=== PATIENT | male | born 1955 | race Caucasian/White ===

== ENCOUNTER 2023-04-01 11:08 | Outpatient (OUT) | payer MEDICARE, OTHER, SELFPAY ==
--- NOTE | 2023-04-01 11:26 | MR_ITS ---
The [address] [address] Patient Name: SHANTELL SPENCER MRN: [id number] date: 1955 Sex: M Assigned Patient Location: MRI Current Patient Location: MRI Accession/Order Number: [id number] Exam Date: 04/01/2023 11:30 Report Date: 04/02/2023 17:21 At the request of: KING DUNN Procedure: MR thoracic spine wo con EXAMINATION: MR thoracic spine wo con HISTORY: Chronic Right Sided Thoracic Back Pain M54.6 COMPARISON: No relevant comparison available. TECHNIQUE: Axial T2; Sagittal T1, T2, and Stir sequences. Images were performed without contrast. FINDINGS: CORD: Normal caliber, contour, and signal intensity. BONES: Mild edema within contiguous endplates of T7 and T8 vertebral bodies, greatest at the anterior corners. No loss of vertebral body height. DISCS: Moderate narrowing T7-8; no increased T2 signal within the vertebral body to suggest infection or inflammatory changes. PARASPINAL AREA: No visible mass. OTHER: Negative. IMPRESSION: 1. T7-8 moderate degenerative disc disease and Modic type I early degenerative endplate changes. No significant central canal or foramen stenosis. Electronically authenticated by: GM SAPP Date: 04/02/2023 17:21
== END 2023-04-01 11:09 ==
PROVIDERS: PCP Family Medicine; Visit Provider Family Medicine
DX: M54.6 Pain in thoracic spine (principal); G89.29 Other chronic pain; M51.34 Other intervertebral disc degeneration, thoracic region
CPT/HCPCS: 72146

== ENCOUNTER 2023-08-12 10:43 | Outpatient (OUT) | payer MEDICARE, OTHER, SELFPAY ==
[2023-08-12 12:05] LABS: Thyroid Stimulating Hormone 0.015 uIU/mL (0.358-3.740)
== END 2023-08-12 10:44 | disposition home or self-care (01) ==
LOC: LAB 10:45
PROVIDERS: PCP Family Medicine; Visit Provider Family Medicine
DX: E03.9 Hypothyroidism, unspecified (principal)
CPT/HCPCS: 36415; 84439; 84443

== ENCOUNTER 2023-08-30 08:40 | Outpatient (OUT) | payer MEDICARE, OTHER, SELFPAY ==
--- NOTE | 2023-08-30 07:45 | NM_ITS ---
Patient: SHANTELL SPENCER Exam Date: 08/30/2023 : 1955 Gender:M Ordering : DR Eddie Rabago . Admission #: [id number] Family : Order #: [id number] CLICK HERE TO VIEW EXAM RADIOLOGY REPORT PROCEDURE: NM ALEXA PERF SPECT REST STR COMPARISON: None. INDICATIONS: CHEST PAIN TECHNIQUE: Exam Description: Stress/Rest two day protocol gated SPECT Rest Imagin.1 mCi Tc-99m Cardiolite IV on 08/30/2023 Stress Imaging 30.8 mCi Tc-99m Cardiolite IV on 08/30/2023 Exercise Protocol: Andreas Heart Rate (bpm): Rest: 73 Max: 142 PMHR: 93 Blood Pressure: Rest: 122/84 Max: 170/96 Exercise Time: Minutes: Seconds: Stage Reached: Stage: Mets Symptoms: none Rest and peak stress ECG findings were abnormal and the exercise portion of the study was abnormal per attending physician Dr. Hankins . For more details please see separate cardiac stress test report. FINDINGS: QUALITY OF STUDY: Excellent. PERFUSION DEFECT: None. LOCATION: N/A SIZE: N/A. SEVERITY: N/A. TYPE: N/A. WALL MOTION: Normal. LV SIZE: Normal. 88 mL. TID / TCD: None; 0.8 LVEF: Normal. Calculated EF 66%. SUMMARY: Myocardial perfusion imaging study is NORMAL. CONCLUSION: 1. No reversible ischemia 2. Abnormal exercise test secondary to ECG findings Dictated by: Yusuf Murphy MD on 08/31/2023 at 12:04 Approved by: Yusuf Murphy MD on 08/31/2023 at 12:06
--- NOTE | 2023-08-30 12:11 | P.STRESS_ITS ---
Stress Test Stress Test Requesting physician: Eddie Rabago Procedure: Exercise Cardiolite stress test General Information: Reason for Stress Test: Chest pain Cardiac History and Risk Factors: Denies personal history. Father has afib, s/p CABG. Resting 12 - Lead Electrocardiogram: Rate & rhythm: Normal sinus at a rate of 73. [place]: Normal T-waves: Normal ST-segments:Normal Stress Test: Protocol: Andreas protocol was followed, with injection of Cardiolite once target heart rate was achieved. Exercise capacity: Good exercise capacity. Total exercise time of 7 minutes 33 seconds reached Andreas stage 3 at 14MPH, 15% grade, & 10.1 METs. Blood pressure: Initial: 122/84, Maximum: 170/96, Recovery: 118/76 Rate & rhythm: Patient remained in sinus rhythm during the exercise and recovery portions of the study.? The maximum heart rate was 142, which was 93% of the maximum predicted heart rate 152. ST-segments & T-waves: Throughout the exercise portion of the test, the patient developed ST-segment changes, most notably at the 7 minute francesca, with up to 1.5mm ST-segment depression in leads II, III, aVF, and V3, questionably V4. Patient response/symptoms: There were no symptoms similar to the chief complaint. Interpretation: This is an abnormal exercise stress test given ST-segment depression in the inferior and lateral leads. No reproducible chest pain. Cardiolite imaging interpretation will be reported separately. Clinical correlation required.?
== END 2023-08-30 08:41 | disposition home or self-care (01) ==
LOC: NM 08:40
PROVIDERS: PCP Family Medicine; Visit Provider Family Medicine
DX: R07.9 Chest pain, unspecified (principal)
CPT/HCPCS: 78452; 93017; A9500

== ENCOUNTER 2023-12-10 10:27 | Outpatient (REF) | payer MEDICARE, OTHER, SELFPAY ==
--- OUTSIDE RECORDS SUMMARY | 2023-12-10 10:50 | XMS_ITS | CCD ---
Author Name Unknown Address [id number] [place] [address] Organization [facility] Care Team Providers Care Belt Lacer Name Role Phone King Dunn MD Primary Care Provider [phone] Keshawn Banerjee Unavailable King Dunn MD Primary Care Provider [phone] MD King Dunn Primary Care Provider [phone] Brayan Davila Attending Provider Brayan Davila Attending Unavailable Brayan Davila Admitting Unavailable King Dunn Primary Care Unavailable Brayan Davila Attending Unavailable Brayan Davila Admitting Unavailable King Dunn Primary Care Unavailable Alda Warren Attending Unavailable Alda Warren Admitting Unavailable King Dunn Primary Care Unavailable King Dunn MD Primary Care Provider [phone] King Dunn MD Primary Care Provider [phone] DR KING MCGUIRE Consulting Unavailable HOY ., DR MALIK Attending Unavailable HOY ., DR MALIK Admitting Unavailable HOY ., DR MALIK Primary Care Unavailable SENAIT, DR GM Smith Consulting Unavailable NOAH MELO Consulting Unavailable SHAUN ., DR MALIK Consulting Unavailable SHAUN ., DR MALIK Admitting Unavailable HOY ., DR MALIK Attending Unavailable EDUARDOY ., DR MALIK Primary Care Unavailable EDUARDOY ., DR MALIK Consulting Unavailable EDUARDOY ., DR MALIK Admitting Unavailable SHAUN ., DR MALIK Attending Unavailable MANI, DR MAURA Reyna Consulting Unavailable HITESH, VENICE Admitting Unavailable HITESH, VENICE Consulting Unavailable HITESH, VENICE Attending Unavailable SHAUN ., DR MALIK Primary Care Unavailable HOY ., DR MALIK Consulting Unavailable HOY ., DR MALIK Admitting Unavailable HOY ., DR MALIK Primary Care Unavailable HOY ., DR MALIK Attending Unavailable WEST, DR MAURA Reyna Consulting Unavailable HOY ., DR MALIK Primary Care Unavailable HOY ., DR MALIK Consulting Unavailable HOY ., DR MALIK Admitting Unavailable HOY ., DR MALIK Attending Unavailable HOY ., DR MALIK Consulting Unavailable HOY ., DR MALIK Admitting Unavailable HOY ., DR MALIK Attending Unavailable HOY ., DR MALIK Primary Care Unavailable HOY ., DR MALIK Consulting Unavailable HOY ., DR MALIK Admitting Unavailable HOY ., DR MALIK Attending Unavailable HOY ., DR MALIK Primary Care Unavailable WEST, DR MAURA Reyna Consulting Unavailable HOY ., DR MALIK Consulting Unavailable HOY ., DR MALIK Admitting Unavailable HOY ., DR MALIK Attending Unavailable HOY ., DR MALIK Primary Care Unavailable WEST, DR MAURA Reyna Consulting Unavailable MISC, DR MAST Consulting Unavailable MISC, DR MAST Attending Unavailable HOY ., DR MALIK Primary Care Unavailable MISC, DR MAST Admitting Unavailable HOY ., DR MALIK Consulting Unavailable HOY ., DR MALIK Attending Unavailable HOY ., DR MALIK Admitting Unavailable HOY ., DR MALIK Primary Care Unavailable HOY ., DR MALIK Consulting Unavailable HOY ., DR MALIK Attending Unavailable HOY ., DR MALIK Admitting Unavailable HOY ., DR MALIK Primary Care Unavailable MISC, DR MAST Consulting Unavailable MISC, DR MAST Attending Unavailable HOY ., DR MALIK Primary Care Unavailable MISC, DR MAST Admitting Unavailable LORA TOTH Attending Unavailable ELTAJOSE LUIS, LORA Attending Unavailable BRYANNA MARC Attending Unavailable BRYANNA MARC Attending Unavailable AUDELIA SIERRA Attending Unavailable HOY, KING M Primary Care Unavailable HOY, KING M Primary Care Unavailable BRAYAN DAVILA Referring Unavailable HOY, KING M Primary Care Unavailable BRAYAN DAVILA Attending Unavailable HOY, KING M Primary Care Unavailable BRAYAN DAVILA Referring Unavailable HOY, KING M Primary Care Unavailable BRAYAN DAVILA Referring Unavailable JOSE LUIS MORRISON Attending Unavailable HOY, KING M Primary Care Unavailable HOY, KING M Primary Care Unavailable BRAYAN DAVILA Referring Unavailable HOY, KING M Primary Care Unavailable BRAYAN DAVILA Referring Unavailable EDUARDOY, KING M Primary Care Unavailable BRAYAN DAVILA Referring Unavailable HOY, KING M Primary Care Unavailable HOY, KING M Primary Care Unavailable HOY, KING M Primary Care Unavailable BRAYAN DAVILA Referring Unavailable JOSE LUIS MORRISON Attending Unavailable SHAUN, KING M Primary Care Unavailable JOSE LUIS MORRISON Referring Unavailable JOSE LUIS MORRISON Attending Unavailable EDUARDOY, KING M Primary Care Unavailable HOY, KING M Primary Care Unavailable BRAYAN DAVILA Referring Unavailable AYO STEELE Attending Unavailable VENICE DIA Attending Unavailable PEDRO DEL CASTILLO Referring Unavailable PEDRO DEL CASTILLO Attending Unavailable AYO STEELE Attending Unavailable HIREN LUDWIG Attending Unavailable PEDRO DEL CASTILLO Referring Unavailable Allergies Allergy Classification Reported Allergen(s) Allergy Type Date of Onset Reaction(s) Facility (20 sources) Ciprofloxacin; Translations: [CIPROFLOXACIN] Drug Allergy 7 Rash [facility] (20 sources) Sulfonamides (Antibiotic); Translations: [SULFA (SULFONAMIDE ANTIBIOTICS)] Drug Allergy 3 Unknown [facility] (1 source) Sulfonamides (Antibiotic) Propensity to adverse reactions rash [facility] Other (1 source) Ciprofloxacin Drug Allergy 8 [facility] (1 source) Sulfonamides (Antibiotic) Drug allergy (disorder) 8 [facility] (1 source) Ciprofloxacin Drug Allergy 4 [facility] (1 source) Sulfonamides (Antibiotic) Drug allergy (disorder) 4 [facility] Medications Current Medications Medication Drug Class(es) Dates Sig (Normalized) Sig (Original) azaTHIOprine 50 mg oral tablet (7 sources) Purine Antimetabolite Start: 04-22-2021 End: 04-09-2022 azaTHIOprine (IMURAN) 50 mg tablet Take 150 mg by mouth. 0 05/19/2021 04/09/2022 Discontinued Comment on above: Take 150 mg by mouth . esomeprazole 20 mg delayed release oral capsule (20 sources) Proton Pump Inhibitor Start: 11-22-2017 take 1 capsule by mouth once daily Esomeprazole Magnesium (Nexium) 20 mg Capsule,Delayed Release(Dr/Ec) Active 20 MG PO Daily November 22, 2017 1:00am Comment on above: Take 20 mg by mouth. mesalamine 66.7 mg/ml enema (14 sources) Aminosalicylate Start: 01-10-2022 End: 04-09-2022 take 4 g rectal route every twenty-four hours as needed mesalamine (ROWASA) 4 gram/60 mL enema 60 mL by RECTAL route at bedtime as needed. 28 Each 2 01/10/2022 04/09/2022 Discontinued Start: 09-21-2021 End: 04-09-2022 Mesalamine (LIALDA) 1.2 gram EC tablet Start: 11-08-2018 take 4 tablets by mo uth every twenty-four hours Mesalamine 1.2 GM 4 tablets Orally Once a day for 90 days Nov, Active Start: 11-22-2017 Mesalamine (As acol Hd) 800 tablet,delayed release (DR/EC) Active 800 MG PO Twice daily November 22, 2017 1:00am Comment on above: 60 mL by RECTAL rout e at bedtime as needed. 24 hr metoprolol succinate 25 mg extended release oral tablet (20 sources) beta-Adrenergic Khadar Start: 09-05-2021 End: 02-05-2023 take 1 tablet by mouth every twenty-four hours metoprolol succinate ER (TOPROL XL) 25 mg 24 hr tablet Take 25 mg by mouth. 0 09/05/2021 02/05/2023 Discontinued (Course of therapy completed) Comment on above: Take 25 mg by mouth. predniSONE 10 mg oral tablet (5 sources) Start: 01-30-2022 End: 04-09-2022 take 4 tablets by mouth once daily, then take 1 tablet by mouth every week predniSONE (DELTASONE) 10 mg tablet Take 4 tablets (40 mg) po every day for 1 week, then taper by 1 tablet (10 mg) once per week 70 tablet 0 01/30/2022 04/09/2022 Discontinued Comment on above: Take 4 tablets (40 m g) po every day for 1 week, then taper by 1 tablet (10 mg) once per week Completed/Discontinued Medications Medication Drug Class(es) Dates Sig (Normalized) Sig (Original) calcium carbonate 1250 mg oral tablet (12 sources) Start: 02-05-2023 take 1 tablet by mouth once daily calcium carbonate (OS-MANDY 500) 500 mg calcium (1,250 mg) tablet Take 1 tablet by mouth once daily. 0 02/05/2023 Active Comment on above: Take 1 tablet by ferny th once daily. cetirizine hydrochloride 5 mg oral tablet (20 sources) Histamine-1 Receptor Antagonist take 1 tablet by mouth every twenty-four hours as needed cetirizine (ZYRTEC) 5 mg tablet Take 5 mg by mouth at bedtime as needed. 0 Active Cetirizine HCl A ctive Comment on above: Take 5 mg by mouth a t bedtime as needed. fluocinonide 0.5 mg/ml topical cream (12 sources) Corticosteroid Start: 01-29-2023 fluocinonide (LIDEX) 0.05 % cream Apply 1 application to affected area twice daily. No longer than 5 days in a row per week 60 g 1 01/29/2023 Active Comment on above: Apply 1 application to affected area twice daily. No longer than 5 days in a row per week fluticasone propionate 0.05 mg/actuat metered dose nasal spray (20 sources) Corticosteroid fluticasone (AG NASE) 50 mcg/actuation nasal spray Use 1 Troy in the nose at bedtime as needed. 0 Active Flonase Active Comment on above: Use 1 Troy in the n ose at bedtime as needed. levothyroxine sodium 0.15 mg oral tablet (20 sources) l-Thyroxine Start: 09-04-2016 levothyroxine (SYNTHROID) 150 mcg tablet Take 150 mcg by mouth. 0 09/04/2016 Active Synthroid Active Comment on above: Take 150 mcg by mout h. nitroglycerin 0.4 mg sublingual tablet (20 sources) Nitrate Vasodilator Start: 08-28-20 take 1 tablet under the tongue every twenty-four hours as needed nitroglycerin sublingual (NITROQUICK) 0.4 mg SL tablet Dissolve 0.4 mg under the tongue at bedtime as needed. 0 08/28/2021 Active Comment on above: Dissolve 0.4 mg unde r the tongue at bedtime as needed. verapamil hydrochloride 180 mg extended release oral tablet (20 sources) Calcium Channel Khadar Start: 10-30-20 verapamil SR (CALAN SR, ISOPTIN SR) 180 mg CR tablet Take 180 mg by mouth. 0 10/30/2020 Active Verapamil HCl Ac tive Comment on above: Take 180 mg by mouth . Problems Active Problems Problem Classification Problem Date Documented Date Episodic/Chronic Abdominal pain (4 sources) Left upper quadrant pain; Translations: [Left upper quadrant pain] Onset: 07-27-2023 Episodic Allergic reactions (4 sources) Other specified dermatitis; Translations: [OTHER SPECIFIED DERMATITIS] Onset: 12-22-2022 Episodic Coronary atherosclerosis and other heart disease (4 sources) Atherosclerotic heart disease of [place] coronary artery without angina pectoris; Translations: [ASHD CAHUILLA CA W/O ANGINA PECTORIS] Onset: 07-22-2022 Chronic Disorders of lipid metabolism (5 sources) Hyperlipidemia, unspecified; Translations: [Mixed hyperlipidemia] Onset: 07-30-2022 Chronic Nutritional deficiencies (4 sources) Vitamin D deficiency; Translations: [Vitamin D deficiency, unspecified] Onset: 08-09-2023 Chronic Osteoarthritis (1 source) Unilateral primary osteoarthritis, left hip; Translations: [UNI PRIM OSTEOARTHRITIS LT HIP] Onset: 09-23-2022 Chronic Other aftercare (1 source) Long-term current use of systemic steroid; Translations: [MCC (current) use of systemic steroids] Episodic Other aftercare (4 sources) Patient encounter status; Translations: [Other exterminator (current) drug therapy] Episodic Other aftercare (1 source) Other exterminator (current) drug therapy; Translations: [OTH HAIR WORKER CURRENT DRUG THERAPY] Onset: 12-28-2022 Episodic Other and unspecified benign neoplasm (1 source) Senile angioma; Translations: [Hemangioma of skin and subcutaneous tissue] 07-06-2023 Episodic Other bone disease and musculoskeletal deformities (2 sources) Osteopenia; Translations: [Other specified disorders of bone density and structure, unspecified site] 08-09-2023 Episodic Other connective tissue disease (4 sources) Pain in left lower leg; Translations: [PAIN IN LEFT LOWER LEG] Onset: 02-25-2023 Episodic Other non-epithelial cancer of skin (1 source) History of malignant basal cell neoplasm of skin; Translations: [Personal history of other malignant neoplasm of skin] 07-06-2023 Episodic Other skin disorders (1 source) Actinic keratosis; Translations: [Actinic keratosis] 07-06-2023 Episodic Other skin disorders (1 source) Seborrheic keratosis; Translations: [Other seborrheic keratosis] 07-06-2023 Episodic Regional enteritis and ulcerative colitis (20 sources) Ulcerative colitis; Translations: [Ulcerative colitis, unspecified, without complications] Onset: 2021 Resolved: 2021 01-26-2022 Chronic Residual codes; unclassified (4 sources) Obstructive sleep apnea (adult) (pediatric); Translations: [OBSTRUCTIVE SLEEP APNEA] Onset: 09-09-2022 Chronic Spondylosis; intervertebral disc disorders; other back problems (1 source) Radiculopathy, lumbar region; Translations: [RADICULOPATHY LUMBAR REGION] Onset: 03-01-2023 Episodic Thyroid disorders (4 sources) Hypothyroidism, unspecified; Translations: [HYPOTHYROIDISM UNSPECIFIED] Onset: 11-17-2022 Chronic Unclassified (1 source) K51.90 - Ulcerative colitis, unspecified, without complications; Translations: [K51.90 - Ulcerative colitis, unspecified, without complications] Onset: 04-24-2022 Unclassified (1 source) L30.8 - Other specified dermatitis; Translations: [L30.8 - Other specified dermatitis] Onset: 02-04-2022 Unclassified (3 sources) CONTACT W/AND (SUSP) EXPOS COVID-19; Translations: [CONTACT W/AND (SUSP) EXPOS COVID-19] Onset: 11-05-2022 Unclassified (1 source) COUGH, UNSPECIFIED; Translations: [COUGH, UNSPECIFIED] Onset: 11-05-2022 Viral infection (1 source) COVID-19; Translations: [COVID-19] Onset: 05-21-2022 Past or Other Problems Problem Classification Problem Date Documented Da te Episodic/Chronic Gastrointestinal hemorrhage (1 source) Rectal hemorrhage; Translations: [Hemorrhage of anus and rectum] Episodic Noninfectious gastroenteritis (1 source) Non-specific colitis; Translations: [Noninfective gastroenteritis and colitis, unspecified] Episodic Other circulatory disease (1 source) Other specified symptoms and signs involving the circulatory and respiratory systems; Translations: [OTH SPEC SX SIGNS INVLV CIRC RS] Onset: 05-21-2022 Episodic Other gastrointestinal disorders (1 source) Diarrhea; Translations: [Diarrhea, unspecified] Episodic Other gastrointestinal disorders (1 source) Abdominal bloating; Translations: [Abdominal distension (gaseous)] Episodic Other non-traumatic joint disorders (4 sources) Pain in left hip; Translations: [PAIN IN LEFT HIP] Onset: 09-18-2022 Episodic Other screening for suspected conditions (not mental disorders or infectious disease) (1 source) Encounter for screening for malignant neoplasm of prostate; Translations: [ENC SCREEN MALIG NEOPLASM PROSTATE] Onset: 11-23-2022 Episodic Other upper respiratory disease (1 source) Nasal congestion; Translations: [NASAL CONGESTION] Onset: 11-05-2022 Episodic Residual codes; unclassified (2 sources) Edema; Translations: [Edema] Onset: 04-13-2023 Episodic Residual codes; unclassified (2 sources) Pain; Translations: [Pain] Onset: 04-13-2023 Episodic Unclassified (1 source) CONTACT W/AND (SUSP) EXPOS COVID-19; Translations: [CONTACT W/AND (SUSP) EXPOS COVID-19] Onset: 10-30-2022 Varicose veins of lower extremity (4 sources) Varicose veins of bilateral lower extremities with pain; Translations: [VARICOSE VNS PREM LOW EXTREM W/PAIN] Onset: 09-16-2022 Episodic Results Test Name Value Interpretation Reference Range Facility CNCOon 11-21-2023 CNCO Letter Text Normal [facility] Calprotectin (Stl) [Mass/Mas s]on 08-10-2023 CALPROTECTIN, FECAL QUANTITATIVE 85.6 ug/g High <50 [facility] Comment on above: Order Comment: Speci men Type: STOOL SPECIMENOrdering Facility: [facility] Address: [address] [place] [address] Performed By: #### 3 8445-3 ####[facility] LABCLIA [id number] [facility] [id number] [address] [place] 25(OH)D3 [facility] 25-hydroxyvitamin D3 [Mass/Vol] 26.7 ng/mL Low 31.0-80.0 [facility] Comment on above: Order Comment: Speci men Type: BLOOD SPECIMENOrdering Facility: [facility] Address: [address], [place] [address] Result Comment: Clas sification of 25 [place] Vitamin D status: Deficiency/Insufficiency: < or = 30 ng/ml. Sufficiency/Optimal Levels: 31-80 ng/mL Toxicity: > 100 ng/mL. Test performed by chemiluminescent immunoassay. Performed By: #### 1 989-3 ####[facility] LABIA [id number] [place] [address] [place] CBC panel Auto (Bld)on 08-09 Erythrocyte distribution width (RBC) [Ratio] 13.2 % Normal 11.5-15.0 [facility] Comment on above: Order Comment: Speci men Type: BLOOD SPECIMENOrdering Facility: [facility] Address: [address] [place] [address] Performed By: #### 5 8410-2 ####[facility] [id number] [address] [place] Hematocrit (Bld) [Volume fraction] 46.7 % Normal 39.0-51.0 [facility] Comment on above: Order Comment: Speci men Type: BLOOD SPECIMENOrdering Facility: [facility] Address: [address] [place] [address] Performed By: #### 5 8410-2 ####[facility] [id number] [address] [place] Hemoglobin (Bld) [Mass/Vol] 15.3 g/dL Normal 13.0-17.0 [facility] Comment on above: Order Comment: Speci men Type: BLOOD SPECIMENOrdering Facility: [facility] Address: [address] [place] [address] Performed By: #### 5 8410-2 ####[facility] LABIA [id number] [place] [address] [place] MCH (RBC) [Entitic mass] 29.1 pg Normal 26.0-34.0 [facility] Comment on above: Order Comment: Speci men Type: BLOOD SPECIMENOrdering Facility: [facility] Address: [address] [place] [address] Performed By: #### 5 8410-2 ####[facility] LABCLIA [id number] [place] [address] [place] MCHC (RBC) [Mass/Vol] 32.8 g/dL Normal 30.5-36.0 [facility] Comment on above: Order Comment: Speci men Type: BLOOD SPECIMENOrdering Facility: [facility] Address: [address] [place] [address] Performed By: #### 5 8410-2 ####[facility] LABIA [id number] [place] [address] [place] MCV (RBC) [Entitic vol] 89.0 fL Normal 80.0-100.0 [facility] Comment on above: Order Comment: Speci men Type: BLOOD SPECIMENOrdering Facility: [facility] Address: [address] [place] [address] Performed By: #### 5 8410-2 ####[facility] LABIA [id number] [place] [address] [place] Nucleated RBC (Bld) [#/Vol] 10*3/uL Normal <0.01 [facility] Comment on above: Order Comment: Speci men Type: BLOOD SPECIMENOrdering Facility: [facility] Address: [address] [place] [address] Performed By: #### 5 8410-2 ####[facility] LABIA [id number] [place] [address] [place] Platelet mean volume (Bld) [Entitic vol] 9.7 fL Normal 9.0-12.7 [facility] Comment on above: Order Comment: Speci men Type: BLOOD SPECIMENOrdering Facility: [facility] Address: [address] [place] [address] Performed By: #### 5 8410-2 ####[facility] LABCL[facility] [id number] [place] [address] [place] Platelets (Bld) [#/Vol] 247 10*3/uL Normal 150-400 [facility] Comment on above: Order Comment: Speci men Type: BLOOD SPECIMENOrdering Facility: [facility] Address: [address] [place] [address] Performed By: #### 5 8410-2 ####[facility] [id number] [place] [address] [place] RBC (Bld) [#/Vol] 5.25 10*6/uL Normal 4.20-6.00 [facility] Comment on above: Order Comment: Speci men Type: BLOOD SPECIMENOrdering Facility: [facility] Address: [address] [place] [address] Performed By: #### 5 8410-2 ####[facility] [id number] [place] [address] [place] WBC (Bld) [#/Vol] 6.89 10*3/uL Normal 3.70-11.00 [facility] Comment on above: Order Comment: Speci men Type: BLOOD SPECIMENOrdering Facility: [facility] Address: [address] [place] [address] Performed By: #### 5 8410-2 ####[facility] [id number] [place] [address] [place] Erythrocyte distribution width (RBC) [Ratio] 13.2 % 11.5 - 15.0 % [facility] Hematocrit (Bld) [Volume fraction] 46.7 % 39.0 - 51.0 % [facility] Hemoglobin (Bld) [Mass/Vol] 15.3 g/dL 13.0 - 17.0 g/dL [facility] MCH (RBC) [Entitic mass] 29.1 pg 26.0 - 34.0 pg [facility] MCHC (RBC) [Mass/Vol] 32.8 g/dL 30.5 - 36.0 g/dL [facility] MCV (RBC) [Entitic vol] 89.0 fL 80.0 - 100.0 fL [facility] Nucleated RBC (Bld) [#/Vol] <0.01 k/uL [facility] Platelet mean volume (Bld) [Entitic vol] 9.7 fL 9.0 - 12.7 fL [facility] Platelets (Bld) [#/Vol] 247 10*3/uL 150 - 400 k/uL [facility] RBC (Bld) [#/Vol] 5.25 10*6/uL 4.20 - 6.0 0 m/uL [facility] WBC (Bld) [#/Vol] 6.89 10*3/uL 3.70 - 11. 00 k/uL [facility] CNOVon 08-09-2023 CNOV Office Visit (GASTMN ) STEPHEN SPENCER ([id number]) 1955 M Date Time Provider Department 08/09/23 9:15 AM BRAYAN DAVILAWI During your visit today, we recorded the following information about you: Temperature Pulse Blood pressure Weight 97.4 degrees 75/minute 106/61 79 kg Height 1.778 m Brayan Davila MD 08/09/2023 2:54 PM Signed Follow Up Visit/ IBD BP 106/61 (BP Site: Left Arm, BP Position: Sitting, BP Cuff Size: Regular Adult) Pulse 75 Temp 36.3 ?C (97.4 ?F) (Temporal) Ht 177.8 cm (5' 10 ) Wt 79 kg (174 lb 3.2 oz) SpO2 99% BMI 25.00 kg/m? Medications: Current Outpatient Medications Medication Sig calcium carbonate (OS-MANDY 500) 500 mg calcium (1,250 mg) tablet Take 1 tablet by mouth once daily. fluocinonide (LIDEX) 0.05 % cream Apply 1 application to affected area twice daily. No longer than 5 days in a row per week fluticasone (FLONASE) 50 mcg/actuation nasal spray Use 1 Troy in the nose at bedtime as needed. levothyroxine (SYNTHROID) 150 mcg tablet Take 150 mcg by mouth. esomeprazole (NEXIUM) 20 mg capsule Take 20 mg by mouth. cetirizine (ZYRTEC) 5 mg tablet Take 5 mg by mouth at bedtime as needed. verapamil SR (CALAN SR, ISOPTIN SR) 180 mg CR tablet Take 180 mg by mouth. nitroglycerin sublingual (NITROQUICK) 0.4 mg SL tablet Dissolve 0.4 mg under the tongue at bedtime as needed. No current facility-administered medications for this visit. Subjective: 68 year old male with ulcerative colitis here for follow-up. Changes and test results since last visit: He was started on Vedolizumab early 2021 q 8 weeks. Has not missed doses. Reports feeling well. 1 month ago had episode of diarrhea that he relates to poor diet on a vacation. He had abdominal pain with this event. It resolved. Then he was prescribed amoxicillin for ear infection with recurrence of diarrhea. At this time bowel movements have returned baseline of 1 BM/day. Current symptoms are: 1 soft bowel movement per day. No rectal urgency. No rectal bleeding. No abdominal pain. Reports some soreness. Appetite is good. Weight is 79 kg, which is stable. Reports R elbow pain. He later reported right index knuckle pain, knee and back pain. Had T-spine films for back pain; also notes right toe pain that he thinks may be related to gout. Stiffness in back in the morning. Worsening joint pain with use. No NSAIDs. No tobacco. Social/occasional etoh intake. Vaccines- He gets flu vaccine annually (2021, will get this year) and had Tdap (within 10 years), Covid + booster (last booster 2021), Prevnar 13 (2021) Pneumovax (2021), Shingrix (2021). Has had negative serologies for HBV (12/2021); will check HAV serology with next blood draw and then recommend vaccines. Has hx of basal cell CA. Last saw derm 07/2023. Bones- DEXA 05/2022 showed osteopenia; had low vit D level in 04/2022- takes OTC calcium and vitamin Recent Endoscopic/IBD evaluation: Last colonoscopy on Vedolizumab 11/2022 Impression: - The entire examined colon is normal. - The examined portion of the ileum was normal. - Non-bleeding internal hemorrhoids. - No specimens collected. Fecal protectin 12/2021 Objective: Physical Examination General Appearance: alert, oriented x 3, pleasant and in no acute distress Heart:regular rate and rhythm, no murmurs or gallops Abdomen: Not distended. Normal bowel sounds. Soft and non-tender. No masses or organomegaly. Small scar from cholecystectomy. Skin: no rashes or lesions. MSK: mildly enlarged right index MCP Review of test results: Labs: WBC (k/uL) Date Value 02/02/2023 5.78 Hematocrit (%) Date Value 02/02/2023 46.1 MCV (fL) Date Value 02/02/2023 90.9 Platelet Count (k/uL) Date Value 02/02/2023 287 Albumin (g/dL) Date Value 02/02/2023 4.3 Alkaline Phosphatase (U/L) Date Value 02/02/2023 123 (H) AST (U/L) Date Value 02/02/2023 32 ALT (U/L) Date Value 02/02/2023 30 Bilirubin, Total (mg/dL) Date Value 02/02/2023 0.4 Bilirubin, Conjugated (mg/dL) Date Value 02/02/2023 <0.2 ASSESSMENT 68 year old male with UC since ~2014- seems mostly distal in extent. Due to increased symptoms and repeated course of steroids, we started Entyvio in 01/2022. F/U colonoscopy in 11/2022 showed normal colon and TI. Disease controlled on Entyvio. Patient reports occasional bouts of diarrhea over past few months related to eating out on vacation and antibiotics for ear infection. Bowel movements have now returned to baseline of 1 soft BM/daily. Weight stable. Reports arthritis in hands and back. 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 Has (more content not included)... Normal [facility] HEPATITIS A ANTIBODY, IGGon 08-09-2023 HAV IgG Ql (S) Negative Normal [facility] Comment on above: Order Comment: Speci men Type: BLOOD SPECIMENOrdering Facility: [facility] Address: [address] [place] [address] Result Comment: No s erological evidence of immunity to Hepatitis A Virus. Performed By: #### A HAVG ####[facility] [id number] [place] [address] [place] Hepatic function 2000 panelo n 08-09-2023 Albumin [Mass/Vol] 4.5 g/dL 3.9 - 4.9 g/dL [facility] ALP [Catalytic activity/Vol] 116 U/L High 38 - 113 U/L [facility] ALT [Catalytic activity/Vol] 19 U/L 10 - 54 U/L [facility] AST [Catalytic activity/Vol] 21 U/L 14 - 40 U/L [facility] Bilirubin [Mass/Vol] 0.3 mg/dL 0.2 - 1 .3 mg/dL [facility] Bilirubin.conjugated [Mass/Vol] <0.2 mg/dL [facility] Protein [Mass/Vol] 6.9 g/dL 6.3 - 8.0 g/dL [facility] Albumin [Mass/Vol] 4.5 g/dL Normal 3.9-4.9 [facility] Comment on above: Order Comment: Dci men Type: BLOOD SPECIMENOrdering Facility: [facility] Address: [address] [place] [address] Performed By: #### 2 4325-3 ####[facility] [id number] [place] [address] [place] ALP [Catalytic activity/Vol] 116 U/L High 38-113 [facility] Comment on above: Order Comment: Speci men Type: BLOOD SPECIMENOrdering Facility: [facility] Address: [address] [place] [address] Performed By: #### 2 4325-3 ####[facility] [id number] [place] [address] [place] ALT [Catalytic activity/Vol] 19 U/L Normal 10-54 [facility] Comment on above: Order Comment: Speci men Type: BLOOD SPECIMENOrdering Facility: [facility] Address: [address] [place] [address] Performed By: #### 2 4325-3 ####[facility] [id number] [place] [address] [place] AST [Catalytic activity/Vol] 21 U/L Normal 14-40 [facility] Comment on above: Order Comment: Speci men Type: BLOOD SPECIMENOrdering Facility: [facility] Address: [address] [place] [address] Performed By: #### 2 4325-3 ####[facility] [id number] [place] [address] [place] Bilirubin [Mass/Vol] 0.3 mg/dL Normal 0.2-1.3 [facility] Comment on above: Order Comment: Speci men Type: BLOOD SPECIMENOrdering Facility: [facility] Address: [address] [place] [address] Performed By: #### 2 4325-3 ####[facility] [id number] [place] [address] [place] Bilirubin.conjugated [Mass/Vol] mg/dL Normal <0.2 [facility] Comment on above: Order Comment: Speci men Type: BLOOD SPECIMENOrdering Facility: [facility] Address: [address] [place] [address] Performed By: #### 2 4325-3 ####[facility] [id number] [place] [address] [place] Protein [Mass/Vol] 6.9 g/dL Normal 6.3-8.0 [facility] Comment on above: Order Comment: Speci men Type: BLOOD SPECIMENOrdering Facility: [facility] Address: [address] [place] [address] Performed By: #### 2 4325-3 ####[facility] [id number] [facility] [id number] [address] [place] Laboratory - Chemistry and C hemistry - challengeon 08-09-2023 25-hydroxyvitamin D3 [Mass/Vol] 26.7 ng/mL Low 31.0 - 80.0 ng/mL [facility] Laboratory - Microbiology an d Antimicrobial susceptibilityon 08-09-2023 HAV IgG Ql (S) Negative [facility] Office Visiton 07-27-2023 Follow-up visit [id number] Stephen Spencer 1955 M Date Provider Department Center 07/27/2023 271-LORA TOTH [facility] Family History Problem Relation Age of Onset Coronary artery disease Mother Coronary artery disease Father Stroke Father Family Status - Relation Status Age at Mother Father Level of Service:11210 ME OFFICE/OUTPATIENT ESTABLISHED LOW MDM 20-29 MIN Normal [facility] CNOVon 07-06-2023 CNOV Office Visit (DERMCC ) STEPHEN SPENCER ([id number]) 1955 M Date Time Provider Department 07/06/23 2:45 PM JOSE LUIS MORRISON DERM During your visit today, we recorded the following information about you: Jose Luis Morrison MD 07/06/2023 2:53 PM Signed 67 year old male here for skin check Scaly patch Location Lt side of nose Present x 1 year Itches: No Bleeds: No Has tried Cryotherapy 3-4 months ago Patient believes it wasn't frozen enough Is dramatically better but is not quite completely gone Personal history of skin cancer: BCC on back Derm Family history: no Denies fevers, chills Denies wt loss Denies new or changing moles PAST MEDICAL HISTORY Diagnosis Date Cancer (HCC) Thyroid disease Social History Tobacco Use Smoking status: Never Smokeless tobacco: Never Substance Use Topics Alcohol use: Yes Comment: occassional Drug use: Not Currently Allergies: ALLERGIES Allergen Reactions Sulfa (Sulfonamide * Unknown Other reaction(s): Intolerance-unknown Ciprofloxacin Rash Other reaction(s): Intolerance-unknown Current Outpatient Medications on File Prior to Visit Medication Sig calcium carbonate (OS-MANDY 500) 500 mg calcium (1,250 mg) tablet Take 1 tablet by mouth once daily. fluocinonide (LIDEX) 0.05 % cream Apply 1 application to affected area twice daily. No longer than 5 days in a row per week fluticasone (FLONASE) 50 mcg/actuation nasal spray Use 1 Troy in the nose at bedtime as needed. levothyroxine (SYNTHROID) 150 mcg tablet Take 150 mcg by mouth. esomeprazole (NEXIUM) 20 mg capsule Take 20 mg by mouth. cetirizine (ZYRTEC) 5 mg tablet Take 5 mg by mouth at bedtime as needed. verapamil SR (CALAN SR, ISOPTIN SR) 180 mg CR tablet Take 180 mg by mouth. nitroglycerin sublingual (NITROQUICK) 0.4 mg SL tablet Dissolve 0.4 mg under the tongue at bedtime as needed. No current facility-administered medications on file prior to visit. PE: Comprehensive exam. With Dusty General: no acute distress, diffuse photodamage Mood: alert and oriented X's 3 Hair/Scalp: normal Face: Lt nasal sidewall red scaly macule (AK) Eyes/eyelids: normal Lips/Oral mucosa: normal Neck: normal Chest: normal Abdomen: normal Back: red smooth topped papules --Left upper back with linear scar R/L upper extremity: Rt forearm stuck on brown plaque R/L lower extremity: normal Digits/Nails: normal A/P: Skin cancer screening History of Basal Cell Carcinoma Sun protection and avoidance discussed with patient SPF 30 and higher recommended Actinic Keratosis Diagnosis reviewed with patient Cryosurgery of non-malignant lesion(s) Risk, benefits, alternatives and personnel required for cryosurgery reviewed with patient. Patient verbalizes understanding and wishes to proceed. Cryosurgery performed with Liquid Nitrogen viz cryostat spray gun to 1 lesions treated. Wound care instructions provided, pt verbalizes understanding. Post cryo care discussed. Warned possible blister, hypopigmenation, scar at site Sun protection discussed If lesion does not completely resolve, pt is advised to call for recheck. Seborrheic keratosis Educated and reassured Boyer Angiomas Educated and Reassured RTC 1 year Pt voiced understanding Medical Decision Making: Medical Decision Making Level: 1 - N/A The documentation for this note was completed by Vamsi Iniguez MA acting as scribe for Jose Luis Morrison MD. July 06, 2023 2:27 PM. I agree with the Chief Complaint, ROS, and Past Histories independently gathered by the clinical child support case officer and the remaining scribed note accurately describes my personal service to the patient. 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 - fluocinonide (LIDEX) 0.05 % cream Apply 1 application to affected area twice daily. No longer than 5 days in a row per week - fluticasone (FLONASE) 50 mcg/actuation nasal spray Use 1 Troy in the nose at bedtime as needed. - levothyroxine (SYNTHROID) 150 mcg tablet Take 150 mcg by mouth. - esomeprazole (NEXIUM) 20 mg capsule Take 20 mg by mouth. - cetirizine (ZYRTEC) 5 mg tablet Take 5 mg by mouth at bedtime as needed. - verapamil SR (MANDY (more content not included)... Normal [facility] Follow-Upon 05-11-2023 Follow-Up [id number] Stephen Spencer 1955 M Date Provider Department Center 05/11/2023 438-SKIEBRYANNA MP Family History Problem Relation Age of Onset Coronary artery disease Mother Coronary artery disease Father Stroke Father Family Status - Relation Status Age at Mother Father Level of Service:95664 ME OFFICE/OUTPATIENT ESTABLISHED LOW MDM 20-29 MIN (25) Reason for Visit and Comments: Pain [136] [facility] Office Visiton 04-13-2023 Follow-up visit [id number] Stephen Spencer 1955 M Date Provider Department Center 04/13/2023 BRYANNA YO MP Family History Problem Relation Age of Onset Coronary artery disease Mother Coronary artery disease Father Stroke Father Family Status - Relation Status Age at Mother Father Level of Service:52391 ME OFFICE/OUTPT VISIT,PROCEDURE ONLY Reason for Visit and Comments: Edema [[id number]] Pain [136] [facility] CNPNon 03-31-2023 CNPN Telephone (RHEULI) STEPHEN SPENCER ([id number]) 1955 M Date Time Provider Department 03/31/23 [facility] PROVIDER BENIGNO During your visit today, we recorded the following information about you: Charity Rodriguez RN 03/31/2023 10:16 AM Signed Spoke to patient and confirmed infusion for tomorrow. Denies any recent infection. Allergies As of Date: 03/31/2023 Noted Allergy Reaction SULFA (SULFONAMIDE ANTIBIOTICS) 12/08/2016 16 - Unknown Comments: Other reaction(s): Intolerance-unknown CIPROFLOXACIN 12/08/2016 2 - Rash Comments: Other reaction(s): Intolerance-unknown Date Reviewed: 02/05/2023 Reviewed by: Kate Bell Ma - Fully Assessed Prescriptions as of 03/31/2023 - calcium carbonate (OS-MANDY 500) 500 mg calcium (1,250 mg) tablet Take 1 tablet by mouth once daily. - fluocinonide (LIDEX) 0.05 % cream Apply 1 application to affected area twice daily. No longer than 5 days in a row per week - fluticasone (FLONASE) 50 mcg/actuation nasal spray Use 1 Troy in the nose at bedtime as needed. - levothyroxine (SYNTHROID) 150 mcg tablet Take 150 mcg by mouth. - esomeprazole (NEXIUM) 20 mg capsule Take 20 mg by mouth. - cetirizine (ZYRTEC) 5 mg tablet Take 5 mg by mouth at bedtime as needed. - verapamil SR (CALAN SR, ISOPTIN SR) 180 mg CR tablet Take 180 mg by mouth. - nitroglycerin sublingual (NITROQUICK) 0.4 mg SL tablet Dissolve 0.4 mg under the tongue at bedtime as needed. Problem List As Of Date 03/31/2023 Noted Resolved Ulcerative colitis (HCC) [K51.90] 01/26/2022 Encounter Status:Closed by CHARITY RODRIGUEZ on 03/31/23 Normal [facility] MRI LSCLOSPLINT WO CONon 02-26-20 MRI [facility] WO CON EXAMINATION: MRI LSCLOSPLINT WO CON HISTORY: Pain of left lower leg ; chronic lumbar and left leg reticular adenopathy COMPARISON: No relevant comparison available. TECHNIQUE: A variety of imaging planes and parameters were utilized for visualization of suspected pathology. FINDINGS: For the purposes of numbering, sagittal T2 image # 8 extends from the T11-12 vertebral body superiorly to the S2-3 level inferiorly. PARASPINAL AREA: Normal with no visible mass. BONES: No fracture, pars defect, or osseous lesion. CORD/CAUDA EQUINA: Normal caliber, contour, and signal intensity. DISC LEVELS: 12-L1: Early degenerative disc disease is present without focal protrusion or neural impingement. L1-L2: Early degenerative disc disease is present without focal protrusion or neural impingement. L2-L3: Early degenerative disc disease is present without focal protrusion or neural impingement. L3-L4: Mild central canal and bilateral foramen narrowing. Mild diffuse disc bulging without disc height reduction. Mild degenerative facet arthropathy and ligamentum flavum thickening. L4-L5: Mild central canal narrowing. Moderate left, mild right foramen narrowing. Mild diffuse disc bulging slightly eccentric to the left. Mild degenerative facet arthropathy bilaterally. L5-S1: No significant central canal narrowing. Moderate right, mild left foramen narrowing. Small posterior disc-osteophyte complex slightly eccentric into the right foraminal region. Marked disc height reduction. Mild degenerative facet arthropathy bilaterally. IMPRESSION: 1. Degenerative changes of lower lumbar spine with L4-5 moderate left foramen narrowing, and L5-S1 moderate right foramen narrowing. 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 TECHNIQUE: Lateral and Laureano views of the skull were obtained. FINDINGS: No metallic foreign bodies are seen in or near the orbits. There are multiple foci of metallic dental amalgam. The sinuses are grossly clear. No suspicious or destructive bone lesions are seen. IMPRESSION: The patient is cleared for MRI. Electronically authenticated by: NOAH MELO Date: 2023-02-25 08:56 Normal [facility] CBC panel Auto (Bld)on 02-02 Erythrocyte distribution width (RBC) [Ratio] 13.5 % Normal 11.5-15.0 [facility] Comment on above: Order Comment: Aidan galvin Type: BLOOD SPECIMENOrdering Facility: [facility] Address: [address] [place] [address] Performed By: #### 5 8410-2 ####[facility] LABIA [id number] [address] [place] Hematocrit (Bld) [Volume fraction] 46.1 % Normal 39.0-51.0 [facility] Comment on above: Order Comment: Dci glenis Type: BLOOD SPECIMENOrdering Facility: [facility] Address: [address] [place] [address] Performed By: #### 5 8410-2 ####[facility] LABIA [id number] [place] [address] [place] Hemoglobin (Bld) [Mass/Vol] 14.8 g/dL Normal 13.0-17.0 [facility] Comment on above: Order Comment: Speci men Type: BLOOD SPECIMENOrdering Facility: [facility] Address: [address] Performed By: #### 5 8410-2 ####[facility]CL[facility] [id number] [address] MCH (RBC) [Entitic mass] 29.2 pg Normal 26.0-34.0 [facility] Comment on above: Order Comment: Speci men Type: BLOOD SPECIMENOrdering Facility: [facility] Address: [address] [address] Performed By: #### 5 8410-2 ####[facility]IA [id number] [address] [place] MCHC (RBC) [Mass/Vol] 32.1 g/dL Normal 30.5-36.0 [facility] Comment on above: Order Comment: Speci men Type: BLOOD SPECIMENOrdering Facility: [facility] Address: [address] Performed By: #### 5 8410-2 ####[facility]IA [id number] [address] [place] MCV (RBC) [Entitic vol] 90.9 fL Normal 80.0-100.0 [facility] Comment on above: Order Comment: Speci men Type: BLOOD SPECIMENOrdering Facility: [facility] Address: [address] Performed By: #### 5 8410-2 ####[facility]IA [id number] [address] [place] Nucleated RBC (Bld) [#/Vol] 10*3/uL Normal <0.01 [facility] Comment on above: Order Comment: Speci men Type: BLOOD SPECIMENOrdering Facility: [facility] Address: [address] Performed By: #### 5 8410-2 ####[facility]CL[facility] [id number] [place] [address] [place] Platelet mean volume (Bld) [Entitic vol] 10.3 fL Normal 9.0-12.7 [facility] Comment on above: Order Comment: Speci men Type: BLOOD SPECIMENOrdering Facility: [facility] Address: [address] [place] [address] Performed By: #### 5 8410-2 ####[facility]IA [id number] [place] [address] [place] Platelets (Bld) [#/Vol] 287 10*3/uL Normal 150-400 [facility] Comment on above: Order Comment: Speci men Type: BLOOD SPECIMENOrdering Facility: [facility] Address: [address] [place] [address] Performed By: #### 5 8410-2 ####[facility]IA [id number] [place] [address] [place] RBC (Bld) [#/Vol] 5.07 10*6/uL Normal 4.20-6.00 [facility] Comment on above: Order Comment: Speci men Type: BLOOD SPECIMENOrdering Facility: [facility] Address: [address] [place], [place] [address] Performed By: #### 5 8410-2 ####[facility] LABIA [id number] [place] [address] [place] WBC (Bld) [#/Vol] 5.78 10*3/uL Normal 3.70-11.00 [facility] Comment on above: Order Comment: Speci men Type: BLOOD SPECIMENOrdering Facility: [facility] Address: [address] [place], [place] [address] Performed By: #### 5 8410-2 ####[facility] LABIA [id number] [place] [address] [place] Hepatic function 2000 panelo n 04-04-2023 Albumin [Mass/Vol] 4.3 g/dL Normal 3.9-4.9 [facility] Comment on above: Order Comment: Speci men Type: BLOOD SPECIMENOrdering Facility: [facility] Address: [address] [place] [address] Performed By: #### 2 4325-3 ####[facility]CL[facility] [id number] [place] [address] [place] ALP [Catalytic activity/Vol] 123 U/L High 38-113 [facility] Comment on above: Order Comment: Speci men Type: BLOOD SPECIMENOrdering Facility: [facility] Address: [address] [place] [address] Performed By: #### 2 4325-3 ####[facility]CL[facility] [id number] [address] [place] ALT [Catalytic activity/Vol] 30 U/L Normal 10-54 [facility] Comment on above: Order Comment: Speci men Type: BLOOD SPECIMENOrdering Facility: [facility] Address: [address] [place] [address] Performed By: #### 2 4325-3 ####[facility]CL[facility] [id number] [address] [place] AST [Catalytic activity/Vol] 32 U/L Normal 14-40 [facility] Comment on above: Order Comment: Speci men Type: BLOOD SPECIMENOrdering Facility: [facility] Address: [address] [place] [address] Performed By: #### 2 4325-3 ####[facility]CL[facility] [id number] [place] [address] [place] Bilirubin [Mass/Vol] 0.4 mg/dL Normal 0.2-1.3 [facility] Comment on above: Order Comment: Speci men Type: BLOOD SPECIMENOrdering Facility: [facility] Address: [address] [address] Performed By: #### 2 4325-3 ####[facility]CL[facility] [id number] [place] [address] [place] Bilirubin.conjugated [Mass/Vol] mg/dL Normal <0.2 [facility] Comment on above: Order Comment: Speci men Type: BLOOD SPECIMENOrdering Facility: [facility] Address: [address] [place] [address] Performed By: #### 2 4325-3 ####[facility] LABIA [id number] [place] [address] [place] Protein [Mass/Vol] 6.8 g/dL Normal 6.3-8.0 [facility] Comment on above: Order Comment: Speci men Type: BLOOD SPECIMENOrdering Facility: [facility] Address: [address] [address] Performed By: #### 2 4325-3 ####[facility] LABIA [id number] [address] [place] CNOVon 01-29-2023 CNOV Office Visit (DERMCC ) STEPHEN SPENCER ([id number]) 1955 M Date Time Provider Department 01/29/23 8:00 AM JOSE LUIS MORRISON During your visit today, we recorded the following information about you: Jose Luis Morrison MD 01/29/2023 8:38 AM Signed Here for f/u for Asteatotic dermatitis, patient states rash is better . Patient using fluocinonide (LIDEX) 0.05 % cream, Methotrexate 2.5 mg, folic acid and Cerave. Patient has new rash area on upper chest and lesion on left hand that he is concerned about. Allergies: ALLERGIES Allergen Reactions Sulfa (Sulfonamide * Unknown Other reaction(s): Intolerance-unknown Ciprofloxacin Rash Other reaction(s): Intolerance-unknown PE: Limited exam. With Dusty General: no acute distress Mood: alert and oriented X's 3 Hair/Scalp: normal Face: normal Eyes/eyelids: normal Lips/Oral mucosa: normal Neck: normal Chest: Left upper chest clear R/L upper extremity: stuck on papule Lt dorsum hand A/P: Asteatotic dermatitis Xerosis cutis Nummular dermatitis Dry skin care discussed Moisturizers/Emollien ts discussed scent free, Dye free, fragrance free Continue Lidex cream bid prn. No longer than 5 days in a row per week Side effects of steroids discussed including proper use and location, atrophy, telangectasia, striae, hypo- or hyperpigmentation Continue dry skin care Should really get off methotrexate. Seborrheic keratosis Educated and reassured RTC prn Pt voiced understanding The documentation for this note was completed by Norma Mancuso LPN, Vamsi Iniguez ma acting as scribe for Jose Luis Morrison MD. January 29, 2023 7:58 AM. I agree with the Chief Complaint, ROS, and Past Histories independently gathered by the clinical child support case officer and the remaining scribed note accurately describes my personal service to the patient. Jose Luis Morrison MD Referring Provider: JOSE LUIS MORRISON [[id number]] Allergies As of Date: 01/29/2023 Noted Allergy Reaction SULFA (SULFONAMIDE ANTIBIOTICS) 12/08/2016 16 - Unknown Comments: Other reaction(s): Intolerance-unknown CIPROFLOXACIN 12/08/2016 2 - Rash Comments: Other reaction(s): Intolerance-unknown Date Reviewed: 01/29/2023 Reviewed by: Norma Mancuso LPN - Fully Assessed Reason for Visit: Follow Up [171] Primary Visit Diagnosis:Asteatotic dermatitis [L30.8] Other Visit Diagnoses:Xerosis cutis [L85.3] Nummular dermatitis [L30.0] Seborrheic keratosis [L82.1] Order(s):fluocinonide (LIDEX) 0.05 % creamApply 1 application to affected area twice daily. No longer than 5 days in a row per weekDisp: 60 gRfl: 1 Prescriptions as of 01/29/2023 - fluocinonide (LIDEX) 0.05 % cream Apply 1 application to affected area twice daily. No longer than 5 days in a row per week - fluticasone (FLONASE) 50 mcg/actuation nasal spray Use 1 Troy in the nose at bedtime as needed. - levothyroxine (SYNTHROID) 150 mcg tablet Take 150 mcg by mouth. - esomeprazole (NEXIUM) 20 mg capsule Take 20 mg by mouth. - cetirizine (ZYRTEC) 5 mg tablet Take 5 mg by mouth at bedtime as needed. - verapamil SR (CALAN SR, ISOPTIN SR) 180 mg CR tablet Take 180 mg by mouth. - metoprolol succinate ER (TOPROL XL) 25 mg 24 hr tablet Take 25 mg by mouth. - nitroglycerin sublingual (NITROQUICK) 0.4 mg SL tablet Dissolve 0.4 mg under the tongue at bedtime as needed. Problem List As Of Date 01/29/2023 Noted Resolved Ulcerative colitis (HCC) [K51.90] 01/26/2022 Prescriptions ordered this encounter Disp Refills Start End FLUOCINONIDE 0.05 % TOPICAL CREAM 60 g 1 01/29/2023 Route: TOPICAL Sig: Apply 1 application to affected area twice daily. No longer than 5 days in a row per week Cosign accepted by JOSE LUIS MORRISON[[id number]] on 01/29/2023 8:38 AM Medications Discontinued During This Encounter Prescriptions - fluocinonide (LIDEX) 0.05 % cream (Discontinued) Apply 1 application to affected area twice daily. No longer than 5 days in a row per week Disposition: Return if symptoms worsen or fail to improve. Follow-up and Disposition History for Encounter Date Provider Department Center 01/29/2023 [id number], [facility] Encounter Status:Closed by JOSE LUIS MORRISON on 01/29/23 Normal [facility] CBC AUTO DIFFon 12-22-2022 BASO # 0.0 103/ul Normal 0.0-0.1 [facility] Comment on above: Performed By: #### C BC #### [facility] [address] [place] [address] Dr. Harvey Severino Basophils/100 WBC (Bld) 0.6 % Normal 0.2-2.0 [facility] Comment on above: Performed By: #### C BC #### [facility] [address] [place] [address] Dr. Harvey Severino EO # 0.1 103/ul Normal 0.0-0.7 [facility] Comment on above: Performed By: #### C BC #### [facility] [address] [place] [address] Dr. Harvey Severino Eosinophils/100 WBC (Bld) 1.7 % Normal 0.9-7.0 [facility] Comment on above: Performed By: #### C BC #### [facility] [address] [place] [address] Dr. Harvey Severino Erythrocyte distribution width (RBC) [Ratio] 13.8 % Normal 11.0-15.0 [facility] Comment on above: Performed By: #### C BC #### [facility] [address] [place] [address] Dr. Harvey Severino Hematocrit (Bld) [Volume fraction] 42.3 % Normal 42.0-54.0 [facility] Comment on above: Performed By: #### C BC #### [facility] [address] [place] [address] Dr. Harvey Severino Hemoglobin (Bld) [Mass/Vol] 13.6 g/dL Critically low 14.0-18.0 [facility] Comment on above: Performed By: #### C BC #### [facility] [address] [place] [address] Dr. Harvey Severino IG # 0.02 10e3/ul Normal 0.00-0.03 [facility] Comment on above: Performed By: #### C BC #### [facility] [address] [place] [address] Dr. Harvey Severino IG % 0.3 % Normal 0.0-0.5 [facility] Comment on above: Performed By: #### C BC #### [facility] [address] [place] [address] Dr. Harvey Severino LYMPH # 1.2 103/ul Normal 1.2-3.8 [facility] Comment on above: Performed By: #### C BC #### [facility] [address] [place] [address] Dr. Harvey Severino Lymphocytes/100 WBC (Bld) 19.3 % Critically low 20.5-60.0 [facility] Comment on above: Performed By: #### C BC #### [facility] [address] [place] [address] Dr. Harvey Severino MANUAL DIFF REQ NO Normal [facility] Comment on above: Performed By: #### C BC #### [facility] [address] [place] [address] Dr. Harvey Severino MCH (RBC) [Entitic mass] 28.6 pg Normal 25.9-34.0 [facility] Comment on above: Performed By: #### C BC #### [facility] [address] [place] [address] Dr. Harvey Severino MCHC (RBC) [Mass/Vol] 32.2 g/dL Normal 29.9-35.2 [facility] Comment on above: Performed By: #### C BC #### [facility] [address] [place] [address] Dr. Harvey Severino MCV (RBC) [Entitic vol] 88.9 fL Normal 80.0-94.0 [facility] Comment on above: Performed By: #### C BC #### [facility] [address] [place] [address] Dr. Harvey Severino MONO # 0.7 103/ul Normal 0.3-0.8 [facility] Comment on above: Performed By: #### C BC #### [facility] [address] [place] [address] Dr. Harvey Severino Monocytes/100 WBC (Bld) 10.6 % Normal 1.7-12.0 [facility] Comment on above: Performed By: #### C BC #### [facility] [address] [place] [address] Dr. Harvey Severino NEUT # 4.4 103/ul Normal 1.4-6.5 [facility] Comment on above: Performed By: #### C BC #### [facility] [address] [place] [address] Dr. Harvey Severino Neutrophils/100 WBC (Bld) 67.5 % Normal 43.0-75.0 [facility] Comment on above: Performed By: #### C BC #### [facility] [address] [place] [address] Dr. Harvey Severino Platelet mean volume (Bld) [Entitic vol] 9.5 fL Normal 9.5-13.5 [facility] Comment on above: Performed By: #### C BC #### [facility] [address] [place] [address] Dr. Harvey Severino PLT 256 103/ul Normal 150-450 [facility] Comment on above: Performed By: #### C BC #### [facility] [address] [place] [address] Dr. Harvey Severino RBC 4.76 106/ul Normal 4.70-6.10 [facility] Comment on above: Performed By: #### C BC #### [facility] [address] [place] [address] Dr. Harvey Severino WBC 6.4 103/ul Normal 4.0-11.0 [facility] Comment on above: Performed By: #### C BC #### [facility] [address] [place] [address] Dr. Harvey Severino PROF 14(COMP METB)on 023 Albumin [Mass/Vol] 3.6 g/dL Normal 3.4-5.0 [facility] Comment on above: Performed By: #### C MP ####[facility] [address] [place], [place] [address]Dr. Harvey Severino Albumin/Globulin [Mass ratio] 1.2 {ratio} Normal [facility] Comment on above: Performed By: #### C MP ####[facility] [address] [place] [address]Dr. Harvey Severino ALP [Catalytic activity/Vol] 102 U/L Normal 46-116 [facility] Comment on above: Performed By: #### C MP ####[facility] [address] [place] [address]Dr. Harvey Severino ALT [Catalytic activity/Vol] 36 U/L Normal 16-63 [facility] Comment on above: Performed By: #### C MP ####[facility] [address] [place] [address]Dr. Harvey Severino Anion gap [Moles/Vol] 10.2 mmol/L Normal [facility] Comment on above: Performed By: #### C MP ####[facility] [address] [place], [place] [address]Dr. Harvey Severino AST [Catalytic activity/Vol] 25 U/L Normal 15-37 [facility] Comment on above: Performed By: #### C MP ####[facility] [address] [place], [place] [address]Dr. Harvey Severino Bilirubin [Mass/Vol] 0.5 mg/dL Normal 0.2-1.0 [facility] Comment on above: Performed By: #### C MP ####[facility] [address] [place], [place] [address]Dr. Harvey Severino Calcium [Mass/Vol] 8.7 mg/dL Normal 8.5-10.1 [facility] Comment on above: Performed By: #### C MP ####[facility] [address] [place] [address]Dr. Harvey Severino Chloride [Moles/Vol] 107 mmol/L Normal 98-107 [facility] Comment on above: Performed By: #### C MP ####[facility] [address] [place], [place] [address]Dr. Harvey Severino CO2 [Moles/Vol] 27.9 mmol/L Normal 21.0-32.0 [facility] Comment on above: Performed By: #### C MP ####[facility] [address] [place], [place] [address]Dr. Harvey Maycol Creatinine [Mass/Vol] 0.75 mg/dL Normal 0.70-1.30 [facility] Comment on above: Performed By: #### C MP ####[facility] [address] [place] [address]Dr. Harvey Severino EGFR-AF MOZAMBICAN >60 Normal >=60 [facility] Comment on above: Performed By: #### C MP ####[facility] [address] [place] [address]Dr. Harvey Severino EGFR-NON AF MOZAMBICAN >60 Normal >=60 [facility] Comment on above: Performed By: #### C MP ####[facility] [address] [place] [address]Dr. Harvey Severino Globulin (S) [Mass/Vol] 2.9 g/dL Normal [facility] Comment on above: Performed By: #### C MP ####[facility] [address] [place], [place] [address]Dr. Harvey Severino Glucose [Mass/Vol] 93 mg/dL Normal 74-106 [facility] Comment on above: Performed By: #### C MP ####[facility] [address] [place] [address]Dr. Harvey Severino Potassium [Moles/Vol] 4.1 mmol/L Normal 3.5-5.1 [facility] Comment on above: Performed By: #### C MP ####[facility] [address] [place] [address]Dr. Harvey Severino Protein [Mass/Vol] 6.5 g/dL Normal 6.4-8.2 [facility] Comment on above: Performed By: #### C MP ####[facility] [address] [place] [address]Dr. Harvey Severino Sodium [Moles/Vol] 141 mmol/L Normal 136-145 [facility] Comment on above: Performed By: #### C MP ####[facility] [address] [place] [address]Dr. Harvey Severino Urea nitrogen [Mass/Vol] 11.0 mg/dL Normal 7.0-18.0 [facility] Comment on above: Performed By: #### C MP ####[facility] [address] [place], [place] [address]Dt. Harvey Severino Urea nitrogen/Creatinine [Mass ratio] 14.7 mg/mg Normal [facility] Comment on above: Performed By: #### C MP ####[facility] [address] [place], [place] [address]Qo. Harvey Severino CNOVon 12-15-2022 CNOV Office Visit (DERMCC ) STEPHEN SPENCER ([id number]) 1955 M Date Time Provider Department 12/15/22 11:30 AM JOSE LUIS MORRISON DERMENIO During your visit today, we recorded the following information about you: Jose Luis Morrison MD 12/15/2022 12:42 PM Signed 67 year old male here for skin irritation Location : Back , shins, upper chest. Waist line Present x 2 months Itches: Yes Has been getting worse Dial soap when bathing/Showering Happens in wintertime Exact thing happened last winter However is worse this winter Went away in the spring and summer Never has problems with spring and summer Patient was seeing [facility] Alda Warren NP Feels that there is no improvement Would like to know what causes this Currently treating with: -Triamcinolone cream 0.1% -Methotrexate 2.5 mg Personal history of skin cancer: BCC Derm Family history: no Denies fevers, chills Denies wt loss Denies new or changing moles PAST MEDICAL HISTORY Diagnosis Date Cancer (HCC) Thyroid disease Social History Tobacco Use Smoking status: Never Smokeless tobacco: Never Substance Use Topics Alcohol use: Yes Comment: occassional Drug use: Not Currently Allergies: ALLERGIES Allergen Reactions Sulfa (Sulfonamide * Unknown Other reaction(s): Intolerance-unknown Ciprofloxacin Rash Other reaction(s): Intolerance-unknown Current Outpatient Medications on File Prior to Visit Medication Sig fluticasone (FLONASE) 50 mcg/actuation nasal spray Use 1 Troy in the nose at bedtime as needed. levothyroxine (SYNTHROID) 150 mcg tablet Take 150 mcg by mouth. esomeprazole (NEXIUM) 20 mg capsule Take 20 mg by mouth. cetirizine (ZYRTEC) 5 mg tablet Take 5 mg by mouth at bedtime as needed. verapamil SR (CALAN SR, ISOPTIN SR) 180 mg CR tablet Take 180 mg by mouth. metoprolol succinate ER (TOPROL XL) 25 mg 24 hr tablet Take 25 mg by mouth. nitroglycerin sublingual (NITROQUICK) 0.4 mg SL tablet Dissolve 0.4 mg under the tongue at bedtime as needed. No current facility-administered medications on file prior to visit. PE: Comprehensive exam. With Dusty General: no acute distress Mood: alert and oriented X's 3 Hair/Scalp: normal Face: normal Eyes/eyelids: normal Lips/Oral mucosa: normal Neck: normal Chest: normal Abdomen: normal, clear Back: scaly fissured plaques across back R/L upper extremity: normal, clear Digits/Nails: normal A/P: Asteatotic dermatitis Xerosis cutis Nummular dermatitis Stop Dial soap especially in winter Dry skin care discussed Moisturizers/Emollien ts discussed scent free, Dye free, fragrance free Lidex cream bid prn. No longer than 5 days in a row per week Side effects of steroids discussed including proper use and location, atrophy, telangectasia, striae, hypo- or hyperpigmenation. Ultimately with the goal would be to get him off his methotrexate I asked him to get his blood work when requested Hopefully within a week or 2 he can get off his methotrexate. RTC 6-8 weeks Pt voiced understanding Medical Decision Making: Problems: Moderate: 1+ chronic illnesses with change Risk: Moderate: Drug management Medical Decision Making Level: 4 - Moderate The documentation for this note was completed by Nelly Stein LPN, Vamsi Iniguez ma acting as scribe for Jose Luis Morrison MD. December 15, 2022 11:23 AM. I agree with the Chief Complaint, ROS, and Past Histories independently gathered by the clinical child support case officer and the remaining scribed note accurately describes my personal service to the patient. MD Vamsi Baker MA 12/15/2022 11:35 AM Addendum Dane Soto [facility] DRY SKIN CARE Childhood eczema (atopic dermatitis) is the results of a combination of genetics and environmental exposures. Establishing a routine in caring for your child's skin will minimize the potential for the skin to become dry and irritated and reduce the number of severe eczema flares. An excellent resource for questions on eczema is EczemaNet: Www.skincarephysician GoPlanit/eczemanet HOW SHOULD I TAKE CARE OF MY DRY SKIN? 1. Use body temperature or lukewarm water for bathing or showering. Avoid taking long, hot baths. Limit bathing/showering to 5-10 minutes. Daily bathing is recommended. 2. Use a small amount of super fatted soap for cleansing. Remember to rinse the skin well. Concentrate use of soap on areas which get dirty (doesn't need to be used head-to-toe). Recommended soaps include: Dove, Cetaphil, and Oil of Olay. Avoid soaps with dyes or scents added as these ingredients can dry or irritate sensitive skin. 3. After bathing, pat your skin dry with a soft towel. Do NOT briskly rub the skin. 4. Apply an appropriate bland moisturizing ointment or cream like Vaseline Petroleum Jelly, Aquaphor, Eucerin, CeraVe, or Ceta (more content not included)... Normal [facility] VALENT[facility]NN Telephone (BENIGNO) STEPHEN SPENCER ([id number]) 1955 M Date Time Provider Department 12/09/22 BRAYAN DAVILA During your visit today, we recorded the following information about you: Alda Mueller RN 12/09/2022 9:19 AM Signed Spoke with patient, denies any signs or symptoms of infection. Will be here for infusion tomorrow. Allergies As of Date: 12/09/2022 Noted Allergy Reaction SULFA (SULFONAMIDE ANTIBIOTICS) 12/08/2016 16 - Unknown Comments: Other reaction(s): Intolerance-unknown CIPROFLOXACIN 12/08/2016 2 - Rash Comments: Other reaction(s): Intolerance-unknown Date Reviewed: 11/10/2022 Reviewed by: Mayelin Young LPN - Fully Assessed Prescriptions as of 12/09/2022 - fluticasone (FLONASE) 50 mcg/actuation nasal spray Use 1 Troy in the nose at bedtime as needed. - levothyroxine (SYNTHROID) 150 mcg tablet Take 150 mcg by mouth. - esomeprazole (NEXIUM) 20 mg capsule Take 20 mg by mouth. - cetirizine (ZYRTEC) 5 mg tablet Take 5 mg by mouth at bedtime as needed. - verapamil SR (CALAN SR, ISOPTIN SR) 180 mg CR tablet Take 180 mg by mouth. - metoprolol succinate ER (TOPROL XL) 25 mg 24 hr tablet Take 25 mg by mouth. - nitroglycerin sublingual (NITROQUICK) 0.4 mg SL tablet Dissolve 0.4 mg under the tongue at bedtime as needed. Problem List As Of Date 12/09/2022 Noted Resolved Ulcerative colitis (HCC) [K51.90] 01/26/2022 Encounter Status:Closed by ALDA MUELLER on 12/09/22 Normal [facility] LIPID PROFILEon 11-17-2022 CHOL-HDL RATIO NORM SEE BELOW Normal [facility] Comment on above: Result Comment: 3.3 - 4.4 LOW RISK 4.4 - 7.1 AVERAGE RISK 7.1 - 11.0 MODERATE RISK >11.0 HIGH RISK Performed By: #### L IPID ####[facility] [address] [place], [place] [address]ZqTing Severino Cholesterol [Mass/Vol] 238 mg/dL Critically high <=200 [facility] Comment on above: Performed By: #### L IPID ####[facility] [address] [place], [place] [address]InTing Severino Cholesterol in HDL [Mass/Vol] 46 mg/dL Normal 40-60 [facility] Comment on above: Performed By: #### L IPID ####[facility] [address] [place] [id number]. Harvey Severino Cholesterol in LDL [Mass/Vol] 165.8 mg/dL Normal [facility] Comment on above: Performed By: #### L IPID ####[facility] [address] [place] [address]Dr. Kaileyopal Maycol Cholesterol.total/Chol esterol in HDL [Mass ratio] 5.2 {ratio} Normal [facility] Comment on above: Performed By: #### L IPID ####[facility] [address] [place] [address]Dr. Harvey Severino HDL NORMAL > or = 60 mg/dl - LO W CARDIOVASCULAR RISK <40 mg/dl - HIGH CARDIOVASCULAR RISK Normal [facility] Comment on above: Performed By: #### L IPID ####[facility] [address] [place] [address]Dr. Harvey Severino LDL CALC NORMAL SEE BELOW Normal [facility] Comment on above: Result Comment: <100 mg/dl OPTIMAL 100 - 129 mg/dl NEAR OR ABOVE OPTIMAL 130 - 159 mg/dl BORDERLINE HIGH 160 - 189 mg/dl HIGH >190 mg/dl VERY HIGH Performed By: #### L IPID ####[facility] [address] [place] [id number]. Harvey Maycol Triglyceride [Mass/Vol] 131 mg/dL Normal <=150 [facility] Comment on above: Performed By: #### L IPID ####[facility] [address] [place] [id number]. Harvey Severino VLDL CALC 26.2 mg/dL Normal [facility] Comment on above: Performed By: #### L IPID ####[facility] [address] [place], [place] [address]Dr. Harvey Maycol Covid-19 PCR (CVDTB)on 10-03 SARS-CoV-2 (COVID-19) RNA ADALID+probe Ql (Unsp spec) Not detected Normal NOT DETECTED [facility] Comment on above: Result Comment: This test is not yet approved or cleared by the [place] FDA. When there are no FDA-approved or cleared tests available, and other criteria are met, FDA can make tests available under an emergency access mechanism called an Emergency Use Authorization (EUA). The EUA for this test is supported by the Clinic Mgr of Health and Human Service's (HHS's) declaration that circumstances exist to justify the emergency use of in vitro diagnostics for the detection and/or diagnosis of the virus that causes COVID-19. This EUA will remain in effect (meaning this test can be used) for the duration of the COVID-19 declaration justifying emergency of IVDs, unless it is terminated or revoked by FDA (after which the test may no longer be used). When diagnostic testing is negative, the possibility of a false negative should be considered in the context of a patient's recent exposures and the presence of clinical signs and symptoms consistent with SARS-CoV-2. Performed By: #### C VDTB ####[facility] [address] [place] [address]Dr. Harvey Severino INFLUENZA A AND B [facility] 10-30 [facility] SEE BELOW Normal [facility] Comment on above: Result Comment: Nega tive for Flu A protein angiten. Infection due to Flu A cannot be ruled out. Flu A angiten in the sample may be below the detection limit of the test. Performed By: #### I NFLUAB #### [facility] [address] [place] [address] Dr. Harvey Severino [facility] SEE BELOW Normal [facility] Comment on above: Result Comment: Nega tive for Flu B protein antigen. Infection due to Flu B cannot be ruled out. Flu B antigen in the sample may be below the detection limit of the test. Performed By: #### I NFLUAB #### [facility] [address] [place] [address] [address] Harvey Severino INFLUENZA A AG Negative Normal NEGATIVE SEE COMMENT [facility] Comment on above: Performed By: #### I NFLUAB #### [facility] [address] [place] [address] [address] Harvey Severino INFLUENZA B AG Negative Normal NEGATIVE SEE COMMENT [facility] Comment on above: Performed By: #### I NFLUAB #### [facility] [address] [place] [address] [address] Harvey Severino CBC AUTO DIFFon 10-21-2022 BASO # 0.1 103/ul Normal 0.0-0.1 [facility] Comment on above: Performed By: #### C BC #### [facility] [address] [place] [address] [address] Harvey Severino Basophils/100 WBC (Bld) 0.7 % Normal 0.2-2.0 [facility] Comment on above: Performed By: #### C BC #### [facility] [address] [place] [address] Dr. Harvey Severino EO # 0.2 103/ul Normal 0.0-0.7 [facility] Comment on above: Performed By: #### C BC #### [facility] [address] [place] [address] Dr. Harvey Severino Eosinophils/100 WBC (Bld) 2.4 % Normal 0.9-7.0 [facility] Comment on above: Performed By: #### C BC #### [facility] [address] [place] [address] Dr. Harvey Severino Erythrocyte distribution width (RBC) [Ratio] 12.6 % Normal 11.0-15.0 [facility] Comment on above: Performed By: #### C BC #### [facility] [address] [place] [address] Dr. Harvey Severino Hematocrit (Bld) [Volume fraction] 42.4 % Normal 42.0-54.0 [facility] Comment on above: Performed By: #### C BC #### [facility] [address] [place] [address] Dr. Harvey Severino Hemoglobin (Bld) [Mass/Vol] 13.7 g/dL Critically low 14.0-18.0 [facility] Comment on above: Performed By: #### C BC #### [facility] [address] [place] [address] Dr. Harvey Severino IG # 0.06 10e3/ul Critically high 0.00-0.03 [facility] Comment on above: Performed By: #### C BC #### [facility] [address] [place] [address] [address] Harvey Severino IG % 0.8 % Critically high 0.0-0.5 [facility] Comment on above: Performed By: #### C BC #### [facility] [address] [place] [address] [address] Harvey Severino LYMPH # 1.4 103/ul Normal 1.2-3.8 [facility] Comment on above: Performed By: #### C BC #### [facility] [address] [place] [address] Dr. Harvey Severino Lymphocytes/100 WBC (Bld) 19.3 % Critically low 20.5-60.0 [facility] Comment on above: Performed By: #### C BC #### [facility] [address] [place] [address] Dr. Harvey Severino MANUAL DIFF REQ NO Normal [facility] Comment on above: Performed By: #### C BC #### [facility] [address] [place] [address] Dr. Harvey Severino MCH (RBC) [Entitic mass] 29.1 pg Normal 25.9-34.0 [facility] Comment on above: Performed By: #### C BC #### [facility] [address] [place] [address] Dr. Harvey Severino MCHC (RBC) [Mass/Vol] 32.3 g/dL Normal 29.9-35.2 [facility] Comment on above: Performed By: #### C BC #### [facility] [address] [place] [address] Dr. Harvey Severino MCV (RBC) [Entitic vol] 90.0 fL Normal 80.0-94.0 [facility] Comment on above: Performed By: #### C BC #### [facility] [address] [place] [address] Dr. Harvey Severino MONO # 0.8 103/ul Normal 0.3-0.8 [facility] Center Comment on above: Performed By: #### C BC #### [facility] [address] [place] [address] Dr. Harvey Severino Monocytes/100 WBC (Bld) 10.5 % Normal 1.7-12.0 [facility] Comment on above: Performed By: #### C BC #### [facility] [address] [place] [address] Dr. Harvey Severino NEUT # 4.7 103/ul Normal 1.4-6.5 [facility] Comment on above: Performed By: #### C BC #### [facility] [address] [place] [address] Dr. Harvey Severino Neutrophils/100 WBC (Bld) 66.3 % Normal 43.0-75.0 [facility] Comment on above: Performed By: #### C BC #### [facility] [address] [place] [address] Dr. Harvey Severino Platelet mean volume (Bld) [Entitic vol] 9.9 fL Normal 9.5-13.5 [facility] Comment on above: Performed By: #### C BC #### [facility] [address] [place] [address] Dr. Harvey Severino PLT 245 103/ul Normal 150-450 [facility] Comment on above: Performed By: #### C BC #### [facility] [address] [place] [address] Dr. Harvey Severino RBC 4.71 106/ul Normal 4.70-6.10 [facility] Comment on above: Performed By: #### C BC #### [facility] [address] [place] [address] Dr. Harvey Severino WBC 7.2 103/ul Normal 4.0-11.0 [facility] Comment on above: Performed By: #### C BC #### [facility] [address] [place] [address] Dr. Harvey Severino PROF 14(COMP METB)on 022 Albumin [Mass/Vol] 3.5 g/dL Normal 3.4-5.0 [facility] Comment on above: Performed By: #### C MP #### [facility] [address] [place] [address] Dr. Harvey Severino Albumin/Globulin [Mass ratio] 1.1 {ratio} Normal [facility] Comment on above: Performed By: #### C MP #### [facility] [address] [place] [address] Dr. Harvey Severino ALP [Catalytic activity/Vol] 105 U/L Normal 46-116 [facility] Comment on above: Performed By: #### C MP #### [facility] [address] [place] [address] Dr. Harvey Severino ALT [Catalytic activity/Vol] 29 U/L Normal 16-63 [facility] Comment on above: Performed By: #### C MP #### [facility] [address] [place] [address] Dr. Harvey Severino Anion gap [Moles/Vol] 9.7 mmol/L Normal [facility] Comment on above: Performed By: #### C MP #### [facility] [address] [place] [address] Dr. Harvey Severino AST [Catalytic activity/Vol] 22 U/L Normal 15-37 [facility] Comment on above: Performed By: #### C MP #### [facility] [address] [place] [address] Dr. Harvey Severino Bilirubin [Mass/Vol] 0.3 mg/dL Normal 0.2-1.0 [facility] Comment on above: Performed By: #### C MP #### [facility] [address] [place] [address] Dr. Harvey Severino Calcium [Mass/Vol] 8.5 mg/dL Normal 8.5-10.1 [facility] Comment on above: Performed By: #### C MP #### [facility] [address] [place] [address] Dr. Harvey Severino Chloride [Moles/Vol] 105 mmol/L Normal 98-107 [facility] Comment on above: Performed By: #### C MP #### [facility] [address] [place] [address] Dr. Harvey Severino CO2 [Moles/Vol] 30.2 mmol/L Normal 21.0-32.0 [facility] Comment on above: Performed By: #### C MP #### [facility] [address] [place] [address] Dr. Harvey Severino Creatinine [Mass/Vol] 0.84 mg/dL Normal 0.70-1.30 [facility] Comment on above: Performed By: #### C MP #### [facility] [address] [address] [address] Harvey Severino EGFR-AF MOZAMBICAN >60 Normal >=60 [facility] Comment on above: Performed By: #### C MP #### [facility] [address] [place] [address] Dr. Harvey Severino EGFR-NON AF MOZAMBICAN >60 Normal >=60 [facility] Comment on above: Performed By: #### C MP #### [facility] [address] [place] [address] Dr. Harvey Severino Globulin (S) [Mass/Vol] 3.1 g/dL Normal [facility] Comment on above: Performed By: #### C MP #### [facility] [address] [place] [address] Dr. Harvey Severino Glucose [Mass/Vol] 86 mg/dL Normal 74-106 [facility] Comment on above: Performed By: #### C MP #### [facility] [address] [place] [address] Dr. Harvey Severino Potassium [Moles/Vol] 3.9 mmol/L Normal 3.5-5.1 [facility] Comment on above: Performed By: #### C MP #### [facility] [address] [address] [address] Harvey Severino Protein [Mass/Vol] 6.6 g/dL Normal 6.4-8.2 [facility] Comment on above: Performed By: #### C MP #### [facility] [address] [place] [address] Dr. Harvey Severino Sodium [Moles/Vol] 141 mmol/L Normal 136-145 [facility] Comment on above: Performed By: #### C MP #### [facility] [address] [place], [place] [address] Dr. Harvey Severino Urea nitrogen [Mass/Vol] 14.0 mg/dL Normal 7.0-18.0 [facility] Comment on above: Performed By: #### C MP #### [facility] [address] [place], [place] [address] Dr. Harvey Severino Urea nitrogen/Creatinine [Mass ratio] 16.7 mg/mg Normal [facility] Comment on above: Performed By: #### C MP #### [facility] [address], [place] [address] Dr. Harvey Severino Follow-Upon 09-18-2022 Follow-Up [id number] Stephen Spencer 1955 M Date Provider Department Center 09/18/2022 [facility] Family History Problem Relation Age of Onset Coronary artery disease Mother Coronary artery disease Father Stroke Father Family Status - Relation Status Age at Mother Father Level of Service:63622 ME OFFICE/OUTPATIENT ESTABLISHED LOW MDM 20-29 MIN Reason for Visit and Comments: Follow-up [602835] - 1 month f/u Denies concerns at this time Normal [facility] VC COMP CONSULTATIONon 09-16 VC COMP CONSULTATION Patient: STEPHEN SPENCER. Exam Date: 09/16/2022 : 1955 Gender:M Ordering : DR KING DUNN . Admission #: [id number] Family : Order #: [id number] CLICK HERE TO VIEW EXAM RADIOLOGY REPORT PROCEDURE: VC VEIN CENTER CONSULTATION VEIN CENTER - OFFICE VISIT INITIAL COMPARISON: None. PROGRESS NOTES: 67-year-old male who presents with a 3 year history of lower extremity pain swelling and cramping. The patient has bilateral symptoms, left greater than right. The patient describes the pain as a constant 2/10 having a dull achy heavy feeling, intermittent pain rated an 8 on a scale of 10 which occurs primarily at night left greater than right, upper thigh and knee. The patient's symptoms are slightly exacerbated by sitting and standing and are relieved by rest, leg elevation, exercise and over the counter Tylenol. The patient has worn compression stockings intermittently but not for an extended period of time. The patient does exercise walking 2 miles 3-4 times per day. 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 The patient denies any signs and symptoms to suggest arterial ischemia. The patient describes a family history of varicose veins in his mother. Heart disease in both parents. Cancer in sister and brother. Alzheimer's disease in her brother. The patient drinks alcohol occasionally, social use only. Patient has never smoked. No current illicit or prescription drug use. The patient's past medical history is significant for ulcerative colitis, the patient gets Q 8 week infusions with good result. Gastroesophageal reflux. Remote thyroidectomy, currently on Synthroid. No history of deep venous thrombus or pulmonary embolus. See separate history and physical for medication list. No prior treatment for varicose or spider veins. Intermittent but no extended use of compression stockings. Nursing notes were reviewed After history and physical exam I discussed at length the pathophysiology of venous hypertension and possible treatments, therapies and strategies available. We discussed at length the importance of elevating the lower extremities above the level of the heart, increased physical activity and compression stocking use. Ultrasound venous reflux study performed 09/11 and 09/16/22 was discussed at length with the patient. The report demonstrates moderate right great and small saphenous vein venous insufficiency. Moderate left small saphenous vein venous insufficiency. Mild right deep vein venous reflux. Incompetent right r developer veins. Bilateral incompetent varicose veins PHYSICAL EXAM: The right leg demonstrates mild scattered varicose reticular and spider veins. No subcutaneous edema, hemosiderin staining or active ulceration The left leg demonstrates mild scattered varicose reticular and spider veins. No subcutaneous edema, hemosiderin staining or active ulceration Both thighs, legs and feet were symmetrically warm to the touch. Good posterior tibial and dorsalis pedis pulses were present bilaterally. IMPRESSION: 1. Moderate right great saphenous and bilateral small saphenous vein venous insufficiency with dilatation 2. Right incompetent r developer and bilateral incompetent varicose veins 3. No definite lower extremity subcutaneous edema 4. No definite flow significant arterial disease 5. CEAP: C2, Ep, Asp, Pr 6. Suspected muscle cramping PLAN: 1. Begin continued use of bilateral 20-30 mm thigh-high compression stockings 2. Elevated legs and continued physical activity for symptomatic relief 3. Daily potassium supplements 4. 8 ounces of tonic water with quinine before bed Nurse notes, history and physical were reviewed and confirmed, see attached forms. The nurse was present throughout the physical exam and consultation Dictated by: Maura Murphy MD on 09/16/2022 at 09:40 Approved by: Maura Murphy MD on 09/16/2022 at 09:48 Normal [facility] VC VENOUS REFLUX RT LMTon VC VENOUS REFLUX RT LMT Patient: STEPHEN SPENCER Exam Date: 09/16/2022 : 1955 Gender:M Ordering : DR KING DUNN . Admission #: [id number] Family : Order #: [id number] CLICK HERE TO VIEW EXAM RADIOLOGY REPORT PROCEDURE: VEIN CENTER ULTRASOUND VENOUS REFLUX RIGHT LIMTED COMPARISON: None. INDICATIONS: Pain co-occurrent and due to varicose veins of bilateral legs I83.813 TECHNIQUE: Duplex imaging of the lower extremity to assess the deep and superficial venous system for the presence of deep or superficial venous incompetence and to document the location and severity of disease. The study includes evaluation of the great saphenous vein (GSV), anterior accessory saphenous vein (AASV) and small saphenous vein (SSV). Patient scanned in reverse Trendelenburg and standing. FINDINGS: RIGHT LOWER EXTREMITY: Saphenofemoral Junction Reflux: Yes 8.9mm 3.4 sec GSV: Diam (mm) Reflux/ Time (sec) Proximal Thigh 7.3 Yes 4.7 Mid Thigh 3.5 Yes 0.5 Distal Thigh 3.7 No Prox Calf 4.7 Yes 1.2 Mid Calf 3.4 Yes 2.2 Saphenopopliteal Junction Reflux: 6.7 mm Yes 2.7 SSV: Proximal Calf 6.0 Yes 0.9 Mid Calf 5.1 Yes 2.7 AASV: Not present Thrombi: No acute or chronic thrombus. Compressibility: Normal. Flow: Mild deep venous reflux. Sloop Captain: Prox/medial calf 4.7 mm, 2.4s reflux. Mid/post calf 4.2 mm, 0.7s reflux. Tech Note: Incompetent GSV and SSV. Varicose vein medial popliteal fossa off of GSV measures 4.0 mm with 0.5s reflux. Distal/medial thigh varicosity off of GSV measures 3.6 mm with 0.5s reflux. Varicose vein mid medial lower leg off GSV measures 4.4 mm with 2.0s reflux. CONCLUSION: 1. Moderate right great and small saphenous vein venous insufficiency with associated dilatation 2. Incompetent r developer veins measuring up to 4.7 mm 3. Incompetent varicose veins/tributaries Dictated by: Maura Murphy MD on 09/16/2022 at 09:11 Approved by: Maura Murphy MD on 09/16/2022 at 09:13 Normal [facility] VC VENOUS REFLUX LT LMTon VC VENOUS REFLUX LT LMT Patient: STEPHEN SPENCER Exam Date: 09/11/2022 : 1955 Gender:M Ordering : DR KING DUNN . Admission #: [id number] Family : Order #: [id number] CLICK HERE TO VIEW EXAM RADIOLOGY REPORT PROCEDURE: VEIN CENTER ULTRASOUND VENOUS REFLUX LEFT LIMTED COMPARISON: None. INDICATIONS: Complex regional pain syndrome type ii of left lower limb G57.72 TECHNIQUE: Duplex imaging of the lower extremity to assess the deep and superficial venous system for the presence of deep or superficial venous incompetence and to document the location and severity of disease. The study includes evaluation of the great saphenous vein (GSV), anterior accessory saphenous vein (AASV) and small saphenous vein (SSV). Patient scanned in reverse Trendelenburg and standing. FINDINGS: LEFT LOWER EXTREMITY: Saphenofemoral Junction Reflux: Yes 6.1mm 0.3 sec GSV: Diam (mm) Reflux/ Time (sec) Proximal Thigh 2.8 No Mid Thigh 2.8 Yes 0.3 Distal Thigh 3.5 No Prox Calf 1.8 No Mid Calf 2.3 Yes 0.2 Saphenopopliteal Junction Reflux: 5.5 mm Yes 2.6 SSV: Proximal Calf 5.6 Yes 0.6 Mid Calf 4.9 Yes 2.0 AASV: Proximal Thigh 4.9 Yes 0.4 Mid Thigh 3.4 No Distal Thigh Thrombi: No acute or chronic thrombus visualized Compressibility: Normal Flow: Normal Sloop Captain: Dist/med calf 2.7mm with 0s reflux. Tech Note: Incompetent SFJ and SSV. Patent varicose vein mid/med calf 3.0mm with 0.9s reflux. CONCLUSION: 1. Moderate venous insufficiency of the right small saphenous vein with mild dilatation 2. Single borderline enlarged incompetent varicose vein Dictated by: Maura Murphy MD on 09/11/2022 at 11:06 Approved by: Maura Murphy MD on 09/11/2022 at 11:07 Normal [facility] MRI Knee w/o + w/ Righton MRI Knee w/o + w/ Right History: Neoplasm of soft tissue. Technique: Multiplanar multisequence MRI of the knee was performed without contrast. Comparison: None available Findings: Quadriceps and patellar tendons are intact. Small joint effusion. Anterior and posterior cruciate ligaments are intact. The medial collateral ligament, lateral collateral ligament, and popliteus myotendinous unit are intact. The medial and lateral meniscus are intact. Linear hyperintense signal within the body through posterior horn of the medial meniscus does not definitively reach an articular surface. Partial-thickness cartilage loss of the inner weightbearing medial femoral condyle and medial patellar facet without well-defined cartilage defect. Popliteal fossa structures are intact. No Chin cyst. A marker was placed on the skin anteriorly at the level of the distal diaphysis of the femur. Deep to this marker there is no soft tissue mass or fluid collection. No pathologic enhancement. No regional soft tissue edema. IMPRESSION: No soft tissue mass or pathologic enhancement. Report reported and signed by Kendall Daniels on 08/03/2022 1612 Normal [facility] [employer] LIPID PROFILEon 07-30-2022 CHOL-HDL RATIO NORM SEE BELOW Normal [facility] Comment on above: Result Comment: 3.3 - 4.4 LOW RISK 4.4 - 7.1 AVERAGE RISK 7.1 - 11.0 MODERATE RISK >11.0 HIGH RISK Performed By: #### L IPID, CMP #### [facility] [address] [place], [place] [address] Dr. Harvey Severino Cholesterol [Mass/Vol] 167 mg/dL Normal <=200 [facility] Comment on above: Performed By: #### L IPID, CMP #### [facility] [address] [place], [place] [address] Dr. Harvey Severino Cholesterol in HDL [Mass/Vol] 46 mg/dL Normal 40-60 [facility] Comment on above: Performed By: #### L IPID, CMP #### [facility] [address] [address] [address] Harvey Severino Cholesterol in LDL [Mass/Vol] 102.6 mg/dL Normal [facility] Comment on above: Performed By: #### L IPID, CMP #### [facility] [address] [address] [address] Harvey Severino Cholesterol.total/Chol esterol in HDL [Mass ratio] 3.6 {ratio} Normal [facility] Comment on above: Performed By: #### L IPID, CMP #### [facility] [address] [address] [address] Harvey Severino HDL NORMAL > or = 60 mg/dl - LO W CARDIOVASCULAR RISK <40 mg/dl - HIGH CARDIOVASCULAR RISK Normal [facility] Comment on above: Performed By: #### L IPID, CMP #### [facility] [address] [place] [address] Dr. Harvey Severino LDL CALC NORMAL SEE BELOW Normal [facility] Comment on above: Result Comment: <100 mg/dl OPTIMAL 100 - 129 mg/dl NEAR OR ABOVE OPTIMAL 130 - 159 mg/dl BORDERLINE HIGH 160 - 189 mg/dl HIGH >190 mg/dl VERY HIGH Performed By: #### L IPID, CMP #### [facility] [address] [address] [address] Harvey Severino Triglyceride [Mass/Vol] 92 mg/dL Normal <=150 [facility] Comment on above: Performed By: #### L IPID, CMP #### [facility] [address] [place] [address] Dr. Harvey Severino VLDL CALC 18.4 mg/dL Normal [facility] Comment on above: Performed By: #### L IPID, CMP #### [facility] [address] [place] [address] Dr. Harvey Severino PROF 14(COMP METB)on 022 Albumin [Mass/Vol] 3.8 g/dL Normal 3.4-5.0 [facility] Comment on above: Performed By: #### L IPID, CMP #### [facility] [address] [address] [address] Harvey Severino Albumin/Globulin [Mass ratio] 1.3 {ratio} Normal [facility] Comment on above: Performed By: #### L IPID, CMP #### [facility] [address] [address] [address] Harvey Severino ALP [Catalytic activity/Vol] 76 U/L Normal 46-116 [facility] Comment on above: Performed By: #### L IPID, CMP #### [facility] [address] [address] [address] Harvey Severino ALT [Catalytic activity/Vol] 32 U/L Normal 16-63 [facility] Comment on above: Performed By: #### L IPID, CMP #### [facility] [address] [address] [address] Harvey Severino Anion gap [Moles/Vol] 11.9 mmol/L Normal [facility] Comment on above: Performed By: #### L IPID, CMP #### [facility] [address] [address] [address] Harvey Severino AST [Catalytic activity/Vol] 23 U/L Normal 15-37 [facility] Comment on above: Performed By: #### L IPID, CMP #### [facility] [address] [address] [address] Harvey Severino Bilirubin [Mass/Vol] 0.6 mg/dL Normal 0.2-1.0 [facility] Comment on above: Performed By: #### L IPID, CMP #### [facility] [address] [address] [address] Harvey Severino Calcium [Mass/Vol] 8.6 mg/dL Normal 8.5-10.1 [facility] Comment on above: Performed By: #### L IPID, CMP #### [facility] [address] [address] [address] Harvey Severino Chloride [Moles/Vol] 105 mmol/L Normal 98-107 [facility] Comment on above: Performed By: #### L IPID, CMP #### [facility] [address] [address] [address] Harvey Severino CO2 [Moles/Vol] 26.2 mmol/L Normal 21.0-32.0 [facility] Comment on above: Performed By: #### L IPID, CMP #### [facility] [address] [address] [address] Harvey Severino Creatinine [Mass/Vol] 0.82 mg/dL Normal 0.70-1.30 [facility] Comment on above: Performed By: #### L IPID, CMP #### [facility] [address] [address] [address] Harvey Severino EGFR-AF MOZAMBICAN >60 Normal >=60 [facility] Comment on above: Performed By: #### L IPID, CMP #### [facility] [address] [place] [address] Dr. Harvey Severino EGFR-NON AF MOZAMBICAN >60 Normal >=60 [facility] Comment on above: Performed By: #### L IPID, CMP #### [facility] [address] [address] [address] Harvey Severino Globulin (S) [Mass/Vol] 3.0 g/dL Normal [facility] Comment on above: Performed By: #### L IPID, CMP #### [facility] [address] [address] [address] Harvey Severino Glucose [Mass/Vol] 92 mg/dL Normal 74-106 [facility] Comment on above: Performed By: #### L IPID, CMP #### [facility] [address] [address] [address] Harvey Severino Potassium [Moles/Vol] 4.1 mmol/L Normal 3.5-5.1 [facility] Comment on above: Performed By: #### L IPID, CMP #### [facility] [address] [address] [address] Harvey Severino Protein [Mass/Vol] 6.8 g/dL Normal 6.4-8.2 [facility] Comment on above: Performed By: #### L IPID, CMP #### [facility] [address] [address] [address] Harvey Severino Sodium [Moles/Vol] 139 mmol/L Normal 136-145 [facility] Comment on above: Performed By: #### L IPID, CMP #### [facility] [address] [address] [address] Harvey Severino Urea nitrogen [Mass/Vol] 13.0 mg/dL Normal 7.0-18.0 [facility] Comment on above: Performed By: #### L IPID, CMP #### [facility] [address] [address] [address] Harvey Severino Urea nitrogen/Creatinine [Mass ratio] 15.9 mg/mg Normal [facility] Comment on above: Performed By: #### L IPID, CMP #### [facility] [address] [address] [address] Harvey Severino NM STRESS/REST MULTIon 07-22 NM STRESS/REST MULTI Patient: STEPHEN SPENCER Exam Date: 07/22/2022 : 1955 Gender:M Ordering : DR KING DUNN . Admission #: [id number] Family : ELIZABETH KELLY M.D. Order #: [id number] CLICK HERE TO VIEW EXAM RADIOLOGY REPORT PROCEDURE: RADIONUCLIDE IMAGING STRESS/REST MULTI COMPARISON: None. INDICATIONS: Atherosclerosis of coronary artery without angina pectoris TECHNIQUE: Exam Description: Stress/Rest one day protocol gated SPECT Rest Imagin.6 mCi Tc-99m Cardiolite IV on 07/22/2022 Stress Imaging 32.6 mCi Tc-99m Cardiolite IV on 07/22/2022 Exercise Protocol: Andreas Heart Rate (bpm): Rest: 63 Max: 153 PMHR: 99 Blood Pressure: Rest: 124/70 Max: 186/82 Exercise Time: Minutes: 10 Seconds: 30 Stage Reached: Stage: 4 Mets 12.7 Symptoms: Rest and peak stress ECG findings were abnormal and the exercise portion of the study was abnormal per attending physician Dr. Hankins due to EKG changes. For more details please see separate cardiac stress test report. FINDINGS: QUALITY OF STUDY: Excellent. PERFUSION DEFECT: None. LOCATION: N/A SIZE: N/A. SEVERITY: N/A. TYPE: N/A. WALL MOTION: Normal. LV SIZE: Normal. 87 mL. TID / TCD: None; 0.7 LVEF: Normal. Calculated EF 68%. SUMMARY: Myocardial perfusion imaging study is NORMAL. CONCLUSION: 1. No reversible ischemia 2. Abnormal exercise test secondary to EKG changes Dictated by: Maura Murphy MD on 07/23/2022 at 07:10 Approved by: Maura Murphy MD on 07/23/2022 at 07:12 Normal [facility] Calprotectin, Fecalon 2021 Calprotectin, Fecal 50 Normal 0-120 [facility] Comment on above: Result Comment: Conc entration Interpretation Follow-Up <16 - 50 ug/g Normal None >50 -120 ug/g Borderline Re-evaluate in 4-6 weeks >120 ug/g Abnormal Repeat as clinically indicated Performed at: - [facility] [id number] Editor News: Elio Buchanan MD, Phone: [phone] PERFORMED BY: [place] [address] PATHOLOGIST PULPING MACHINE OPERATOR MILTON PRATER M.D. Performed By: #### B UN, TSH3, ALT, CBC, ESR, CREAT, AST #### [address] #### GABRIELA #### [facility] , Covid-19 PCR (CVDTB)on 05-02 SARS-CoV-2 (COVID-19) RNA ADALID+probe Ql (Unsp spec) Detected Critically abnormal NOT DETECTED [facility] Comment on above: Result Comment: This test is not yet approved or cleared by the [place] FDA. When there are no FDA-approved or cleared tests available, and other criteria are met, FDA can make tests available under an emergency access mechanism called an Emergency Use Authorization (EUA). The EUA for this test is supported by the Clinic Mgr of Health and Human Service's (HHS's) declaration that circumstances exist to justify the emergency use of in vitro diagnostics for the detection and/or diagnosis of the virus that causes COVID-19. This EUA will remain in effect (meaning this test can be used) for the duration of the COVID-19 declaration justifying emergency of IVDs, unless it is terminated or revoked by FDA (after which the test may no longer be used). Performed By: #### C VDTB ####[facility] [id number] [address]Dr. Harvey Severino Basophils Auto (Bld) [#/Vol] Ordered By: Brayan Davila on 04-24-2022 Basophils (Bld) [#/Vol] 0.0 10*3/uL 0.0-0.2 [facility] Basophils/100 WBC Auto (Bld) Ordered By: Brayan Davila on 04-24-2022 Basophils/100 WBC (Bld) 0.7 % . [facility] Blood hemoglobin measurement (mass/volume)Ordered By: Brayan Davila on 04-24-2022 Hemoglobin (Bld) [Mass/Vol] 14.1 g/dL 13.0-17.0 [facility] Blood leukocytes automated c ount (number/volume)Ordered By: Brayan Davila on 04-24-2022 WBC (Bld) [#/Vol] 4.8 10*3/uL 4.5-11.0 [facility] Body fluid albumin measureme nt (mass/volume)Ordered By: Brayan Davila on 04-24-2022 Albumin (Body fld) [Mass/Vol] 3.9 g/dL 3.2-5.5 [facility] Complete Blood Count Auto Di ffon 04-24-2022 Basophils (Bld) [#/Vol] 0.0 10*3/uL Normal 0.0-0.2 [facility] Comment on above: Result Comment: PERF ORMED BY: [facility] [address] [place] [address] PATHOLOGIST PULPING MACHINE OPERATOR MILTON PRATER M.D. Performed By: #### C BC, HEPATIC, [id number] #### [facility] [address] [place] [address] [place] #### HAAB #### [facility] , Basophils/100 WBC (Bld) 0.7 % Normal . [facility] Comment on above: Performed By: #### C BC, HEPATIC, [id number] #### [place] [address] [place] #### HAAB #### [facility] , Eosinophils (Bld) [#/Vol] 0.3 10*3/uL Normal 0.0-0.45 [facility] Comment on above: Performed By: #### C BC, HEPATIC, [id number] #### [place] [address] [place] #### HAAB #### [facility] , Eosinophils/100 WBC (Bld) 5.2 % Normal . [facility] Comment on above: Performed By: #### C BC, HEPATIC, [id number] #### [place] [address] [place] #### HAAB #### [facility] , Erythrocyte distribution width (RBC) [Ratio] 13.0 % Normal 12.0-14.8 [facility] Comment on above: Performed By: #### C BC, HEPATIC, [id number] #### [address] #### HAAB #### [facility] , Hematocrit (Bld) [Volume fraction] 41.8 % Normal 38.8-50.0 [facility] Comment on above: Performed By: #### C BC, HEPATIC, [id number] #### [place] [address] [place] #### HAAB #### [facility] , Hemoglobin (Bld) [Mass/Vol] 14.1 g/dL Normal 13.0-17.0 [facility] Comment on above: Performed By: #### C BC, HEPATIC, [id number] #### [place] [address] [place] #### HAAB #### [facility] , Lymphocytes (Bld) [#/Vol] 0.9 10*3/uL Low 1.00-4.8 [facility] Comment on above: Performed By: #### C BC, HEPATIC, [id number] #### [address] #### HAAB #### [facility] , Lymphocytes/100 WBC (Bld) 18.8 % Normal . [facility] Comment on above: Performed By: #### C BC, HEPATIC, [id number] #### [address] #### HAAB #### [facility] , MCH (RBC) [Entitic mass] 31.3 pg Normal 27.5-35.2 [facility] Comment on above: Performed By: #### C BC, HEPATIC, [id number] #### [address] #### HAAB #### [facility] , MCV (RBC) [Entitic vol] 92.9 fL Normal 83.5-101 [facility] Comment on above: Performed By: #### C BC, HEPATIC, [id number] #### [address] #### HAAB #### [facility] , Mean Corpuscular HGB Conc 33.6 g/dL Normal 32.5-35.6 [facility] Comment on above: Performed By: #### C BC, HEPATIC, [id number] #### [place] [address] [place] #### HAAB #### [facility] , Monocytes (Bld) [#/Vol] 0.6 10*3/uL Normal 0.0-0.8 [facility] Comment on above: Performed By: #### C BC, HEPATIC, [id number] #### [place] [address] [place] #### HAAB #### [facility] , Monocytes/100 WBC (Bld) 13.1 % Normal . [facility] Comment on above: Performed By: #### C BC, HEPATIC, [id number] #### [place] [address] [place] #### HAAB #### [facility] , Neutrophils (Bld) [#/Vol] 3.0 10*3/uL Normal 1.8-7.7 [facility] Comment on above: Performed By: #### C BC, HEPATIC, [id number] #### [place] [address] [place] #### HAAB #### [facility] , Neutrophils/100 WBC (Bld) 62.2 % Normal . [facility] Comment on above: Performed By: #### C BC, HEPATIC, [id number] #### [place] [address] [place] #### HAAB #### [facility] , Nucleated RBC/100 WBC (Bld) [Ratio] 0.0 % Normal 0-0.5 [facility] Comment on above: Performed By: #### C BC, HEPATIC, [id number] #### [place] [address] [place] #### HAAB #### [facility] , Platelet mean volume (Bld) [Entitic vol] 8.1 fL Normal 6.6-10.1 [facility] Comment on above: Performed By: #### C BC, HEPATIC, [id number] #### [place] [address] [place] #### HAAB #### [facility] , Platelets (Bld) [#/Vol] 214 10*3/uL Normal 150-450 [facility] Comment on above: Performed By: #### C BC, HEPATIC, [id number] #### [facility] [address] [place] [address] [place] #### HAAB #### [facility] , RBC (Bld) [#/Vol] 4.50 10*6/uL Normal 3.90-5.60 [facility] Comment on above: Performed By: #### C BC, HEPATIC, [id number] #### [facility] [address] [place] [address] [place] #### HAAB #### [facility] , WBC (Bld) [#/Vol] 4.8 10*3/uL Normal 4.5-11.0 [facility] Comment on above: Performed By: #### C BC, HEPATIC, [id number] #### [facility] [address] [place] [address] [place] #### HAAB #### [facility] , Direct bilirubin measurement Ordered By: Brayan Davila on 04-24-2022 Bilirubin.direct [Mass/Vol] mg/dL 0.0-0.4 [facility] Eosinophils Auto (Bld) [#/Vo l]Ordered By: Brayan Davila on 04-24-2022 Eosinophils (Bld) [#/Vol] 0.3 10*3/uL 0.0-0.45 [facility] Eosinophils/100 WBC Auto (Bl d)Ordered By: Brayan Davila on 04-24-2022 Eosinophils/100 WBC (Bld) 5.2 % . [facility] Erythrocyte distribution wid th Auto (RBC) [Ratio]Ordered By: Brayan Davila on 04-24-2022 Erythrocyte distribution width (RBC) [Ratio] 13.0 % 12.0-14.8 [facility] Globulin Calc (S) [Mass/Vol] Ordered By: Brayan Davila on 04-24-2022 Globulin (S) [Mass/Vol] 2.2 g/dL [facility] Hematocrit Auto (Bld) [Volum e fraction]Ordered By: Brayan Davila on 04-24-2022 Hematocrit (Bld) [Volume fraction] 41.8 % 38.8-50.0 [facility] Hepatic Panelon 04-24-2022 Albumin [Mass/Vol] 3.9 g/dL Normal 3.2-5.5 [facility] Comment on above: Performed By: #### C BC, HEPATIC, [id number] #### [facility] [address] [place] [address] [place] #### HAAB #### [facility] , Albumin/Globulin [Mass ratio] 1.8 {ratio} Normal [facility] Comment on above: Performed By: #### C BC, HEPATIC, [id number] #### [facility] [address] [place] [address] [place] #### HAAB #### [facility] , ALP [Catalytic activity/Vol] 72 U/L Normal 32-92 [facility] Comment on above: Performed By: #### C BC, HEPATIC, [id number] #### [facility] [address] [place] [address] [place] #### HAAB #### [facility] , ALT [Catalytic activity/Vol] 23 U/L Normal 10-60 [facility] Comment on above: Performed By: #### C BC, HEPATIC, [id number] #### [facility] [address] [place] [address] [place] #### HAAB #### [facility] , AST [Catalytic activity/Vol] 22 U/L Normal 10-42 [facility] Comment on above: Performed By: #### C BC, HEPATIC, [id number] #### [facility] [address] [place] [address] [place] #### HAAB #### [facility] , Bilirubin [Mass/Vol] 0.5 mg/dL Normal 0.3-1.2 [facility] Comment on above: Performed By: #### C BC, HEPATIC, [id number] #### [address] #### HAAB #### [facility] , Bilirubin,Indirect Not performed Normal [facility] Comment on above: Performed By: #### C BC, HEPATIC, [id number] #### [address] #### HAAB #### [facility] , Bilirubin.indirect [Mass/Vol] mg/dL Normal 0.0-0.4 [facility] Comment on above: Performed By: #### C BC, HEPATIC, [id number] #### [address] #### HAAB #### [facility] , Globulin (S) [Mass/Vol] 2.2 g/dL Normal [facility] Comment on above: Performed By: #### C BC, HEPATIC, [id number] #### [address] #### HAAB #### [facility] , Protein [Mass/Vol] 6.1 g/dL Normal 6.1-7.9 [facility] Comment on above: Performed By: #### C BC, HEPATIC, [id number] #### [address] #### HAAB #### [facility] , Hepatitis A Antibody IgMon 0 04-24-2022 Hepatitis A Antibody IgM Negative Normal Negative [facility] Comment on above: Result Comment: Perf ormed at: CB - [facility] [address] [id number] Editor News: Juan A Yeh PhD, Phone: [phone] PERFORMED BY: [place] [address] PATHOLOGIST PULPING MACHINE OPERATOR MILTON PRATER M.D. Performed By: #### B UN, TSH3, ALT, CBC, ESR, CREAT, AST #### [facility] [address] [id number] [facility] #### GABRIELA #### [facility] , Laboratory - Hematology and Cell countsOrdered By: Brayan Davila on 04-24-2022 Nucleated RBC/100 WBC (Bld) [Ratio] 0.0 % 0-0.5 [facility] Lymphocytes Auto (Bld) [#/Vo l]Ordered By: Brayan Davila on 04-24-2022 Lymphocytes (Bld) [#/Vol] 0.9 10*3/uL 1.00-4.8 [facility] Lymphocytes/100 WBC Auto (Bl d)Ordered By: Brayan Davila on 04-24-2022 Lymphocytes/100 WBC (Bld) 18.8 % . [facility] MCH Auto (RBC) [Entitic mass ]Ordered By: Brayan Davila on 04-24-2022 MCH (RBC) [Entitic mass] 31.3 pg 27.5-35.2 [facility] MCHC Auto (RBC) [Mass/Vol]Or dered By: Brayan Davila on 04-24-2022 MCHC (RBC) [Mass/Vol] 33.6 g/dL 32.5-35.6 [facility] MCV Auto (RBC) [Entitic vol] Ordered By: Brayan Davila on 04-24-2022 MCV (RBC) [Entitic vol] 92.9 fL 83.5-101 [facility] Monocytes Auto (Bld) [#/Vol] Ordered By: Brayan Davila on 04-24-2022 Monocytes (Bld) [#/Vol] 0.6 10*3/uL 0.0-0.8 [facility] Monocytes/100 WBC Auto (Bld) Ordered By: Brayan Davila on 04-24-2022 Monocytes/100 WBC (Bld) 13.1 % . [facility] Neutrophils Auto (Bld) [#/Vo l]Ordered By: Brayan Davila on 04-24-2022 Neutrophils (Bld) [#/Vol] 3.0 10*3/uL 1.8-7.7 [facility] Neutrophils/100 WBC Auto (Bl d)Ordered By: Brayan Davila on 04-24-2022 Neutrophils/100 WBC (Bld) 62.2 % . [facility] No Panel InformationOrdered By: Brayan Davila on 04-24-2022 25-Hydroxy Vitamin D Total 20.1 ng/mL 30-100 [facility] Comment on above: VITAMIN D STATUS 25( [place])VITAMIN D RANGE (ng/mL) Deficient <20 Insufficient 20 to <30 Sufficient 30 to 100 Reference: Mike MF,Mango NC, Corina EMERSON, et al. Evaluation,treatment, and prevention of vitamin D deficiency; an Endocrine Society clinical practice guideline. JCEM. 2010; 96(7):1911-30. Hepatitis A IgM Antibody Negative Negative [facility] Comment on above: Performed at: [address] [id number] Editor News: Juan A Yeh PhD, Phone: [phone] Platelet mean volume Auto (B ld) [Entitic vol]Ordered By: Brayan Davila on 04-24-2022 Platelet mean volume (Bld) [Entitic vol] 8.1 fL 6.6-10.1 [facility] Platelets Auto (Bld) [#/Vol] Ordered By: Brayan Davila on 04-24-2022 Platelets (Bld) [#/Vol] 214 10*3/uL 150-450 [facility] Protein [Mass/volume] in Ser um or PlasmaOrdered By: Brayan Davila on 04-24-2022 Protein [Mass/Vol] 6.1 g/dL 6.1-7.9 [facility] RBC Auto (Bld) [#/Vol]Ordere d By: Brayan Davila on 04-24-2022 RBC (Bld) [#/Vol] 4.50 10*6/uL 3.90-5.60 [facility] Serum or plasma alanine john otransferase measurement without P-5'-P (enzymatic activiOrdered By: Brayan Davila on 04-24-2022 ALT No additional P-5'-P [Catalytic activity/Vol] 23 U/L 10-60 [facility] Serum or plasma albumin/glob ulin mass ratioOrdered By: Brayan Davila on 04-24-2022 Albumin/Globulin [Mass ratio] 1.8 {ratio} [facility] Serum or plasma alkaline ellen sphatase measurement (enzymatic activity/volume)Ordered By: Brayan Davila on 04-24-2022 ALP [Catalytic activity/Vol] 72 U/L 32-92 [facility] Serum or plasma aspartate am inotransferase measurement (enzymatic activity/volume)Ordered By: Brayan Davila on 04-24-2022 AST [Catalytic activity/Vol] 22 U/L 10-42 [facility] Serum or plasma non-glucuron idated bilirubin measurement (mass/volume)Ordered By: Brayan Davila on 04-24-2022 Bilirubin.indirect [Mass/Vol] TNP [facility] Comment on above: Test not performed Serum or plasma total biliru bin measurement (mass/volume)Ordered By: Brayan Davila on 04-24-2022 Bilirubin [Mass/Vol] 0.5 mg/dL 0.3-1.2 [facility] Vitamin D 25 Hydroxy Totalon 04-24-2022 Vitamin D 25 Hydroxy Total 20.1 ng/mL Low 30-100 [facility] Comment on above: Result Comment: FABIAN MIN D STATUS 25(OH)VITAMIN D RANGE (ng/mL) Deficient <20 Insufficient 20 to <30 Sufficient 30 to 100 Reference: Mike MF,Mango NC, Corina EMERSON, et al. Evaluation,treatment, and prevention of vitamin D deficiency; an Endocrine Society clinical practice guideline. JCEM. 2010; 96(7):1911-30. PERFORMED BY: [place] [address] PATHOLOGIST PULPING MACHINE OPERATOR MILTON PRATER M.D. Performed By: #### B UN, TSH3, ALT, CBC, ESR, CREAT, AST #### [place] [address] [place] #### GABRIELA #### [facility] , GABRIELA Antinuclear Antibodieson 02-04-2022 Antinuclear Abs, IFA Negative Normal . [facility] Comment on above: Result Comment: Nega tive <1:80 Borderline 1:80 Positive >1:80 ICAP nomenclature: [id number] For more information about Hep-2 cell patterns use ANApatterns.org, the official website for the International Consensus on Antinuclear Antibody (GABRIELA) Patterns (ICAP). Performed at: [address] [id number] Editor News: Juan A Yeh PhD, Phone: [phone] PERFORMED BY: [place] [address] PATHOLOGIST PULPING MACHINE OPERATOR MILTON PRATER M.D. Performed By: #### B UN, TSH3, ALT, CBC, ESR, CREAT, AST #### [address] #### GABRIELA #### [facility] , Alanine Aminotransferaseon 0 02-04-2022 ALT [Catalytic activity/Vol] 29 U/L Normal 10-60 [facility] Comment on above: Performed By: #### B UN, TSH3, ALT, CBC, ESR, CREAT, AST #### [address] #### GABRIELA #### [facility] , Aspartate Amino Transferaseo n 02-04-2022 AST [Catalytic activity/Vol] 24 U/L Normal 10-42 [facility] Comment on above: Performed By: #### B UN, TSH3, ALT, CBC, ESR, CREAT, AST #### [place] [address] [place] #### GABRIELA #### [facility] , Blood Urea Nitrogenon 2021 Urea nitrogen [Mass/Vol] 11 mg/dL Normal 9-23 [facility] Comment on above: Performed By: #### B UN, TSH3, ALT, CBC, ESR, CREAT, AST #### [place] [address] [place] #### GABRIELA #### [facility] , Complete Blood Count Auto Di ffon 02-04-2022 Basophils (Bld) [#/Vol] 0.0 10*3/uL Normal 0.0-0.2 [facility] Comment on above: Performed By: #### B UN, TSH3, ALT, CBC, ESR, CREAT, AST #### [address] #### GABRIELA #### [facility] , Basophils/100 WBC (Bld) 0.6 % Normal . [facility] Comment on above: Performed By: #### B UN, TSH3, ALT, CBC, ESR, CREAT, AST #### [address] #### GABRIELA #### [facility] , Eosinophils (Bld) [#/Vol] 0.1 10*3/uL Normal 0.0-0.45 [facility] Comment on above: Performed By: #### B UN, TSH3, ALT, CBC, ESR, CREAT, AST #### [address] #### GABRIELA #### [facility] , Eosinophils/100 WBC (Bld) 1.0 % Normal . [facility] Comment on above: Performed By: #### B UN, TSH3, ALT, CBC, ESR, CREAT, AST #### [address] #### GABRIELA #### [facility] , Erythrocyte distribution width (RBC) [Ratio] 14.2 % Normal 12.0-14.8 [facility] Comment on above: Performed By: #### B UN, TSH3, ALT, CBC, ESR, CREAT, AST #### [place] [address] [place] #### GABRIELA #### [facility] , Hematocrit (Bld) [Volume fraction] 41.1 % Normal 38.8-50.0 [facility] Comment on above: Performed By: #### B UN, TSH3, ALT, CBC, ESR, CREAT, AST #### [facility] [address] [place] [address] [place] #### GABRIELA #### [facility] , Hemoglobin (Bld) [Mass/Vol] 13.5 g/dL Normal 13.0-17.0 [facility] Comment on above: Performed By: #### B UN, TSH3, ALT, CBC, ESR, CREAT, AST #### [place] [address] [place] #### GABRIELA #### [facility] , Lymphocytes (Bld) [#/Vol] 1.8 10*3/uL Normal 1.00-4.8 [facility] Comment on above: Performed By: #### B UN, TSH3, ALT, CBC, ESR, CREAT, AST #### [address] #### GABRIELA #### [facility] , Lymphocytes/100 WBC (Bld) 26.5 % Normal . [facility] Comment on above: Performed By: #### B UN, TSH3, ALT, CBC, ESR, CREAT, AST #### [place] [address] [place] #### GABRIELA #### [facility] , MCH (RBC) [Entitic mass] 29.9 pg Normal 27.5-35.2 [facility] Comment on above: Performed By: #### B UN, TSH3, ALT, CBC, ESR, CREAT, AST #### [place] [address] [place] #### GABRIELA #### [facility] , MCV (RBC) [Entitic vol] 91.0 fL Normal 83.5-101 [facility] Comment on above: Performed By: #### B UN, TSH3, ALT, CBC, ESR, CREAT, AST #### [place] [address] [place] #### GABRIELA #### [facility] , Mean Corpuscular HGB Conc 32.8 g/dL Normal 32.5-35.6 [facility] Comment on above: Performed By: #### B UN, TSH3, ALT, CBC, ESR, CREAT, AST #### [facility] [address] [place] [address] #### GABRIELA #### [facility] , Monocytes (Bld) [#/Vol] 0.8 10*3/uL Normal 0.0-0.8 [facility] Comment on above: Performed By: #### B UN, TSH3, ALT, CBC, ESR, CREAT, AST #### [place] [address] [place] #### GABRIELA #### [facility] , Monocytes/100 WBC (Bld) 11.7 % Normal . [facility] Comment on above: Performed By: #### B UN, TSH3, ALT, CBC, ESR, CREAT, AST #### [place] [address] [place] #### GABRIELA #### [facility] , Neutrophils (Bld) [#/Vol] 4.0 10*3/uL Normal 1.8-7.7 [facility] Comment on above: Performed By: #### B UN, TSH3, ALT, CBC, ESR, CREAT, AST #### [facility] [address] [place] [address] [place] #### GABRIELA #### [facility] , Neutrophils/100 WBC (Bld) 60.2 % Normal . [facility] Comment on above: Performed By: #### B UN, TSH3, ALT, CBC, ESR, CREAT, AST #### [facility] [address] [place] [address] [place] #### GABRIELA #### [facility] , Nucleated RBC/100 WBC (Bld) [Ratio] 0.1 % Normal 0-0.5 [facility] Comment on above: Performed By: #### B UN, TSH3, ALT, CBC, ESR, CREAT, AST #### [facility] [address] [place] [address] [place] #### GABRIELA #### [facility] , Platelet mean volume (Bld) [Entitic vol] 7.3 fL Normal 6.6-10.1 [facility] Comment on above: Performed By: #### B UN, TSH3, ALT, CBC, ESR, CREAT, AST #### [facility] [address] [place] [address] #### GABRIELA #### [facility] , Platelets (Bld) [#/Vol] 277 10*3/uL Normal 150-450 [facility] Comment on above: Performed By: #### B UN, TSH3, ALT, CBC, ESR, CREAT, AST #### [facility] [address] [place] [address] [place] #### GABRIELA #### [facility] , RBC (Bld) [#/Vol] 4.52 10*6/uL Normal 3.90-5.60 [facility] Comment on above: Performed By: #### B UN, TSH3, ALT, CBC, ESR, CREAT, AST #### [facility] [address] [place] [address] #### GABRIELA #### [facility] , WBC (Bld) [#/Vol] 6.7 10*3/uL Normal 4.5-11.0 [facility] Comment on above: Performed By: #### B UN, TSH3, ALT, CBC, ESR, CREAT, AST #### [facility] [address] [place] [address] [place] #### GABRIELA #### [facility] , Creatinineon 02-04-2022 Creatinine [Mass/Vol] 0.95 mg/dL Normal 0.64-1.27 [facility] Comment on above: Performed By: #### B UN, TSH3, ALT, CBC, ESR, CREAT, AST #### [facility] [address] [place] [address] #### GABRIELA #### [facility] , Estimated GFR ( Александр > 60 Normal [facility] Comment on above: Result Comment: GFR estimated reference range: According to KDOQI guidelines, <60 ml/min/1.73m2 is sufficient to diagnose a patient with chronic kidney disease. Performed By: #### B UN, TSH3, ALT, CBC, ESR, CREAT, AST #### [address] #### GABRIELA #### [facility] , Estimated GFR (Non- Am > 60 Normal [facility] Comment on above: Performed By: #### B UN, TSH3, ALT, CBC, ESR, CREAT, AST #### [address] #### GABRIELA #### [facility] , Erythrocyte Sedimentation Ra steph 02-04-2022 ESR (Bld) [Velocity] 9 mm/h Normal 0-19 [facility] Comment on above: Result Comment: PERF ORMED BY: [place] [address] PATHOLOGIST PULPING MACHINE OPERATOR MILTON PRATER M.D. Performed By: #### B UN, TSH3, ALT, CBC, ESR, CREAT, AST #### [address] #### GABRIELA #### [facility] , Thyroid Stimulating Hormoneo n 02-04-2022 TSH Qn 0.07 m[IU]/L Low 0.45-5.33 [facility] Comment on above: Result Comment: PERF ORMED BY: [place] [address] PATHOLOGIST PULPING MACHINE OPERATOR MILTON PRATER M.D. Performed By: #### B UN, TSH3, ALT, CBC, ESR, CREAT, AST #### [facility] [address] #### GABRIELA #### [facility] , Vital Signs Date Time Vital Sign Value Performing Clinician Facility 09-16-2023 07:20-0500 Body temperature 97.9 [degF] Rheu Maria M Work Phone: [facility] 09-16-2023 07:20-0500 Body weight 79.38 kg Rheu Maria M Work Phone: [facility] 09-16-2023 07:20-0500 Diastolic blood pressure 66 mm[Hg] Rheu Maria M Work Phone: [facility] 09-16-2023 07:20-0500 Heart rate 66 /min Rheu Maria M Work Phone: [facility] 09-16-2023 07:20-0500 SaO2% (BldA) [Mass fraction] 98 % Rheu Maria M Work Phone: [facility] 09-16-2023 07:20-0500 Systolic blood pressure 109 mm[Hg] Rheu Maria M Work Phone: [facility] 08-09-2023 08:39-0400 Body height 177.8 cm Brayan Davila MD Work Phone: [facility] 08-09-2023 08:39-0400 Body temperature 97.39 [degF] Brayan Davila MD Work Phone: [facility] 08-09-2023 08:39-0400 Body weight 79.02 kg Brayan Davila MD Work Phone: [facility] 08-09-2023 08:39-0400 Diastolic blood pressure 61 mm[Hg] Brayan Davila MD Work Phone: [facility] 08-09-2023 08:39-0400 Heart rate 75 /min Brayan Davila MD Work Phone: [facility] 08-09-2023 08:39-0400 SaO2% (BldA) [Mass fraction] 99 % Brayan Davlia MD Work Phone: [facility] 08-09-2023 08:39-0400 Systolic blood pressure 106 mm[Hg] Brayan Davila MD Work Phone: [facility] 07-22-2023 07:20-0400 Body temperature 98.2 [degF] Rheu Maria M Work Phone: [facility] 07-22-2023 07:20-0400 Body weight 78.47 kg Rheu Maria M Work Phone: [facility] 07-22-2023 07:20-0400 Diastolic blood pressure 63 mm[Hg] Rheu Maria M Work Phone: [facility] 07-22-2023 07:20-0400 Heart rate 66 /min Rheu Maria M Work Phone: [facility] 07-22-2023 07:20-0400 Respiratory rate 18 /min Rheu Maria M Work Phone: [facility] 07-22-2023 07:20-0400 Systolic blood pressure 110 mm[Hg] Rheu Maria M Work Phone: [facility] 05-27-2023 07:20-0400 Body temperature 97 [degF] Rheu Maria M Work Phone: [facility] 05-27-2023 07:20-0400 Diastolic blood pressure 68 mm[Hg] Rheu Maria M Work Phone: [facility] 05-27-2023 07:20-0400 Heart rate 67 /min Rheu Maria M Work Phone: [facility] 05-27-2023 07:20-0400 Respiratory rate 18 /min Rheu Maria M Work Phone: [facility] 05-27-2023 07:20-0400 Systolic blood pressure 113 mm[Hg] Rheu Maria M Work Phone: [facility] 04-01-2023 07:14-0400 Body temperature 97.9 [degF] Rheu Maria M Work Phone: [facility] 04-01-2023 07:14-0400 Body weight 79.11 kg Rheu Maria M Work Phone: [facility] 04-01-2023 07:14-0400 Diastolic blood pressure 62 mm[Hg] Rheu Maria M Work Phone: [facility] 04-01-2023 07:14-0400 Heart rate 75 /min Rheu Maria M Work Phone: [facility] 04-01-2023 07:14-0400 Systolic blood pressure 112 mm[Hg] Rheu Maria M Work Phone: [facility] 02-05-2023 08:03-0400 Body weight 80.02 kg Audelia Rigo PROCUREMENT DIRECTOR.DITCH DIGGER Work Phone: [facility] 02-05-2023 08:03-0400 Diastolic blood pressure 52 mm[Hg] Audelia Rigo PROCUREMENT DIRECTOR.DITCH DIGGER Work Phone: [facility] [facility] 02-05-2023 08:03-0400 Heart rate 79 /min Audelia Rigo PROCUREMENT DIRECTOR.DITCH DIGGER Work Phone: [facility] 02-05-2023 08:03-0400 Systolic blood pressure 97 mm[Hg] Audelia Rigo PROCUREMENT DIRECTOR.DITCH DIGGER Work Phone: [facility] 12-10-2022 07:29-0500 Body temperature 98.1 [degF] Rheu Maria M Work Phone: [facility] 12-10-2022 07:29-0500 Body weight 78.38 kg Rheu Maria M Work Phone: [facility] 12-10-2022 07:29-0500 Diastolic blood pressure 60 mm[Hg] Rheu Maria M Work Phone: [facility] 12-10-2022 07:29-0500 Heart rate 77 /min Rheu Maria M Work Phone: [facility] 12-10-2022 07:29-0500 Systolic blood pressure 113 mm[Hg] Rheu Maria M Work Phone: [facility] 10-15-2022 07:30-0500 Body temperature 97 [degF] Rheu Maria M Work Phone: [facility] 10-15-2022 07:30-0500 Body weight 78.02 kg Rheu Maria M Work Phone: [facility] 10-15-2022 07:30-0500 Diastolic blood pressure 65 mm[Hg] Rheu Maria M Work Phone: [facility] 10-15-2022 07:30-0500 Heart rate 72 /min Rheu Maria M Work Phone: [facility] 10-15-2022 07:30-0500 Respiratory rate 18 /min Rheu Maria M Work Phone: [facility] 10-15-2022 07:30-0500 Systolic blood pressure 110 mm[Hg] Rheu Maria M Work Phone: [facility] 08-20-2022 08:28-0400 Diastolic blood pressure 60 mm[Hg] Rheu Maria M Work Phone: [facility] 08-20-2022 08:28-0400 Heart rate 67 /min Rheu Maria M Work Phone: [facility] 08-20-2022 08:28-0400 Systolic blood pressure 109 mm[Hg] Rheu Maria M Work Phone: [facility] 08-20-2022 07:21-0400 Body temperature 97.3 [degF] Rheu Maria M Work Phone: [facility] 06-25-2022 07:29-0400 Body temperature 97.11 [degF] Rheu Maria M Work Phone: [facility] 06-25-2022 07:29-0400 Body weight 76.66 kg Rheu Maria M Work Phone: [facility] 06-25-2022 07:29-0400 Diastolic blood pressure 65 mm[Hg] Rheu Maria M Work Phone: [facility] 06-25-2022 07:29-0400 Heart rate 74 /min Rheu Maria M Work Phone: [facility] 06-25-2022 07:29-0400 Respiratory rate 18 /min Rheu Maria M Work Phone: [facility] 06-25-2022 07:29-0400 Systolic blood pressure 106 mm[Hg] Rheu Maria M Work Phone: [facility] 04-07-2022 07:00-0400 Body temperature 97.59 [degF] Rheu Maria M Work Phone: [facility] 04-07-2022 07:00-0400 Diastolic blood pressure 65 mm[Hg] Rheu Maria M Work Phone: [facility] 04-07-2022 07:00-0400 Heart rate 80 /min Rheu Maria M Work Phone: [facility] 04-07-2022 07:00-0400 Respiratory rate 16 /min Rheu Maria M Work Phone: [facility] 04-07-2022 07:00-0400 Systolic blood pressure 130 mm[Hg] Rheu Maria M Work Phone: [facility] 03-10-2022 07:30-0400 Body temperature 97.2 [degF] Rheu Maria M Work Phone: [facility] 03-10-2022 07:30-0400 Body weight 79.38 kg Rheu Maria M Work Phone: [facility] 03-10-2022 07:30-0400 Diastolic blood pressure 76 mm[Hg] Rheu Maria M Work Phone: [facility] 03-10-2022 07:30-0400 Heart rate 85 /min Rheu Maria M Work Phone: [facility] 03-10-2022 07:30-0400 Respiratory rate 18 /min Rheu Maria M Work Phone: [facility] 03-10-2022 07:30-0400 Systolic blood pressure 122 mm[Hg] Rheu Maria M Work Phone: [facility] 02-24-2022 08:50-0400 Diastolic blood pressure 70 mm[Hg] Nurse 4 Work Phone: [facility] 02-24-2022 08:50-0400 Heart rate 71 /min Nurse 4 Work Phone: [facility] 02-24-2022 08:50-0400 Respiratory rate 18 /min Nurse 4 Work Phone: [facility] 02-24-2022 08:50-0400 SaO2% (BldA) [Mass fraction] 97 % Nurse 4 Work Phone: [facility] 02-24-2022 08:50-0400 Systolic blood pressure 130 mm[Hg] Nurse 4 Work Phone: [facility] 02-24-2022 07:35-0400 Body temperature 97 [degF] Nurse 4 Work Phone: [facility] 2021 16:00-0400 Body height 177.8 cm Keshawn Banerjee Other [employer] Other 2021 16:00-0400 Body mass index (BMI) [Ratio] 24.25 kg/m2 Keshawn Banerjee Other [employer] Other 2021 16:00-0400 Body weight 76.66 kg Keshawn Banerjee Other [employer] Other Encounters Encounter Date Encounter Type Care Provider Facility Start: 11-30-2023 End: 11-30-2023 ambulatory AYO STEELE Not Available Start: 11-11-2023 End: 11-11-2023 ambulatory KING DUNN Facility:[facility] Start: 10-14-2023 End: 10-14-2023 ambulatory AYO STEELE Not Available Start: 09-29-2023 End: 09-29-2023 ambulatory PEDRO DEL CASTILLO Not Available Start: 09-21-2023 End: 09-21-2023 ambulatory VENICE DIA Not Available Start: 09-20-2023 End: 09-20-[address] [facility] Facility:[facility] Start: 09-16-2023 End: 09-16-[address] [facility] Facility:[facility] Start: 09-16-2023 End: 09-16-2023 ambulatory Rheu Chair 5 Maria M Work Phone: Infusion Comment on above: Ulcerative colitis w ith complication, unspecified location (HCC) (Primary Dx) Start: 09-14-2023 End: 09-14-2023 ambulatory [facility] Infusion Comment on above: Infusion Start: 09-14-2023 E-mail encounter fro m caregiver [facility] Provider [facility] Start: 08-11-2023 Telephone encounter Brayan Davila MD Work Phone: Gastroenterology Comment on above: Patient Question Start: 08-09-2023 End: 08-10-[address] [facility] Facility:[facility] Start: 08-09-2023 End: 08-09-[address] [facility] Facility:[facility] Start: 08-09-2023 End: 08-09-2023 Patient encounter procedure Brayan Davila MD Work Phone: Gastroenterology Comment on above: Ulcerative colitis w ithout complications, unspecified location (HCC) (Primary Dx); Vitamin D deficiency; Osteopenia, unspecified location Start: 07-27-2023 End: 07-29-2023 ambulatory [facility] Start: 07-22-2023 End: 07-22-[address] [facility] Facility:[facility] Start: 07-22-2023 End: 07-22-2023 ambulatory Rheu Chair 4 Maria M Work Phone: Infusion Comment on above: Ulcerative colitis w ith complication, unspecified location (HCC) (Primary Dx) Start: 07-20-2023 ambulatory [facility] Infusion Comment on above: Infusion Start: 09-19-2023 E-mail encounter fro m caregiver [facility] Provider CCRemigio THOMAS [facility] Start: 07-06-2023 End: 07-06-2023 ambulatory JOSE LUIS MORRISON Facility:[facility] Start: 07-06-2023 End: 07-06-2023 Patient encounter procedure Jose Luis Morrison MD Work Phone: Dermatology Comment on above: Skin cancer screenin g (Primary Dx); History of basal cell carcinoma; Actinic keratosis; Seborrheic keratosis; Boyer angioma Start: 05-27-2023 End: 05-27-2023 ambulatory KING DUNN Facility:[facility] Start: 05-27-2023 End: 05-27-2023 ambulatory Rheu Chair 4 Maria M Work Phone: Infusion Comment on above: Ulcerative colitis w ith complication, unspecified location (HCC) (Primary Dx); Encounter for long-term (current) use of medications Start: 05-11-2023 End: 05-11-2023 ambulatory [facility] Start: 04-13-2023 End: 04-13-2023 ambulatory [facility] Start: 04-01-2023 End: 04-01-2023 ambulatory KING DUNN Facility:[facility] Start: 04-01-2023 End: 04-01-2023 ambulatory Rheu Chair 6 Maria M Work Phone: Infusion Comment on above: Ulcerative colitis w ith complication, unspecified location (HCC) (Primary Dx) Start: 03-31-2023 Telephone encounter [facility] Provider Shahid uskrystal Start: 02-25-2023 End: 02-26-[address] KING DUNN . Facility: Start: 02-05-2023 End: 02-05-2023 ambulatory AUDELIA SIERRA Facility:[facility] Start: 02-05-2023 End: 02-05-2023 Patient encounter procedure Audelia Sierra APRN.CNP Work Phone: Gastroenterology Comment on above: Ulcerative colitis w ithout complications, unspecified location (HCC) (Primary Dx) Start: 02-04-2023 End: 02-04-2023 ambulatory KING DUNN Facility:[facility] Start: 02-02-2023 End: 02-03-2023 ambulatory KING Suman EDUARDORichmond Facility:[facility] Start: 01-29-2023 End: 01-29-2023 ambulatory JOSE LUIS MORRISON Facility:[facility] Start: 12-22-2022 End: 12-23-[address] DOCTOR JASMINE Facility:[facility] Start: 12-15-2022 End: 12-15-2022 ambulatory JOSE LUIS PRINCE Facility:[facility] Start: 12-10-2022 End: 12-10-2022 ambulatory KING Will EDUARDORichmond Facility:[facility] Start: 12-10-2022 End: 12-10-2022 ambulatory Rheu Chair 4 Maria M Work Phone: Infusion Comment on above: Ulcerative colitis w ith complication, unspecified location (HCC) (Primary Dx) Start: 12-09-2022 Telephone encounter Brayan Davila MD Work Phone: Infusion Start: 11-17-2022 End: 11-18-[address] KING DUNN . Facility:[facility] Start: 11-03-2022 ambulatory Meri Woods RN Gastroent erology Comment on above: Colonoscopy instruct ions Start: 11-03-2022 E-mail encounter fro m caregiver Meri Woods RN [facility] Start: 10-30-2022 End: 10-30-[address] KING DUNN . Facility: Start: 10-21-2022 End: 10-22-[address] DOCTOR JASMINE Facility:[facility] Start: 10-15-2022 End: 10-15-2022 ambulatory Rheu Chair 4 Maria M Work Phone: Infusion Comment on above: Ulcerative colitis w ith complication, unspecified location (HCC) (Primary Dx); Encounter for long-term (current) use of medications Start: 10-14-2022 Telephone encounter Brayan Davila MD Work Phone: Infusion Comment on above: Patient Question Start: 10-13-2022 ambulatory Brayan mcclure MD Work Phone: Infusion Comment on above: Infusion for Thursda y Start: 10-13-2022 E-mail encounter fro m caregiver Brayan Davila MD Work Phone: [facility] Start: 09-18-2022 End: 09-19-[address] KING DUNN . Facility: Start: 09-18-2022 End: 09-18-2022 ambulatory [facility] Start: 09-16-2022 End: 09-17-[address] KING DUNN . Facility: Start: 09-11-2022 End: 09-12-[address] KING DUNN . Facility:[facility] Start: 09-09-2022 End: 09-10-[address] KING DUNN . Facility: Start: 08-20-2022 End: 08-20-2022 ambulatory Rheu Chair 4 Maria M Work Phone: Infusion Comment on above: Ulcerative colitis w ith complication, unspecified location (HCC) (Primary Dx) Start: 08-18-2022 ambulatory [facility] Infusion Comment on above: Infusion 08/20/22 Start: 08-18-2022 E-mail encounter fro m caregiver [facility] Provider [facility] Start: 08-04-2022 End: 08-05-[address] KING DUNN . Facility: Start: 07-30-2022 End: 07-31-2022 ambulatory VENICE PROCTOR Facility: Start: 07-22-2022 End: 07-23-[address] KING DUNN . Facility: Start: 07-07-2022 End: 07-07-2022 ambulatory Brayan Davila Facility:[facility] Start: 07-07-2022 End: 07-07-2022 Patient encounter procedure MD King Dunn Work Phone: [facility] [place] Start: 06-25-2022 End: 06-25-2022 ambulatory Rheu Chair 6 Maria M Work Phone: Infusion Comment on above: Ulcerative colitis w ith complication, unspecified location (HCC) (Primary Dx); Encounter for long-term (current) use of medications Start: 06-01-2022 Telephone encounter Brayan Davila MD Work Phone: Infusion Comment on above: Question Start: 05-20-2022 End: 05-20-[address] KING DUNN . Facility: Start: 05-12-2022 Telephone encounter Brayan Davila MD Work Phone: Gastroenterology Comment on above: Results (Bone Densit y) Start: 04-24-2022 End: 04-24-2022 ambulatory Brayan Davila Facility:[facility] Start: 04-24-2022 End: 04-24-2022 Patient encounter procedure MD King Dunn Work Phone: [facility] Start: 04-09-2022 Telephone encounter Brayan Davila MD Work Phone: Infusion Comment on above: Patient Question Start: 04-09-2022 End: 04-09-2022 ambulatory Brayan Davila MD Work Phone: Gastroenterology Comment on above: Ulcerative colitis w ithout complications, unspecified location (HCC) (Primary Dx); MCC (current) use of systemic steroids; Vitamin D deficiency Start: 04-09-2022 End: 04-09-2022 Telemedicine consultation with patient Brayan Davila MD Work Phone: [facility] Start: 04-07-2022 End: 04-07-2022 ambulatory Rheu Chair 5 Maria M Work Phone: Infusion Comment on above: Ulcerative colitis w ith complication, unspecified location (HCC) (Primary Dx) Start: 03-10-2022 End: 03-10-2022 ambulatory Rheu Chair 5 Maria M Work Phone: Infusion Comment on above: Ulcerative colitis w ith complication, unspecified location (HCC) (Primary Dx) Start: 02-24-2022 Telephone encounter Brayan Davila MD Work Phone: Infusion Comment on above: Infusion (ENTYVIO) Start: 02-24-2022 End: 02-24-2022 Subsequent hospital visit by physician Nurse Gi Proc 4 Work Phone: Gastroenterology Start: 02-23-2022 Telephone encounter Brayan Davila MD Work Phone: Gastroenterology Comment on above: Sulfsalazine Start: 02-04-2022 End: 02-04-2022 ambulatory Alda A Kelvin Facility:[facility] Start: 01-26-2022 Telephone encounter Brayan Davila MD Work Phone: Gastroenterology Comment on above: Test Results... Start: 2021 Office outpatient visit 25 minutes Keshawn FRAIRE Gastroenterology Procedures Date Procedure Procedure Detail Performing Clinician Start: 11-17-[address] HARLEY DUNN . Comment on above: Performed By: #### P [facility] #### [facility] [address] [place] [address] Dr. Harvey Severino Start: 11-10-2022 Colonoscopy Brayan smith MD Work Phone: Start: 09-18-2022 Follow-up visit Follow-up LORA ALLEN Start: 04-24-2022 Dual energy X-ray absorptiometry MD King Dunn Work Phone: Start: 11-04-2021 Colonoscopy Brayan smith MD Work Phone: Start: 08-28-2021 Lipid 1996 panel - S jonh or Plasma [facility] Provider Plan of Treatment Date Care Activity Detail Author Start: 11-17-2027 PROSTATE CANCER SCREENING DISCUSSION PROSTATE CANCER SCREENING DISCUSSION [facility] Start: 08-28-2026 Lipid 1996 panel - S jonh or Plasma Lipid Screening [facility] Start: 08-28-2026 LIPID SCREEN LIPID SCREEN [facility] Start: 04-07-2026 Urine microalbumin profile DTaP,Tdap,Td Vaccine (2 - Td or Tdap) [facility] Start: 01-13-2025 DIABETES SCREEN DIABETES SCREEN [facility] Start: 01-13-2025 Diabetes Screening Diabetes Screenin g [facility] Start: 11-10-2023 Colonoscopy COLONOSCOPY [facility] Start: 11-10-2023 COLORECTAL CANCER SCREENING COLORECTAL CANCER SCREENING [facility] Start: 09-30-2023 Hepatitis A Vaccine (2 of 3 - Hep A Twinrix risk 3-dose series) Hepatitis A Vaccine (2 of 3 - Hep A Twinrix risk 3-dose series) [facility] Start: 09-30-2023 Hepatitis B Vaccine (2 of 3 - Hep B Twinrix risk 3-dose series) Hepatitis B Vaccine (2 of 3 - Hep B Twinrix risk 3-dose series) [facility] Start: 07-02-2023 Covid-19 Vaccine () Covid-19 Vaccine () [facility] Start: 07-02-2023 Influenza vaccination C [facility] Start: 11-04-2022 Colonoscopy COLONOSCOPY [facility] Start: 11-04-2022 COLORECTAL CANCER SCREENING COLORECTAL CANCER SCREENING [facility] Start: 11-01-2022 ADVANCE DIRECTIVE DISCUSSION ADVANCE DIRECTIVE DISCUSSION [facility] Start: 11-01-2022 DEPRESSION ASSESSMENT DEPRESSION ASS ESSMENT [facility] Start: 07-02-2022 Influenza vaccination INFLUENZA (#1) [facility] Start: 04-09-2022 End: 06-09-2022 CBC panel - Blood by Automated count CBC Lab Routine Ulcerative colitis without complications, unspecified location (HCC) Expected: 04/09/2022, Expires: 06/09/2022 [facility] Work Phone: Comment on above: Expected: 04/09/2022 , Expires: 06/09/2022 Start: 04-09-2022 End: 06-09-2022 HEPATIC FUNCTION PNL HEPATIC FUNCTION PNL Lab Routine Ulcerative colitis without complications, unspecified location (HCC) Expected: 04/09/2022, Expires: 06/09/2022 [facility] Work Phone: Comment on above: Expected: 04/09/2022 , Expires: 06/09/2022 Start: 04-09-2022 End: 06-09-2022 HEPATITIS A ANTIBODY, IGG HEPATITIS A ANTIBODY, IGG Lab Routine Ulcerative colitis without complications, unspecified location (HCC) Expected: 04/09/2022, Expires: 06/09/2022 [facility] Work Phone: Comment on above: Expected: 04/09/2022 , Expires: 06/09/2022 Start: 04-09-2022 End: 06-09-2022 VITAMIN D 25 HYDROXY VITAMIN D 25 HYDROXY Lab Routine Ulcerative colitis without complications, unspecified location (HCC) Vitamin D deficiency Expected: 04/09/2022, Expires: 06/09/2022 [facility] Work Phone: Comment on above: Expected: 04/09/2022 , Expires: 06/09/2022 Start: 01-10-2022 COVID-19 VACCINE (4 - Booster for Moderna series) COVID-19 VACCINE (4 - Booster for Moderna series) [facility] Start: 12-13-2021 COVID-19 VACCINE (4 - Booster for Moderna series) COVID-19 VACCINE (4 - Booster for Moderna series) [facility] Start: 11-07-2021 COVID-19 VACCINE (4 - Booster for Moderna series) COVID-19 VACCINE (4 - Booster for Moderna series) [facility] Start: 11-07-2021 COVID-19 VACCINE (4 - Moderna series) COVID-19 VACCINE (4 - Moderna series) [facility] Start: 11-01-2021 ADVANCE DIRECTIVE DISCUSSION ADVANCE DIRECTIVE DISCUSSION [facility] Start: 11-01-2021 DEPRESSION ASSESSMENT DEPRESSION ASS ESSMENT [facility] Start: 2020 Pneumococcal Vaccine : 65+ (1 - PCV) Pneumococcal Vaccine: 65+ (1 - PCV) [facility] Start: 2020 PNEUMOCOCCAL: 65+ (1 - PCV) PNEUMOCOCCAL: 65+ (1 - PCV) [facility] Start: 2020 PNEUMOVAX AGE 65 AND OVER WITH 5YR LOOKBACK (#1) PNEUMOVAX AGE 65 AND OVER WITH 5YR LOOKBACK (#1) [facility] Start: 2015 HEPATITIS B (1 of 3 - Risk 3-dose series) HEPATITIS B (1 of 3 - Risk 3-dose series) [facility] Start: 2015 Hepatitis B Vaccine (1 of 3 - Risk 3-dose series) Hepatitis B Vaccine (1 of 3 - Risk 3-dose series) [facility] Start: 2015 RSV Vaccine (1 - 1-d ose 60+ series) RSV Vaccine (1 - 1-dose 60+ series) [facility] Start: 2010 PROSTATE CANCER SCREENING DISCUSSION PROSTATE CANCER SCREENING DISCUSSION [facility] Start: 2005 SHINGRIX VACCINE (1 of 2) SHINGRIX VACCINE (1 of 2) [facility] Start: 2000 COLOGUARD (FIT-DNA) COLOGUARD (FIT-D NA) [facility] Start: [address] COLONOGRAPHY [facility] Start: 2000 FECAL OCCULT BLOOD FECAL OCCULT BLOO D [facility] Start: 2000 SIGMOIDOSCOPY SIGMOIDOSCOPY [facility] Start: 1974 HEPATITIS A (1 of 2 - Risk 2-dose series) HEPATITIS A (1 of 2 - Risk 2-dose series) [facility] Start: 1974 Hepatitis A Vaccine (1 of 2 - Risk 2-dose series) Hepatitis A Vaccine (1 of 2 - Risk 2-dose series) [facility] Start: 1974 HEPATITIS B (1 of 3 - Risk 3-dose series) HEPATITIS B (1 of 3 - Risk 3-dose series) [facility] Start: 1974 SHINGRIX VACCINE (1 of 2) SHINGRIX VACCINE (1 of 2) [facility] Start: 1974 Urine microalbumin profile [facility] Start: 1973 MMR (1 of 2 - Risk 2-dose series) MMR (1 of 2 - Risk 2-dose series) [facility] Start: 1973 MMR Vaccine (1 of 2 - Risk 2-dose series) MMR Vaccine (1 of 2 - Risk 2-dose series) [facility] Start: 1967 Adult depression screening assessment DEPRESSION SCREENING [facility] Start: 1965 Meningococcal B Vacc ine: Consider Based On Risk (1 of 4 - Increased Risk) Meningococcal B Vaccine: Consider Based On Risk (1 of 4 - Increased Risk) [facility] Start: 1965 MENINGOCOCCAL B: Consider based on risk (1 of 4 - Increased Risk Bexsero 2-dose series) MENINGOCOCCAL B: Consider based on risk (1 of 4 - Increased Risk Bexsero 2-dose series) [facility] Start: 1965 MENINGOCOCCAL B: Consider based on risk (1 of 4 - Increased Risk) MENINGOCOCCAL B: Consider based on risk (1 of 4 - Increased Risk) [facility] Start: 1961 PNEUMOCOCCAL: 65+ (1 - PCV) PNEUMOCOCCAL: 65+ (1 - PCV) [facility] Start: 1956 HEPATITIS A (1 of 2 - Risk 2-dose series) HEPATITIS A (1 of 2 - Risk 2-dose series) [facility] Calprotectin [Mass/m ass] in Stool CALPROTECTIN,FECAL Lab Routine Ulcerative colitis without complications, unspecified location (HCC) Ordered: 04/09/2022 [facility] Work Phone: Comment on above: Ordered: 04/09/2022 Calprotectin [Mass/m ass] in Stool [facility] Work Phone: Calprotectin [Mass/m ass] in Stool CALPROTECTIN,FECAL Lab Routine Ulcerative colitis without complications, unspecified location (HCC) Ordered: 08/09/2023 [facility] Work Phone: Comment on above: Ordered: 08/09/2023 End: 05-09-2023 Dxa bone density study 1/> sites axial skel DXA-AXIAL SKELETON Radiology Routine Ulcerative colitis without complications, unspecified location (HCC) MCC (current) use of systemic steroids 1 Occurrences starting 04/09/2022 until 05/09/2023 [facility] Work Phone: Comment on above: 1 Occurrences starti ng 04/09/2022 until 05/09/2023 [facility] Immunizations Immunization Date Immunization Notes Care Provider [facility] 09-03-2022 influenza virus vaccine, unspecified formulation [facility] Provider [facility] 04-07-2016 tetanus toxoid, reduced diphtheria toxoid, and acellular pertussis vaccine, adsorbed Keshawn Banerjee Other [employer] Other 10-03-2014 influenza, injectabl e, quadrivalent, preservative free Keshawn Banerjee Other [employer] Other Payers Date Payer Category Payer Self-pay [id number] 2021 Medicare MEDICARE MEDICAR E A AND B [id number] 2021-Present [phone] [place] [id number] Medicare [id number] 2021 Medicare MEDICARE MEDICAR E A AND B [id number] 2021-Present [phone] [address] [place] [id number] Medicare [id number] 2021 Unknown [id number] 2021 Unknown HOSPITAL/MEDICAL GENERIC MEDICAL GENERIC [id number] 2021-Present [address] [address] [place] [address] Indemnity [id number] 2021 Unknown [id number] 1959 Medicare [id number] 1959 Unknown [id number] 1955 Unknown [id number] 1955 Unknown [id number] 1955 Unknown [id number] 1955 Unknown [id number] 1955 Unknown [id number] 1955 Unknown [id number] 1955 Unknown [id number] 1955 Unknown [id number] 1955 Unknown [id number] 1955 Unknown [id number] 1955 Unknown [id number] 1955 Unknown [id number] 1955 Unknown [id number] 1955 Unknown [id number] [id number] 1955 Unknown [id number] 1955 Unknown [id number] [id number] 1955 Unknown [id number] [id number] 1955 Unknown [id number] Unknown [id number] Unknown [id number] Unknown [id number] Unknown [id number] Social History Date Type Detail Facility Start: 11-03-2021 End: 11-10-2022 Tobacco smoking status NHIS Never smoked tobacco [facility] Start: 11-03-2021 End: 11-10-2022 Tobacco use and exposure Smokeless tobacco non-user [facility] Start: 12-22-2021 End: 08-09-2023 Alcohol intake Current drinker of alcohol (finding) [facility] Start: 11-03-2021 History SDOH Alcohol Comment occassional [facility] Start: 1955 Sex Assigned At Male [facility] Start: 01-03-2022 End: 06-25-2022 Exposure to SARS-CoV-2 (event) Unable to assess [facility] Start: 02-14-2022 End: 04-09-2022 Exposure to SARS-CoV-2 (event) Not sure [facility] Start: 02-05-2023 End: 04-01-2023 Sex Assigned At [facility] Start: 02-05-2023 End: 04-01-2023 History of Social function [facility] National Score (1-10 0), lower number is lower risk 44 [facility] Start: 10-21-2021 Gender identity Identifies as male gender (finding) [facility] Start: 10-21-2021 Sexual orientation Heterosexual (finding) [facility] Clinical Notes 2021 to 11-11-2023 Rosa Panda RN - 09/16/2023 7:11 AM ESTTelephone Encounter - Brayan Davila MD - 08/29/2023 12:39 PM EDTTelephone Encounter - Vanessa Littlejohn RN - 08/11/2023 2:51 PM EDTPatient Instructions Note Date & Type Note Facility 11-11-2023 Note HNO ID: [id number] Author: ROSA PANDA RN Service: ? Author Type: Registered Nurse Type: Progress Notes Filed: 11/11/2023 08:35 Note Text: Since your last infusion, have you: Had any major change in your health (including new diagnosis of cancer, COPD or cogestive heart failure? No Been hospitalized? No Had any infections? No Taking antibiotics/antivirals/antifunga ls for current infection? No Had surgery or do you have upcoming surgery? No Received any live vaccines in the last four weeks? No Worsening GI symptoms/abnormal pain/bloating No In the past 7 days have you had: Fevers/chills/night sweats? No New cough or cold symptoms or sore throat? No Nausea/vomiting/diarrhea? No Unusual swelling of your ankles of feet? No Burning/blood with urination or urinary frequency? No New weakness/numbness/stumbling falls? No New rash or open sores? No [facility] 09-16-2023 Note HNO ID: [id number] Author: Rosa Panda, FABIAN Service: ? Author Type: Registered Nurse Type: Progress Notes Filed: 09/16/2023 8:38 AM Note Text: Since your last infusion, have you: Had any major change in your health (including new diagnosis of cancer, COPD or cogestive heart failure? No Been hospitalized? No Had any infections? No Taking antibiotics/antivirals/antifunga ls for current infection? No Had surgery or do you have upcoming surgery? No Received any live vaccines in the last four weeks? No Worsening GI symptoms/abnormal pain/bloating No In the past 7 days have you had: Fevers/chills/night sweats? No New cough or cold symptoms or sore throat? No Nausea/vomiting/diarrhea? No Unusual swelling of your ankles of feet? No Burning/blood with urination or urinary frequency? No New weakness/numbness/stumbling falls? No New rash or open sores? No [facility] 09-16-2023 History of Present illness Narrative Since your last infusion, have you: Had any major change in your health (including new diagnosis of cancer, COPD or cogestive heart failure? No Been hospitalized? No Had any infections? No Taking antibiotics/antivirals/antifunga ls for current infection? No Had surgery or do you have upcoming surgery? No Received any live vaccines in the last four weeks? No Worsening GI symptoms/abnormal pain/bloating No In the past 7 days have you had: Fevers/chills/night sweats? No New cough or cold symptoms or sore throat? No Nausea/vomiting/diarrhea? No Unusual swelling of your ankles of feet? No Burning/blood with urination or urinary frequency? No New weakness/numbness/stumbling falls? No New rash or open sores? No documented in this encounter [facility] 09-02-[address] Dunn sent referra l on this patient for abnormal stress test. You just saw him in the office a few weeks ago. 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 Thank you! [facility] 08-29-2023 Miscellaneous Notes [employer] message sent with results Brayan Davila MD Returned patient call. Patient questioned Hep A and B blood test as discussed during his office visit. Hep A was drawn not AB, informed patient that Hep A was negative which indicates that he has not had the Hep A Vaccine, Patient inquired about Hep B as well. Patient also wanted updates about Stool results, encouraged patient to reach out to the office on Wednesday for updates. Vanessa Littlejohn RN Summary: Phone Call - Medication Pt called asking about his lab results and I explained all results were not in yet - still in process. He then asked about his Hep vaccines and I said he should call his PCP to arrange. He then asked about antibiotics and if he needed to take both. documented in this encounter [facility] 08-10-2023 Note Borderline elevated. Re-evaluation in 4-6 weeks is recommended if clinically indicated. [facility] Comment on above: Order Comment: Speci men Type: STOOL SPECIMENOrdering Facility: [facility] Address: [address] [place] [address] Result Comment: On 2022, [facility] ABODO implemented a new fecal calprotectin method, the [employer] Liaison Calprotectin assay. For assistance with interpretation of results in patients undergoing serial monitoring, contact Client Services at [phone] or [phone] to discuss options, preferably within 7 days of issuing this report. Interpretation: <50.0 ug/g: Normal 50.0 ug/g - 120.0 ug/g: Borderline elevated. Re-evaluation in 4-6 weeks is recommended if clinically indicated. >120.0 ug/g: Elevated Performed By: #### 3 [id number] ####[facility] [id number] [place] [address] [place] 08-09-2023 Note HNO ID: [id number] Author: Brayan Davila MD Service: ? Author Type: Physician Type: Progress Notes Filed: 08/09/2023 2:54 PM Note Text: Follow Up Visit/ IBD BP 106/61 (BP Site: Left Arm, BP Position: Sitting, BP Cuff Size: Regular Adult) Pulse 75 Temp 36.3 ?C (97.4 ?F) (Temporal) Ht 177.8 cm (5' 10 ) Wt 79 kg (174 lb 3.2 oz) SpO2 99% BMI 25.00 kg/m? Medications: Current Outpatient Medications Medication Sig calcium carbonate (OS-MANDY 500) 500 mg calcium (1,250 mg) tablet Take 1 tablet by mouth once daily. fluocinonide (LIDEX) 0.05 % cream Apply 1 application to affected area twice daily. No longer than 5 days in a row per week fluticasone (FLONASE) 50 mcg/actuation nasal spray Use 1 Troy in the nose at bedtime as needed. levothyroxine (SYNTHROID) 150 mcg tablet Take 150 mcg by mouth. esomeprazole (NEXIUM) 20 mg capsule Take 20 mg by mouth. cetirizine (ZYRTEC) 5 mg tablet Take 5 mg by mouth at bedtime as needed. verapamil SR (CALAN SR, ISOPTIN SR) 180 mg CR tablet Take 180 mg by mouth. nitroglycerin sublingual (NITROQUICK) 0.4 mg SL tablet Dissolve 0.4 mg under the tongue at bedtime as needed. No current facility-administered medications for this visit. Subjective: 68 year old male with ulcerative colitis here for follow-up. Changes and test results since last visit: He was started on Vedolizumab early 2021 q 8 weeks. Has not missed doses. Reports feeling well. 1 month ago had episode of diarrhea that he relates to poor diet on a vacation. He had abdominal pain with this event. It resolved. Then he was prescribed amoxicillin for ear infection with recurrence of diarrhea. At this time bowel movements have returned baseline of 1 BM/day. Current symptoms are: 1 soft bowel movement per day. No rectal urgency. No rectal bleeding. No abdominal pain. Reports some soreness. Appetite is good. Weight is 79 kg, which is stable. Reports R elbow pain. He later reported right index knuckle pain, knee and back pain. Had T-spine films for back pain; also notes right toe pain that he thinks may be related to gout. Stiffness in back in the morning. Worsening joint pain with use. No NSAIDs. No tobacco. Social/occasional etoh intake. Vaccines- He gets flu vaccine annually (2021, will get this year) and had Tdap (within 10 years), Covid + booster (last booster 2021), Prevnar 13 (2021) Pneumovax (2021), Shingrix (2021). Has had negative serologies for HBV (12/2021); will check HAV serology with next blood draw and then recommend vaccines. Has hx of basal cell CA. Last saw derm 07/2023. Bones- DEXA 05/2022 showed osteopenia; had low vit D level in 04/2022- takes OTC calcium and vitamin Recent Endoscopic/IBD evaluation: Last colonoscopy on Vedolizumab 11/2022 Impression: - The entire examined colon is normal. - The examined portion of the ileum was normal. - Non-bleeding internal hemorrhoids. - No specimens collected. Fecal protectin 12/2021 Objective: Physical Examination General Appearance: alert, oriented x 3, pleasant and in no acute distress Heart:regular rate and rhythm, no murmurs or gallops Abdomen: Not distended. Normal bowel sounds. Soft and non-tender. No masses or organomegaly. Small scar from cholecystectomy. Skin: no rashes or lesions. MSK: mildly enlarged right index MCP Review of test results: Labs: WBC (k/uL) Date Value 02/02/2023 5.78 Hematocrit (%) Date Value 02/02/2023 46.1 MCV (fL) Date Value 02/02/2023 90.9 Platelet Count (k/uL) Date Value 02/02/2023 287 Albumin (g/dL) Date Value 02/02/2023 4.3 Alkaline Phosphatase (U/L) Date Value 02/02/2023 123 (H) AST (U/L) Date Value 02/02/2023 32 ALT (U/L) Date Value 02/02/2023 30 Bilirubin, Total (mg/dL) Date Value 02/02/2023 0.4 Bilirubin, Conjugated (mg/dL) Date Value 02/02/2023 <0.2 ASSESSMENT 68 year old male with UC since ~2014- seems mostly distal in extent. Due to increased symptoms and repeated course of steroids, we started Entyvio in 01/2022. F/U colonoscopy in 11/2022 showed normal colon and TI. Disease controlled on Entyvio. Patient reports occasional bouts of diarrhea over past few months related to eating out on vacation and antibiotics for ear infection. Bowel movements have now returned to baseline of 1 soft BM/daily. Weight stable. Reports arthritis in hands and back. 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 Has had negative serologies for HBV (12/2021); - will check HAV serology today and then recommend vaccines. - Has hx of basal cell CA. Last saw derm 07/2023. Sees annually - Bones- DEXA 05/2022 showed osteopenia; had low vit D level in 04/2022- takes OTC calcium and vitamin D (pt uncle (more content not included)... [facility] 08-09-2023 Instructions Brayan Davila MD - 08/09/2023 9:56 AM EDT Hepatitis B +/- A vaccine: - IF hepatitis A is negative, you need combination Hepatitis A & B vaccine- series of 3 shots - IF hepatitis A is positive, you need just hepatitis B- series of 2 or 3 shots depending on brand Follow up with JANE Sierra in 6 months documented in this encounter [facility] 08-09-2023 History of Present illness Narrative Follow Up Visit/ IBD BP 106/61 (BP Site: Left Arm, BP Position: Sitting, BP Cuff Size: Regular Adult) Pulse 75 Temp 36.3 C (97.4 F) (Temporal) Ht 177.8 cm (5' 10 ) Wt 79 kg (174 lb 3.2 oz) SpO2 99% BMI 25.00 kg/m Medications: Current Outpatient Medications Medication Sig calcium carbonate (OS-MANDY 500) 500 mg calcium (1,250 mg) tablet Take 1 tablet by mouth once daily. fluocinonide (LIDEX) 0.05 % cream Apply 1 application to affected area twice daily. No longer than 5 days in a row per week fluticasone (FLONASE) 50 mcg/actuation nasal spray Use 1 Troy in the nose at bedtime as needed. levothyroxine (SYNTHROID) 150 mcg tablet Take 150 mcg by mouth. esomeprazole (NEXIUM) 20 mg capsule Take 20 mg by mouth. cetirizine (ZYRTEC) 5 mg tablet Take 5 mg by mouth at bedtime as needed. verapamil SR (CALAN SR, ISOPTIN SR) 180 mg CR tablet Take 180 mg by mouth. nitroglycerin sublingual (NITROQUICK) 0.4 mg SL tablet Dissolve 0.4 mg under the tongue at bedtime as needed. No current facility-administered medications for this visit. Subjective: 68 year old male with ulcerative colitis here for follow-up. Changes and test results since last visit: He was started on Vedolizumab early 2021 q 8 weeks. Has not missed doses. Reports feeling well. 1 month ago had episode of diarrhea that he relates to poor diet on a vacation. He had abdominal pain with this event. It resolved. Then he was prescribed amoxicillin for ear infection with recurrence of diarrhea. At this time bowel movements have returned baseline of 1 BM/day. Current symptoms are: 1 soft bowel movement per day. No rectal urgency. No rectal bleeding. No abdominal pain. Reports some soreness. Appetite is good. Weight is 79 kg, which is stable. Reports R elbow pain. He later reported right index knuckle pain, knee and back pain. Had T-spine films for back pain; also notes right toe pain that he thinks may be related to gout. Stiffness in back in the morning. Worsening joint pain with use. No NSAIDs. No tobacco. Social/occasional etoh intake. Vaccines- He gets flu vaccine annually (2021, will get this year) and had Tdap (within 10 years), Covid + booster (last booster 2021), Prevnar 13 (2021) Pneumovax (2021), Shingrix (2021). Has had negative serologies for HBV (12/2021); will check HAV serology with next blood draw and then recommend vaccines. Has hx of basal cell CA. Last saw derm 07/2023. Bones- DEXA 05/2022 showed osteopenia; had low vit D level in 04/2022- takes OTC calcium and vitamin Recent Endoscopic/IBD evaluation: Last colonoscopy on Vedolizumab 11/2022 Impression: - The entire examined colon is normal. - The examined portion of the ileum was normal. - Non-bleeding internal hemorrhoids. - No specimens collected. Fecal protectin 12/2021 Objective: Physical Examination General Appearance: alert, oriented x 3, pleasant and in no acute distress Heart:regular rate and rhythm, no murmurs or gallops Abdomen: Not distended. Normal bowel sounds. Soft and non-tender. No masses or organomegaly. Small scar from cholecystectomy. Skin: no rashes or lesions. MSK: mildly enlarged right index MCP Review of test results: Labs: WBC (k/uL) Date Value 02/02/2023 5.78 Hematocrit (%) Date Value 02/02/2023 46.1 MCV (fL) Date Value 02/02/2023 90.9 Platelet Count (k/uL) Date Value 02/02/2023 287 Albumin (g/dL) Date Value 02/02/2023 4.3 Alkaline Phosphatase (U/L) Date Value 02/02/2023 123 (H) AST (U/L) Date Value 02/02/2023 32 ALT (U/L) Date Value 02/02/2023 30 Bilirubin, Total (mg/dL) Date Value 02/02/2023 0.4 Bilirubin, Conjugated (mg/dL) Date Value 02/02/2023 <0.2 ASSESSMENT 68 year old male with UC since ~2014- seems mostly distal in extent. Due to increased symptoms and repeated course of steroids, we started Entyvio in 01/2022. F/U colonoscopy in 11/2022 showed normal colon and TI. Disease controlled on Entyvio. Patient reports occasional bouts of diarrhea over past few months related to eating out on vacation and antibiotics for ear infection. Bowel movements have now returned to baseline of 1 soft BM/daily. Weight stable. Reports arthritis in hands and back. 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 Has had negative serologies for HBV (12/2021); - will check HAV serology today and then recommend vaccines. - Has hx of basal cell CA. Last saw derm 07/2023. Sees annually - Bones- DEXA 05/2022 showed osteopenia; had low vit D level in 04/2022- takes OTC calcium and vitamin D (pt unclear dose) PLAN - Continue Entyvio - will check fecal calprotectin with intermittent resolving diarrhea and joint pain - follow up in 6 months - repeat colonoscopy 11/2024 - being evaluated for arthritis and IBD study (peripheral polyarticular joint pain more consistent with DJD than inflammatory arthritis) - recheck vitamin D level - referral to bone clinic Please see Dr. Davila's attestation for further recommendations. Josseline Snow DO, RD GI Visiting Fellow PGY-6 GI STAFF Review of IBD history (copied and updated from my prior notes): UC diagnosed ~2014- seems mostly distal in extent. He was on mesalamine after dx and initially had a mild course. Then in 2020, he developed worsening symptoms including abdominal pain- got 3 short courses (1-2 weeks) of prednisone in 2020 and 2 more courses in early 2021. He was started on azathioprine at 150 mg qd in late 2020- no change in symptoms and ?side effects so stopped in 11/2021. Colonoscopy in 11/2021 showed mild to moderate proctitis from 0 to 20 cm and a rectal TA polyp. Based on ongoing symptoms with steroid dependence, we started Entyvio in 01/2022 with good clinical response. F/U colonoscopy in 11/2022 showed normal colon and TI. I reviewed the history and physical obtained and documented by the fellow and I personally participated in the mast components. The following comments revise or confirm relevant mast elements of the fellow's note: Stephen is doing well overall- had episodes of transient diarrhea (1 while traveling and 1 after course of Amoxicillin) but doing well otherwise Having joint symptoms but seem more DJD related. Physical Exam: As documented by Dr. Snow I discussed the case and the plans with the fellow with the following comments: ASSESSMENT (as copied and updated from my prior note and reflects medical decision making today): 68 year old male with UC since ~2014- seems mostly distal in extent. Due to increased symptoms and repeated course of steroids, we started Entyvio in 01/2022. F/U colonoscopy in 11/2022 showed normal colon and TI. Today he continues to do well overall. Had some transient diarrhea ~1 month ago but thinks this was related to travel and course of Amoxicillin. We discussed plan as listed below. Health Maintenance: - Vaccines- He gets flu vaccine annually and had Tdap (within 10 years), Covid + booster, Prevnar 13 (?2019) Pneumovax (?2020), Shingrix (2019?). Has had negative serologies for HBV; will check HAV serology today and then recommend vaccines. - Skin- sees Derm annually- had basal cell CA - Bones- DEXA 05/2022 showed osteopenia- will refer to Bone Clinic; had low vit D level in 04/2022- takes Ca + D supplement; will recheck level today PLAN Continue Entyvio Fecal calprotectin given recent transient diarrhea and joint pains- if normal, will follow clinically; otherwise consider flex sig to evaluate further HM issues as above F/U in 6 months I have confirmed and edited as necessary, the PFSH and ROS obtained by others. Brayan Davila MD Active luminal IBD (physician global impression): No Patient report of joint pain: Yes Patient report of morning stiffness: Yes # of swollen or tender joints (numeral): 5 Location of tender or swollen joints (select all that apply): R Elbow, L knee, R knee , and L foot Type of IBD Therapy before / at visit: Vedolizumab Type of IBD Therapy after visit: Vedolizumab Non-IBD related peripheral arthritis therapy: Other None documented in this encounter [facility] 07-27-2023 Note [facility] Cardiology Clinic Note Chief Complaint: Patient here for non-obstructive CAD and hyperlipidemia. Had labs in Nov and Dec. Has been having more chest pain lately. He was on a trip to [place] a few weeks ago. A squad was called to check him out for chest pain. He states everything was ok . C/o more SOB and fatigue lately as well. HPI: Stephen Spencer is a 68 y.o. male HPI Pleasant 67 yo male presents to clinic as new pt from Dr Dunn for abnormal stress test, atypical chest pain. He is transferring care to [place] [facility]ology from [facility]. States almost daily he has Lt lower chest pressure/pain without radiation, nausea or sweating. Chest pain at rest is non reproducible, without aggrivating or alleviating factors. States he has taken NTG SL without relief, denied position changes- lying down or eating/certain foods causing symptoms. States chest pain is Different from my GERD discomfort. States he has had chest pain for about 15 years but this is different over the last couple weeks, more frequent and intense. States he walks about 3-4 miles daily without Chest pain or SOB- or limiting symptoms. States he was recently evaluated in ED for chest pain, was evaluated and r/o for PE, [place], Covid, was dc'd to home to F/U with Cardiology Known PMH- Mild non obstructive CAD, GERD, Ulcerative colitis, HPL. PSH- no pertinent cardiac FMH- Mother and father + heart disease, Sister passed with CA, Father stroke Social- never a smoker, Social alcohol, denied illicit drugs 09/18/2022: The patient is doing well. His chest pain has resolved. He stopped taking his Imdur. He decreased his Crestor to 10 mg as he was concerned this was causing joint pain he is not taking aspirin. He describes this pain is nonexertional, lasting for minutes or 2 to 3 days. It is an ache. There is no radiation. He denies specific aggravating or relieving factors. There is no associated shortness of breath, palpitations, nausea or vomiting. Pertinently, he has a history of gastroesophageal reflux disease and is on Nexium. He denies joint issues in the cervical or thoracic spine. Update 07/27/2023: The patient has a chest pain episode once a month or so. He describes this as epigastric in nature. It occurs at rest. He has tried to cut back on his caffeine. Pertinently, he is able to walk up and down a flight of stairs briskly without chest pain or shortness of breath. He has no orthopnea, no paroxysmal: Dyspnea, no lower extremity edema. He has a family history of a gastric ulcer. Cardiology ROS: Review of Systems Cardiovascular: Positive for chest pain, dyspnea on exertion, irregular heartbeat and palpitations. All other systems reviewed and are negative. Past Medical History He has a past medical history of Chest pain, GERD (gastroesophageal reflux disease), Hypothyroidism, Inflammatory bowel disease, Near syncope, Rectal bleed, and Syncope and collapse. Surgical History He has a past surgical history that includes Shoulder surgery; Hernia repair; Cholecystectomy; Thyroidectomy; Vasectomy; and Prostate surgery. Social History He reports that he has never smoked. He has never used smokeless tobacco. He reports that he does not currently use alcohol after a past usage of about 1.0 standard drink of alcohol per week. He reports that he does not use drugs. Family History Family History Problem Relation Name Age of Onset Coronary artery disease Mother Coronary artery disease Father Stroke Father Allergies Sulfa (sulfonamide antibiotics) and Ciprofloxacin Medications Current Outpatient Medications: cetirizine (ZyrTEC) 5 mg tablet, Take 5 mg by mouth if needed each day., Disp: , Rfl: esomeprazole (NexIUM) [address] capsule, Take 20 mg by mouth in the morning., Disp: , Rfl: fluticasone (Flonase) 50 mcg/actuation nasal spray, Administer 1 spray into affected nostril(s) if needed each day., Disp: , Rfl: levothyroxine (Synthroid, Levoxyl) 150 mcg tablet, Take 150 mcg by mouth in the morning., Disp: , Rfl: nitroglycerin (Nitrostat) 0.4 mg SL tablet, Place 1 tablet (0.4 mg) under the tongue if needed each day for chest pain., Disp: 25 tablet, Rfl: 1 sodium chloride 0.9 % parenteral solution 250 mL with vedolizumab 300 mg recon soln 300 mg IVPB, Infuse into a venous catheter., Disp: , Rfl: vedolizumab (ENTYVIO IV), Infuse into a venous catheter., Disp: , Rfl: verapamil SR (Calan-SR) 180 mg ER tablet, Take 180 mg by mouth in the morning., Disp: , Rfl: Last Recorded Vitals BP 96/71 (BP Location: Left arm, Patient Position: Sitting) Pulse 68 Ht 1.778 m (5' 10 ) Wt 79.4 kg (175 lb) SpO2 98% BMI 25.11 kg/m??? Physical Examination: GENERAL: alert and oriented x3, well developed, in no acute distress. HEAD: atraumatic, normocephalic. EYES: ADRIAN, EOMI. NECK: trachea midline, no JVD present, no carotid bruits present. CARDIAC: S1, S2 present. RRR. No murmur, rubs, or (more content not included)... [facility] 07-22-2023 Note HNO ID: [id number] Author: Rosa Panda RN Service: ? Author Type: Registered Nurse Type: Progress Notes Filed: 07/22/2023 9:02 AM Note Text: Since your last infusion, have you: Had any major change in your health (including new diagnosis of cancer, COPD or cogestive heart failure? No Been hospitalized? No Had any infections? No Taking antibiotics/antivirals/antifunga ls for current infection? No Had surgery or do you have upcoming surgery? No Received any live vaccines in the last four weeks? No Worsening GI symptoms/abnormal pain/bloating No In the past 7 days have you had: Fevers/chills/night sweats? No New cough or cold symptoms or sore throat? No Nausea/vomiting/diarrhea? No Unusual swelling of your ankles of feet? No Burning/blood with urination or urinary frequency? No New weakness/numbness/stumbling falls? No New rash or open sores? No [facility] 07-22-2023 History of Present illness Narrative Since your last infusion, have you: Had any major change in your health (including new diagnosis of cancer, COPD or cogestive heart failure? No Been hospitalized? No Had any infections? No Taking antibiotics/antivirals/antifunga ls for current infection? No Had surgery or do you have upcoming surgery? No Received any live vaccines in the last four weeks? No Worsening GI symptoms/abnormal pain/bloating No In the past 7 days have you had: Fevers/chills/night sweats? No New cough or cold symptoms or sore throat? No Nausea/vomiting/diarrhea? No Unusual swelling of your ankles of feet? No Burning/blood with urination or urinary frequency? No New weakness/numbness/stumbling falls? No New rash or open sores? No documented in this encounter [facility] 07-06-2023 Note HNO ID: [id number] Author: Jose Luis Morrison MD Service: ? Author Type: Physician Type: Progress Notes Filed: 07/06/2023 2:53 PM Note Text: 67 year old male here for skin check Scaly patch Location Lt side of nose Present x 1 year Itches: No Bleeds: No Has tried Cryotherapy 3-4 months ago Patient believes it wasn't frozen enough Is dramatically better but is not quite completely gone Personal history of skin cancer: BCC on back Derm Family history: no Denies fevers, chills Denies wt loss Denies new or changing moles PAST MEDICAL HISTORY Diagnosis Date Cancer (HCC) Thyroid disease Social History Tobacco Use Smoking status: Never Smokeless tobacco: Never Substance Use Topics Alcohol use: Yes Comment: occassional Drug use: Not Currently Allergies: ALLERGIES Allergen Reactions Sulfa (Sulfonamide * Unknown Other reaction(s): Intolerance-unknown Ciprofloxacin Rash Other reaction(s): Intolerance-unknown Current Outpatient Medications on File Prior to Visit Medication Sig calcium carbonate (OS-MANDY 500) 500 mg calcium (1,250 mg) tablet Take 1 tablet by mouth once daily. fluocinonide (LIDEX) 0.05 % cream Apply 1 application to affected area twice daily. No longer than 5 days in a row per week fluticasone (FLONASE) 50 mcg/actuation nasal spray Use 1 Troy in the nose at bedtime as needed. levothyroxine (SYNTHROID) 150 mcg tablet Take 150 mcg by mouth. esomeprazole (NEXIUM) 20 mg capsule Take 20 mg by mouth. cetirizine (ZYRTEC) 5 mg tablet Take 5 mg by mouth at bedtime as needed. verapamil SR (CALAN SR, ISOPTIN SR) 180 mg CR tablet Take 180 mg by mouth. nitroglycerin sublingual (NITROQUICK) 0.4 mg SL tablet Dissolve 0.4 mg under the tongue at bedtime as needed. No current facility-administered medications on file prior to visit. PE: Comprehensive exam. With Dusty General: no acute distress, diffuse photodamage Mood: alert and oriented X's 3 Hair/Scalp: normal Face: Lt nasal sidewall red scaly macule (AK) Eyes/eyelids: normal Lips/Oral mucosa: normal Neck: normal Chest: normal Abdomen: normal Back: red smooth topped papules --Left upper back with linear scar R/L upper extremity: Rt forearm stuck on brown plaque R/L lower extremity: normal Digits/Nails: normal A/P: Skin cancer screening History of Basal Cell Carcinoma Sun protection and avoidance discussed with patient SPF 30 and higher recommended Actinic Keratosis Diagnosis reviewed with patient Cryosurgery of non-malignant lesion(s) Risk, benefits, alternatives and personnel required for cryosurgery reviewed with patient. Patient verbalizes understanding and wishes to proceed. Cryosurgery performed with Liquid Nitrogen viz cryostat spray gun to 1 lesions treated. Wound care instructions provided, pt verbalizes understanding. Post cryo care discussed. Warned possible blister, hypopigmenation, scar at site Sun protection discussed If lesion does not completely resolve, pt is advised to call for recheck. Seborrheic keratosis Educated and reassured Boyer Angiomas Educated and Reassured RTC 1 year Pt voiced understanding Medical Decision Making: Medical Decision Making Level: 1 - N/A The documentation for this note was completed by Vamsi Iniguez MA acting as scribe for Jose Luis Morrison MD. July 06, 2023 2:27 PM. I agree with the Chief Complaint, ROS, and Past Histories independently gathered by the clinical child support case officer and the remaining scribed note accurately describes my personal service to the patient. Jose Luis Morrison MD [facility] 07-06-2023 History of Present illness Narrative 67 year old male here for skin check Scaly patch Location Lt side of nose Present x 1 year Itches: No Bleeds: No Has tried Cryotherapy 3-4 months ago Patient believes it wasn't frozen enough Is dramatically better but is not quite completely gone Personal history of skin cancer: BCC on back Derm Family history: no Denies fevers, chills Denies wt loss Denies new or changing moles PAST MEDICAL HISTORY Diagnosis Date Cancer (HCC) Thyroid disease Social History Tobacco Use Smoking status: Never Smokeless tobacco: Never Substance Use Topics Alcohol use: Yes Comment: occassional Drug use: Not Currently Allergies: ALLERGIES Allergen Reactions Sulfa (Sulfonamide * Unknown Other reaction(s): Intolerance-unknown Ciprofloxacin Rash Other reaction(s): Intolerance-unknown Current Outpatient Medications on File Prior to Visit Medication Sig calcium carbonate (OS-MANDY 500) 500 mg calcium (1,250 mg) tablet Take 1 tablet by mouth once daily. fluocinonide (LIDEX) 0.05 % cream Apply 1 application to affected area twice daily. No longer than 5 days in a row per week fluticasone (FLONASE) 50 mcg/actuation nasal spray Use 1 Troy in the nose at bedtime as needed. levothyroxine (SYNTHROID) 150 mcg tablet Take 150 mcg by mouth. esomeprazole (NEXIUM) 20 mg capsule Take 20 mg by mouth. cetirizine (ZYRTEC) 5 mg tablet Take 5 mg by mouth at bedtime as needed. verapamil SR (CALAN SR, ISOPTIN SR) 180 mg CR tablet Take 180 mg by mouth. nitroglycerin sublingual (NITROQUICK) 0.4 mg SL tablet Dissolve 0.4 mg under the tongue at bedtime as needed. No current facility-administered medications on file prior to visit. PE: Comprehensive exam. With Dusty General: no acute distress, diffuse photodamage Mood: alert and oriented X's 3 Hair/Scalp: normal Face: Lt nasal sidewall red scaly macule (AK) Eyes/eyelids: normal Lips/Oral mucosa: normal Neck: normal Chest: normal Abdomen: normal Back: red smooth topped papules --Left upper back with linear scar R/L upper extremity: Rt forearm stuck on brown plaque R/L lower extremity: normal Digits/Nails: normal A/P: Skin cancer screening History of Basal Cell Carcinoma Sun protection and avoidance discussed with patient SPF 30 and higher recommended Actinic Keratosis Diagnosis reviewed with patient Cryosurgery of non-malignant lesion(s) Risk, benefits, alternatives and personnel required for cryosurgery reviewed with patient. Patient verbalizes understanding and wishes to proceed. Cryosurgery performed with Liquid Nitrogen viz cryostat spray gun to 1 lesions treated. Wound care instructions provided, pt verbalizes understanding. Post cryo care discussed. Warned possible blister, hypopigmenation, scar at site Sun protection discussed If lesion does not completely resolve, pt is advised to call for recheck. Seborrheic keratosis Educated and reassured Boyer Angiomas Educated and Reassured RTC 1 year Pt voiced understanding Medical Decision Making: Medical Decision Making Level: 1 - N/A The documentation for this note was completed by Vamsi Iniguez MA acting as scribe for Jose Luis Morrison MD. July 06, 2023 2:27 PM. I agree with the Chief Complaint, ROS, and Past Histories independently gathered by the clinical child support case officer and the remaining scribed note accurately describes my personal service to the patient. Jose Luis Morrison MD documented in this encounter [facility] 05-27-2023 Note HNO ID: [id number] Author: Alda Mueller RN Service: ? Author Type: Registered Nurse Type: Progress Notes Filed: 05/27/2023 8:17 AM Note Text: Since your last infusion, have you: Had any major change in your health (including new diagnosis of cancer, COPD or cogestive heart failure? No Been hospitalized? No Had any infections? No Taking antibiotics/antivirals/antifunga ls for current infection? No Had surgery or do you have upcoming surgery? No Received any live vaccines in the last four weeks? No Worsening GI symptoms/abnormal pain/bloating No In the past 7 days have you had: Fevers/chills/night sweats? No New cough or cold symptoms or sore throat? No Nausea/vomiting/diarrhea? No Unusual swelling of your ankles of feet? No Burning/blood with urination or urinary frequency? No New weakness/numbness/stumbling falls? No New rash or open sores? No [facility] 05-27-2023 History of Present illness Narrative Since your last infusion, have you: Had any major change in your health (including new diagnosis of cancer, COPD or cogestive heart failure? No Been hospitalized? No Had any infections? No Taking antibiotics/antivirals/antifunga ls for current infection? No Had surgery or do you have upcoming surgery? No Received any live vaccines in the last four weeks? No Worsening GI symptoms/abnormal pain/bloating No In the past 7 days have you had: Fevers/chills/night sweats? No New cough or cold symptoms or sore throat? No Nausea/vomiting/diarrhea? No Unusual swelling of your ankles of feet? No Burning/blood with urination or urinary frequency? No New weakness/numbness/stumbling falls? No New rash or open sores? No documented in this encounter [facility] 05-11-2023 Note Patient ID: Stephen Spencer is a 67 y.o. male. Steroid Injections for trigger finger on 05/11/2023 10:02 PM Details: 25 G needle, volar approach Medications: 1 mL lidocaine 10 mg/mL (1 %); 1 mL triamcinolone acetonide 10 mg/mL Outcome: tolerated well, no immediate complications After discussing the treatment options, and the risks and benefits of a corticosteroid injection, verbal consent to proceed was obtained. The right ring trigger digit was injected in the clinic today. The area was prepped with Betadine. A combination of 1 mL each of 1 percent lidocaine and Kenalog 10 mg/mL was injected into the flexor sheath using a 25-gauge needle. The area was wiped clean with an alcohol swab, and dressed with a Band-Aid. Instructions were given to either ice the area for about 10 minutes later today or use anti-inflammatories for discomfort. We also instructed that the finger would likely be numb for a couple of hours and to be careful until the sensation returned. Procedure, treatment alternatives, risks and benefits explained, specific risks discussed. Consent was given by the patient. Immediately prior to procedure a time out was called to verify the correct patient, procedure, equipment, child support case officer and site/side marked as required. [facility] 05-11-2023 Note Orthopedic Surgery Subjective Pain of the Right Ring Finger 05/11/23 Stephen Spencer is a 67 y.o. male presenting for evaluation of right ring finger pain. He has had this pain for about one month. It is a sharp pain that radiates into the palm that can reach a 9/10 at its worse and a 2/10 at its best. States that it is worse in the morning when he wakes up or if he hasn't moved it for awhile. He notices some clicking with motion but has never had it get stuck in flexion before. Of note, he had a previous surgery around that location to remove a mass about 10 years ago. Review of Systems unremarkable aside from what is noted in HPI Patient History Past Surgical History: Procedure Laterality Date CHOLECYSTECTOMY HERNIA REPAIR PROSTATE SURGERY SHOULDER SURGERY THYROIDECTOMY VASECTOMY Past Medical History: Diagnosis Date Chest pain GERD (gastroesophageal reflux disease) Hypothyroidism Inflammatory bowel disease Near syncope Rectal bleed Syncope and collapse Objective General: Body mass index is 24.39 kg/m???. No acute distress, comfortable Respiratory: Unlabored breathing with normal rate, no cough Cardiovascular: Warm well perfused extremities Psych: Appropriate mood behavior Right hand exam No ecchymosis or swelling. Mild tenderness over A1 lynne. Cyst palpated distal to A1 lynne ROM and strength intact NVI Assessment/Plan Stephen Spencer is a 67 y.o. male with trigger finger of the right ring finger. - stretching vs injection vs surgery discussed - Patient elected to move forward with a corticosteroid injection today - Instructed to stretch as well - RTC if symptoms persist or worsen Shala Tian, MS4 05/11/23 2:34 PM As the teaching physician, I have personally performed or re-performed the history of present illness, physical exam and medical decision-making activities of the encounter and verified the medical student's documentation. I made pertinent changes as necessary to ensure accurate documentation. Additional Comments: agree with above. 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 [facility] 04-13-2023 Note Orthopedic Surgery Subjective Chief complaint: Chief Complaint Patient presents with Left Hand - Edema, Pain Stephen Spencer is a 67 y.o. year old male presenting for evaluation of mass on the left arm. Previous Treatments: None Patient History Past Surgical History: Procedure Laterality Date CHOLECYSTECTOMY HERNIA REPAIR PROSTATE SURGERY SHOULDER SURGERY THYROIDECTOMY VASECTOMY Past Medical History: Diagnosis Date Chest pain GERD (gastroesophageal reflux disease) Hypothyroidism Inflammatory bowel disease Near syncope Rectal bleed Syncope and collapse Objective General: Body mass index is 24.68 kg/m???. No acute distress, comfortable Respiratory: Unlabored breathing with normal rate, no cough Cardiovascular: Warm well perfused extremities Psych: Appropriate mood behavior Imaging: Assessment/Plan Stephen Spencer is a 67 y.o. year old male with soft tissue mass left hand PLAN: no note was generated on the date of the procedure. I do not remember the physical exam enough to accurately dictate a note. I did contact the patient to discuss this with him. We did talk about the mass and we felt it to be a benign process and our plan is to observe that unless it starts getting larger, or becoming increasingly symptomatic. [facility] 04-01-2023 Note HNO ID: [id number] Author: Charity Rodriguez RN Service: ? Author Type: Registered Nurse Type: Progress Notes Filed: 04/01/2023 8:54 AM Note Text: Since your last infusion, have you: Had any major change in your health (including new diagnosis of cancer, COPD or cogestive heart failure? No Been hospitalized? No Had any infections? No Taking antibiotics/antivirals/antifunga ls for current infection? No Had surgery or do you have upcoming surgery? No Received any live vaccines in the last four weeks? No Worsening GI symptoms/abnormal pain/bloating No In the past 7 days have you had: Fevers/chills/night sweats? No New cough or cold symptoms or sore throat? No Nausea/vomiting/diarrhea? No Unusual swelling of your ankles of feet? No Burning/blood with urination or urinary frequency? No New weakness/numbness/stumbling falls? No New rash or open sores? No [facility] 04-01-2023 History of Present illness Narrative Since your last infusion, have you: Had any major change in your health (including new diagnosis of cancer, COPD or cogestive heart failure? No Been hospitalized? No Had any infections? No Taking antibiotics/antivirals/antifunga ls for current infection? No Had surgery or do you have upcoming surgery? No Received any live vaccines in the last four weeks? No Worsening GI symptoms/abnormal pain/bloating No In the past 7 days have you had: Fevers/chills/night sweats? No New cough or cold symptoms or sore throat? No Nausea/vomiting/diarrhea? No Unusual swelling of your ankles of feet? No Burning/blood with urination or urinary frequency? No New weakness/numbness/stumbling falls? No New rash or open sores? No documented in this encounter [facility] 03-31-2023 Miscellaneous Notes Spoke to patient and confirmed infusion for tomorrow. Denies any recent infection. documented in this encounter [facility] 02-05-2023 Note HNO ID: [id number] Author: Audelia Sierra APRN.DITCH DIGGER Service: ? Author Type: Nurse Practitioner Type: Progress Notes Filed: 02/05/2023 8:34 AM Note Text: .Follow Up Visit SUBJECTIVE Stephen Spencer [id number] 1955 presents to the clinic today for follow up of ulcerative colitis. Last seen on 04/09/[address] Davila. Changes and test results since last visit: Stephen continues to feel very well from an UC standpoint while on Entyvio Q8 weeks. He denies any issues today. Last plan: 1. Continue Entyvio 2. Recheck fecal calprotectin after he gets first maintenance Entyvio dose in 2 months. IF normal will follow clinically; if not consider repeat endoscopic testing soon 3. Otherwise repeat colonoscopy in early 2022 4. HM issues as above Current Clinical Symptoms # of bowel movements daily: 1-2 (pt reported normal) # of liquid stools daily: 0 Consistency: soft, formed Bloody bowel movements: no Urgency: no Abdominal pain: no Abdominal distention: no Perianal issues: no Nausea/vomiting: no Appetite: good/normal Weight loss over last 3 months: no Weight today is 176 lbs, which is stable. Current IBD Medications Vedolizumab 300 mg IV Q8 weeks - LD: 02/04/2023 @ [place] [facility] Current Outpatient Medications Medication Sig Dispense Refill fluocinonide (LIDEX) 0.05 % cream Apply 1 application to affected area twice daily. No longer than 5 days in a row per week 60 g 1 fluticasone (FLONASE) 50 mcg/actuation nasal spray Use 1 Troy in the nose at bedtime as needed. levothyroxine (SYNTHROID) 150 mcg tablet Take 150 mcg by mouth. esomeprazole (NEXIUM) 20 mg capsule Take 20 mg by mouth. cetirizine (ZYRTEC) 5 mg tablet Take 5 mg by mouth at bedtime as needed. verapamil SR (CALAN SR, ISOPTIN SR) 180 mg CR tablet Take 180 mg by mouth. nitroglycerin sublingual (NITROQUICK) 0.4 mg SL tablet Dissolve 0.4 mg under the tongue at bedtime as needed. calcium carbonate (OS-MANDY 500) 500 mg calcium (1,250 mg) tablet Take 1 tablet by mouth once daily. No current facility-administered medications for this visit. ALLERGIES Allergen Reactions Sulfa (Sulfonamide * Unknown Other reaction(s): Intolerance-unknown Ciprofloxacin Rash Other reaction(s): Intolerance-unknown PAST SURGICAL HISTORY Procedure Laterality Date HERNIA REPAIR HX REMOVAL GALLBLADDER REPAIR ROTATOR CUFF,ACUTE Bilateral THYROIDECTOMY Personal Habits: -Smoking: never a smoker -ETOH: occasional -Illegal drug use/marijuana: no -NSAIDs: no -Recent antibiotics: no Extraintestinal Manifestations: Ocular [blurred vision or red eyes (uveitis, episcleritis)]: no Dermatologic (erythema nodosum, pyoderma): no Arthropathy/Arthralgia: no PHYSICAL EXAMINATION BP 97/52 Pulse 79 Wt 176 lb 6.4 oz (80.0kg) General Appearance: alert, oriented x 3, pleasant and in no acute distress, well-hydrated, well nourished Heart: regular rate and rhythm, no murmurs or gallops Abdomen: Not distended. Normal bowel sounds. Soft and non-tender. No masses or organomegaly. Skin: no rashes or lesions Lymph: No cervical or supraclavicular adenopathy. REVIEWED ITEMS Recent Labs Component Latest Ref Rng AND Units 02/02/2023 WBC 3.70 - 11.00 k/uL 5.78 RBC 4.20 - 6.00 m/uL 5.07 Hemoglobin 13.0 - 17.0 g/dL 14.8 Hematocrit 39.0 - 51.0 % 46.1 MCV 80.0 - 100.0 fL 90.9 MCH 26.0 - 34.0 pg 29.2 MCHC 30.5 - 36.0 g/dL 32.1 RDW-CV 11.5 - 15.0 % 13.5 Platelet Count 150 - 400 k/uL 287 MPV 9.0 - 12.7 fL 10.3 Absolute nRBC <0.01 k/uL <0.01 Albumin 3.9 - 4.9 g/dL 4.3 Bilirubin, Total 0.2 - 1.3 mg/dL 0.4 Bilirubin, Conjug <0.2 mg/dL <0.2 Alkaline Phosphatase 38 - 113 U/L 123 (H) AST 14 - 40 U/L 32 ALT 10 - 54 U/L 30 Protein, Total 6.3 - 8.0 g/dL 6.8 Last Endoscopy Colonoscopy (11/10/2022)- Dr. Davila Findings: The perianal and digital rectal examinations were normal. The colon (entire examined portion) appeared normal. The terminal ileum appeared normal. Virtual chromoendoscopy using NBI was performed throghout the colon- no lesions were seen. Non-bleeding internal hemorrhoids were found during retroflexion. The hemorrhoids were small. IMPRESSION (copied from previous notes and reflects today's medical decision making): Stephen Spencer is a pleasant 67 year old male with PMHx of UC diagnosed ~2014- seems to be mostly distal in extent. He was on mesalamine since dx and initially had a mild course. Then in 2020, he developed worsening symptoms including abdominal pain. He got 3 short courses (1-2 weeks) of prednisone in 2020 and 2 more courses in early 2021. He was started on azathioprine at 150 mg qd in late 2020- no change in symptoms and ?side effects so stopped in 11/2021. Colonoscopy in 11/2021 showed mild to moderate proctitis from 0 to 20 cm and a rectal TA polyp. Based on ongoing symptoms with steroid dependence, we started Entyvio in 01/2022 with improvement in symptoms. Off other IBD meds (more content not included)... [facility] 02-05-2023 History of Present illness Narrative .Follow Up Visit SUBJECTIVE Stephen Spencer [id number] 1955 presents to the clinic today for follow up of ulcerative colitis. Last seen on 04/09/[address] Davila. Changes and test results since last visit: Stephen continues to feel very well from an UC standpoint while on Entyvio Q8 weeks. He denies any issues today. Last plan: 1. Continue Entyvio 2. Recheck fecal calprotectin after he gets first maintenance Entyvio dose in 2 months. IF normal will follow clinically; if not consider repeat endoscopic testing soon 3. Otherwise repeat colonoscopy in early 2022 4. HM issues as above Current Clinical Symptoms # of bowel movements daily: 1-2 (pt reported normal) # of liquid stools daily: 0 Consistency: soft, formed Bloody bowel movements: no Urgency: no Abdominal pain: no Abdominal distention: no Perianal issues: no Nausea/vomiting: no Appetite: good/normal Weight loss over last 3 months: no Weight today is 176 lbs, which is stable. Current IBD Medications Vedolizumab 300 mg IV Q8 weeks - LD: 02/04/2023 @ [place] [facility] Current Outpatient Medications Medication Sig Dispense Refill fluocinonide (LIDEX) 0.05 % cream Apply 1 application to affected area twice daily. No longer than 5 days in a row per week 60 g 1 fluticasone (FLONASE) 50 mcg/actuation nasal spray Use 1 Troy in the nose at bedtime as needed. levothyroxine (SYNTHROID) 150 mcg tablet Take 150 mcg by mouth. esomeprazole (NEXIUM) 20 mg capsule Take 20 mg by mouth. cetirizine (ZYRTEC) 5 mg tablet Take 5 mg by mouth at bedtime as needed. verapamil SR (CALAN SR, ISOPTIN SR) 180 mg CR tablet Take 180 mg by mouth. nitroglycerin sublingual (NITROQUICK) 0.4 mg SL tablet Dissolve 0.4 mg under the tongue at bedtime as needed. calcium carbonate (OS-MANDY 500) 500 mg calcium (1,250 mg) tablet Take 1 tablet by mouth once daily. No current facility-administered medications for this visit. ALLERGIES Allergen Reactions Sulfa (Sulfonamide * Unknown Other reaction(s): Intolerance-unknown Ciprofloxacin Rash Other reaction(s): Intolerance-unknown PAST SURGICAL HISTORY Procedure Laterality Date HERNIA REPAIR HX REMOVAL GALLBLADDER REPAIR ROTATOR CUFF,ACUTE Bilateral THYROIDECTOMY Personal Habits: -Smoking: never a smoker -ETOH: occasional -Illegal drug use/marijuana: no -NSAIDs: no -Recent antibiotics: no Extraintestinal Manifestations: Ocular [blurred vision or red eyes (uveitis, episcleritis)]: no Dermatologic (erythema nodosum, pyoderma): no Arthropathy/Arthralgia: no PHYSICAL EXAMINATION BP 97/52 Pulse 79 Wt 176 lb 6.4 oz (80.0kg) General Appearance: alert, oriented x 3, pleasant and in no acute distress, well-hydrated, well nourished Heart: regular rate and rhythm, no murmurs or gallops Abdomen: Not distended. Normal bowel sounds. Soft and non-tender. No masses or organomegaly. Skin: no rashes or lesions Lymph: No cervical or supraclavicular adenopathy. REVIEWED ITEMS Recent Labs Component Latest Ref Rng & Units 02/02/2023 WBC 3.70 - 11.00 k/uL 5.78 RBC 4.20 - 6.00 m/uL 5.07 Hemoglobin 13.0 - 17.0 g/dL 14.8 Hematocrit 39.0 - 51.0 % 46.1 MCV 80.0 - 100.0 fL 90.9 MCH 26.0 - 34.0 pg 29.2 MCHC 30.5 - 36.0 g/dL 32.1 RDW-CV 11.5 - 15.0 % 13.5 Platelet Count 150 - 400 k/uL 287 MPV 9.0 - 12.7 fL 10.3 Absolute nRBC <0.01 k/uL <0.01 Albumin 3.9 - 4.9 g/dL 4.3 Bilirubin, Total 0.2 - 1.3 mg/dL 0.4 Bilirubin, Conjug <0.2 mg/dL <0.2 Alkaline Phosphatase 38 - 113 U/L 123 (H) AST 14 - 40 U/L 32 ALT 10 - 54 U/L 30 Protein, Total 6.3 - 8.0 g/dL 6.8 Last Endoscopy Colonoscopy (11/10/2022)- Dr. Davila Findings: The perianal and digital rectal examinations were normal. The colon (entire examined portion) appeared normal. The terminal ileum appeared normal. Virtual chromoendoscopy using NBI was performed throghout the colon- no lesions were seen. Non-bleeding internal hemorrhoids were found during retroflexion. The hemorrhoids were small. IMPRESSION (copied from previous notes and reflects today's medical decision making): Stephen Spencer is a pleasant 67 year old male with PMHx of UC diagnosed ~2014- seems to be mostly distal in extent. He was on mesalamine since dx and initially had a mild course. Then in 2020, he developed worsening symptoms including abdominal pain. He got 3 short courses (1-2 weeks) of prednisone in 2020 and 2 more courses in early 2021. He was started on azathioprine at 150 mg qd in late 2020- no change in symptoms and ?side effects so stopped in 11/2021. Colonoscopy in 11/2021 showed mild to moderate proctitis from 0 to 20 cm and a rectal TA polyp. Based on ongoing symptoms with steroid dependence, we started Entyvio in 01/2022 with improvement in symptoms. Off other IBD meds at this time. Last colonoscopy in 11/2022 with non-bleeding internal hemorrhoids, but otherwise normal exam. Today he continues to feel well. We discussed continuing Entyvio and reviewed the plan as outlined below. Health Maintenance: Please see Dr. Davila's last note in 04/2022 for updated HCM topics. PLAN - Continue Entyvio Q8 weeks - Repeat colonoscopy for surveillance in 2024, unless otherwise indicated - Follow up with Dr. Davila in 6 months PATIENT IS OK TO BE CONTACTED BY IBD GI RESEARCH TEAM TO EXPLORE PARTICIPATION IN RESEARCH STUDIES I spent a total of 27 minutes on the date of the service which included preparing to see the patient, [id number] patient care, completing clinical documentation, obtaining and/or reviewing separately obtained history, performing a medically appropriate examination, and counseling and educating the patient/family/caregiver. Audelia Sierra APRN.CNP February 05, 2023 8:33 AM documented in this encounter [facility] 02-04-2023 Note HNO ID: [id number] Author: Ashli Krishnamurthy RN Service: ? Author Type: Registered Nurse Type: Progress Notes Filed: 02/04/2023 8:38 AM Note Text: Since your last infusion, have you: Had any major change in your health (including new diagnosis of cancer, COPD or cogestive heart failure? No Been hospitalized? No Had any infections? No Taking antibiotics/antivirals/antifunga ls for current infection? No Had surgery or do you have upcoming surgery? No Received any live vaccines in the last four weeks? No Worsening GI symptoms/abnormal pain/bloating No In the past 7 days have you had: Fevers/chills/night sweats? No New cough or cold symptoms or sore throat? No Nausea/vomiting/diarrhea? No Unusual swelling of your ankles of feet? No Burning/blood with urination or urinary frequency? No New weakness/numbness/stumbling falls? No New rash or open sores? No [facility] 01-29-2023 Note HNO ID: [id number] Author: Jose Luis Morrison MD Service: ? Author Type: Physician Type: Progress Notes Filed: 01/29/2023 8:38 AM Note Text: Here for f/u for Asteatotic dermatitis, patient states rash is better . Patient using fluocinonide (LIDEX) 0.05 % cream, Methotrexate 2.5 mg, folic acid and Cerave. Patient has new rash area on upper chest and lesion on left hand that he is concerned about. Allergies: ALLERGIES Allergen Reactions Sulfa (Sulfonamide * Unknown Other reaction(s): Intolerance-unknown Ciprofloxacin Rash Other reaction(s): Intolerance-unknown PE: Limited exam. With Dusty General: no acute distress Mood: alert and oriented X's 3 Hair/Scalp: normal Face: normal Eyes/eyelids: normal Lips/Oral mucosa: normal Neck: normal Chest: Left upper chest clear R/L upper extremity: stuck on papule Lt dorsum hand A/P: Asteatotic dermatitis Xerosis cutis Nummular dermatitis Dry skin care discussed Moisturizers/Emollients discussed scent free, Dye free, fragrance free Continue Lidex cream bid prn. No longer than 5 days in a row per week Side effects of steroids discussed including proper use and location, atrophy, telangectasia, striae, hypo- or hyperpigmentation Continue dry skin care Should really get off methotrexate. Seborrheic keratosis Educated and reassured RTC prn Pt voiced understanding The documentation for this note was completed by Norma Mancuso LPN, Vamsi Iniguez ma acting as scribe for Jose Luis Morrison MD. January 29, 2023 7:58 AM. I agree with the Chief Complaint, ROS, and Past Histories independently gathered by the clinical child support case officer and the remaining scribed note accurately describes my personal service to the patient. Jose Luis Morrison MD [facility] 12-15-2022 Note HNO ID: [id number] Author: Jose Luis Morrison MD Service: ? Author Type: Physician Type: Progress Notes Filed: 12/15/2022 12:42 PM Note Text: 67 year old male here for skin irritation Location : Back , shins, upper chest. Waist line Present x 2 months Itches: Yes Has been getting worse Dial soap when bathing/Showering Happens in wintertime Exact thing happened last winter However is worse this winter Went away in the spring and summer Never has problems with spring and summer Patient was seeing [facility] in [facility] Alda Warren NP Feels that there is no improvement Would like to know what causes this Currently treating with: -Triamcinolone cream 0.1% -Methotrexate 2.5 mg Personal history of skin cancer: BCC Derm Family history: no Denies fevers, chills Denies wt loss Denies new or changing moles PAST MEDICAL HISTORY Diagnosis Date Cancer (HCC) Thyroid disease Social History Tobacco Use Smoking status: Never Smokeless tobacco: Never Substance Use Topics Alcohol use: Yes Comment: occassional Drug use: Not Currently Allergies: ALLERGIES Allergen Reactions Sulfa (Sulfonamide * Unknown Other reaction(s): Intolerance-unknown Ciprofloxacin Rash Other reaction(s): Intolerance-unknown Current Outpatient Medications on File Prior to Visit Medication Sig fluticasone (FLONASE) 50 mcg/actuation nasal spray Use 1 Troy in the nose at bedtime as needed. levothyroxine (SYNTHROID) 150 mcg tablet Take 150 mcg by mouth. esomeprazole (NEXIUM) 20 mg capsule Take 20 mg by mouth. cetirizine (ZYRTEC) 5 mg tablet Take 5 mg by mouth at bedtime as needed. verapamil SR (CALAN SR, ISOPTIN SR) 180 mg CR tablet Take 180 mg by mouth. metoprolol succinate ER (TOPROL XL) 25 mg 24 hr tablet Take 25 mg by mouth. nitroglycerin sublingual (NITROQUICK) 0.4 mg SL tablet Dissolve 0.4 mg under the tongue at bedtime as needed. No current facility-administered medications on file prior to visit. PE: Comprehensive exam. With Dusty General: no acute distress Mood: alert and oriented X's 3 Hair/Scalp: normal Face: normal Eyes/eyelids: normal Lips/Oral mucosa: normal Neck: normal Chest: normal Abdomen: normal, clear Back: scaly fissured plaques across back R/L upper extremity: normal, clear Digits/Nails: normal A/P: Asteatotic dermatitis Xerosis cutis Nummular dermatitis Stop Dial soap especially in winter Dry skin care discussed Moisturizers/Emollients discussed scent free, Dye free, fragrance free Lidex cream bid prn. No longer than 5 days in a row per week Side effects of steroids discussed including proper use and location, atrophy, telangectasia, striae, hypo- or hyperpigmenation. Ultimately with the goal would be to get him off his methotrexate I asked him to get his blood work when requested Hopefully within a week or 2 he can get off his methotrexate. RTC 6-8 weeks Pt voiced understanding Medical Decision Making: Problems: Moderate: 1+ chronic illnesses with change Risk: Moderate: Drug management Medical Decision Making Level: 4 - Moderate The documentation for this note was completed by Nelly Stein LPN, Vamsi Iniguez ma acting as scribe for Jose Luis Morrison MD. December 15, 2022 11:23 AM. I agree with the Chief Complaint, ROS, and Past Histories independently gathered by the clinical child support case officer and the remaining scribed note accurately describes my personal service to the patient. Jose Luis Morrison MD [facility] 12-10-2022 Note HNO ID: [id number] Author: Charity Rodriguez RN Service: ? Author Type: Registered Nurse Type: Progress Notes Filed: 12/10/2022 9:09 AM Note Text: Since your last infusion, have you: Had any major change in your health (including new diagnosis of cancer, COPD or cogestive heart failure? No Been hospitalized? No Had any infections? No Taking antibiotics/antivirals/antifunga ls for current infection? No Had surgery or do you have upcoming surgery? No Received any live vaccines in the last four weeks? No Worsening GI symptoms/abnormal pain/bloating No In the past 7 days have you had: Fevers/chills/night sweats? No New cough or cold symptoms or sore throat? No Nausea/vomiting/diarrhea? No Unusual swelling of your ankles of feet? No Burning/blood with urination or urinary frequency? No New weakness/numbness/stumbling falls? No New rash or open sores? No [facility] 12-10-2022 History of Present illness Narrative Since your last infusion, have you: Had any major change in your health (including new diagnosis of cancer, COPD or cogestive heart failure? No Been hospitalized? No Had any infections? No Taking antibiotics/antivirals/antifunga ls for current infection? No Had surgery or do you have upcoming surgery? No Received any live vaccines in the last four weeks? No Worsening GI symptoms/abnormal pain/bloating No In the past 7 days have you had: Fevers/chills/night sweats? No New cough or cold symptoms or sore throat? No Nausea/vomiting/diarrhea? No Unusual swelling of your ankles of feet? No Burning/blood with urination or urinary frequency? No New weakness/numbness/stumbling falls? No New rash or open sores? No documented in this encounter [facility] 12-09-2022 Miscellaneous Notes Spoke with patient, denies any signs or symptoms of infection. Will be here for infusion tomorrow. documented in this encounter [facility] 10-15-2022 History of Present illness Narrative Since your last infusion, have you: Had any major change in your health (including new diagnosis of cancer, COPD or cogestive heart failure? No Been hospitalized? No Had any infections? No Taking antibiotics/antivirals/antifunga ls for current infection? No Had surgery or do you have upcoming surgery? No Received any live vaccines in the last four weeks? No Worsening GI symptoms/abnormal pain/bloating No In the past 7 days have you had: Fevers/chills/night sweats? No New cough or cold symptoms or sore throat? No Nausea/vomiting/diarrhea? No Unusual swelling of your ankles of feet? No Burning/blood with urination or urinary frequency? No New weakness/numbness/stumbling falls? No New rash or open sores? No documented in this encounter [facility] 10-14-2022 Miscellaneous Notes I spoke to Stephen, and he will be coming for his infusion on 10-15-22. He denies having been on any recent antibiotic use. documented in this encounter [facility] 09-18-2022 Note PROCEDURE: XR HIP LT 2 3V WO PELVIS COMPARISON: None. HISTORY: Pain of left hip joint FINDINGS: BONES:No acute fracture or dislocation. Mild degenerative change with marginal osteophyte formation of the acetabulum SOFT TISSUES:Negative. No visible soft tissue swelling. EFFUSION:None visible. OTHER: Negative. IMPRESSION: Mild osteoarthritis Electronically authenticated by: MAURA MURPHY Date: 2022-09-18 15:58 [facility] 09-18-2022 Note [facility] Cardiology Clinic Note Chief Complaint: 1 month follow up- discuss medication HPI: Stephen Spencer is a 67 y.o. male here for routine follow up HPI Pleasant 67 yo male presents to clinic as new pt from Dr Dunn for abnormal stress test, atypical chest pain. He is transferring care to [place] cardiology from [facility]. States almost daily he has Lt lower chest pressure/pain without radiation, nausea or sweating. Chest pain at rest is non reproducible, without aggrivating or alleviating factors. States he has taken NTG SL without relief, denied position changes- lying down or eating/certain foods causing symptoms. States chest pain is Different from my GERD discomfort. States he has had chest pain for about 15 years but this is different over the last couple weeks, more frequent and intense. States he walks about 3-4 miles daily without Chest pain or SOB- or limiting symptoms. States he was recently evaluated in ED for chest pain, was evaluated and r/o for PE, [place], Covid, was dc'd to home to F/U with Cardiology Known PMH- Mild non obstructive CAD, GERD, Ulcerative colitis, HPL. PSH- no pertinent cardiac FMH- Mother and father + heart disease, Sister passed with CA, Father stroke Social- never a smoker, Social alcohol, denied illicit drugs 09/18/2022: The patient is doing well. His chest pain has resolved. He stopped taking his Imdur. He decreased his Crestor to 10 mg as he was concerned this was causing joint pain he is not taking aspirin. He describes this pain is nonexertional, lasting for minutes or 2 to 3 days. It is an ache. There is no radiation. He denies specific aggravating or relieving factors. There is no associated shortness of breath, palpitations, nausea or vomiting. Pertinently, he has a history of gastroesophageal reflux disease and is on Nexium. He denies joint issues in the cervical or thoracic spine. Cardiology ROS: GENERAL: Denies fever, chills, night sweats, weight loss. HEENT: Denies changes in vision, photophobia, changes in hearing, epistaxis, oral bleeding. CARDIOVASCULAR: Denies chest pain, exertional dyspnea, orthopnea/PND, lower extremity edema, palpitations, lightheadedness/dizziness. RESPIRATORY: Denies SOB, coughing, wheezing GI: Denies abdominal pain, nausea/vomiting, heartburn, melena/hematochezia. RENAL: Denies dysuria, hematuria, flank pain. MSK: Denies muscle weakness/pain, arthralgias/joint pain. NEUROLOGIC: Denies LOC, weakness, numbness, headaches. SKIN: Denies abnormal rashes or bleeding. PSYCH: Denies significant anxiety, depression, sleep disturbances. Past Medical History He has a past medical history of Chest pain, GERD (gastroesophageal reflux disease), Hypothyroidism, Inflammatory bowel disease, Near syncope, Rectal bleed, and Syncope and collapse. Surgical History He has a past surgical history that includes Shoulder surgery; Hernia repair; Cholecystectomy; Thyroidectomy; Vasectomy; and Prostate surgery. Social History He reports that he has never smoked. He has never used smokeless tobacco. He reports that he does not currently use alcohol after a past usage of about 1.0 standard drink per week. He reports that he does not use drugs. Family History Family History Problem Relation Name Age of Onset Coronary artery disease Mother Coronary artery disease Father Stroke Father Allergies Sulfa (sulfonamide antibiotics) and Ciprofloxacin Medications (Not in a hospital admission) INVESTIGATIONS Labs: Normal LFT 09/03/22 Normal renal funcition 07/09/22 Last lab values have been reviewed CV Testin07/22/22 - [address] segment depression inferolateral leads, no symptoms, Normal myocardial perfusion. Stress test 09/05/21 Stress Function Comments Post-stress ejection fraction is 74 %. No wall motion abnormalities including inferior wall and inferobasal and inferoseptal steele. ECG Baseline ECG indicates sinus rhythm and left ventricular hypertrophy with prior inferolateral myocardial infarction. Stress ECG Findings: There is 2 mm upward-sloping ST depression in the inferolateral leads (II, III, aVF, V5 and V6). ST deviation began at 3 minute(s) in to exercise, ST segment returned to baseline after 1-5 minutes of recovery. There were no arrhythmias during stress. Overall, the patient's functional capacity was average. The stress ECG was positive. The calculated Becker Treadmill Score of -2.52 represents an intermediate risk only with regards to the exercise findings. Cardiac CTA 10/23/21 Coronary Artery Angiogram Findings: The coronary artery system is right dominant with normal origins. LMA: Mild stenosis with mixed plaque at the distal aspect/proximal LAD. LAD: Mild stenosis with mixed plaque at the bifurcation and multifocal mixed plaque with mild stenosis in the mid and distal segments. Diagonals: No stenosis with no plaque LCX: No stenosis with no plaque OM: No stenosis with no (more content not included)... [facility] 08-20-2022 History of Present illness Narrative Since your last infusion, have you: Had any major change in your health (including new diagnosis of cancer, COPD or cogestive heart failure? No Been hospitalized? No Had any infections? No Taking antibiotics/antivirals/antifunga ls for current infection? No Had surgery or do you have upcoming surgery? No Received any live vaccines in the last four weeks? No Worsening GI symptoms/abnormal pain/bloating No In the past 7 days have you had: Fevers/chills/night sweats? No New cough or cold symptoms or sore throat? No Nausea/vomiting/diarrhea? No Unusual swelling of your ankles of feet? No Burning/blood with urination or urinary frequency? No New weakness/numbness/stumbling falls? No New rash or open sores? No documented in this encounter [facility] 08-19-2022 Miscellaneous Notes Spoke with patient, he will be in for infusion denies any signs or symptoms of infection. documented in this encounter [facility] 06-25-2022 History of Present illness Narrative Since your last infusion, have you: Had any major change in your health (including new diagnosis of cancer, COPD or cogestive heart failure? No Been hospitalized? No Had any infections? Yes Taking antibiotics/antivirals/antifunga ls for current infection? No Had surgery or do you have upcoming surgery? No Received any live vaccines in the last four weeks? No Worsening GI symptoms/abnormal pain/bloating No In the past 7 days have you had: Fevers/chills/night sweats? No New cough or cold symptoms or sore throat? No Nausea/vomiting/diarrhea? No Unusual swelling of your ankles of feet? No Burning/blood with urination or urinary frequency? No New weakness/numbness/stumbling falls? No New rash or open sores? No documented in this encounter [facility] 06-01-2022 Miscellaneous Notes Images from the original note were not included. Patient has been rescheduled as requested for 06/25/22. I spoke with Mr. Spencer and he is aware of all of the appointment details. He stated his COVID Testing Date was 05/28/22. Yeimy VALDEZ June 01, 2022 10:10 AM Shilpa Salter RN Ln [facility] Schedulers 1 hour ago (9:09 AM) Please assist patient in rescheduling, no sooner than mid June. Routing comment I spoke to Stephen, and he had Covid recently, he is unsure of the date. I told him that we need to cancel his infusion for 06-02-22, we need to call him back and reschedule him when he has been symptom free per 4 weeks after covid testing. I asked him to please provide the date of his testing when a operations scheduler calls him back. documented in this encounter [facility] 05-22-2022 Miscellaneous Notes Called patient to inform him that Dr. Davila reviewed his recent bone density scan and it showed mild bone loss called osteopenia, in addition, his blood work showed a low vitamin D level and Dr. Davila recommends that he follow up with his PCP regarding management of his osteopenia and start an OTC Vit D at 5,000 international unit(s) Per day, and Citracal (calcium) 1 pill per day. Patient verbalized an understanding and asked for a mychart regarding this message. Vanessa Littlejohn RN K- please call him back. His bone density scan showed mild bone loss called osteopenia. He also had a low vitamin D level on his blood tests. I would recommend: 1. Seeing his PCP to discuss management options of osteopenia 2. Start over the counter vitamin D at 5,000 units once per day AND Citracal (calcium) at 1 pill per day Brayan Davila MD Patient would like to discuss results of bone density that was preformed at [facility] on 04/24. Results have been uploaded into chart for review Pt# [phone] documented in this encounter [facility] 04-09-2022 Miscellaneous Notes Message was sent to [facility] GI nurse pool. Patient calling. He would like clarification as to when he is supposed to get lab work and DXA done. Please call him at [phone] to advise. Thank you. Lelo Walter, PSS, JUICE WEIGHER ([facility]) [facility] [employer] Helper documented in this encounter [facility] 04-09-2022 History of Present illness Narrative VIRTUAL VISIT FOLLOW UP Stephen Spencer [id number] has requested a video telemedicine for follow up of ulcerative colitis. UPDATED HISTORY: Stephen had colonoscopy in 11/2021- showed mild to moderate inflammation from 0 to 20 cm. We pursued 4 week course of prednisone. Plan was to add Canasa to Lialda but insurance would not cover --> also had to switch to sulfasalazine due to insurance issues; stopped it earlier this week. He noted improvement in urgency, diarrhea and abdominal pain on prednisone. Then symptoms recurred and went on another prednisone in 12/2021. Started Entyvio in 01/2022- has gotten the 3 induction doses with improvement in symptoms. Current symptoms are: 2 soft bowel movements per day. Mild rectal urgency but no incontinence. No rectal bleeding. Intermittent mild abdominal pain with BM. Appetite is excellent. Reported weight is 172 pounds, which is stable. No eye, skin or joint manifestations of IBD; notes left hip pain- has had prior bursitis there He takes indomethacin infrequently for gout flares Labs: Component Latest Ref Rng & Units 01/14/2022 Calprotectin, Fecal 0 - 50 mg/kg 206.4 (H) C. difficile PCR Negative for C. difficile toxin by PCR Negative for C. difficile toxin by PCR Component Latest Ref Rng & Units 01/13/2022 WBC 3.70 - 11.00 k/uL 6.84 RBC 4.20 - 6.00 m/uL 4.98 Hemoglobin 13.0 - 17.0 g/dL 14.5 Hematocrit 39.0 - 51.0 % 46.7 MCV 80.0 - 100.0 fL 93.8 MCH 26.0 - 34.0 pg 29.1 MCHC 30.5 - 36.0 g/dL 31.0 RDW-CV 11.5 - 15.0 % 13.3 Platelet Count 150 - 400 k/uL 249 MPV 9.0 - 12.7 fL 9.9 Neut% % 75.0 Abs Neut (ANC) 1.45 - 7.50 k/uL 5.12 Lymph% % 11.1 Abs Lymph 1.00 - 4.00 k/uL 0.76 (L) Glascock% % 8.3 Abs Glascock <0.87 k/uL 0.57 Eosin% % 3.9 Abs Eosin <0.46 k/uL 0.27 Baso% % 0.7 Abs Baso <0.11 k/uL 0.05 Immature Gran % % 1.0 IMMATURE GRANS (ABS) <0.10 k/uL 0.07 NRBC /100 WBC 0.0 Absolute nRBC <0.01 k/uL <0.01 DTYPE Auto Protein, Total 6.3 - 8.0 g/dL 7.2 Albumin 3.9 - 4.9 g/dL 4.5 Calcium 8.5 - 10.2 mg/dL 9.3 Bilirubin, Total 0.2 - 1.3 mg/dL 0.4 Alkaline Phosphatase 38 - 113 U/L 95 AST 14 - 40 U/L 21 ALT 10 - 54 U/L 23 Glucose 74 - 99 mg/dL 111 (H) BUN 9 - 24 mg/dL 10 Creatinine 0.73 - 1.22 mg/dL 0.93 Sodium 136 - 144 mmol/L 139 Potassium 3.7 - 5.1 mmol/L 4.0 Chloride 97 - 105 mmol/L 102 CO2 22 - 30 mmol/L 27 Anion Gap 9 - 18 mmol/L 10 eGFR >=60 mL/min/1.73m 91 TB Nil <=8.00 IU/mL 0.00 TB Interpretation Infection with M. tuberculosis complex is unlikely. TB1 Ag minus Nil <0.35 IU/mL 0.03 TB2 Ag minus Nil <0.35 IU/mL 0.00 TB Result Negative Mitogen minus Nil >=0.50 IU/mL 5.98 Hep C Antibody IA Negative Negative Hep B Surface Ag Negative Negative Hep B Surface Ab, Qual Negative Negative Hep B Core Ab, Total Negative Negative No past medical history on file. No past surgical history on file. FAMILY HISTORY Problem Relation Age of Onset Cervical Cancer Sister Pancreatic Cancer Brother Social History Tobacco Use Smoking status: Never Smoker Smokeless tobacco: Never Used Substance Use Topics Alcohol use: Yes Comment: occassional Drug use: Not Currently Current Outpatient Medications Medication Sig Dispense Refill fluticasone (FLONASE) 50 mcg/actuation nasal spray Use 1 [place] in the nose at bedtime as needed. levothyroxine (SYNTHROID) 150 mcg tablet Take 150 mcg by mouth. esomeprazole (NEXIUM) 20 mg capsule Take 20 mg by mouth. cetirizine (ZYRTEC) 5 mg tablet Take 5 mg by mouth at bedtime as needed. verapamil SR (CALAN SR, ISOPTIN SR) 180 mg CR tablet Take 180 mg by mouth. metoprolol succinate ER (TOPROL XL) 25 mg 24 hr tablet Take 25 mg by mouth. nitroglycerin sublingual (NITROQUICK) 0.4 mg SL tablet Dissolve 0.4 mg under the tongue at bedtime as needed. No current facility-administered medications for this visit. ALLERGIES Allergen Reactions Sulfa (Sulfonamide * Unknown Other reaction(s): Intolerance-unknown Ciprofloxacin Rash Other reaction(s): Intolerance-unknown IMPRESSION (as copied and updated from my 11/2021 note and reflects medical decision making today): 66 year old male with UC diagnosed ~2014- seems to be mostly distal in extent. He was on mesalamine since dx and initially had a mild course. Then in 2020, he developed worsening symptoms including abdominal pain. He got 3 short courses (1-2 weeks) of prednisone in 2020 and 2 more courses in early 2021. He was started on azathioprine at 150 mg qd in late 2020- no change in symptoms and ?side effects so stopped in 11/2021. Colonoscopy in 11/2021 showed mild to moderate proctitis from 0 to 20 cm and a rectal TA polyp. Based on ongoing symptoms with steroid dependence, we started Entyvio in 01/2022- has gotten the 3 induction doses with improvement in symptoms. Off other IBD meds at this time. We discussed plan as listed below. Health Maintenance: - Vaccines- He gets the flu vaccine annually. Had Tdap (within 10 years), Covid + booster (2020), Prevnar 13 (?2019) Pneumovax (?2020), Shingrix (2019?). Has had negative serologies for HBV; will check HAV serology with next blood draw and then recommend vaccines. - Skin- sees Derm for mole checks annually- has basal cell CA recently - Bones- I recommended DEXA; check vit D level with next blood draw (does not take supplement) PLAN 1. Continue Entyvio 2. Recheck fecal calprotectin after he gets first maintenance Entyvio dose in 2 months. IF normal will follow clinically; if not consider repeat endoscopic testing soon 3. Otherwise repeat colonoscopy in early 2022 4. HM issues as above I spent a total of 30 minutes on the date of the service which included preparing to see the patient, [id number] patient care, completing clinical documentation, obtaining and/or reviewing separately obtained history, counseling and educating the patient/family/caregiver and ordering medications, tests, or procedures. Brayan Davila MD documented in this encounter [facility] 04-07-2022 History of Present illness Narrative Since your last infusion, have you: 1. Had any major change in your health (including new diagnosis of cancer, COPD or cogestive heart failure? No 2. Been hospitalized? No 3. Had any infections? No 4. Taking antibiotics/antivirals/antifunga ls for current infection? No 5. Had surgery or do you have upcoming surgery? No 6. Received any live vaccines in the last four weeks? No 7. Worsening GI symptoms/abnormal pain/bloating No In the past 7 days have you had: 1. Fevers/chills/night sweats? No 2. New cough or cold symptoms or sore throat? No 3. Nausea/vomiting/diarrhea? No 4. Unusual swelling of your ankles of feet? No 5. Burning/blood with urination or urinary frequency? No 6. New weakness/numbness/stumbling falls? No 7. New rash or open sores? No documented in this encounter [facility] 03-10-2022 History of Present illness Narrative Since your last infusion, have you: 1. Had any major change in your health (including new diagnosis of cancer, COPD or cogestive heart failure? No 2. Been hospitalized? No 3. Had any infections? No 4. Taking antibiotics/antivirals/antifunga ls for current infection? No 5. Had surgery or do you have upcoming surgery? No 6. Received any live vaccines in the last four weeks? No 7. Worsening GI symptoms/abnormal pain/bloating No In the past 7 days have you had: 1. Fevers/chills/night sweats? No 2. New cough or cold symptoms or sore throat? No 3. Nausea/vomiting/diarrhea? No 4. Unusual swelling of your ankles of feet? No 5. Burning/blood with urination or urinary frequency? No 6. New weakness/numbness/stumbling falls? No 7. New rash or open sores? No documented in this encounter [facility] 02-26-2022 Miscellaneous Notes Called patient informed him to remain on sulfasalazine until he receives his 3rd dose of Entyvio and then he can stop. Patient verbalized an understanding. Vanessa Littlejohn RN K- please call him back. I would recommend that he stay on sulfasalazine until he gets the 3rd dose of Entyvio and then can stop it. Brayan Davila MD Called and spoke with Stephen, he received his infusion. Informed patient to continue with his sulfasalazine until told otherwise. Vanessa Littlejohn RN Stephen called the offices and he is taking Sulfasalazine and wants to know if he still needs to take this and have his infusion on @ 7:30 am. Please call him back at [phone]. Cuca Sánchez documented in this encounter [facility] 02-24-2022 Miscellaneous Notes Patient has been scheduled as requested for 03/10/22. I spoke with Mr. Spencer and he is aware of all of the appointment details. Yeimy VALDEZ February 24, 2022 9:34 AM Please assist as below. Thank you ----- Message from Malinda Montes De Oca Pss sent at 02/24/2022 9:08 AM EDT ----- Regarding: [employer] operations scheduler calling to ask this office to contact this Pt to schedule Infusion for Entyvio ordered by Dr Daisy Davila Pt due 2 weeks from today for next Infusion Office ph # [phone] Pt best ph # [phone] OK 4 detailed vmm documented in this encounter [facility] 02-24-2022 Nurse Note Stephen Spencer Reason for therapy: IBD Ordering Physician: Dr. Davila Supervising/Billing Physician: Dr. Grady Pre-Medications Administered: No Medications Administered: Entyvio (See MAR) Dose #: 1 Start: 0810AM / Stop: 0847AM Fevers in last 7 days: No / Rash: No Infusion tolerated well? Yes IV: See avatar Vital Signs: See Flow sheets Additional Notes if applicable: Pt observed for 15 minutes post infusion. Denies any complaints post infusion. Electronically Signed By: Aranza Bal RN AMBULATORY PATIENT EDUCATION NOTE TOPIC: Entyvio READINESS TO LEARN INSTRUCTION PROVIDED TO: Patient, readness to learn accessed prior to procedure COGNITIVE ABILITY: Alert and oriented PTED MOTIVATION TO LEARN: Interested FAMILY SUPPORT: Unable to assess - Family not present IPATIENT LEARNS BEST BY: Individual Instruction FACTORS AFFECTING LEARNING: None PHYSICAL LIMITATIONS AFFECTING LEARNING: None LEARNING RESPONSE METHOD OF INSTRUCTION: Individual instruction PATIENT / FAMILY RESPONSE: Verbalizes understanding of: WORSENING CONDITION-Signs and symptoms of a worsening condition that warrant a call to the physician FOLLOW-UP PLAN: Complete - No need for follow-up documented in this encounter [facility] 01-26-2022 Miscellaneous Notes Received a return call from patient. Reviewed recent lab results with him. We then discussed the biologic therapy of Entyvio that was previously mentioned on 01/12. A new therapy plan was created and sent for review and approval. Vanessa Littlejohn RN . Stool for C diff and fecal calprotectin 2. Labs including blood TB 3. He will look into Entyvio option and let me know if he would like to proceed 4. Try to hold off prednisone for now but can consider another course if needed Returned patient call. Received voicemail to discuss recent labs, asked patient to call the office back to further discuss. Number provided. Vanessa Littlejohn RN Stephen called the offices and he would like to go over his resent test results. Please call him back at [phone]. Cuca Sánchez documented in this encounter [facility] 2021 Evaluation note Encounter Date Diagnosis Assessment Notes Jul, Ulcerative colitis (ICD-10 - K51.90) Ulcerative colitis material was printed CONTINUE MESALAMINE 4 TABLETS DAILY CONTINUE AZATHIOPRINE 3 TABLETS DAILY RTO 6 MONTHS [facility] Other Evaluation note* Diagnosis Ulcerative colitis with complication, unspecified location (HCC)- Primary documented in this encounter [facility] note* Diagnosis Ulcerative colitis with complication, unspecified location (HCC)- Primary documented in this encounter [facility] note* Diagnosis Ulcerative colitis with complication, unspecified location (HCC)- Primary documented in this encounter [facility] note* Diagnosis Ulcerative colitis without complications, unspecified location (HCC)- Primary [facility] (current) use of systemic steroids Vitamin D deficiency Unspecified vitamin D deficiency documented in this encounter [facility] note* Diagnosis Ulcerative colitis with complication, unspecified location (HCC)- Primary Encounter for long-term (current) use of medications Encounter for long-term (current) use of other medications documented in this encounter [facility] noteNo assessment information [facility]Day[facility] Work Phone: Evaluation note* Diagnosis Ulcerative colitis with complication, unspecified location (HCC)- Primary documented in this encounter [facility] note* Diagnosis Ulcerative colitis with complication, unspecified location (HCC)- Primary documented in this encounter [facility] note* Diagnosis Ulcerative colitis without complications, unspecified location (HCC)- Primary documented in this encounter [facility] note* Diagnosis Ulcerative colitis with complication, unspecified location (HCC)- Primary documented in this encounter [facility] note* Diagnosis Ulcerative colitis with complication, unspecified location (HCC)- Primary Encounter for long-term (current) use of medications Encounter for long-term (current) use of other medications [facility] Diagnosis Skin cancer screening- Primary Screening for malignant neoplasm of the skin History of basal cell carcinoma Personal history of other malignant neoplasm of skin Actinic keratosis Seborrheic keratosis Other seborrheic keratosis Boyer angioma Nevus, non-neoplastic [facility] Diagnosis Ulcerative colitis with complication, unspecified location (HCC)- Primary documented in this encounter [facility] note* Diagnosis Ulcerative colitis without complications, unspecified location (HCC)- Primary Vitamin D deficiency Unspecified vitamin D deficiency Osteopenia, unspecified location [facility] Diagnosis Ulcerative colitis with complication, unspecified location (HCC)- Primary documented in this encounter [facility] general Narrative - Reported* Type Description Date Medical History Colitis Medical History Diarrhea Medical History Rectal bleed Medical History no thyroid Medical History angina Surgical History CHOLECYSTECTOMY Surgical History HERNIA REPAIR Surgical History ROTATOR CUFF x2 Surgical History thyroidectomy, complete Surgical History TURP 2019 Hospitalization History see above [facility] Other Medications Administered Section Inactive Administered Medications - up to 3 most recent administrations Medication Order MAR Action Action Date Dose Rate Site vedolizumab 300 mg in NaCl 0.9% 250 mL (ENTYVIO) 300 mg, INTRAVENOUS, Administer over 30 Minutes, ONCE, 1 dose, On Wed02/24/22 at 0730, Approx Total Volume: 280 mL After the infusion is complete flush with 30 mL of sterile 0.9% Sodium Chloride Injection. Refrigerate. EXP: (24 HR) New Bag/Syringe/Bottle 02/24/2022 8:10 AM EDT 300 mg 500 mL/hr Inactive Administered Medications - up to 3 most recent administrations Medication Order MAR Action Action Date Dose Rate Site vedolizumab 300 mg in NaCl 0.9% 250 mL (ENTYVIO) 300 mg, INTRAVENOUS, Administer over 30 Minutes, ONCE, 1 dose, On Wed03/10/22 at 0730, Approx Total Volume: EXP: 03/10/22 @ 3PM After the infusion is complete flush with 30 mL of sterile 0.9% Sodium Chloride Injection. Refrigerate. EXP: (24 HR) New Bag/Syringe/Bottle 03/10/2022 7:49 AM EDT 300 mg Inactive Administered Medications - up to 3 most recent administrations Medication Order MAR Action Action Date Dose Rate Site vedolizumab 300 mg in NaCl 0.9% 250 mL (ENTYVIO) 300 mg, INTRAVENOUS, Administer over 30 Minutes, ONCE, 1 dose, On Wed04/07/22 at 0730, Approx Total Volume: 280 mL After the infusion is complete flush with 30 mL of sterile 0.9% Sodium Chloride Injection. Refrigerate. EXP: (24 HR) New Bag/Syringe/Bottle 04/07/2022 7:49 AM EDT 300 mg Inactive Administered Medications - up to 3 most recent administrations Medication Order MAR Action Action Date Dose Rate Site vedolizumab 300 mg in NaCl 0.9% 250 mL (ENTYVIO) 300 mg, INTRAVENOUS, Administer over 30 Minutes, ONCE, 1 dose, On Angelica 06/25/22 at 0730, Approx Total Volume: 280 mL After the infusion is complete flush with 30 mL of sterile 0.9% Sodium Chloride Injection. EXP: 06/25/22 @ 3PM Refrigerate. EXP: (24 HR) New Bag/Syringe/Bottle 06/25/2022 7:39 AM EDT 300 mg Inactive Administered Medications - up to 3 most recent administrations Medication Order MAR Action Action Date Dose Rate Site vedolizumab 300 mg in NaCl 0.9% 250 mL (ENTYVIO) 300 mg, INTRAVENOUS, Administer over 30 Minutes, ONCE, 1 dose, On Angelica 08/20/22 at 0730, Approx Total Volume - Expires: 08/20/22 @ 1400 (refrigerated) After the infusion is complete flush with 30 mL of sterile 0.9% Sodium Chloride Injection. Refrigerate. EXP: (24 HR) New Bag/Syringe/Bottle 08/20/2022 7:47 AM EDT 300 mg Inactive Administered Medications - up to 3 most recent administrations Medication Order MAR Action Action Date Dose Rate Site vedolizumab 300 mg in NaCl 0.9% 250 mL (ENTYVIO) 300 mg, INTRAVENOUS, Administer over 30 Minutes, ONCE, 1 dose, On Angelica 10/15/22 at 0730, Approx Total Volume: 280 mL After the infusion is complete flush with 30 mL of sterile 0.9% Sodium Chloride Injection. EXP: 10/15/22 1200 Refrigerate. EXP: (24 HR) New Bag/Syringe/Bottle 10/15/2022 7:48 AM EST 300 mg Inactive Administered Medications - up to 3 most recent administrations Medication Order MAR Action Action Date Dose Rate Site vedolizumab 300 mg in NaCl 0.9% 250 mL (ENTYVIO) 300 mg, INTRAVENOUS, Administer over 30 Minutes, ONCE, 1 dose, On Angelica 12/10/22 at 0730, Approx Total Volume: 280 mL After the infusion is complete flush with 30 mL of sterile 0.9% Sodium Chloride Injection. EXP: 12/10/22 1400 Refrigerate. EXP: (24 HR) New Bag/Syringe/Bottle 12/10/2022 7:45 AM EST 300 mg Inactive Administered Medications - up to 3 most recent administrations Medication Order MAR Action Action Date Dose Rate Site vedolizumab 300 mg in NaCl 0.9% 250 mL (ENTYVIO) 300 mg, INTRAVENOUS, Administer over 30 Minutes, ONCE, 1 dose, On Angelica 04/01/23 at 0800, Approx Total Volume: 280 mL After the infusion is complete flush with 30 mL of sterile 0.9% Sodium Chloride Injection. EXP: 04/01/23 1400 Refrigerate. EXP: (24 HR) New Bag/Syringe/Bottle 04/01/2023 7:35 AM EDT 300 mg Inactive Administered Medications - up to 3 most recent administrations Medication Order MAR Action Action Date Dose Rate Site vedolizumab 300 mg in NaCl 0.9% 250 mL (ENTYVIO) 300 mg, INTRAVENOUS, Administer over 30 Minutes, ONCE, 1 dose, On Angelica 05/27/23 at 0730, Approx Total Volume - Expires: 05/27/23 @ 1300 (refrigerated) After the infusion is complete flush with 30 mL of sterile 0.9% Sodium Chloride Injection. Refrigerate. EXP: (24 HR) New Bag/Syringe/Bottle 05/27/2023 7:38 AM EDT 300 mg Inactive Administered Medications - up to 3 most recent administrations Medication Order MAR Action Action Date Dose Rate Site vedolizumab 300 mg in NaCl 0.9% 250 mL (ENTYVIO) 300 mg, INTRAVENOUS, Administer over 30 Minutes, ONCE, 1 dose, On Angelica 07/22/23 at 0730, Approx Total Volume - Expires: 07/21/23 @ (refrigerated) After the infusion is complete flush with 30 mL of sterile 0.9% Sodium Chloride Injection. Refrigerate. EXP: (24 HR) New Bag/Syringe/Bottle 07/22/2023 7:37 AM EDT 300 mg Inactive Administered Medications - up to 3 most recent administrations Medication Order MAR Action Action Date Dose Rate Site vedolizumab 300 mg in NaCl 0.9% 250 mL (ENTYVIO) 300 mg, INTRAVENOUS, Administer over 30 Minutes, ONCE, 1 dose, On Angelica 09/16/23 at 0730, Approx Total Volume: 280 mL After the infusion is complete flush with 30 mL of sterile 0.9% Sodium Chloride Injection. EXP: 09/16/23 1400 RF Refrigerate. EXP: (24 HR) New Bag/Syringe/Bottle 09/16/2023 7:40 AM EST 300 mg Chief Complaint and Reason for Visit Chief Complaint k51.90 e55.9 K51.90 Advance Directives No Advanced Directives Records Found Advance Directive Response Recorded Date/ Time Advance Directives No November 18, 2017 11:27am Summary Purpose Family History No Family History Records FoundNo Family History Records FoundNo Family History Records FoundNo Family History Records FoundNo Family History Records FoundNo Family History Records Found Reason for Referral Specialty Diagnoses / Procedures Referred By Tj gomez Referred To Contact Rheumatology Diagnoses Ulcerative colitis without complications, unspecified location (HCC) Osteopenia, unspecified location Procedures CONSULT TO RHEUMATOLOGY METABOLIC BONE OFFICE/OUTPATIENT [facility] 60-74 MINUTES Brayan Davila MD [address] [place] [address] Referral ID Status Reason Start Date Expiration Date Visits Requested Visits Authorized [id number] Authorized PCP Requested Referral 08/09/2023 08/08/2024 1 1 Additional Source Comments Source Comments (unrecognize d section and content) In the event this informatio n is protected by the Federal Confidentiality of Alcohol and Drug Abuse Patient Records regulations: The Federal rules restrict any use of the information to criminally investigate or prosecute any alcohol or drug abuse patient.[facility] the event this information is protected by the Federal Confidentiality of Alcohol and Drug Abuse Patient Records regulations: The Federal rules restrict any use of the information to criminally investigate or prosecute any alcohol or drug abuse patient.[facility] the event this information is protected by the Federal Confidentiality of Alcohol and Drug Abuse Patient Records regulations: The Federal rules restrict any use of the information to criminally investigate or prosecute any alcohol or drug abuse patient.[facility] the event this information is protected by the Federal Confidentiality of Alcohol and Drug Abuse Patient Records regulations: The Federal rules restrict any use of the information to criminally investigate or prosecute any alcohol or drug abuse patient.[facility] the event this information is protected by the Federal Confidentiality of Alcohol and Drug Abuse Patient Records regulations: The Federal rules restrict any use of the information to criminally investigate or prosecute any alcohol or drug abuse patient.[facility] the event this information is protected by the Federal Confidentiality of Alcohol and Drug Abuse Patient Records regulations: The Federal rules restrict any use of the information to criminally investigate or prosecute any alcohol or drug abuse patient.[facility] the event this information is protected by the Federal Confidentiality of Alcohol and Drug Abuse Patient Records regulations: The Federal rules restrict any use of the information to criminally investigate or prosecute any alcohol or drug abuse patient.[facility] the event this information is protected by the Federal Confidentiality of Alcohol and Drug Abuse Patient Records regulations: The Federal rules restrict any use of the information to criminally investigate or prosecute any alcohol or drug abuse patient.[facility] the event this information is protected by the Federal Confidentiality of Alcohol and Drug Abuse Patient Records regulations: The Federal rules restrict any use of the information to criminally investigate or prosecute any alcohol or drug abuse patient.[facility] the event this information is protected by the Federal Confidentiality of Alcohol and Drug Abuse Patient Records regulations: The Federal rules restrict any use of the information to criminally investigate or prosecute any alcohol or drug abuse patient.[facility] the event this information is protected by the Federal Confidentiality of Alcohol and Drug Abuse Patient Records regulations: The Federal rules restrict any use of the information to criminally investigate or prosecute any alcohol or drug abuse patient.[facility] the event this information is protected by the Federal Confidentiality of Alcohol and Drug Abuse Patient Records regulations: The Federal rules restrict any use of the information to criminally investigate or prosecute any alcohol or drug abuse patient.[facility] the event this information is protected by the Federal Confidentiality of Alcohol and Drug Abuse Patient Records regulations: The Federal rules restrict any use of the information to criminally investigate or prosecute any alcohol or drug abuse patient.[facility] [facility] the event this information is protected by the Federal Confidentiality of Alcohol and Drug Abuse Patient Records regulations: The Federal rules restrict any use of the information to criminally investigate or prosecute any alcohol or drug abuse patient.[facility] the event this information is protected by the Federal Confidentiality of Alcohol and Drug Abuse Patient Records regulations: The Federal rules restrict any use of the information to criminally investigate or prosecute any alcohol or drug abuse patient.[facility] Hospital[facility] the event this information is protected by the Federal Confidentiality of Alcohol and Drug Abuse Patient Records regulations: The Federal rules restrict any use of the information to criminally investigate or prosecute any alcohol or drug abuse patient.[facility] the event this information is protected by the Federal Confidentiality of Alcohol and Drug Abuse Patient Records regulations: The Federal rules restrict any use of the information to criminally investigate or prosecute any alcohol or drug abuse patient.[facility] the event this information is protected by the Federal Confidentiality of Alcohol and Drug Abuse Patient Records regulations: The Federal rules restrict any use of the information to criminally investigate or prosecute any alcohol or drug abuse patient.[facility] the event this information is protected by the Federal Confidentiality of Alcohol and Drug Abuse Patient Records regulations: The Federal rules restrict any use of the information to criminally investigate or prosecute any alcohol or drug abuse patient.[facility] the event this information is protected by the Federal Confidentiality of Alcohol and Drug Abuse Patient Records regulations: The Federal rules restrict any use of the information to criminally investigate or prosecute any alcohol or drug abuse patient.[facility] the event this information is protected by the Federal Confidentiality of Alcohol and Drug Abuse Patient Records regulations: The Federal rules restrict any use of the information to criminally investigate or prosecute any alcohol or drug abuse patient.[facility]In the event this information is protected by the Federal Confidentiality of Alcohol and Drug Abuse Patient Records regulations: The Federal rules restrict any use of the information to criminally investigate or prosecute any alcohol or drug abuse patient.[facility] the event this information is protected by the Federal Confidentiality of Alcohol and Drug Abuse Patient Records regulations: The Federal rules restrict any use of the information to criminally investigate or prosecute any alcohol or drug abuse patient.[facility] HospitalIn the event this information is protected by the Federal Confidentiality of Alcohol and Drug Abuse Patient Records regulations: The Federal rules restrict any use of the information to criminally investigate or prosecute any alcohol or drug abuse patient.[facility] HospitalIn the event this information is protected by the Federal Confidentiality of Alcohol and Drug Abuse Patient Records regulations: The Federal rules restrict any use of the information to criminally investigate or prosecute any alcohol or drug abuse patient.[facility] HospitalIn the event this information is protected by the Federal Confidentiality of Alcohol and Drug Abuse Patient Records regulations: The Federal rules restrict any use of the information to criminally investigate or prosecute any alcohol or drug abuse patient.[facility] HospitalIn the event this information is protected by the Federal Confidentiality of Alcohol and Drug Abuse Patient Records regulations: The Federal rules restrict any use of the information to criminally investigate or prosecute any alcohol or drug abuse patient.[facility] HospitalIn the event this information is protected by the Federal Confidentiality of Alcohol and Drug Abuse Patient Records regulations: The Federal rules restrict any use of the information to criminally investigate or prosecute any alcohol or drug abuse patient.[facility] HospitalIn the event this information is protected by the Federal Confidentiality of Alcohol and Drug Abuse Patient Records regulations: The Federal rules restrict any use of the information to criminally investigate or prosecute any alcohol or drug abuse patient.[facility] HospitalIn the event this information is protected by the Federal Confidentiality of Alcohol and Drug Abuse Patient Records regulations: The Federal rules restrict any use of the information to criminally investigate or prosecute any alcohol or drug abuse patient.[facility] HospitalIn the event this information is protected by the Federal Confidentiality of Alcohol and Drug Abuse Patient Records regulations: The Federal rules restrict any use of the information to criminally investigate or prosecute any alcohol or drug abuse patient.[facility] Reason for Visit (unrecogniz ed section and content) Reason Comments Infusion Specialty Diagnoses / Procedures Referred By Contac t Referred To Contact Diagnoses Ulcerative colitis with complication, unspecified location (HCC) Brayan Davila MD [address] [place] [address] [facility] [address] [place] [address] Referral ID Status Reason Start Date Expiration Date V isits Requested Visits Authorized [id number] Authorized 01/26/2022 04/26/2022 99 99 Reason Comments entyvio infusion Reason Comments Entyvio infusion Reason Comments Test Results... Specialty Diagnoses / Procedures Referred By Contac t Referred To Contact Diagnoses Ulcerative colitis with complication, unspecified location (HCC) Brayan Davila MD [address] [place] [address] [facility] [address] [place] [address] Reason Comments Sulfsalazine Reason Comments IBD Follow Up Reason Comments Patient Question Reason Comments Results Bone Density Reason Comments Question Reason Comments Infusion ENTYVIO Reason Comments Established Patient Ulcerative colitis Reason Comments Skin Check Reason Comments Established Patient Follow up Care Teams (unrecognized sec tion and content) Belt Lacer Relationship Specialty Start Date End Date King Dunn MD PCP - General Family Practice 09/25/14 Belt Lacer Relationship Specialty Start Date End Date King Dunn MD PCP - General Family Practice 09/25/14 Belt Lacer Relationship Specialty Start Date End Date King Dunn MD PCP - General Family Practice 09/25/14 Belt Lacer Relationship Specialty Start Date End Date King Dunn MD PCP - General Family Practice 09/25/14 Belt Lacer Relationship Specialty Start Date End Date King Dunn MD PCP - General Family Practice 09/25/14 Belt Lacer Relationship Specialty Start Date End Date King Dunn MD PCP - General Family Practice 09/25/14 Belt Lacer Relationship Specialty Start Date End Date King Dunn MD PCP - General Family Practice 09/25/14 Team Status: Inactive Member Role Status Dates King Dunn MD Primary Care Provider Active Brayan Davila Attending Provider Active Team Status: Active Member Role Status Dates King Dunn MD Primary Care Provider Active Belt Lacer Relationship Specialty Start Date End Date King Dunn MD PCP - General Family Practice 09/25/14 Belt Lacer Relationship Specialty Start Date End Date King Dunn MD PCP - General Family Medicine 09/25/14 Belt Lacer Relationship Specialty Start Date End Date King Dunn MD PCP - General Family Medicine 09/25/14 Belt Lacer Relationship Specialty Start Date End Date King Dunn MD PCP - General Family Medicine 09/25/14 Belt Lacer Relationship Specialty Start Date End Date King Dunn MD PCP - General Family Medicine 09/25/14 Belt Lacer Relationship Specialty Start Date End Date King Dunn MD PCP - General Family Medicine 09/25/14 Belt Lacer Relationship Specialty Start Date End Date King Dunn MD PCP - General Family Medicine 09/25/14 Belt Lacer Relationship Specialty Start Date End Date King Dunn MD PCP - General Family Medicine 09/25/14 Belt Lacer Relationship Specialty Start Date End Date King Dunn MD PCP - General Family Medicine 09/25/14 Belt Lacer Relationship Specialty Start Date End Date King Dunn MD PCP - General Family Medicine 09/25/14 Belt Lacer Relationship Specialty Start Date End Date King Dunn MD PCP - General Family Medicine 09/25/14 Belt Lacer Relationship Specialty Start Date End Date King Dunn MD PCP - General Family Medicine 09/25/14 Belt Lacer Relationship Specialty Start Date End Date King Dunn MD PCP - General Family Medicine 09/25/14 Belt Lacer Relationship Specialty Start Date End Date King Dunn MD PCP - General Family Medicine 09/25/14 Belt Lacer Relationship Specialty Start Date End Date King Dunn MD PCP - General Family Medicine 09/25/14 Belt Lacer Relationship Specialty Start Date End Date King Dunn MD PCP - General Family Medicine 09/25/14 Goals (unrecognized section and content) Goals may be documented in a n alternate section (unrecognized sect ion and content) No Status Records FoundNo Status Records FoundNo Status Records FoundNo Status Records FoundNo Status Records FoundNo Status Records Found INFORMATION SOURCE (unrecogn ized section and content) DATE CREATED AUTHOR 08/02/2022 [facility] DATE CREATED AUTHOR AUTHOR'S ORGANIZ ATION 08/05/2022 [facility] DATE CREATED AUTHOR AUTHOR'S ORGANIZ ATION 03/01/[address] [facility] DATE CREATED AUTHOR AUTHOR'S ORGANIZ ATION 09/03/2023 [facility] DATE CREATED AUTHOR AUTHOR'S ORGANIZ ATION 11/21/2023 [facility] DATE CREATED AUTHOR AUTHOR'S ORGANIZ ATION 12/01/2023 [facility] d[facility] Specialists EPIC FOR RECORDS PERTAINING TO PATIENTS WHO ARE OR HAVE BEEN ENROLLED IN A CHEMICAL DEPENDENCY/SUBSTANCEABUSE PROGRAM, SOME INFORMATION MAY BE OMITTED. This clinical summary was aggregated from multiple sources. Caution should be exercised in using it in the provision of clinical care. This summary normalizes information from multiple sources, and as a consequence, information in this document may materially change the coding, format and clinical context of patient data. In addition, data may be omitted in some cases. CLINICAL DECISIONS SHOULD BE BASED ON THE PRIMARY CLINICAL RECORDS. [employer] [facility]. provides no warranty or guarantee of the accuracy or completeness of information in this document.
[2023-12-10 15:44] LABS: SARS-CoV-2 NAA NOT DETECTED (NOT DETECTE)
== END 2023-12-10 10:28 | disposition home or self-care (01) ==
LOC: LAB 10:27
PROVIDERS: PCP Family Medicine; Visit Provider Family Medicine
DX: R05.1 Acute cough (principal)
CPT/HCPCS: 87635

== ENCOUNTER 2024-04-21 11:55 | Outpatient (OUT) | payer MEDICARE, OTHER, SELFPAY ==
[2024-04-21 14:38] LABS: Free T3 2.79 pg/mL (2.18-3.98); Thyroid Stimulating Hormone 0.014 uIU/mL (0.358-3.740)
== END 2024-04-21 11:56 | disposition home or self-care (01) ==
LOC: LAB 11:55
PROVIDERS: PCP Family Medicine; Visit Provider Family Medicine
DX: E03.9 Hypothyroidism, unspecified (principal)
CPT/HCPCS: 36415; 84436; 84443; 84481

== ENCOUNTER 2024-05-22 09:17 | Outpatient (OUT) | payer MEDICARE, OTHER, SELFPAY ==
[2024-05-22 10:44] LABS: Free T3 2.06 pg/mL (2.18-3.98); Thyroid Stimulating Hormone 0.074 uIU/mL (0.358-3.740)
== END 2024-05-22 09:18 | disposition home or self-care (01) ==
LOC: LAB 09:20
PROVIDERS: PCP Family Medicine; Visit Provider Family Medicine
DX: E03.9 Hypothyroidism, unspecified (principal)
CPT/HCPCS: 36415; 84436; 84443; 84481

== ENCOUNTER 2025-02-01 10:39 | Outpatient (OUT) | payer MEDICARE, OTHER, SELFPAY ==
--- NOTE | 2025-02-01 10:42 | US_ITS ---
The [address] [address] Patient Name: SHANTELL SPENCER MRN: [id number] date: 1955 Sex: M Assigned Patient Location: US Current Patient Location: US Accession/Order Number: [id number] Exam Date: 02/01/2025 12:40 Report Date: 02/01/2025 12:43 At the request of: KING DUNN MD Procedure: US renal bladder BILATERAL RENAL AND BLADDER ULTRASOUND CLINICAL HISTORY: Chronic right flank pain M54.50 COMPARISON: None Estimation of renal size is approximately 11.4 cm on the right and 10.9 cm on the left. A 5 mm echogenic focus is visualized at the inferior pole of the right kidney where a stone is not excluded. No hydronephrosis is seen. No renal mass lesions were imaged. There is no perinephric fluid. The urinary bladder is partially distended with a volume of 282 mL. No contour or intraluminal abnormalities are seen. Bilateral ureteral jets are visualized. The post void bladder residual is 24 mL. US/US renal bladder IMPRESSION: NO OBSTRUCTIVE UROPATHY. POSSIBLE RIGHT NEPHROLITHIASIS. Impression dictated by: Yoli Hernández M.D.02/01/2025 12:43 PM Dictation Location: [place] [address] Electronically authenticated by: [id number] Y Date: 02/01/2025 12:43
== END 2025-02-01 10:40 | disposition home or self-care (01) ==
LOC: US 10:39
PROVIDERS: PCP Family Medicine; Visit Provider Family Medicine
DX: M54.50 Low back pain, unspecified (principal)
CPT/HCPCS: 76770

== ENCOUNTER 2025-05-14 10:32 | Outpatient (OUT) | payer MEDICARE, OTHER, SELFPAY ==
--- OUTSIDE RECORDS SUMMARY | 2025-05-03 08:45 | XMS_ITS | Encounter Summary ---
Author Organization [facility] Address [address] [facility] [place] [address] Care Team Providers Care Aboriginal Ceremonial Celebrant Name Role Phone Eddie Rabago MD Primary Care Provider [phone] Reason for Visit * Reason Comments Eye Pain Encounter Details Date Type Department Care Team (Late st Contact Info) Description 05/03/2025 8:45 AM EDT Office Visit [facility] [address] [place] [id number] Yvonne Villatoro MD [address] [place] [address] Dry eyes (Primary Dx); Blepharitis of upper and lower eyelids of both eyes, unspecified type Social History Tobacco Use Types Packs/Day Years Used Date Smoking Tobacco: Never Smokeless Tobacco: Never Alcohol Use Standard Drinks/Week Comments Yes 1 (1 standard drink = 0.6 oz pur e alcohol) Only Occasional Sex and Gender Information Value Date Recorded Sex Assigned at Male 03/23/2023 10:03 AM EDT Legal Sex Male 7:19 PM EDT Gender Identity Male 03/23/2023 10:03 AM EDT Sexual Orientation Straight 03/23/2023 10 :03 AM EDT documented as of this encounter Progress Notes * Yvonne Villatoro MD - 05/03/2025 8:45 AM EDT Assessment/Plan Blepharitis, posterior type OU - The patient exhibits inspissated meibomian glands.Warm compresses, lid massage and lid scrubs were recommended. documented in this encounter Plan of Treatment Upcoming Encounters Date Type Department Care Team (Late st Contact Info) Description 07/27/2025 9:30 AM EDT Office Visit [facility] [address] [place] [address] Win Edmondson, [address] [place] [address] documented as of this encounter Visit Diagnoses Diagnosis Dry eyes- Primary Unspecified tear film insufficiency Blepharitis of upper and lower eyelids of both eyes, unspecified type documented in this encounter Care Teams Aboriginal Ceremonial Celebrant Relationship Specialty Start Date End Date Eddie Rabago MD [address] [place] [address] PCP - General 03/23/23 documented as of this encounter
--- OUTSIDE RECORDS SUMMARY | 2025-05-14 10:21 | XMS_ITS | Clinical Summary ---
Author Organization [facility] Address [address] [place] [address] Care Team Providers Care Substation Operator Helper Generation Name Role Phone Eddie aRbago MD Primary Care Provider [phone] Allergies Active Allergy Reactions Criticality Noted Date Comments Ciprofloxacin Unknown 03/12/2023 Sulfanilamide Unknown 03/12/2023 Medications fluticasone (Flonase Allergy Relief) 50 MCG/ACT nasal spray Administer 1 spray into each nostril in the morning. Active esomeprazole (NexIUM) [address] capsule Take 20 mg by mouth in the morning. Take before meals. Active cetirizine (ZyrTEC) 5 MG tablet Take 5 mg by mouth. Taking every other day Active levothyroxine (Synthroid, Levoxyl) 150 MCG tablet 150 mcg in the morning. Take before meals. 5 Active nitroglycerin (Nitrostat) 0.[address] 0.4 mg under the tongue every 5 (five) minutes if needed. Active vedolizumab (Entyvio) 300 MG injection Infuse 300 mg into a venous catheter. IV [id number] Active verapamil SR (Calan SR) 180 MG ER tablet Take 180 mg by mouth 1 (one) time each day at the same time. Active Calcium Carbonate-Vitam in D (CALCIUM PLUS VITAMIN D PO) Take by mouth. Activ e acetaminophen (Tylenol) 325 MG tablet Take by mouth. Activ e Active Problems Problem Noted Date Diagnosed Date Lateral epicondylitis, right elbow 09/13/2023 Age-related nuclear cataract of both eyes 2022 Vitreous floaters of both eyes 07/12/2023 Dry eyes 07/12/2023 Blepharitis of upper and lower eyelids of both e yes 07/12/2023 Degenerative disc disease, thoracic 06/17/2023 Spasm of thoracic back muscle 06/17/2023 PVD (posterior vitreous detachment), right eye 0 04/27/2023 Encounters Date Type Department Care Team Description 05/03/2025 8:45 AM EDT Office Visit [facility] [address] [place] [phone] Yvonne Villatoro MD Dry eyes (Primary Dx); Blepharitis of upper and lower eyelids of both eyes, unspecified type 05/03/2025 Bamboo flowsheet [facility] [address] [place] [address] Yvonne Villatoro MD 05/03/2025 Travel from Last 3 Months Immunizations Immunization Administration Dates Next Due ABRYSVO - Respiratory syncyt ial virus (RSV), vaccine, bivalent, protein subunit RSV prefusion F, diluent reconstituted, 0.5 mL, PF 11/03/2023 Hep A / Hep B 10/02/2023,09/02/2023 Influenza, High Dose Seasonal, Preservative Free 09/07/2024 Influenza, High-dose Seasona l, Quadrivalent, Preservative Free 10/02/2023 Influenza, Seasonal, Quadrivalent, Adjuvanted ,07/23/2021 Influenza, Unspecified 08/01/2020 Influenza, injectable, MDCK, preservative free, quadrivalent 07/15/2020 Influenza, injectable, quadrivalent 10/03/2014 Pneumococcal Conjugate PCV 13 08/06/2020 Pneumococcal Polysaccharide PPSV23 08/13/2021 Tdap 04/07/2016 Zoster, Recombinant 03/26/2020,01/12/2020 Family History Medical History Relation Name Comments Cancer Brother Yusuf Luca Heart disease Father Vidal Luca Macular degeneration Father Vidal Luca Stroke Father Vidal Luca Vision loss Father Vidal Luca Cancer Father's Sister Daisy Kidd Broken bones Mother June Luca Heart disease Mother June Luca Osteoporosis Mother June Luca Stroke Mother June Segovia Thyroid disease Mother June Segovia Pancreatic cancer Other Brother Cancer Sister Marquita Goldman Relation Name Status Comments Brother Yusuf Seg[place]ia Father Vidal Segovia Father's Sister Daisy Kidd Mother June Segovia Other Brother Sister Marquita Goldman Social History Tobacco Use Types Packs/Day Years [...] Orientation Straight 03/23/2023 10 :03 AM EDT Last Filed Vital Signs Vital Sign Reading Time Taken Comments Blood Pressure - - Pulse - - Temperature - - Respiratory Rate - - Oxygen Saturation - - Inhaled Oxygen Concentration - - Weight 74.8 kg (165 lb) 02/07/2025 8:31 AM EDT Height 177.8 cm (5' 10 ) 02/07/2025 8:31 AM EDT Body Mass Index 23.68 02/07/2025 8:31 AM EDT Plan of Treatment Upcoming Encounters Date Type Department Care Team (Late st Contact Info) Description 07/27/2025 9:30 AM EDT Office Visit [facility] [address] [place] [phone] Win Edmondson, [address] [place] [address] Health Maintenance Due Date Last Done Comments CT Colonography 1955 FIT-DNA 1955 FIT 1955 FOBT 1955 Sigmoidoscopy 1955 Influenza Vaccine (#1) 2025 , 10/02/2023, 09/03/2022, Additional history exists Colonoscopy 01/02/2035 01/02/2025, 01/2025, 11/10/2022, Additional history exists Colorectal Cancer Screening 01/02/2035 Pneumococcal Vaccine: 65+ Years Completed , 08/06/[address] [facility] MEDICARE SUPPLEMENT Care Teams Substation Operator Helper Generation Relationship Specialty Start Date End Date Eddie Rabago MD [address] [place] [address] PCP - General 03/23/23
--- OUTSIDE RECORDS SUMMARY | 2025-05-14 10:21 | XMS_ITS | Encounter Summary ---
Author Organization [facility] Address [facility] [place] [address] Care Team Providers Care Ground Support Equipment Fitter Name Role Phone Eddie Rabago MD Primary Care Provider [phone] Eddie Rabago MD Unavailable [phone] Source Comments In the event this information is protected by the Federal Confidentiality of Alcohol and Drug AbusePatient Records regulations: The Federal rules restrict any use of the information to criminally investigate or prosecute any alcohol or drug abuse patient.[facility] Encounter Details Date Type Department Care Team (Late st Contact Info) Description 01/06/2025 Patient Msg Gastroenterology [address] [id number] Brayan Wallace MD [address] [place] [address] Colonoscopy follow up Social History Tobacco Use Types Packs/Day Years Used Date Smoking Tobacco: Never Smokeless Tobacco: Never Alcohol Use Standard Drinks/Week Comments Yes 0 (1 standard drink = 0.6 oz pur e alcohol) occassional PHQ-2 Answer Date Recorded PHQ-2 score 0 02/16/2024 Area Deprivation Index Answer Date Guicho rded National Score (1-100), lower number is lower ri sk 44 04/01/2023 State Score (1-10), lower number is lower risk 2 04/01/2023 Data from: https://www.neighborhoodatlas.medicine.[facility]/. Last address used for calculation [address] 04/01/2023 Sex and Gender Information Value Date Recorded Sex Assigned at Male 10/21/2021 2:45 PM EST Legal Sex Male 11:14 AM EST Gender Identity Male 10/21/2021 2:45 PM EST Sexual Orientation Straight 10/21/2021 2: 45 PM EST documented as of this encounter Plan of Treatment Upcoming Encounters Date Type Department Care Team (Late st Contact Info) Description 05/22/2025 7:40 AM EDT Office Visit Rheumatology [address] [facility] [place] [address] Giovana Powell MD [address] [facility] [place] [address] Summer 2024 for OP and rev. results 05/24/2025 7:30 AM EDT Infusion Center Infusion [address] [place] [address] Entyvio x 8 weeks 06/11/2025 3:00 PM EDT Office Visit Gastroenterology [address] [address] Brayan Wallace MD [address] [place], [place] [id number] colonoscopy follow up 07/19/2025 7:30 AM EDT Infusion Center Infusion [address] [place] [address] Entyvio x 8 weeks 08/30/2025 11:15 AM EDT Office Visit Dermatology [address] [place], [place] [id number] Rajesh Boudreaux MD [address] [place], [place] [id number] Return in about 1 year (around 08/29/2025). 09/04/2025 8:30 AM EST Office Visit Cardiology [address] [facility] [place] [address] Paddy Balbuena MD [address] [facility] [place] [address] Annual visit 09/13/2025 7:30 AM EST Infusion Center Infusion [address] [facility] [place] [address] Entyvio x 8 weeks 11/08/2025 7:30 AM EST Infusion Center Infusion [address] [facility] [place] [address] Entyvio x 8 weeks documented as of this encounter Visit Diagnoses Not on filedocumented in this encounter Care Teams Ground Support Equipment Fitter Relationship Specialty Start Date End Date Eddie Rabago MD PCP - General Family Medicine 09/25/14 Eddie Rabago MD [address] [place] [address] Referring Family Medicine 03/21/24 documented as of this encounter
--- OUTSIDE RECORDS SUMMARY | 2025-05-14 10:22 | XMS_ITS | Encounter Summary ---
Author Organization [facility] Address [address] [place] [id number] Care Team Providers Care Bakery Team Member Name Role Phone Eddie Rabago MD Primary Care Provider [phone] Eddie Rabago MD Unavailable [phone] Source Comments In the event this information is protected by the Federal Confidentiality of Alcohol and Drug AbusePatient Records regulations: The Federal rules restrict any use of the information to criminally investigate or prosecute any alcohol or drug abuse patient.[facility] Encounter Details Date Type Department Care Team (Late st Contact Info) Description 12/26/2024 Patient Msg Gastroenterology [address] [place] [address] Joann Ramirez, RN Appt reminder for 01/02/25 Social History Tobacco Use Types Packs/Day Years [...] is lower risk 2 04/01/2023 Data from: https://www.neighborhoodatlas.[facility]/. Last address used for calculation William Dodd [...] 7:40 AM EDT Office Visit Rheumatology [address] [facility] [place] [address] Giovana Powell MD [address] [facility] [place] [address] Summer 2024 for OP and rev. results 05/24/2025 7:30 AM EDT Infusion Center Infusion [address] [facility] [place] [address] Entyvio x 8 weeks 06/11/2025 3:00 PM EDT Office Visit Gastroenterology [address] [address] Brayan Wallace MD [address] [place] [address] colonoscopy follow up 07/19/2025 7:30 AM EDT Infusion Center Infusion [address] [place] [address] Entyvio x 8 weeks 08/30/2025 11:15 AM EDT Office Visit Dermatology [address] [place], [place] [id number] Rajesh Boudreaux MD [address] [place], [place] [phone] Return in about 1 year (around 08/29/2025). 09/04/2025 8:30 AM EST Office Visit Cardiology [address] [facility] [place] [address] Paddy Balbuena MD [address] [place] [address] Annual visit 09/13/2025 7:30 AM EST Infusion Center Infusion [address] [place] [address] Entyvio x 8 weeks 11/08/2025 7:30 AM EST Infusion Center Infusion [address] [facility] [place] [address] Entyvio x 8 weeks documented as of this encounter Visit Diagnoses Not on filedocumented in this encounter Care Teams Bakery Team Member Relationship Specialty Start Date End Date Eddie Rabago MD PCP - General Family Medicine 09/25/14 Eddie Rabago MD [address] [place] [address] Referring Family Medicine 03/21/24 documented as of this encounter
--- OUTSIDE RECORDS SUMMARY | 2025-05-14 10:22 | XMS_ITS | Encounter Summary ---
Author Organization [facility] Address [address] [place] [address] Care Team Providers Care Deburrer Strip Name Role Phone Eddie Rabago MD Primary Care Provider [phone] Encounter Details Date Type Department Care Team (Latest Contact Info) Description 05/03/2025 Travel Social History Tobacco Use Types Packs/Day Years [...] AM EDT documented as of this encounter Plan of Treatment Upcoming Encounters Date Type Department Care Team (Late st Contact Info) Description 07/27/2025 9:30 AM EDT Office Visit [facility] [address] [place] [phone] Win Edmondson DO [address] [place] [address] documented as of this encounter Visit Diagnoses Not on filedocumented in this encounter Care Teams Deburrer Strip Relationship Specialty Start Date End Date Eddie Rabago MD [address] [facility] [place] [address] PCP - General 03/23/23 documented as of this encounter
--- OUTSIDE RECORDS SUMMARY | 2025-05-14 10:22 | XMS_ITS | Encounter Summary ---
Author Organization [facility] Address [facility] [place] [address] Care Team Providers Care Rejoiner Name Role Phone Eddie Rabago MD Primary Care Provider [phone] Eddie Rabago MD Unavailable [phone] Source Comments In the event this information is protected by the Federal Confidentiality of Alcohol and Drug AbusePatient Records regulations: The Federal rules restrict any use of the information to criminally investigate or prosecute any alcohol or drug abuse patient.[facility] Encounter Details Date Type Department Care Team (Late st Contact Info) Description 11/09/2021 Patient Msg Gastroenterology [address] [id number] Brayan Wallace MD [facility] [place] [address] Colonoscopy results Social History Tobacco Use Types Packs/Day Years Used Date Smoking Tobacco: Never Smokeless Tobacco: Never Alcohol Use Standard Drinks/Week Comments Yes 0 (1 standard drink = 0.6 oz pur e alcohol) occassional Sex and Gender Information Value Date Recorded Sex Assigned at Male 10/21/2021 2:45 PM EST Legal Sex Male 11:14 AM EST Gender Identity Male 10/21/2021 2:45 PM EST Sexual Orientation Straight 10/21/2021 2: 45 PM EST COVID-19 Exposure Response Date Recorded In the last month, have you been in contact with someone who was confirmed or suspected to have Coronavirus / COVID-19? No / Unsure 11/03/2021 12:30 PM EST documented as of this encounter Plan of Treatment Upcoming Encounters Date Type Department Care Team (Late st Contact Info) Description 05/22/2025 7:40 AM EDT Office Visit Rheumatology [address] [place] [address] Giovana Powell MD [address] [place] [address] Summer 2024 for OP and rev. results 05/24/2025 7:30 AM EDT Infusion Center Infusion [address] [place] [address] Entyvio x 8 weeks 06/11/2025 3:00 PM EDT Office Visit Gastroenterology [address] [address] Brayan Wallace MD [address] [place] [address] colonoscopy follow up 07/19/2025 7:30 AM EDT Infusion Center Infusion [address] [place] [address] Entyvio x 8 weeks 08/30/2025 11:15 AM EDT Office Visit Dermatology [address] [place], [place] [phone] Rajesh Boudreaux MD [address] [facility] [place], [place] [phone] Return in about 1 year (around 08/29/2025). 09/04/2025 8:30 AM EST Office Visit Cardiology [address] [place] [address] Paddy Balbuena MD [address] [place] [address] Annual visit 09/13/2025 7:30 AM EST Infusion Center Infusion [address] [facility] [place] [address] Entyvio x 8 weeks 11/08/2025 7:30 AM EST Infusion Center Infusion [address] [place] [address] Entyvio x 8 weeks documented as of this encounter Visit Diagnoses Not on filedocumented in this encounter Care Teams Rejoiner Relationship Specialty Start Date End Date Eddie Rabago MD PCP - General Family Medicine 09/25/14 Eddie Rabago MD [address] [place] [address] Referring Family Medicine 03/21/24 documented as of this encounter
--- OUTSIDE RECORDS SUMMARY | 2025-05-14 10:22 | XMS_ITS | Clinical Summary ---
Author Organization [facility] Address [address] [place], [place] [id number] Care Team Providers Care Respiratory Therapy Instructor Name Role Phone Eddie Rabago MD Primary Care Provider [phone] Eddie Rabago MD Unavailable [phone] Allergies Active Allergy Reactions Criticality Noted Date Comments Ciprofloxacin Rash Low 12/08/2016 Other reaction(s): Intolerance-unknown Sulfa (Sulfonamide Antibiotics) Unknown 12/08/2016 Other reaction(s): Intolerance-unknown Medications fluticasone (FLONASE) 50 mcg/actuation nasal spray Use 1 [place] in the nose at bedtime as needed. Active esomeprazole (NEXIUM) 20 mg capsule Take 20 mg by mouth once daily. Active cetirizine (ZYRTEC) 5 mg tablet Take 5 mg by mouth at bedtime as needed. Active verapamil SR (CALAN SR, ISOPTIN SR) 180 mg CR tablet Take 180 mg by mouth daily at bedtime. 0 Active nitroglycerin sublingual (NITROQUICK) 0.4 mg SL tablet Dissolve 0.4 mg under the tongue at bedtime as needed. 1 Active calcium carbonate (OS-MANDY 500) 500 mg calcium (1,250 mg) tablet Take 1 tablet by mouth once daily. 3 Active levothyroxine (SYNTHROID) 112 mcg tablet Take 112 mcg by mouth daily before breakfast. Active fluocinonide (LIDEX) 0.05 % cream Apply 1 application to affected area two times a day. No longer than 5 days in a row per week 60 g 1 4 Active pravastatin (PRAVACHOL) 80 mg tablet Take 1 tablet by mouth once daily. 90 tablet 3 4 Active vedolizumab (ENTYVIO) 300 mg injection Vedolizumab (Entyvio) 300 mg recon soln Active 300 MG IV EVERY 8 WEEKS August 29, 2024 12:00am administer over 30 mins 4 Active Active Problems Problem Noted Date Diagnosed Date Ulcerative colitis 01/26/2022 Encounters Date Type Department Care Team Description 04/25/2025 Travel 03/29/2025 7:30 AM EDT Infusion Center Infusion [address] [facility] [place] [address] Ulcerative colitis with complication, unspecified location (HCC) (Primary Dx) 03/27/2025 Patient Msg Infusion [address] [place], [place] [id number] Provider, [facility] 03/29/25 03/22/2025 Travel 02/25/2025 Results Follow-Up Rheumatology [address] [facility] [place], [place] [id number] Giovana Powell MD from Last 3 Months Immunizations Immunization Administration Dates Next Due hepatitis A-hepatitis B (HepA-HepB) vaccine (TWI NRIX) 10/02/2023,09/02/2023 influenza (HD-IIV3) vaccine, age 65+ yr, high dose, trivalent, PF (FLUZONE HIGH-DOSE) 09/07/2024 influenza (HD-IIV4) vaccine, age 65+ yr, high dose, quadrivalent, PF (FLUZONE HIGH-DOSE) 10/02/2023 influenza (IIV4) vaccine, qu adrivalent (AFLURIA, FLULAVAL, FLUZONE) 10/03/2014 influenza (aIIV4) vaccine, a ge 65+ yr, quadrivalent, PF (FLUAD QUAD) 09/03/2022,07/23/2021 influenza (ccIIV4) vaccine, age 6+ mo, quadrivalent, PF (FLUCELVAX) 07/15/2020 influenza vaccine, unspecified formulation 08/01 pneumococcal conjugate (PCV1 3) vaccine, 13 valent (PREVNAR 13) 08/06/2020 pneumococcal polysaccharide (PPV23) vaccine, 23 valent (PNEUMOVAX 23) 08/13/2021 respiratory syncytial virus (RSV) vaccine, bivalent (ABRYSVO) 11/03/2023 tetanus diphtheria pertussis (Tdap) vaccine, age 7+ yr (ADACEL, BOOSTRIX) 04/07/2016 zoster (RZV) vaccine, recombinant (SHINGRIX) ,01/12/2020 Family History Medical History Relation Comments Pancreatic Cancer Brother Cervical Cancer Sister Relation Status Comments Brother Paternal Aunt Alive Sister Social History Tobacco Use Types Packs/Day Years Used Date Smoking Tobacco: Never Smokeless Tobacco: Never Tobacco Cessation:Counseling Given: Yes Alcohol Use Standard Drinks/Week Comments Yes 0 (1 standard drink = 0.6 oz pur e alcohol) occassional PHQ-2 Answer Date Recorded PHQ-2 score 0 02/16/2024 Area Deprivation Index Answer Date Guicho rded National Score (1-100), lower number is lower ri sk 44 04/01/2023 State Score (1-10), lower number is lower risk 2 04/01/2023 Data from: https://www.neighborhoodatlas.medicine.[facility]/. Last address used for calculation [address] 04/01/2023 Sex and Gender Information Value Date Recorded Sex Assigned at Male 10/21/2021 2:45 PM EST Legal Sex Male 11:14 AM EST Gender Identity Male 10/21/2021 2:45 PM EST Sexual Orientation Straight 10/21/2021 2: 45 PM EST Last Filed Vital Signs Vital Sign Reading Time Taken Comments Blood Pressure 112/74 03/29/2025 7:20 AM EDT Pulse 74 03/29/2025 7:20 AM EDT Temperature 36.1 C (97 F) 03/29/2025 7:20 AM EDT Respiratory Rate 16 01/02/2025 4:10 PM EST Oxygen Saturation 98% 01/02/2025 4:10 PM EST Inhaled Oxygen Concentration - - Weight 76.4 kg (168 lb 6.9 oz) 03/29/2025 7:20 A M EDT Height 177.8 cm (5' 10 ) 01/02/2025 3:09 PM EST Body Mass Index 24.17 01/02/2025 3:09 PM EST Plan of Treatment Upcoming Encounters Date Type Department Care Team (Late st Contact Info) Description 05/22/2025 7:40 AM EDT Office Visit Rheumatology [address] [place] [address] Giovana Powell MD [address] [facility] [place] [address] Summer 2024 for OP and rev. results 05/24/2025 7:30 AM EDT Infusion Center Infusion [address] [place] [address] Entyvio x 8 weeks 06/11/2025 3:00 PM EDT Office Visit Gastroenterology [address] [address] Brayan Wallace MD [address] [place] [address] colonoscopy follow up 07/19/2025 7:30 AM EDT Infusion Center Infusion [address] [place] [address] Entyvio x 8 weeks 08/30/2025 11:15 AM EDT Office Visit Dermatology [address] [facility] [facility] [address] [place], [place] [id number] Rajesh Boudreaux MD [address] [place] [address] [place], [place] [phone] Return in about 1 year (around 08/29/2025). 09/04/2025 8:30 AM EST Office Visit Cardiology [address] [place] [address] Paddy Balbuena MD [address] [facility] [place] [address] Annual visit 09/13/2025 7:30 AM EST Infusion Center Infusion [address] [place] [address] Entyvio x 8 weeks 11/08/2025 7:30 AM EST Infusion Center Infusion [address] [facility] [place] [address] Entyvio x 8 weeks Health Maintenance Due Date Last Done Comments Anxiety Screening [address] Colonography 2000 Cologuard (FIT-DNA) 2000 Fecal Occult Blood 2000 Sigmoidoscopy 2000 Medicare Annual Wellness Visit 10/01/2021 Covid-19 Vaccine (4 - 2023-2 5 season) 2024 09/12/2021, 01/11/2021, 12/14/2020 Advance Directive Discussion 11/01/2024 Influenza Vaccine (#1) 2025 , 10/02/2023, 09/03/2022, Additional history exists Colonoscopy 01/02/2026 01/02/2025, 11/01, 11/04/2021 Colorectal Cancer Screening 01/02/2026 DTaP,Tdap,Td Vaccine (2 - Td or Tdap) 04/07/2026 04/07/2016 Diabetes Screening 02/02/2028 02/01/2025, 0 07/09/2022, 01/13/2022, Additional history exists Lipid Screening 09/05/2029 09/05/2024, 08/02, 06/30/2021, Additional history exists Shingrix Vaccine Completed 03/26/2020, 01/12/2020 Pneumococcal Vaccine: 50+ Completed 08/13/2021, 04/2020 Hepatitis C Screening Completed 01/13/2022, 022 RSV Vaccine Completed 11/03/2023 Procedures Procedure Name Priority Date/Time Associated Diagnosis Comments CREATININE 24 HR UR Routine 04/25/2025 9 :10 AM EDT Other osteoporosis without current pathological fracture Age-related osteoporosis without current pathological fracture Vitamin D deficiency Hypocalciuria Ulcerative colitis without complications, unspecified location (HCC) CALCIUM 24 HR URINE Routine 04/25/2025 9 :10 AM EDT Other osteoporosis without current pathological fracture Age-related osteoporosis without current pathological fracture Vitamin D deficiency Hypocalciuria Ulcerative colitis without complications, unspecified location (HCC) COMPREHENSIVE METABOLIC PANEL Routine 02/01/2025 7:39 AM EDT Ulcerative colitis without complications, unspecified location (HCC) COLONOSCOPY (THERAPEUTIC) Routine 01/02/2025 3:09 PM EST LIPID PANEL, NONFASTING Routine 09/05/2024 7:07 AM EST Mixed hyperlipidemia HEP REMOTE PANEL BL Routine 01/13/2022 9 :59 AM EDT Ulcerative colitis without complications, unspecified location (HCC) from Last 3 Months or Most Recently Relevant to Health Maintenance Results * (ABNORMAL) CALCIUM, 24 HR URINE (04/25/2025 9:10 AM EDT) Calcium, 24 Hr Urine 21.7(L) 100.0 - 300.0 mg/24 hr 04/25/2025 4:48 PM EDT [facility] Period 24 hr 04/25/2025 4:48 PM EDT [facility] Volume 1,975 mL 04/25/2025 4:48 PM EDT [facility] Urine URINE SPECIMEN / Unknown Non Blood / Unknown 04/25/2025 9:10 AM EDT 04/25/2025 9:10 AM EDT Giovana Powell MD LABORATORY Final Resul t [facility] [address] [id number], [facility] [address] [place] [address] * CREATININE, 24 HOUR URINE (04/25/2025 9:10 AM EDT) Creatinine 24 hr Ur 1.416 1.000 - 2.000 g/24 hr 04/25/2025 4:48 PM EDT [facility] Period 24 hr 04/25/2025 4:48 PM EDT [facility] Volume 1,975 mL 04/25/2025 4:48 PM EDT [facility] Urine URINE SPECIMEN / Unknown Non Blood / Unknown 04/25/2025 9:10 AM EDT 04/25/2025 9:10 AM EDT Giovana Powell MD LABORATORY Final Resul t [facility] [address] [facility] [address] [place] [address], [facility] [address] [place] [address] * COMPREHENSIVE METABOLIC PANEL (02/01/2025 7:39 AM EDT) Pathologist [facility] Protein, Total 6.4 6.3 - 8.0 g/dL 02/01/2025 4:57 PM EDT [facility] Albumin 4.1 3.9 - 4.9 g/dL 02/01/2025 4:57 PM EDT [facility] Calcium, Total 8.9 8.5 - 10.2 mg/dL 02/01/2025 4:57 PM EDT [facility] Bilirubin, Total 0.4 0.2 - 1.3 mg/dL 02/01/2025 4:57 PM EDT [facility] Alkaline Phosphatase 88 38 - 113 U/L 02/01/2025 4:57 PM EDT [facility] AST 18 14 - 40 U/L 02/01/2025 4:57 PM EDT [facility] ALT 20 10 - 54 U/L 02/01/2025 4:57 PM EDT [facility] Glucose 81 74 - 99 mg/dL 02/01/2025 4:57 PM EDT [facility] Comment: The [place] Diabetes Association (ADA) provides guidance for cutoff values for fasting glucose and random glucose. The ADA defines fasting as no caloric intake for at least 8 hours. Fasting plasma glucose results between 100 to 125 mg/dL indicate increased risk for diabetes (prediabetes). Fasting plasma glucose results greater than or equal to 126 mg/dL meet the criteria for diagnosis of diabetes. In the absence of unequivocal hyperglycemia, results should be confirmed by repeat testing. In a patient with classic symptoms of hyperglycemia or hyperglycemic crisis, random plasma glucose results greater than or equal to 200 mg/dL meet the criteria for diagnosis of diabetes. Reference: Standards of Medical Care in Diabetes 2016, [place] [employer]. Diabetes Care. 2016.39(Suppl 1). BUN 13 9 - 24 mg/dL 02/01/2025 4:57 PM EDT [facility] Creatinine 0.84 0.73 - 1.22 mg/dL 02/01/2025 4:57 PM EDT [facility] Sodium 143 136 - 144 mmol/L 02/01/2025 4:57 PM EDT [facility] Potassium 4.3 3.7 - 5.1 mmol/L 02/01/2025 4:57 PM EDT [facility] Chloride 105 98 - 107 mmol/L 02/01/2025 4:57 PM EDT [facility] CO2 26 22 - 30 mmol/L 02/01/2025 4:57 PM EDT [facility] Anion Gap 12 8 - 15 mmol/L 02/01/2025 4:57 PM EDT [facility] Estimated Glomerular Filtration Rate 94 >=60 mL/min/1.7 3m 02/01/2025 4:57 PM EDT [facility] Comment:Estimated Glomerular Filtration Rate (eGFR) is calculated using the 2020 CKD-EPI creatinine equation. This equation utilizes serum creatinine, sex, and age as parameters. The creatinine assay has traceable calibration to isotope dilution- mass spectrometry. Refer to KDIGO guidelines for clinical interpretation. In patients with unstable renal function, e.g. those with acute kidney injury, the eGFR may not accurately reflect actual GFR. Blood BLOOD SPECIMEN / Unknown Venipuncture / Unknown 02/01/2025 7:39 AM EDT 02/01/2025 8:34 AM EDT us Joann Muñoz LITHOGRAPHIC PLATEMAKER.AIR ROUTE CONTROLLER LABORATORY Final Re sult [facility] [address] [id number], * COLONOSCOPY (THERAPEUTIC) (01/02/2025 3:09 PM EST) Anatomical Region Laterality Modality Other 01/02/2025 3:09 PM EST Narrative 01/02/2025 4:05 PM EST A31 Gastrointestinal Endoscopy Patient Name: Stephen Segovia Procedure Date: 01/02/2025 3:09 PM Date of : 1955 Admit Type: Outpatient Age: 69 Room: [address] Gender: Male Note Status: Finalized Attending MD: Brayan Wallace MD, [id number] Procedure: Colonoscopy Indications: High risk colon cancer surveillance: Ulcerative colitis with known dysplasia (previous visible dysplastic lesion removed completely) Providers: Brayan Wallace MD, James Redmond (Fellow) Patient Profile: Last Colonoscopy: November 2022. Referring Physician: Joann Muñoz (Referring MD) Medicines: Midazolam 4 mg IV, Fentanyl 75 micrograms IV Complications: No immediate complications. Requesting Provider: Procedure: Pre-Anesthesia Assessment: - Prior to the procedure, a History and Physical was performed, and patient medications and allergies were reviewed. The patient's tolerance of previous anesthesia was also reviewed. The risks and benefits of the procedure and the sedation options and risks were discussed with the patient. All questions were answered, and informed consent was obtained. Prior Anticoagulants: The patient has taken no anticoagulant or antiplatelet agents. ASA Grade Assessment: I - A normal, healthy patient. After reviewing the risks and benefits, the patient was deemed in satisfactory condition to undergo the procedure. After I obtained informed consent, the scope was passed under direct vision. Throughout the procedure, the patient's blood pressure, pulse, and oxygen saturations were monitored continuously. The Colonoscope was introduced through the anus and advanced to the terminal ileum. The colonoscopy was performed without difficulty. The patient tolerated the procedure well. The quality of the bowel preparation was excellent. The terminal ileum, ileocecal valve, appendiceal orifice, and rectum were photographed. Moderate Sedation: The administration of moderate sedation was initiated at 15:27. Moderate (conscious) sedation was administered by the nurse and supervised by the endoscopist. The following parameters were monitored: oxygen saturation, heart rate, blood pressure, and response to care. Findings: The perianal and digital rectal examinations were normal. Inflammation was not found based on the endoscopic appearance of the mucosa in the colon. This was graded as Machado Score 0 (normal or inactive disease). A 6 mm polyp was found in the sigmoid colon. The polyp was sessile. The polyp was removed with a cold snare. Resection and retrieval were complete. The exam was otherwise normal throughout the examined colon. The terminal ileum appeared normal. Virtual chromoendoscopy using NBI was performed throughout the colon- no additional lesions were seen. Non-bleeding internal hemorrhoids were found during retroflexion. The hemorrhoids were small. Impression: - Inactive (Machado Score 0) ulcerative colitis. - One 6 mm polyp in the sigmoid colon, removed with a cold snare. Resected and retrieved. - The examined portion of the ileum was normal. - Virtual chromoendoscopy using NBI was performed throughout the colon- no additional lesions were seen. - Non-bleeding internal hemorrhoids. Estimated Blood Loss: Estimated blood loss: none. Recommendation: - Await pathology results. - Repeat colonoscopy in 1 year for surveillance based on pathology results. - Resume previous diet PRN. - Patient has a contact number available for emergencies. The signs and symptoms of potential delayed complications were discussed with the patient. Return to normal activities tomorrow. Written discharge instructions were provided to the patient. - Continue present medications. Procedure Code(s): --- Professional --- 03784, Colonoscopy, flexible; with removal of tumor(s), polyp(s), or other lesion(s) by snare technique Diagnosis Code(s): --- Professional --- Z12.11, Encounter for screening for malignant neoplasm of colon K51.90, Ulcerative colitis, unspecified, without complications D12.6, Benign neoplasm of colon, unspecified D12.5, Benign neoplasm of sigmoid colon CPT copyright 2020 [place] [employer]. All rights reserved. The codes documented in this report are preliminary and upon planing machine operator review may be revised to meet current compliance requirements. Attending Participation: I was present and participated during the entire procedure, including non-mast portions, and during the administration and monitoring of Moderate Sedation. Scope In: 3:28:39 PM Scope Out: 3:59:39 PM MD Brayan Mejia JP, MD 01/02/2025 4:03:39 PM This report has been signed electronically by Brayan Wallace MD Number of Addenda: 0 Note Initiated On: 01/02/2025 3:09 PM Joann Muñoz APRN.AIR ROUTE CONTROLLER DIGESTIVE DISEASE Final Result * (ABNORMAL) LIPID PANEL, NONFASTING (09/05/2024 7:07 AM EST) Total Cholesterol, Nonfasting 190 <200 mg/dL 09/05/2024 7:09 PM [facility] Comment: <200 mg/dL, Desirable 200-239 mg/dL, Borderline high >239 mg/dL, High Triglycerides, Nonfasting 95 <150 mg/dL 09/05/2024 7:09 PM [facility] Comment: <150 mg/dL, Normal 150-199 mg/dL, Borderline high 200-499 mg/dL, High >499 mg/dL, Very high HDL Cholesterol, Nonfasting 48 >39 mg/dL 09/05/2024 7:09 PM [facility] Comment: 40-59 mg/dL, Acceptable >59 mg/dL, High: Negative risk factor for coronary heart disease <40 mg/dL, Low: Positive risk factor for coronary heart disease LDL Cholesterol Calculated, Nonfasting 123(H) <100 mg/dL 09/05/2024 7:09 PM [facility] Comment: <100 mg/dL, Optimal 100-129 mg/dL, Near optimal/above optimal 130-159 mg/dL, Borderline high 160-189 mg/dL, High >189 mg/dL, Very high Secondary prevention optimal LDL Cholesterol levels are recommended to be < 70 mg/dL Non HDL Cholesterol, Nonfasting 142(H) <130 mg/dL 09/05/2024 7:09 PM [facility] Comment: <130 mg/dL, Optimal 130-159 mg/dL, Near optimal/above optimal 160-189 mg/dL, Borderline high 190-219 mg/dL, High >219 mg/dL, Very high Secondary prevention optimal non HDL Cholesterol levels are recommended to be <100 mg/dL VLDL Cholesterol, Nonfasting 19 <30 mg/dL 09/05/2024 7:09 PM [facility] Total Chol/HDL Ratio, Nonfasting 3.96 <5.10 mg/dL 09/05/2024 7:09 PM [facility] LDL/HDL Ratio, Nonfasting 2.56(H) <2.54 mg/dL 09/05/2024 7:09 PM [facility] Comment: Reference: 1. National Cholesterol Education Program ATP III Guideline At-A-Glance Quick Desk Reference: National Heart, Lung, and Blood [place]. National Institutes of Health. 2001: NIH Publication No. 01-3305. 2. An International Atherosclerosis Society position paper: global recommendations for the management of dyslipidemia: executive summary, Atherosclerosis. 2014: 232(2):410-413. Blood BLOOD SPECIMEN / Unknown Venipuncture / Unknown 09/05/2024 7:07 AM EST 09/05/2024 7:07 AM EST us Paddy Balbuena MD LABORATORY Final Result [facility] [address] [facility] [address] [address] [place] [address], [place] from Last 3 Months or Most Recently Relevant to Health Maintenance Insurance MEDICARE MEDICARE SUPPLEMENT Care Teams Respiratory Therapy Instructor Relationship Specialty Start Date End Date Eddie Rabago MD PCP - General Family Medicine 09/25/14 Eddie Rabago MD [address] [id number] Referring Family Medicine 03/21/24
--- OUTSIDE RECORDS SUMMARY | 2025-05-14 10:22 | XMS_ITS | Encounter Summary ---
Author Organization [facility] Address [address] [place] [address] Care Team Providers Care Mails Supervisor Name Role Phone Eddie Rabago MD Primary Care Provider [phone] Eddie Rabago MD Unavailable [phone] Source Comments In the event this information is protected by the Federal Confidentiality of Alcohol and Drug AbusePatient Records regulations: The Federal rules restrict any use of the information to criminally investigate or prosecute any alcohol or drug abuse patient.[facility] Encounter Details Date Type Department Care Team (Late st Contact Info) Description 04/25/2024 Patient Msg Infusion [address] [place] [address] Provider, [facility] 04/27/24 Social History Tobacco Use Types Packs/Day Years [...] is lower risk 2 04/01/2023 Data from: https://www.neighborhoodatlas.[facility]/. Last address used for calculation [address] [...] 7:40 AM EDT Office Visit Rheumatology [address] [place] [address] Giovana Powell MD [address] [place] [address] Summer 2024 for OP and rev. results 05/24/2025 7:30 AM EDT Infusion Center Infusion [address] [place] [address] Entyvio x 8 weeks 06/11/2025 3:00 PM EDT Office Visit Gastroenterology [address] [address] Brayan Wallace MD [address] [place] [address] colonoscopy follow up 07/19/2025 7:30 AM EDT Infusion Center Infusion [address] [place] [address] Entyvio x 8 weeks 08/30/2025 11:15 AM EDT Office Visit Dermatology [address] [place], [place] [phone] Rajesh Boudreaux MD [address] [place], [place] [phone] Return in about 1 year (around 08/29/2025). 09/04/2025 8:30 AM EST Office Visit Cardiology [address] [facility] [address] Paddy Balbuena MD [address] [place] [address] Annual visit 09/13/2025 7:30 AM EST Infusion Center Infusion [address] [facility] [place] [address] Entyvio x 8 weeks 11/08/2025 7:30 AM EST Infusion Center Infusion [address] [facility] [place] [address] Entyvio x 8 weeks documented as of this encounter Visit Diagnoses Not on filedocumented in this encounter Care Teams Mails Supervisor Relationship Specialty Start Date End Date Eddie Rabago MD PCP - General Family Medicine 09/25/14 Eddie Rabago MD [address] [place] [address] Referring Family Medicine 03/21/24 documented as of this encounter
--- OUTSIDE RECORDS SUMMARY | 2025-05-14 10:22 | XMS_ITS | Encounter Summary ---
Author Organization [facility] Address [facility] [place] [address] Care Team Providers Care Radio Sportscaster Name Role Phone Eddie Rabago MD Primary Care Provider [phone] Eddie Rabago MD Unavailable [phone] Source Comments In the event this information is protected by the Federal Confidentiality of Alcohol and Drug AbusePatient Records regulations: The Federal rules restrict any use of the information to criminally investigate or prosecute any alcohol or drug abuse patient.[facility] Encounter Details Date Type Department Care Team (Late st Contact Info) Description 01/03/2025 Patient Msg Gastroenterology [address] [phone] Brayan Wallace MD [address] [place] [address] Appointment Request Social History Tobacco Use Types Packs/Day Years Used Date Smoking Tobacco: Never Smokeless Tobacco: Never Alcohol Use Standard Drinks/Week Comments Yes 0 (1 standard drink = 0.6 oz pur e alcohol) occassional PHQ-2 Answer Date Recorded PHQ-2 score 0 02/16/2024 Area Deprivation Index Answer Date Guicho rded National Score (1-100), lower number is lower ri 44 04/01/2023 State Score (1-10), lower number is lower risk 2 04/01/2023 Data from: https://www.neighborhoodatlas.medicine.[facility].edu/. Last address used for calculation William D[address] [...] 7:40 AM EDT Office Visit Rheumatology [address] [facility] [place] [address] Giovana Powlel MD [address] [facility] [address] Summer 2024 for OP and rev. results 05/24/2025 7:30 AM EDT Infusion Center Infusion [address] [facility] [place] [address] Entyvio x 8 weeks 06/11/2025 3:00 PM EDT Office Visit Gastroenterology [address] [address] Brayan Wallace MD [address]00 [place] [address] colonoscopy follow up 07/19/2025 7:30 AM EDT Infusion Center Infusion [address] [facility] [address] Entyvio x 8 weeks 08/30/2025 11:15 AM EDT Office Visit Dermatology [address] [facility] [address] [place], [place] [phone] Rajesh Boudreaux MD [address] [facility] [address] [place], [place] [phone] Return in about 1 year (around 08/29/2025). 09/04/2025 8:30 AM EST Office Visit Cardiology [address] [facility] [place] [address] Paddy Balbuena MD [address] [facility] [place] [address] Annual visit 09/13/2025 7:30 AM EST Infusion Center Infusion [address] [facility] [place] [address] Entyvio x 8 weeks 11/08/2025 7:30 AM EST Infusion Center Infusion [address] [facility] [place] [address] Entyvio x 8 weeks documented as of this encounter Visit Diagnoses Not on filedocumented in this encounter Care Teams Radio Sportscaster Relationship Specialty Start Date End Date Eddie Rabago MD PCP - General Family Medicine 09/25/14 Eddie Rabago MD [address] [place] [address] Referring Family Medicine 03/21/24 documented as of this encounter
--- OUTSIDE RECORDS SUMMARY | 2025-05-14 10:22 | XMS_ITS | Encounter Summary ---
Author Organization [facility] Address [facility] [place] [address] Care Team Providers Care Financial Cost Analyst Name Role Phone Eddie Rabago MD Primary Care Provider [phone] Eddie Rabago MD Unavailable [phone] Source Comments In the event this information is protected by the Federal Confidentiality of Alcohol and Drug AbusePatient Records regulations: The Federal rules restrict any use of the information to criminally investigate or prosecute any alcohol or drug abuse patient.[facility] Encounter Details Date Type Department Care Team (Late st Contact Info) Description 12/24/2021 Get Medical Advice Gastroenterology [address] [phone] [place] [address] [place] [address] Possible change of medication Social History Tobacco Use Types Packs/Day Years [...] have Coronavirus / COVID-19? No / Unsure 12/22/2021 10:42 AM EST documented as of this encounter Plan of Treatment Upcoming Encounters Date Type Department Care Team (Late st Contact Info) Description 05/22/2025 7:40 AM EDT Office Visit Rheumatology 5700 [place] [address] Giovana Powell MD [address] [place] [address] Summer 2024 for OP and rev. results 05/24/2025 7:30 AM EDT Infusion Center Infusion 57[address] [place] [address] Entyvio x 8 weeks 06/11/2025 3:00 PM EDT Office Visit Gastroenterology [address] [address] Brayan Wallace MD [address] [place] [address] colonoscopy follow up 07/19/2025 7:30 AM EDT Infusion Center Infusion 57[address] [place] [address] Entyvio x 8 weeks 08/30/2025 11:15 AM EDT Office Visit Dermatology [address] [facility] [address] [place], [place] [phone] Rajesh Boudreaux MD [address] [facility] [place] [address] Return in about 1 year (around 08/29/2025). 09/04/2025 8:30 AM EST Office Visit Cardiology [address] [place] [address] Paddy Balbuena MD 57[address] [place] [address] Annual visit 09/13/2025 7:30 AM EST Infusion Center Infusion 57[address] [facility] [place] [address] Entyvio x 8 weeks 11/08/2025 7:30 AM EST Infusion Center Infusion [address] [facility] [place] [address] Entyvio x 8 weeks documented as of this encounter Visit Diagnoses Not on filedocumented in this encounter Care Teams Financial Cost Analyst Relationship Specialty Start Date End Date Eddie Rabago MD PCP - General Family Medicine 09/25/14 Eddie Rabago MD [address] [place] [address] Referring Family Medicine 03/21/24 documented as of this encounter
--- OUTSIDE RECORDS SUMMARY | 2025-05-14 10:22 | XMS_ITS | Encounter Summary ---
Author Organization [facility] Address [address] [place] [address] Care Team Providers Care Sailing Instructor Name Role Phone Eddie Rabago MD Primary Care Provider [phone] Eddie Rabago MD Unavailable [phone] Source Comments In the event this information is protected by the Federal Confidentiality of Alcohol and Drug AbusePatient Records regulations: The Federal rules restrict any use of the information to criminally investigate or prosecute any alcohol or drug abuse patient.[facility] Encounter Details Date Type Department Care Team (Late st Contact Info) Description 04/06/2022 Patient Msg Infusion [address] [facility] [place] [address] Provider, [facility] Infusion 04/07/22 Social History Tobacco Use Types Packs/Day Years Used Date Smoking Tobacco: Never Smokeless Tobacco: Never Alcohol Use Standard Drinks/Week Comments Yes 0 (1 standard drink = 0.6 oz pur e alcohol) occassional Area Deprivation Index Answer Date Guicho rded National Score (1-100), lower number is lower ri sk 47 04/07/2022 State Score (1-10), lower number is lower risk N ot on file 04/07/2022 Data from: https://www.neighborhoodatlas.medicine.[facility].edu/. Last address used for calculation [address] 04/07/2022 Sex and Gender Information Value Date Recorded Sex Assigned at Male 10/21/2021 2:45 PM EST Legal Sex Male 11:14 AM EST Gender Identity Male 10/21/2021 2:45 PM EST Sexual Orientation Straight 10/21/2021 2: 45 PM EST COVID-19 Exposure Response Date Recorded In the last 10 days, have yo u been in contact with someone who was confirmed or suspected to have Coronavirus/COVID-19? No / Unsure 04/09/2022 3:19 PM EDT documented as of this encounter Plan of Treatment Upcoming Encounters Date Type Department Care Team (Late st Contact Info) Description 05/22/2025 7:40 AM EDT Office Visit Rheumatology 57[address] [facility] [place] [address] Giovana Powell MD [address] [facility] [place] [address] Summer 2024 for OP and rev. results 05/24/2025 7:30 AM EDT Infusion Center Infusion 57[address] [facility] [place] [address] Entyvio x 8 weeks 06/11/2025 3:00 PM EDT Office Visit Gastroenterology [address] [address] Brayan Wallace MD [address] [place], [place] [phone] colonoscopy follow up 07/19/2025 7:30 AM EDT Infusion Center Infusion 57[address] [facility] [place] [address] Entyvio x 8 weeks 08/30/2025 11:15 AM EDT Office Visit Dermatology [address] [facility] [address] [place], [place] [phone] Rajesh Boudreaux MD [address] [facility] [address] [place], [place] [phone] Return in about 1 year (around 08/29/2025). 09/04/2025 8:30 AM EST Office Visit Cardiology [address] [place] [address] Paddy Balbuena MD [address] [facility] [address] Annual visit 09/13/2025 7:30 AM EST Infusion Center Infusion [address] [facility] [address] Entyvio x 8 weeks 11/08/2025 7:30 AM EST Infusion Center Infusion [address] [facility] [address] Entyvio x 8 weeks documented as of this encounter Visit Diagnoses Not on filedocumented in this encounter Care Teams Sailing Instructor Relationship Specialty Start Date End Date Eddie Rabago MD PCP - General Family Medicine 09/25/14 Eddie Rabago MD [address] [place] [address] Referring Family Medicine 03/21/24 documented as of this encounter
--- OUTSIDE RECORDS SUMMARY | 2025-05-14 10:22 | XMS_ITS | Encounter Summary ---
Author Organization [facility] Address [address] [place] [address] Care Team Providers Care Stud Sheep Farmer Name Role Phone Eddie Rabago MD Primary Care Provider [phone] Encounter Details Date Type Department Care Team (Late st Contact Info) Description 05/03/2025 Bamboo flowsheet [facility] [address] [place] [address] Yvonne Villatoro MD [address] [place], [place] [phone] Social History Tobacco Use Types Packs/Day Years [...] NB OPHT [address] [place] [address] Win Edmondson DO [address] [place] [address] documented as of this encounter Visit Diagnoses Not on filedocumented in this encounter Care Teams Stud Sheep Farmer Relationship Specialty Start Date End Date Eddie Rabago MD [address] [place] [address] PCP - General 03/23/23 documented as of this encounter
--- OUTSIDE RECORDS SUMMARY | 2025-05-14 10:22 | XMS_ITS | Encounter Summary ---
Author Organization [facility] Address [address] [place] [address] Care Team Providers Care Welder Machine Operator Name Role Phone Eddie Rabago MD Primary Care Provider [phone] Eddie Rabago MD Unavailable [phone] Source Comments In the event this information is protected by the Federal Confidentiality of Alcohol and Drug AbusePatient Records regulations: The Federal rules restrict any use of the information to criminally investigate or prosecute any alcohol or drug abuse patient.[facility] Encounter Details Date Type Department Care Team (Late st Contact Info) Description 06/06/2023 Patient Msg Dermatology [address] [place] [address] Rajesh Boudreaux MD [address] [facility] [address] [place], [place] [phone] Appointment Request Social History Tobacco Use Types [...] is lower risk 2 04/01/2023 Data from: https://www.neighborhoodatlas.[facility]/. Last address used for calculation [...] 7:40 AM EDT Office Visit Rheumatology [address] [facility] [place] [address] Giovana Powell MD [address] [facility] [address] Summer 2024 for OP and rev. results 05/24/2025 7:30 AM EDT Infusion Center Infusion [address] [facility] [place] [address] Entyvio x 8 weeks 06/11/2025 3:00 PM EDT Office Visit Gastroenterology [address] [address] Brayan Wallace MD [address] [place] [address] colonoscopy follow up 07/19/2025 7:30 AM EDT Infusion Center Infusion [address] [facility] [place] [address] Entyvio x 8 weeks 08/30/2025 11:15 AM EDT Office Visit Dermatology [address] [facility] [address] [place], [place] [phone] Rajesh Boudreaux MD [address] [facility] [address] [place], [place] [address] Return in about 1 year (around 08/29/2025). 09/04/2025 8:30 AM EST Office Visit Cardiology [address] [facility] [place] [address] Paddy Balbuena MD [address] [place] [address] Annual visit 09/13/2025 7:30 AM EST Infusion Center Infusion 5700 [facility] [place] [address] Entyvio x 8 weeks 11/08/2025 7:30 AM EST Infusion Center Infusion [address] [facility] [address] Entyvio x 8 weeks documented as of this encounter Visit Diagnoses Not on filedocumented in this encounter Care Teams Welder Machine Operator Relationship Specialty Start Date End Date Eddie Rabago MD PCP - General Family Medicine 09/25/14 Eddie Rabago MD [address] [place] [address] Referring Family Medicine 03/21/24 documented as of this encounter
--- OUTSIDE RECORDS SUMMARY | 2025-05-14 10:22 | XMS_ITS | Encounter Summary ---
Author Organization [facility] Address [address] [place] [address] Care Team Providers Care Street Cleaning Equipment Operator Name Role Phone Eddie Rabago MD Primary Care Provider [phone] Eddie Rabago MD Unavailable Source Comments In the event this information is protected by the Federal Confidentiality of Alcohol and Drug AbusePatient Records regulations: The Federal rules restrict any use of the information to criminally investigate or prosecute any alcohol or drug abuse patient.[facility] Encounter Details Date Type Department Care Team (Latest Contact Info) Description 05/22/2022 Patient Msg Gastroenterology [address] [phone] Provider, [facility] Bone density scan and recommendation Social History Tobacco Use Types Packs/Day Years [...] N ot on file 04/07/2022 Data from: https://www.neighborhoodatlas.medicine.[place].edu/. Last address used for calculation [address] 04/07/2022 Sex and Gender Information Value Date Recorded Sex Assigned at Male 10/21/2021 2:45 PM EST Legal Sex Male 11:14 AM EST Gender Identity Male 10/21/2021 2:45 PM EST Sexual Orientation Straight 10/21/2021 2: 45 PM EST documented as of this encounter Miscellaneous Notes * Telephone Encounter - Shilpa Salter RN - 06/01/2022 8:27 AM EDT I spoke to pt, and he had Covid, he was tested at [facility] and cannot provide the date of his test. I told the patient per [facility] policy that he needs to be infection free for 4 weeks from the date of his Covid test to have his infusion here. The patient needs to be cx for 06-02-22. Please call the patient to reschedule him. He should be providing the date of his covid test, and will need to bescheduled 4 weeks from then. documented in this encounter Plan of Treatment Upcoming Encounters Date Type Department Care Team (Late st Contact Info) Description 05/22/2025 7:40 AM EDT Office Visit Rheumatology [address] [place] [address] Giovana Powell MD 57[address] [place] [address] Summer 2024 for OP and rev. results 05/24/2025 7:30 AM EDT Infusion Center Infusion [address] [place] [address] Entyvio x 8 weeks 06/11/2025 3:00 PM EDT Office Visit Gastroenterology [address] [address] Brayan Wallace MD [address] [place] [address] colonoscopy follow up 07/19/2025 7:30 AM EDT Infusion Center Infusion 57[address] [facility] [address] Entyvio x 8 weeks 08/30/2025 11:15 AM EDT Office Visit Dermatology [address] [facility] [place] [address] Rajesh Boudreaux MD [address] [facility] [address] [place], [place] [phone] Return in about 1 year (around 08/29/2025). 09/04/2025 8:30 AM EST Office Visit Cardiology [address] [facility] [address] Paddy Balbuena MD [address] [facility] [place] [address] Annual visit 09/13/2025 7:30 AM EST Infusion Center Infusion [address] [facility] [address] Entyvio x 8 weeks 11/08/2025 7:30 AM EST Infusion Center Infusion [address] [facility] [address] Entyvio x 8 weeks documented as of this encounter Visit Diagnoses Not on filedocumented in this encounter Care Teams Street Cleaning Equipment Operator Relationship Specialty Start Date End Date Eddie Rabago MD PCP - General Family Medicine 09/25/14 Eddie Rabago MD [address] [place] [address] Referring Family Medicine 03/21/24 documented as of this encounter
--- OUTSIDE RECORDS SUMMARY | 2025-05-14 10:22 | XMS_ITS | Encounter Summary ---
Author Organization [facility] Address [facility] [place] [address] Care Team Providers Care Computing Services Director Name Role Phone Eddie Rabago MD Primary Care Provider [phone] Eddie Rabago MD Unavailable [phone] Source Comments In the event this information is protected by the Federal Confidentiality of Alcohol and Drug AbusePatient Records regulations: The Federal rules restrict any use of the information to criminally investigate or prosecute any alcohol or drug abuse patient.[facility] Encounter Details Date Type Department Care Team (Late st Contact Info) Description 05/28/2022 Get Medical Advice Gastroenterology [address] [phone] Brayan Wallace MD [address] [place] [address] Effect of Entyvio on Covid symtoms Social History Tobacco Use Types Packs/Day Years [...] N ot on file 04/07/2022 Data from: https://www.neighborhoodatlas.medicine.[facility]/. Last address used for calculation [address] 04/07/2022 Sex and Gender Information [...] 7:40 AM EDT Office Visit Rheumatology [address] [facility] [place] [address] Giovana Powell MD [address] [facility] [address] Summer 2024 for OP and rev. results 05/24/2025 7:30 AM EDT Infusion Center Infusion 5700 [facility] [place] [address] Entyvio x 8 weeks 06/11/2025 3:00 PM EDT Office Visit Gastroenterology [address] [address] Brayan Wallace MD [address] [place] [address] colonoscopy follow up 07/19/2025 7:30 AM EDT Infusion Center Infusion 57[address] [facility] [place] [address] Entyvio x 8 weeks 08/30/2025 11:15 AM EDT Office Visit Dermatology [address] [facility] [address] [place], [place] [phone] Rajesh Boudreaux MD [address] [facility] [address] [place], [place] [phone] Return in about 1 year (around 08/29/2025). 09/04/2025 8:30 AM EST Office Visit Cardiology [address] [facility] [place] [address] Paddy Balbuena MD [address] [facility] [place] [address] Annual visit 09/13/2025 7:30 AM EST Infusion Center Infusion [address] [facility] [place] [address] Entyvio x 8 weeks 11/08/2025 7:30 AM EST Infusion Center Infusion [address] [facility] [place] [address] Entyvio x 8 weeks documented as of this encounter Visit Diagnoses Not on filedocumented in this encounter Care Teams Computing Services Director Relationship Specialty Start Date End Date Eddie Rabago MD PCP - General Family Medicine 09/25/14 Eddie Rabago MD [address] [place] [address] Referring Family Medicine 03/21/24 documented as of this encounter
--- OUTSIDE RECORDS SUMMARY | 2025-05-14 10:22 | XMS_ITS | Encounter Summary ---
Author Organization [facility] Address [address] [place] [address] Care Team Providers Care Straight Pin Making Machine Operator Name Role Phone Eddie Rabago MD Primary Care Provider [phone] Eddie Rabago MD Unavailable [phone] Source Comments In the event this information is protected by the Federal Confidentiality of Alcohol and Drug AbusePatient Records regulations: The Federal rules restrict any use of the information to criminally investigate or prosecute any alcohol or drug abuse patient.[facility] Encounter Details Date Type Department Care Team (Late st Contact Info) Description 10/09/2024 Patient [facility] [address] [address] Catrachita Franks RPh At your next appointment, choose [facility] Social History Tobacco Use Types Packs/Day Years [...] is lower risk 2 04/01/2023 Data from: https://www.neighborhoodatlas.[facility]/. Last address used for calculation [address] 04/01/2023 Sex and Gender Information Value [...] 7:40 AM EDT Office Visit Rheumatology 57[address] [facility] [place] [address] Giovana Powell MD [address] [facility] [place] [address] Summer 2024 for OP and rev. results 05/24/2025 7:30 AM EDT Infusion Center Infusion 5700 [place] [address] Entyvio x 8 weeks 06/11/2025 3:00 PM EDT Office Visit Gastroenterology [address] [address] Brayan Wallace MD [address]00 [place] [address] colonoscopy follow up 07/19/2025 7:30 AM EDT Infusion Center Infusion 57[address] [facility] [place] [address] Entyvio x 8 weeks 08/30/2025 11:15 AM EDT Office Visit Dermatology [address] [facility] [address] [place], [place] [address] Rajesh Boudreaux MD [address] [facility] [address] [place], [place] [phone] Return in about 1 year (around 08/29/2025). 09/04/2025 8:30 AM EST Office Visit Cardiology [address] [facility] [place] [address] Paddy Balbuena MD [address] [facility] [place] [address] Annual visit 09/13/2025 7:30 AM EST Infusion Center Infusion [address] [facility] [place] [address] Entyvio x 8 weeks 11/08/2025 7:30 AM EST Infusion Center Infusion [address] [facility] [place] [address] Entyvio x 8 weeks documented as of this encounter Visit Diagnoses Not on filedocumented in this encounter Care Teams Straight Pin Making Machine Operator Relationship Specialty Start Date End Date Eddie Rabago MD PCP - General Family Medicine 09/25/14 Eddie Rabago MD [address] [place] [address] Referring Family Medicine 03/21/24 documented as of this encounter
--- OUTSIDE RECORDS SUMMARY | 2025-05-14 10:22 | XMS_ITS | Encounter Summary ---
Author Organization [facility] Address [address] [place] [address] Care Team Providers Care Speeder Operator Name Role Phone Eddie Rabago MD Primary Care Provider [phone] Eddie Rabago MD Unavailable [phone] Source Comments In the event this information is protected by the Federal Confidentiality of Alcohol and Drug AbusePatient Records regulations: The Federal rules restrict any use of the information to criminally investigate or prosecute any alcohol or drug abuse patient.[facility] Encounter Details Date Type Department Care Team (Late st Contact Info) Description 10/30/2021 Patient Msg Urology [address] [place], [place] [phone] Provider, [facility]cf RESCHEDULING REQUIRED Social History Tobacco Use Types Packs/Day Years Used Date Smoking Tobacco: Never Assessed Sex and Gender Information Value Date Recorded Sex Assigned at Male 10/21/2021 2:45 PM EST Legal Sex Male 11:14 AM EST Gender Identity Male 10/21/2021 2:45 PM EST Sexual Orientation Straight 10/21/2021 2: 45 PM EST COVID-19 Exposure Response Date Recorded In the last month, have you been in contact with someone who was confirmed or suspected to have Coronavirus / COVID-19? Unable to assess 10/30/2021 3:04 PM EST documented as of this encounter Plan of Treatment Upcoming Encounters Date Type Department Care Team (Late st Contact Info) Description 05/22/2025 7:40 AM EDT Office Visit Rheumatology [address] [place] [address] Giovana Powell MD [address] [facility] [place] [address] Summer 2024 for OP and rev. results 05/24/2025 7:30 AM EDT Infusion Center Infusion 57[address] [facility] [place] [address] Entyvio x 8 weeks 06/11/2025 3:00 PM EDT Office Visit Gastroenterology [address] [address] Brayan Wallace MD [address] [place], [place] [phone] colonoscopy follow up 07/19/2025 7:30 AM EDT Infusion Center Infusion 57[address] [facility] [place] [address] Entyvio x 8 weeks 08/30/2025 11:15 AM EDT Office Visit Dermatology [address] [facility] [facility] [facility] [address] [place], [place] [id number] Rajesh Boudreaux MD [address] [place] [address] [place] [address] Return in about 1 year (around 08/29/2025). 09/04/2025 8:30 AM EST Office Visit Cardiology [address] [facility] [place] [address] Paddy Balbuena MD [address] [facility] [place] [address] Annual visit 09/13/2025 7:30 AM EST Infusion Center Infusion 57[address] [facility] [place] [address] Entyvio x 8 weeks 11/08/2025 7:30 AM EST Infusion Center Infusion [address] [facility] [place] [address] Entyvio x 8 weeks documented as of this encounter Visit Diagnoses Not on filedocumented in this encounter Care Teams Speeder Operator Relationship Specialty Start Date End Date Eddie Rabago MD PCP - General Family Medicine 09/25/14 Eddie Rabago MD [address] [place] [address] Referring Family Medicine 03/21/24 documented as of this encounter
--- OUTSIDE RECORDS SUMMARY | 2025-05-14 10:22 | XMS_ITS | Encounter Summary ---
Author Organization [facility] Address [facility] [place] [address] Care Team Providers Care Assistant Teacher Name Role Phone Eddie Rabago MD Primary Care Provider [phone] Eddie Rabago MD Unavailable [phone] Source Comments In the event this information is protected by the Federal Confidentiality of Alcohol and Drug AbusePatient Records regulations: The Federal rules restrict any use of the information to criminally investigate or prosecute any alcohol or drug abuse patient.[facility] Encounter Details Date Type Department Care Team (Latest Contact Info) Description 10/29/2022 Get Medical Advice Gastroenterology [address] [phone] Brayan Wallace MD [address] [place] [address] Medication prescribed by Dry Wall Plasterer Social History Tobacco Use Types Packs/Day Years Used Date Smoking Tobacco: Never Smokeless Tobacco: Never Alcohol Use Standard Drinks/Week Comments Yes 0 (1 standard drink = 0.6 oz pur e alcohol) occassional Area Deprivation Index Answer Date Guicho rded National Score (1-100), lower number is lower ri 47 04/07/2022 State Score (1-10), lower number is lower risk N ot on file 04/07/2022 Data from: https://www.neighborhoodatlas.medicine.[facility].edu/. Last address used for calculation William Lutherdian 04/07/2022 Sex and Gender Information Value Date [...] 7:40 AM EDT Office Visit Rheumatology [address] [facility] [place] [address] Giovana Powell MD [address] [facility] [place] [address] Summer 2024 for OP and rev. results 05/24/2025 7:30 AM EDT Infusion Center Infusion 5700 [facility] [place] [address] Entyvio x 8 weeks 06/11/2025 3:00 PM EDT Office Visit Gastroenterology [address] [address] Brayan Wallace MD [address] [place] [address] colonoscopy follow up 07/19/2025 7:30 AM EDT Infusion Center Infusion [address] [facility] [place] [address] Entyvio x 8 weeks 08/30/2025 11:15 AM EDT Office Visit Dermatology [address] [facility] [address] [place], [place] [id number] Rajesh Boudreaux MD [address] [facility] [address] [place], [place] [id number] Return in about 1 year (around 08/29/2025). 09/04/2025 8:30 AM EST Office Visit Cardiology [address] [facility] [place] [address] Paddy Balbuena MD [address] [facility] [place] [address] Annual visit 09/13/2025 7:30 AM EST Infusion Center Infusion [address] [facility] [place] [address] Entyvio x 8 weeks 11/08/2025 7:30 AM EST Infusion Center Infusion 57[address] [facility] [place] [address] Entyvio x 8 weeks documented as of this encounter Visit Diagnoses Not on filedocumented in this encounter Care Teams Assistant Teacher Relationship Specialty Start Date End Date Eddie Rabago MD PCP - General Family Medicine 09/25/14 Eddie Rabago MD [facility] [place] [address] Referring Family Medicine 03/21/24 documented as of this encounter
--- OUTSIDE RECORDS SUMMARY | 2025-05-14 10:22 | XMS_ITS | Encounter Summary ---
Author Organization [facility] [place] [address] Care Team Providers Care Blueprinter Name Role Phone Eddie Rabago MD Primary Care Provider [phone] Eddie Rabago MD Unavailable [phone] Source Comments In the event this information is protected by the Federal Confidentiality of Alcohol and Drug AbusePatient Records regulations: The Federal rules restrict any use of the information to criminally investigate or prosecute any alcohol or drug abuse patient.[facility] Encounter Details Date Type Department Care Team (Late st Contact Info) Description 08/29/2023 Patient Msg Gastroenterology [address] [phone] Brayan Wallace MD [address]509 [place] [address] Blood and stool test results Social History Tobacco Use Types Packs/Day Years Used Date Smoking Tobacco: Never Smokeless Tobacco: Never Alcohol Use Standard Drinks/Week Comments Yes 0 (1 standard drink = 0.6 oz pur e alcohol) occassional Area Deprivation Index Answer Date Guicho rded National Score (1-100), lower number is lower ri 44 04/01/2023 State Score (1-10), lower number is lower risk 2 04/01/2023 Data from: https://www.neighborhoodatlas.[facility].edu/. Last address used for calculation William Luthernilsonrosa [...] 7:40 AM EDT Office Visit Rheumatology 57[address] [facility] [place] [address] Giovana Powell MD [address] [facility] [address] Summer 2024 for OP and rev. results 05/24/2025 7:30 AM EDT Infusion Center Infusion 5700 [facility] [place] [address] Entyvio x 8 weeks 06/11/2025 3:00 PM EDT Office Visit Gastroenterology [address] [address] Brayan Wallace MD [address] [place], [place] [phone] colonoscopy follow up 07/19/2025 7:30 AM EDT Infusion Center Infusion 57[address] [facility] [place] [address] Entyvio x 8 weeks 08/30/2025 11:15 AM EDT Office Visit Dermatology [address] [facility] [place], [place] [phone] Rajesh Boudreaux MD [address] [place], [place] [phone] Return in about 1 year (around 08/29/2025). 09/04/2025 8:30 AM EST Office Visit Cardiology 57[address] [facility] [place] [address] Paddy Balbuena MD [address] [facility] [place] [address] Annual visit 09/13/2025 7:30 AM EST Infusion Center Infusion 57[address] [facility] [place] [address] Entyvio x 8 weeks 11/08/2025 7:30 AM EST Infusion Center Infusion [address] [facility] [place] [address] Entyvio x 8 weeks documented as of this encounter Visit Diagnoses Not on filedocumented in this encounter Care Teams Blueprinter Relationship Specialty Start Date End Date Eddie Rabago MD PCP - General Family Medicine 09/25/14 Eddie Rabago MD [address] [place] [address] Referring Family Medicine 03/21/24 documented as of this encounter
--- OUTSIDE RECORDS SUMMARY | 2025-05-14 10:22 | XMS_ITS | Encounter Summary ---
Author Organization [facility] Address [facility] [place] [address] Care Team Providers Care Technical Support Consultant Name Role Phone Eddie Rabago MD Primary Care Provider [phone] Eddie Rabago MD Unavailable Source Comments In the event this information is protected by the Federal Confidentiality of Alcohol and Drug AbusePatient Records regulations: The Federal rules restrict any use of the information to criminally investigate or prosecute any alcohol or drug abuse patient.[facility] Encounter Details Date Type Department Care Team (Late st Contact Info) Description 06/30/2022 Get Medical Advice Gastroenterology [address] [phone] Brayan Wallace MD [address]504 [place] [address] Follow up testing Social History Tobacco Use Types Packs/Day Years [...] N ot on file 04/07/2022 Data from: https://www.neighborhoodatlas.medicine.[facility].edu/. Last address used for calculation William Lutherdian Mancia 04/07/2022 Sex and Gender Information Value [...] was confirmed or suspected to have Coronavirus/COVID-19? Unable to assess 06/25/2022 8:20 AM EDT documented as of this encounter Plan of Treatment Upcoming Encounters Date Type Department Care Team (Late st Contact Info) Description 05/22/2025 7:40 AM EDT Office Visit Rheumatology [address] [place] [address] Giovana Powell MD [address] [place] [address] Summer 2024 for OP and rev. results 05/24/2025 7:30 AM EDT Infusion Center Infusion 5700 [facility] [place] [address] Entyvio x 8 weeks 06/11/2025 3:00 PM EDT Office Visit Gastroenterology [address] [address] Brayan Wallace MD [address] [place] [address] colonoscopy follow up 07/19/2025 7:30 AM EDT Infusion Center Infusion 57[address] [facility] [place] [address] Entyvio x 8 weeks 08/30/2025 11:15 AM EDT Office Visit Dermatology [address] [employer] [address] [facility] [address] [place], [place] [id number] Rajesh Boudreaux MD [address] [facility] [address] [place], [place] [address] Return in about 1 year (around 08/29/2025). 09/04/2025 8:30 AM EST Office Visit Cardiology [address] [place] [address] Paddy Balbuena MD [address] [facility] [place] [address] Annual visit 09/13/2025 7:30 AM EST Infusion Center Infusion [address] [place] [address] Entyvio x 8 weeks 11/08/2025 7:30 AM EST Infusion Center Infusion [address] [facility] [place] [address] Entyvio x 8 weeks documented as of this encounter Visit Diagnoses Not on filedocumented in this encounter Care Teams Technical Support Consultant Relationship Specialty Start Date End Date Eddie Rabago MD PCP - General Family Medicine 09/25/14 Eddie Rabago MD [address] [place] [address] Referring Family Medicine 03/21/24 documented as of this encounter
--- OUTSIDE RECORDS SUMMARY | 2025-05-14 10:22 | XMS_ITS | Encounter Summary ---
Author Organization [facility] Address [facility] [place] [address] Care Team Providers Care Heel Nailing Machine Operator Name Role Phone Eddie Rabago MD Primary Care Provider [phone] Eddie Rabago MD Unavailable [phone] Source Comments In the event this information is protected by the Federal Confidentiality of Alcohol and Drug AbusePatient Records regulations: The Federal rules restrict any use of the information to criminally investigate or prosecute any alcohol or drug abuse patient.[facility] Encounter Details Date Type Department Care Team (Late st Contact Info) Description 12/06/2023 Patient [facility] [place], [place] [phone] Provider, Ccf IBD VIRTUAL EDUCATION for you by Drs. Grady & Dulce Maria-- JOIN US! Social History Tobacco Use Types Packs/Day Years Used Date Smoking Tobacco: Never Smokeless Tobacco: Never Alcohol Use Standard Drinks/Week Comments Yes 0 (1 standard drink = 0.6 oz pur e alcohol) occassional Area Deprivation Index Answer Date Guicho rded National Score (1-100), lower number is lower ri sk 44 04/01/2023 State Score (1-10), lower number is lower risk 2 04/01/2023 Data from: https://www.neighborhoodatlas.[facility]/. Last address used for calculation William Yousif Mancia 04/01/2023 Sex and Gender Information [...] 7:40 AM EDT Office Visit Rheumatology [address] [facility] [place] [address] Giovana Powell MD [address] [facility] [place] [address] Summer 2024 for OP and rev. results 05/24/2025 7:30 AM EDT Infusion Center Infusion 5700 [place] [address] Entyvio x 8 weeks 06/11/2025 3:00 PM EDT Office Visit Gastroenterology [address] [address] Brayan Wallace MD [address] [place], [place] [address] colonoscopy follow up 07/19/2025 7:30 AM EDT Infusion Center Infusion 57[address] [facility] [place] [address] Entyvio x 8 weeks 08/30/2025 11:15 AM EDT Office Visit Dermatology [address] [address] [place], [place] [id number] Rajesh Boudreaux MD [address] [address] [address] [place], [place] [id number] Return in about 1 year (around 08/29/2025). 09/04/2025 8:30 AM EST Office Visit Cardiology 5700 [facility] [place] [address] Paddy Balbuena MD [address] [facility] [place] [address] Annual visit 09/13/2025 7:30 AM EST Infusion Center Infusion [address] [place] [address] Entyvio x 8 weeks 11/08/2025 7:30 AM EST Infusion Center Infusion [address] [facility] [address] Entyvio x 8 weeks documented as of this encounter Visit Diagnoses Not on filedocumented in this encounter Care Teams Heel Nailing Machine Operator Relationship Specialty Start Date End Date Eddie Rabago MD PCP - General Family Medicine 09/25/14 Eddie Rabago MD [address] [place] [address] Referring Family Medicine 03/21/24 documented as of this encounter
--- OUTSIDE RECORDS SUMMARY | 2025-05-14 10:22 | XMS_ITS | Encounter Summary ---
Author Organization [facility] Address [facility] [place] [address] Care Team Providers Care Electrocardiograph Technician Name Role Phone Eddie Rabago MD Primary Care Provider [phone] Eddie Rabago MD Unavailable [phone] Source Comments In the event this information is protected by the Federal Confidentiality of Alcohol and Drug AbusePatient Records regulations: The Federal rules restrict any use of the information to criminally investigate or prosecute any alcohol or drug abuse patient.[facility] Encounter Details Date Type Department Care Team (Late st Contact Info) Description 01/31/2023 Patient Msg Gastroenterology [address] [phone] Brayan Wallace MD [address] [place] [address] Touch base Social History Tobacco Use Types Packs/Day Years Used Date Smoking Tobacco: Never Smokeless Tobacco: Never Alcohol Use Standard Drinks/Week Comments Yes 0 (1 standard drink = 0.6 oz pur e alcohol) occassional Area Deprivation Index Answer Date Guicho rded National Score (1-100), lower number is lower ri 47 11/14/2022 State Score (1-10), lower number is lower risk N ot on file 11/14/2022 Data from: https://www.neighborhoodatlas.[facility].edu/. Last address used for calculation [address] 11/14/2022 Sex and Gender Information Value Date Recorded [...] 7:40 AM EDT Office Visit Rheumatology 5700 [facility] [place] [address] Giovana Powell MD [address] [facility] [place] [address] Summer 2024 for OP and rev. results 05/24/2025 7:30 AM EDT Infusion Center Infusion [address] [place] [address] Entyvio x 8 weeks 06/11/2025 3:00 PM EDT Office Visit Gastroenterology [address] [address] Brayan Wallace MD [address] [place], [place] [address] colonoscopy follow up 07/19/2025 7:30 AM EDT Infusion Center Infusion [address] [place] [address] Entyvio x 8 weeks 08/30/2025 11:15 AM EDT Office Visit Dermatology [address] [employer] [facility] [address] [place], [place] [id number] Rajesh Boudreaux MD [address] [place], [place] [id number] Return in about 1 year (around 08/29/2025). 09/04/2025 8:30 AM EST Office Visit Cardiology 57[address] [facility] [place] [address] Paddy Balbuena MD [address] [facility] [place] [address] Annual visit 09/13/2025 7:30 AM EST Infusion Center Infusion 57[address] [facility] [place] [address] Entyvio x 8 weeks 11/08/2025 7:30 AM EST Infusion Center Infusion 57[address] [facility] [place] [address] Entyvio x 8 weeks documented as of this encounter Visit Diagnoses Not on filedocumented in this encounter Care Teams Electrocardiograph Technician Relationship Specialty Start Date End Date Eddie Rabago MD PCP - General Family Medicine 09/25/14 Eddie Rabago MD [address] [place] [address] Referring Family Medicine 03/21/24 documented as of this encounter
--- OUTSIDE RECORDS SUMMARY | 2025-05-14 10:22 | XMS_ITS | Encounter Summary ---
Author Organization [facility] Address [address] [place] [address] Care Team Providers Care Shuttle Route Vehicle Operator Name Role Phone Eddie Rabago MD Primary Care Provider [phone] Eddie Rabago MD Unavailable [phone] Source Comments In the event this information is protected by the Federal Confidentiality of Alcohol and Drug AbusePatient Records regulations: The Federal rules restrict any use of the information to criminally investigate or prosecute any alcohol or drug abuse patient.[facility] Encounter Details Date Type Department Care Team (Late st Contact Info) Description 12/19/2024 [place] [address] Provider, [facility] Colonoscopy Cook Specialty Foreign Food Enrollment Social History Tobacco Use Types Packs/Day Years [...] risk 2 04/01/2023 Data from: https://www.neighborhoodatlas.medicine.[facility].edu/. Last address used for calculation William Yousif [...] 7:40 AM EDT Office Visit Rheumatology 57[address] [place] [address] Giovana Powell MD [address]00 [place] [address] Summer 2024 for OP and rev. results 05/24/2025 7:30 AM EDT Infusion Center Infusion 57[address] [place] [address] Entyvio x 8 weeks 06/11/2025 3:00 PM EDT Office Visit Gastroenterology [address] [address] Brayan Wallace MD 9500 [place] [address] colonoscopy follow up 07/19/2025 7:30 AM EDT Infusion Center Infusion 57[address] [place] [address] Entyvio x 8 weeks 08/30/2025 11:15 AM EDT Office Visit Dermatology [address] [facility] [address] [place], [place] [phone] Rajesh Boudreaux MD [address] [facility] [address] [place], [place] [id number] Return in about 1 year (around 08/29/2025). 09/04/2025 8:30 AM EST Office Visit Cardiology [address] [place] [address] Paddy Balbuena MD [address] [place] [address] Annual visit 09/13/2025 7:30 AM EST [facility]fusion Center [facility]fusion [facility] [facility] [place] [address] Entyvio x 8 weeks 11/08/2025 7:30 AM EST Infusion Center Infusion [address] [place] [address] Entyvio x 8 weeks documented as of this encounter Visit Diagnoses Not on filedocumented in this encounter Care Teams Shuttle Route Vehicle Operator Relationship Specialty Start Date End Date Eddie Rabago MD PCP - General Family Medicine 09/25/14 Eddie Rabago MD [address] [place] [address] Referring Family Medicine 03/21/24 documented as of this encounter
--- OUTSIDE RECORDS SUMMARY | 2025-05-14 10:22 | XMS_ITS | Encounter Summary ---
Author Organization [facility] Address [address] [place] [address] Care Team Providers Care Plow Mechanic Name Role Phone Eddie Rabago MD Primary Care Provider [phone] Encounter Details Date Type Department Care Team (Late st Contact Info) Description 09/25/2023 Abstract [facility] [address] [place] [phone] Jyoti Hernandez NP Social History Tobacco Use Types Packs/Day Years Used Date Smoking Tobacco: Never Smokeless Tobacco: Never Tobacco Cessation:Counseling Given: Not Answered Alcohol Use Standard Drinks/Week Comments Yes 0 (1 standard drink = 0.6 oz pur e alcohol) one per week Sex and Gender Information Value Date Recorded Sex Assigned at Male 03/23/2023 10:03 AM EDT Legal Sex Male 7:19 PM EDT Gender Identity Male 03/23/2023 10:03 AM EDT Sexual Orientation Straight 03/23/2023 10 :03 AM EDT COVID-19 Exposure Response Date Recorded In the last 10 days, have yo u been in contact with someone who was confirmed or suspected to have Coronavirus/COVID-19? No / Unsure 09/22/2023 2:18 PM EST documented as of this encounter Plan of Treatment Upcoming Encounters Date Type Department Care Team (Late st Contact Info) Description 07/27/2025 9:30 AM EDT Office Visit [facility] [address] [place] [phone] Win Edmondson, DO [address] [place] [address] documented as of this encounter Visit Diagnoses Not on filedocumented in this encounter Care Teams Plow Mechanic Relationship Specialty Start Date End Date Eddie Rabago MD [address] [place] [phone] PCP - General 03/23/23 documented as of this encounter
--- OUTSIDE RECORDS SUMMARY | 2025-05-14 10:22 | XMS_ITS | Encounter Summary ---
Author Organization [facility] Address [facility] [place] [address] Care Team Providers Care Wall Taper Name Role Phone Eddie Rabago MD Primary Care Provider [phone] Eddie Rabago MD Unavailable [phone] Source Comments In the event this information is protected by the Federal Confidentiality of Alcohol and Drug AbusePatient Records regulations: The Federal rules restrict any use of the information to criminally investigate or prosecute any alcohol or drug abuse patient.[facility] Encounter Details Date Type Department Care Team (Late st Contact Info) Description 04/01/2022 Get Medical Advice Gastroenterology [address] [phone] Brayan Wallace MD [address] [place] [address] Sulfasalazine Social History Tobacco Use Types Packs/Day Years [...] 7:40 AM EDT Office Visit Rheumatology [address] [place] [address] Giovana Powell MD [address] [place] [address] Summer 2024 for OP and rev. results 05/24/2025 7:30 AM EDT Infusion Center Infusion [address] [place] [address] Entyvio x 8 weeks 06/11/2025 3:00 PM EDT Office Visit Gastroenterology [address] [address] Brayan Wallace MD [address] [place] [address] colonoscopy follow up 07/19/2025 7:30 AM EDT Infusion Center Infusion [address] [place] [address] Entyvio x 8 weeks 08/30/2025 11:15 AM EDT Office Visit Dermatology [address] [place] [address] [address] [place], [place] [id number] Rajesh Boudreaux MD [address] [place] [address] [place], [place] [phone] Return in about 1 year (around 08/29/2025). 09/04/2025 8:30 AM EST Office Visit Cardiology [address] [place] [address] Paddy Balbuena MD [address] [place] [address] Annual visit 09/13/2025 7:30 AM EST Infusion Center Infusion [address] [place] [address] Entyvio x 8 weeks 11/08/2025 7:30 AM EST Infusion Center Infusion [address] [place] [address] Entyvio x 8 weeks documented as of this encounter Visit Diagnoses Not on filedocumented in this encounter Care Teams Wall Taper Relationship Specialty Start Date End Date Eddie Rabago MD PCP - General Family Medicine 09/25/14 Eddie Rabago MD [address] [place] [address] Referring Family Medicine 03/21/24 documented as of this encounter
--- OUTSIDE RECORDS SUMMARY | 2025-05-14 10:22 | XMS_ITS | Encounter Summary ---
Author Organization [facility] Address [address] [place] [address] Care Team Providers Care Inspector Canned Food Reconditioning Name Role Phone Eddie Rabago MD Primary Care Provider [phone] Encounter Details Date Type Department Care Team (Late st Contact Info) Description 06/17/2023 Abstract [facility] [address] [facility] [address] [place] [phone] Yusuf Warren, PT [address] [place] [phone] Social History Tobacco Use Types Packs/Day Years [...] suspected to have Coronavirus/COVID-19? No / Unsure 06/15/2023 4:46 PM EDT documented as of this encounter Plan of Treatment Upcoming Encounters Date Type Department Care Team (Late st Contact Info) Description 07/27/2025 9:30 AM EDT Office Visit [facility] [address] [place] [phone] Win Edmondson, DO [address] [place] [address] [place] [address] documented as of this encounter Visit Diagnoses Not on filedocumented in this encounter Care Teams Inspector Canned Food Reconditioning Relationship Specialty Start Date End Date Eddie Rabago MD [address] [place] [phone] PCP - General 03/23/23 documented as of this encounter
--- OUTSIDE RECORDS SUMMARY | 2025-05-14 10:22 | XMS_ITS | Encounter Summary ---
Author Organization [facility] Address [facility] [place] [address] Care Team Providers Care Submarine Cable Equipment Technician Name Role Phone Eddie Rabago MD Primary Care Provider [phone] Eddie Rabago MD Unavailable [phone] Source Comments In the event this information is protected by the Federal Confidentiality of Alcohol and Drug AbusePatient Records regulations: The Federal rules restrict any use of the information to criminally investigate or prosecute any alcohol or drug abuse patient.[facility] Encounter Details Date Type Department Care Team (Late st Contact Info) Description 04/15/2022 Get Medical Advice Gastroenterology [address] [phone] Brayan Wallace MD [address] [place] [address] Questions on medications Social History Tobacco Use Types Packs/Day Years [...] N ot on file 04/07/2022 Data from: https://www.neighborhoodatlas.medicine.[facility].edu/. Last address used for calculation William Lutherdian [...] 7:40 AM EDT Office Visit Rheumatology [address] [facility] [address] [place], [place] [phone] Giovana Powell MD [address] [place] [address] Summer 2024 for OP and rev. results 05/24/2025 7:30 AM EDT Infusion Center Infusion [address] [place] [address] Entyvio x 8 weeks 06/11/2025 3:00 PM EDT Office Visit Gastroenterology [address] [address] Brayan Wallace MD [address] [place] [address] colonoscopy follow up 07/19/2025 7:30 AM EDT Infusion Center Infusion [address] [facility] [place] [address] Entyvio x 8 weeks 08/30/2025 11:15 AM EDT Office Visit Dermatology [address] [place], [place] [phone] Rajesh Boudreaux MD [address] [place], [place] [phone] Return in about 1 year (around 08/29/2025). 09/04/2025 8:30 AM EST Office Visit Cardiology [address] [place] [address] Paddy Balbuena MD [address] [facility] [place] [address] Annual visit 09/13/2025 7:30 AM EST Infusion Center Infusion [address] [place] [address] Entyvio x 8 weeks 11/08/2025 7:30 AM EST Infusion Center Infusion [address] [facility] [place] [address] Entyvio x 8 weeks documented as of this encounter Visit Diagnoses Not on filedocumented in this encounter Care Teams Submarine Cable Equipment Technician Relationship Specialty Start Date End Date Eddie Rabago MD PCP - General Family Medicine 09/25/14 Eddie Rabago MD [address] [place] [address] Referring Family Medicine 03/21/24 documented as of this encounter
--- OUTSIDE RECORDS SUMMARY | 2025-05-14 10:38 | XMS_ITS | Encounter Summary ---
Author Organization [facility] Address [id number] [address] [place] [address] Care Team Providers Care Junior Net Developer Name Role Phone Eddie Rabago MD Primary Care Provider [phone] Encounter Details Date Type Department Care Team (Late st Contact Info) Description 08/13/2021 Orders Only [facility] Cardiology [address] [place] [address] Mariluz Amaya RN Pre-op testing (Primary Dx) Social History Tobacco Use Types Packs/Day Years Used Date Smoking Tobacco: Never Smokeless Tobacco: Never Alcohol Use Standard Drinks/Week Comments Yes 0 (1 standard drink = 0.6 oz pur e alcohol) occasional PHQ-2 Answer Date Recorded Total Score 0 12/31/2020 Childcare Answer Date Recorded Childcare Unknown 04/12/2019 Employment Answer Date Recorded Employment Unknown 04/12/2019 Purpose - Life Answer Date Recorded I have a purpose and direction in my life. Stron gly Agree 12/31/2020 Sex and Gender Information Value Date Recorded Sex Assigned at Male 08/28/2021 5:01 AM EDT Legal Sex Male 11:41 AM EDT Gender Identity Male 08/28/2021 5:01 AM EDT Sexual Orientation Straight 08/28/2021 5: 01 AM EDT COVID-19 Exposure Response Date Recorded In the last month, have you been in contact with someone who was confirmed or suspected to have Coronavirus / COVID-19? No / Unsure 08/13/2021 10:02 AM EDT documented as of this encounter Plan of Treatment Not on file documented as of this encounter Visit Diagnoses Diagnosis Pre-op testing- Primary Unspecified pre-operative examination documented in this encounter Additional Health Concerns Infection Onset Date Last Indicated Resolved Time COVID-19 Rule-Out 08/19/2021 08/19/2021 08/19/2021 5:41 PM EDT Assessment Noted Time PHQ-9 Depression Total Score: 0 01/01/20 21 9:21 AM EST documented as of this encounter Care Teams Junior Net Developer Relationship Specialty Start Date End Date Eddie Rabago MD PCP - General 12/08/16 documented as of this encounter
--- OUTSIDE RECORDS SUMMARY | 2025-05-14 10:38 | XMS_ITS | Clinical Summary ---
Author Organization [facility] Address [id number] [address] [place] [address] Care Team Providers Care Semiautomatic Stitcher Operator Name Role Phone Eddie Rabago MD Primary Care Provider [phone] Allergies Active Allergy Reactions Criticality Noted Date Comments Ciprofloxacin Rash Low 12/08/2016 Other reaction(s): Intolerance-unknown Sulfa (Sulfonamide Antibiotics) 12/08/2016 Other reaction(s): Intolerance-unknown Medications SYNTHROID 150 mcg tablet Take 1 tablet (150 mcg total) by mouth in the morning. 6 Active fluticasone propionate (FLONASE) 50 mcg/actuation nasal spray Administer 1 spray into each nostril as needed. Active cetirizine (ZyrTEC) 5 mg tablet Take 1 tablet (5 mg total) by mouth as needed for allergies. Active nitroglycerin (NITROSTAT) 0.[address] 1 tablet (0.4 mg total) under the tongue every 5 (five) minutes as needed for chest pain. 90 tablet 12 1 Active vedolizumab (ENTYVIO IV) Infuse into a venous catheter. Every 8 weeks Active esomeprazole (NexIUM) 20 mg capsule Take 1 capsule (20 mg total) by mouth every morning before breakfast. Active ibuprofen (MOTRIN) 800 mg tablet Take 1 tablet (800 mg total) by mouth every 8 (eight) hours as needed for pain. 30 tablet 12/06/202 2 Active verapamil SR (CALAN-SR) 180 mg CR tabletIndicatio ns:Palpitations TAKE 1 TABLET EVERY DAY 90 tablet 3 3 Active Active Problems Problem Noted Date Diagnosed Date Kidney stones 02/06/2025 Overview (02/06/2025): Ultrasound with possible right lower pole stone. Agree with Dr. Rabago that this is not the source of the right-sided flank pain. The explained to the patient that ultrasounds are not very sensitive for kidney stones so he may or may not have 1 present but even if it is present it was in the lower pole and nonobstructing and would not cause pain. Additionally the ultrasounds tend to overestimate the size suggesting that if he had a stone it would probably be only about [address] scan with tell us definitively but at that size I would recommend no intervention anyway and as such no further imaging ordered Proctitis 10/14/2022 Colitis 08/31/2022 Overview (08/31/2022): Asacol Varicella 08/31/2022 Spinal headache 08/31/2022 Shoulder impingement syndrome 08/31/2022 Shingles 08/31/2022 Retinal detachment 08/31/2022 Rectal bleed 08/31/2022 Presbyopia 08/31/2022 Pilonidal cyst 08/31/2022 Neck pain 08/31/2022 IBS (irritable bowel syndrome) 08/31/2022 Hypothyroidism 08/31/2022 Hyperopia 08/31/2022 Goiter 08/31/2022 Fatigue 08/31/2022 Overview (08/31/2022): OTC Nexium Epididymitis 08/31/2022 Epicondylitis, lateral, right 08/31/2022 Eczema 08/31/2022 Dysphagia 08/31/2022 Diverticulitis 08/31/2022 Allergic rhinitis 08/31/2022 Arthritis 08/31/2022 Overview (08/31/2022): mild Astigmatism 08/31/2022 Overview (08/31/2022): glasses Agatston coronary artery calcium score less than 100 11/13/2021 Mixed hyperlipidemia 08/28/2021 Palpitations 07/30/2021 Benign prostatic hyperplasia with lower urinary tract symptoms 09/12/2019 Coccydynia 06/01/2019 Overview (06/01/2019): Added automatically from request for surgery [id number] Elevated PSA 12/08/2016 Overview (09/26/2019): 03/14/19: PSA 7.94. Elevated PSA with normal exam. We talked about PSA and some limitations today. We are planning to recheck his PSA in about 1-2 months. I told him that about half the patients the PSA will improve spontaneously and if it does he could avoid a biopsy. If it remains persistently elevated we will talk further about biopsy at that point. 04/24/19: PSA 6.98. Improving but not normal Options discussed. His PSA spike was during a flare up of his ulcerative colitis. Plan to recheck again in about a month given its improvement 06/05/19: Repeat PSA 6.96. Recommended pus/bx. He has an allergy to cipro but this was a rash and he was not sure it was from the antibiotic. Plan for levoquin and gent per protocol 06/21/19: PUS/bx, vol 41 gms 06/23/19: Spoke to by phone. Path benign. reommended repeat psa 6 months Benign non-nodular prostatic hyperplasia with lower urinary tract symptoms 12/08/2016 Overview (04/09/2020): Progressive lower urinary tract symptoms. Trial of alfuzosin with some side effects of lightheadedness and tachycardia associated with inconsistent improvement Cannot get tamsulosin because of sulfa allergy Improved with daily dose cialis 2016 but stopped due to interaction with asacol 03/14/19: We again talked about options including cysto followed by turp vs finasteride. The pros and cons of each approach were discussed and side effects of each. He will let me know next month when he returns 04/18/19: Patient having progressive symptoms. Cysto with trilobar hyperplasia. 04/25/19: We talked about options. Will decide after repeat psa 07/11/19: Continued luts. Options discussed including turp. Prostate volume 41 gms. The risks and benefits as outlined in the consent were discussed. All relevant drawings were reviewed. All questions were answered. The patient expressed understanding and wished to proceed. 09/12/19: TURP. Pathology benign 04/09/20: Successful turp. PVR minimal with no evidence of bladder neck contracture/urethral stricture. PSA 0.69. He is going to continue to get annual screening with Dr. Rabago. If he needs any further urologic assistance I would be happy to see him again Angina pectoris 11/24/2016 Near syncope 11/13/2016 GERD (gastroesophageal reflux disease) 4 Overview (08/31/2022): OTC Nexium Resolved Problems Problem Noted Date Diagnosed Date Resolved Date Syncope and collapse 017 Immunizations Immunization Administration Dates Next Due COVID-19, mRNA, LNP-S, PF, 100mcg/0.5mL Dose ,12/14/2020 Influenza Vaccine, Quadrivalent, Adjuvanted 07/03 Pneumococcal Conjugate 13-Valent 08/06/2020 Pneumococcal Polysaccharide 08/13/2021 Tdap 04/07/2016 Zoster Vaccine Recombinant 03/26/2020,01/12/2020 Family History Medical History Relation Name Comments Early Brother 2 Yusuf Segovia prostate can cer Prostate cancer Brother 2 Yusuf Segovia Cancer Father Vidal Segovia Heart disease Father iVdal Segovia ByPass Tenorio rgery Stroke Father Vidal Segovia Vision loss Father Vidal [place]worth Macular de generation Arthritis Mother June Groves Heart disease Mother June Kanworth Heart F ailure Thyroid disease Mother June Kanworth Vision loss Mother June [place]worth Cancer Paternal Aunt Cancer Sister Marquita Goldman Early Sister Marquita Goldman cancer Uterine cancer Sister Marquita Goldman Breast cancer Neg Hx Relation Name Status Comments Brother 1 Alive Brother 2 Yusuf Kanworth Daughter Michaela Alive Father Vidal Kanworth Mother June Kanworth Alive Paternal Aunt Sister Marquita Goldman Son South Alive Social History Tobacco Use Types Packs/Day Years Used Date Smoking Tobacco: Never Smokeless Tobacco: Never Tobacco Cessation:Counseling Given: Not Answered Alcohol Use Standard Drinks/Week Comments Yes 2 (1 standard drink = 0.6 oz pur e alcohol) occasional PHQ-2 Answer Date Recorded Total Score 0 12/31/2020 Childcare Answer Date Recorded Childcare Unknown 04/12/2019 Employment Answer Date Recorded Employment Unknown 04/12/2019 Hunger Screening Answer Date Recorded Within the past 12 months we worried whether our food would run out before we got money to buy more. Never True 02/06/2025 Within the past 12 months th e food we bought just didn't last and we didn't have money to get more. Never True 02/06/2025 Purpose - Life Answer Date Recorded I have a purpose and direction in my life. Stron gly Agree 12/31/2020 Sex and Gender Information Value Date Recorded Sex Assigned at Male 08/28/2021 5:01 AM EDT Legal Sex Male 11:41 AM EDT Gender Identity Male 08/28/2021 5:01 AM EDT Sexual Orientation Straight 08/28/2021 5: 01 AM EDT Last Filed Vital Signs Vital Sign Reading Time Taken Comments Blood Pressure 99/63 02/06/2025 2:31 PM EDT Pulse 90 02/06/2025 2:31 PM EDT Temperature 36.2 C (97.1 F) 10/14/2022 9:27 AM EST Respiratory Rate 15 10/06/2022 9:56 AM EST Oxygen Saturation 97% 10/06/2022 9:56 AM EST Inhaled Oxygen Concentration - - Weight 119.3 kg (263 lb) 02/06/2025 2:31 PM EDT Height 177.8 cm (5' 10 ) 02/06/2025 2:31 PM EDT Body Mass Index 37.74 02/06/2025 2:31 PM EDT Plan of Treatment Health Maintenance Due Date Last Done Comments Depression Screening 1967 Adult BMI Follow Up Plan 1973 Fall Risk Screening 2020 COVID-19 Vaccine (2023- 5 season) 2024 09/12/2021, 01/11/2021, 12/14/2020 Influenza Vaccine 07/02/2025 09/07/2024, , 09/03/2022, Additional history exists Adult BMI Screening 02/06/2026 02/06/2025 Tobacco Screening 02/06/2026 02/06/2025 DTaP,Tdap and Td Vaccines (2 - Td or Tdap) 04/07/2026 04/07/2016 Zoster (Shingles) Vaccine Completed 03/26/2020, Medical Devices Not on file Insurance COMMERCIAL MEDICARE Advance Directives * Full Code (Latest Code Status on File) Date Activated Date Inactivated Comments 08/27/2021 7:15 PM 08/28/2021 4:50 PM Care Teams Semiautomatic Stitcher Operator Relationship Specialty Start Date End Date Eddie Rabago MD PCP - General 12/08/16
--- OUTSIDE RECORDS SUMMARY | 2025-05-14 10:38 | XMS_ITS | Encounter Summary ---
Author Organization [facility] Address [id number] [address] [place] [address] Care Team Providers Care Manager Costing Name Role Phone Eddie Rabago MD Primary Care Provider [phone] Encounter Details Date Type Department Care Team (Late st Contact Info) Description 07/27/2022 Orders Only [facility] Cardiology [address] [place] [address] External, Scanning Provider Social History Tobacco Use Types Packs/Day Years [...] have Coronavirus / COVID-19? No / Unsure 07/21/2022 9:08 AM EDT documented as of this encounter Plan of Treatment Not on file documented as of this encounter Procedures Procedure Name Priority Date/Time Associated Diagnosis Comments NUC STRESS LEXISCAN/EXERCISE Routine 07/22/2022 documented in this encounter Results * Nuc stress Lexiscan/Exercise (07/22/2022) Anatomical Region Laterality Modality Chest N/A Nuclear Medicine us Scanning Provider External CV STRESS ORDERABLES Edited Result - Final documented in this encounter Visit Diagnoses Not on filedocumented in this encounter Additional Health Concerns Assessment Noted Time PHQ-9 Depression Total Score: 0 01/01/20 9:21 AM EST documented as of this encounter Care Teams Manager Costing Relationship Specialty Start Date End Date Eddie Rabago MD PCP - General 12/08/16 documented as of this encounter
--- OUTSIDE RECORDS SUMMARY | 2025-05-14 10:38 | XMS_ITS | Encounter Summary ---
Author Organization [facility] tem Address [id number] [address] [place] [address] Care Team Providers Care Manager Of Planning Name Role Phone Eddie Rabago MD Primary Care Provider [phone] Reason for Referral * Diagnostic Imaging (Routine) - Closed Specialty Diagnoses / Procedures Referred By Contac t Referred To Contact Radiology Diagnoses Chest pain, unspecified type Abnormal stress ECG with treadmill Procedures CT angiogram coronary arteries with or without scoring Shaun Lopez MD [address] [place] [address] Phone: tel: fax: [address] [address] Phone: tel: Referral ID Status Reason Start Date Expiration Date Visits Re quested Visits Authorized [id number] Closed 08/25/2021 08/25/2022 1 1 Encounter Details Date Type Department Care Team (Late st Contact Info) Description 08/25/2021 Orders Only [facility] [address] [place] [id number] Rosibel Kilgore, FABIAN Chest pain, unspecified type (Primary Dx); Abnormal stress ECG with treadmill; Encounter for therapeutic drug monitoring Social History Tobacco Use Types Packs/Day Years [...] have Coronavirus / COVID-19? No / Unsure 08/27/2021 3:26 PM EDT documented as of this encounter Functional Status documented as of this encounter Progress Notes * Dayanara Gallagher RN - 08/25/2021 7:59 AM EDT Pt is scheduled 10/23/21 documented in this encounter Plan of Treatment Not on file documented as of this encounter Results * CT angiogram coronary arteries with or without scoring (10/23/2021 5:24 PM EST) Anatomical Region Laterality Modality Body, Vascular, Chest, Body Covera N/A Computed Tomography 10/27/2021 8:20 AM EST Narrative 10/28/2021 1:48 PM EST Coronary CTA Indication: Chest pain, increasing in frequency Comparison: Nuclear stress test 09/05/2021 TECHNIQUE: Computed tomography (CT) of the heart was obtained using electrocardiography (ECG) triggering. 100 mL of Omni 350 contrast was administered intravenously. In preparation for the examination, the patient received 100 mg oral metoprolol for heart rate/rhythm control and 0.4mg sublingual nitroglycerin tablet for coronary vasodilation. HR ranged from 61-65. Retrospective. No immediate complications Extracardiac Findings: The visualized lungs with emphysematous changes and minimal dependent atelectasis. No mediastinal lymphadenopathy. Visualized pulmonary arteries normal. The visualized thoracic aorta normal. Visualized abdominal viscera without acute abnormality. There is a 1.7 cm hypoattenuating hepatic lesion in segment 2 with fluid attenuation. A 1.1 cm likely flash filling hemangioma in segment 7 Extracardiac Impression: * Benign hepatic lesions. Extracardiac findings solely interpretted by Dr. Soria of the department of Radiology. Coronary CTA Findings: Coronary calcium scoring: LMA: 0 LAD: 24.6 Left circumflex: 0 RCA: 0 Total calcium scorin.6. This places the patient just above the 25th percentile for same patient age demographics. Cardiac Morphology: The right atrium is normal. The right ventricle is normal. The left atrium is normal. The left ventricle is normal. No valvular calcifications. No pericardial effusion or thickening. Function: LVEF: 56% SV: 92 mL LVEDV: 164 mL LVESV: 73 mL CO: 5.7 L/min Coronary CT Angiogram: The overall quality of the CT angiographic examination is good and is limited by motion and misregistration artifacts. Coronary Artery Angiogram Findings: The coronary artery [...] no plaque OM: No stenosis with no plaque RCA: No stenosis with no plaque AM: No stenosis with no plaque RPDA/RPL: No stenosis with no plaque Coronary CTA Impression: * Mild disease without significant coronary artery narrowing. * Ejection fraction 56 % The coronary CTA was interpreted in conjunction with Dr. Dr. Artemio Early of department of cardiology. I, Andreas Soria DO have personally reviewed the image(s) and agree with and/or edited the report Finalized by Anderas Soria DO on 10/28/2021 1:48 PM Procedure Note Andreas Soria DO - 10/28/2021 Coronary CTA Indication: Chest pain, increasing in frequency Comparison: Nuclear stress test 09/05/2021 TECHNIQUE: Computed tomography (CT) of the heart was obtained usingelectrocardiography (ECG) triggering. 100 mL of Omni 350 contrast wasadministered intravenously. In preparation for the examination, thepatient received 100 mg oral metoprolol for heart rate/rhythm control and0.4mg sublingual nitroglycerin tablet for coronary vasodilation. HR ranged from 61-65. Retrospective. Noimmediate complications Extracardiac Findings: The visualized lungs with emphysematous changes and minimal dependentatelectasis. No mediastinal lymphadenopathy. Visualized pulmonary arteries normal. The visualized thoracic aorta normal. Visualized abdominal viscera without acute abnormality. There is a 1.7 cmhypoattenuating hepatic lesion in segment 2 with fluid attenuation. A 1.1cm likely flash filling hemangioma in segment 7 Extracardiac Impression: * Benign hepatic lesions. Extracardiac findings solely interpretted by Dr. Soria of the departmentof Radiology. Coronary CTA Findings: Coronary calcium scoring: LMA: 0 LAD: 24.6 Left circumflex: 0 RCA: 0 Total calcium scorin.6. This places the patient just above the 25thpercentile for same patient age demographics. Cardiac Morphology: The right atrium is normal. The right ventricle is normal. The left atriumis normal. The left ventricle is normal. No valvular calcifications. Nopericardial effusion or thickening. Function: LVEF: 56% SV: 92 mL LVEDV: 164 mL LVESV: 73 mL CO: 5.7 L/min Coronary CT Angiogram: The overall quality of the CT angiographic examination is good and islimited by motion and misregistration artifacts. Coronary Artery Angiogram Findings: The coronary artery system is right dominant with normal origins. LMA: Mild stenosis with mixed plaque at the distal aspect/proximal LAD. LAD: Mild stenosis with mixed plaque at the bifurcation and multifocalmixed plaque with mild stenosis in the mid and distal segments. Diagonals: No stenosis with no plaque LCX: No stenosis with no plaque OM: No stenosis with no plaque RCA: No stenosis with no plaque AM: No stenosis with no plaque RPDA/RPL: No stenosis with no plaque Coronary CTA Impression: * Mild disease without significant coronary artery narrowing. * Ejection fraction 56 % The coronary CTA was interpreted in conjunction with Dr. Dr. Izquierdo of department of cardiology. IAndreas DO have personally reviewed the image(s) and agree withand/or edited the report Finalized by Andreas Soria DO on 10/28/2021 1:48 PM us Shaun Lopez MD IMG CT ORDERABLES Final Res ult documented in this encounter Visit Diagnoses Diagnosis Chest pain, unspecified type- Primary Abnormal stress ECG with treadmill Encounter for therapeutic drug monitoring Chest pain, unspecified type Abnormal stress ECG with treadmill documented in this encounter Additional Health Concerns Assessment Noted Time PHQ-9 Depression Total Score: 0 01/01/20 21 9:21 AM EST documented as of this encounter Care Teams Manager Of Planning Relationship Specialty Start Date End Date Eddie Rabago MD PCP - General 12/08/16 documented as of this encounter
--- OUTSIDE RECORDS SUMMARY | 2025-05-14 10:39 | XMS_ITS | Encounter Summary ---
Author Organization [facility] Address [id number] [address] [place] [address] Care Team Providers Care Energy Economist Name Role Phone Eddie Rabago MD Primary Care Provider [phone] Reason for Visit * Reason Onset Date Comments Beta Khadar dose 09/24/2021 Encounter Details Date Type Department Care Team (Late st Contact Info) Description 09/24/[address] [facility] [address] [facility] [address] [place] [address] Rosibel Kilgore, FABIAN Beta Khadar dose Social History Tobacco Use Types Packs/Day Years [...] have Coronavirus / COVID-19? No / Unsure 09/09/2021 7:49 AM EST documented as of this encounter Miscellaneous Notes * Telephone Encounter - Rosibel Kilgore RN - 09/24/2021 2:35 PM EST Please advise for Beta Khadar dose for CTA Cors 10/23/21 thanks * Telephone Encounter - Kendell Chiu MD - 09/24/2021 2:35 PM ESTSummary: take 50 metoprolol tartrate night before and morning of As above * Telephone Encounter - Rosibel Kilgore RN - 09/24/2021 2:35 PM EST Pt given instructions for CTA cors and rx for metoprolol-will provide new ins card which goes into effect 10/01/21 documented in this encounter Plan of Treatment Not on file documented as of this encounter Visit Diagnoses Not on filedocumented in this encounter Additional Health Concerns Assessment Noted Time PHQ-9 Depression Total Score: 0 01/01/20 21 9:21 AM EST documented as of this encounter Care Teams Energy Economist Relationship Specialty Start Date End Date Eddie Rabago MD PCP - General 12/08/16 documented as of this encounter
[2025-05-14 11:09] LABS: Hematocrit 44.9 % (42.0-54.0); Hemoglobin 14.4 g/dL (14.0-18.0); Immature Granulocytes Abs Auto 0.04 10^3/uL (0.00-0.03); Immature Granulocytes Pct Auto 0.6 % (0.0-0.5); Lymphocytes Absolute Auto 1.4 10^3/uL (1.2-3.8); Mean Corpuscular HGB Conc 32.1 g/dL (29.9-35.2); Mean Corpuscular Hemoglobin 30.1 pg (25.9-34.0); Mean Corpuscular Volume 93.7 fL (80.0-94.0); Platelet Count 230 10^3/uL (150-450); Red Blood Count 4.79 10^6/uL (4.70-6.10); White Blood Count 6.7 10^3/uL (4.0-11.0)
[2025-05-14 13:00] LABS: Alanine Aminotransferase 31 U/L (16-63); Albumin Globulin Ratio 1.3; Albumin Level 3.9 g/dL (3.4-5.0); Alkaline Phosphatase 79 U/L (46-116); Anion Gap 13.6; Aspartate Amino Transferase 19 U/L (15-37); Blood Urea Nitrogen 11.0 mg/dL (7.0-18.0); Calcium 8.7 mg/dL (8.5-10.1); Carbon Dioxide 29.5 mmol/L (21.0-32.0); Chloride 105 mmol/L (98-107); Cholesterol 245 mg/dL (<=200); Estimated GFR (African America >60 (>=60 mL/min/1.73m^2); Estimated GFR (Non-African Ame >60 (>=60 mL/min/1.73m^2); Free T3 2.66 pg/mL (2.18-3.98); Globulin 3.1 g/dL; Glucose 88 mg/dL (74-106); HDL Cholesterol 48 mg/dL (40-60); Potassium 4.1 mmol/L (3.5-5.1); Sodium 144 mmol/L (136-145); Thyroid Stimulating Hormone 1.993 uIU/mL (0.358-3.740); Total Protein 7.0 g/dL (6.4-8.2); Triglycerides 174 mg/dL (<=150); VLDL CHOLESTEROL 34.8 mg/dL
== END 2025-05-14 10:33 | disposition home or self-care (01) ==
LOC: LAB 10:36
PROVIDERS: PCP Family Medicine; Visit Provider Family Medicine
DX: R53.83 Other fatigue (principal); E78.5 Hyperlipidemia, unspecified; Z12.11 Encounter for screening for malignant neoplasm of colon; R73.09 Other abnormal glucose
CPT/HCPCS: 36415; 80053; 80061; 83036; 84436; 84443; 84481; 85025; G0328

== ENCOUNTER 2025-10-18 08:00 | Outpatient (OUT) | payer MEDICARE, OTHER, SELFPAY ==
--- OUTSIDE RECORDS SUMMARY | 2025-10-12 03:30 | XMS_ITS ---
Author Organization [facility] [place] Address [address] [place] [address] Care Team Providers Care Acquisition Analyst Name Role Phone Hima Ruben Primary Care Provider REASON FOR VISIT Flu Shot Immunizations Vaccine Route Administration Date Status Comme nts Flu, Fluad (81588) 65 yrs and older, single-dose syringe ([id number]) IM Intramuscular 10/12/2025 Administered Encounters Encounter Location Date Provider Diagnosis [facility] [address] [place] [address] 10/12/2025 Ruben Rabago Encounter for immunization Z23 Assessments Encounter Date Diagnosis (ICD Code) Assessment Notes Treatment Notes Treatment Clinical Notes Section Notes 10/12/2025 Encounter for immunization (ICD- 10 - Z23) Plan Of Treatment No Information Progress Notes * Tito SEGOVIAinDOB:[birth year] (70 yo M)Acc No.[id number]:10/12/2025 Progress Note Patient: Stephen FIGUEROA :?Eddie SumanTing Rabago ([facility]), MDDOB:1955???Age: 70 Y???Sex:MaleDate:10/12/2025Phone:[phone]:[address] [place], [id number] In:08:34 AM ESTCheck Out:08:42 AM EST Subjective: * Chief Complaints: * F doroteo Shot * Active Problem List R07.9 Chest pain Modified On:09/15/2023 Status:bblhqugwcC09.9Hypothyroidism Modified On:08/12/2023 Status:topjblqimH19.2Neck pain Modified On:02/16/2023 Status:bavebbzxoH94.2Venous insufficiency Modified On:02/16/2023 Status:ffaobiycuS34.662Pain of left lower leg Modified On:02/18/2023 Status:bivriziphO40.9Gout Modified On:02/16/2023 Status:hzqdzrydxE42.30Sleep apnea Modified On:02/16/2023 Status:lbxggbivpM32.9Erectile dysfunction Modified On:02/16/2023 Status:pekioukruQ29.9Eczema Modified On:02/16/2023 Status:pzosfbtemH07.10CAD (coronary artery disease) Modified On:02/16/2023 Status:mremlxgazJ64.552Hip pain, left Modified On:02/16/2023 Status:mnqlnboblM66.9Lipoma Modified On:02/16/2023 Status:mbugydulhI95.00Well adult Modified On:02/16/2023 Status:mmelxlsnoM16.10Dysphagia Modified On:02/16/2023 Status:ofkrwoxmaW68.92Diverticulitis Modified On:02/16/2023 Status:apkchgoglM85.4External hemorrhoids Modified On:02/16/2023 Status:sglqlweshQ45.2Plantar fasciitis Modified On:02/16/2023 Status:xsvjiwdkkP95.72Causalgia of left lower limb Modified On:02/16/2023 Status:ozzncasqbO49.9Goiter Modified On:02/16/2023 Status:hkhckvzmcF75.0Benign prostatic hyperplasia Modified On:02/16/2023 Status:zmprdstviX93.9Lump Modified On:02/16/2023 Status:zyrxnwwiuV12.2Allergic rhinitis, seasonal Modified On:02/16/2023 Status:utqcjztwvD19.0Bilateral leg edema Modified On:02/16/2023 Status:lbpvvmbuoU64.9Gastro-esophageal reflux disease Modified On:02/16/2023 Status:nytcbgaeqH35.90Colitis, ulcerative Modified On:02/16/2023 Status:nhlssclbzZ00.89Pain, rectal Modified On:02/16/2023 Status:nvnyohqboD95.00Hypercholesterolemia Modified On:02/16/2023 Status:ygwttemlvC95.1COVID-19 virus infection Modified On:02/16/2023 Status:bvntgsrrwI71.50Low back pain, unspecified Modified On:02/16/2023 Status:vtnzteogmV50.609Pain in unspecified limb Modified On:02/16/2023 Status:cmirqbibbA81.2Palpitations Modified On:02/16/2023 Status:ovduhqbdbG68.83Snoring Modified On:02/16/2023 Status:qjakrcbgrU98.13Age-related nuclear cataract, bilateral Modified On:02/16/2023 Status:vwousjrgyT67.9Chronic sinusitis, unspecified Modified On:02/16/2023 Status:afdkmulzaS76.16Radiculopathy, lumbar region Modified On:02/18/2023 Status:qbhnzzojfG93.32Localized swelling, mass and lump, left upper limb Modified On:02/18/2023 Status:obxhpgonlQ19.6Pain in thoracic spine Modified On:03/31/2023 Status:xfufgpwcyJ87.29Other chronic pain Modified On:03/31/2023 Status:njehymmzoF95.90Serous otitis media Modified On:08/02/2023 Status:bhhzilayeT80.521Pain in right elbow Modified On:09/30/2023 Status:bvajtcjieE24.34Other intervertebral disc degeneration, thoracic region Modified On:10/15/2023 Status:biwoxqfpcS77.36Other intervertebral disc degeneration, lumbar region Modified On:10/15/2023 Status:mcasafcwnJ56.9Acute bronchiolitis Modified On:12/28/2023W/U Status:wowvvivsrB45.019Paronychia Modified On:01/18/2024W/U Status:eaftijpeoP80.30Groin pain Modified On:03/05/2025/U Status:pcfrfwaiwY04.4Breast pain Modified On:06/13/2025/U Status:confirmed * Medical History: * Surgical History: * Hospitalization/Major Diagno stic Procedure: * Medications: Objective: * Vitals: Assessment: * Assessment: 1.?Encounter for immunization - Z23 (Primary)??? Plan: * Treatment: * Immunizations: Flu, Fluad (04286) 65 yrs and older, single-dose syringe () : 0.5 mL (Route: Intramuscular) given by SEPIDEH Weathers on Left Deltoid (Encounter for immunization) * Procedure Codes: 9 0653 FLU VACCINE ADJUVANT DEC0050 ADMIN. INFLUENZA * * Sign off status: CompletedVisit Status:?CHK (Check Out) true * Provider: Eh Rabago ([facility])MD Date: 1 12/13/2024 Generated for Printing/Faxing/eTransmitting on:?10/22/2025 07:19 AM EST
--- OUTSIDE RECORDS SUMMARY | 2025-10-18 09:30 | XMS_ITS | Encounter Summary ---
Author Organization [facility] Address [address] [place] [address] Care Team Providers Care Transfer Table Operator Helper Name Role Phone Eddie Rabago MD Primary Care Provider [phone] Eddie Rabago MD Unavailable [phone] Source Comments In the event this information is protected by the Federal Confidentiality of Alcohol and Drug AbusePatient Records regulations: The Federal rules restrict any use of the information to criminally investigate or prosecute any alcohol or drug abuse patient.[facility] Reason for Visit * ReasonCommentsInclisiran injection * Clinic-Administered Medication (Routine) - ClosedSpecialtyDiagnoses / ProceduresReferred By ContactReferred To ContactCARD [facility] Diagnoses Mixed hyperlipidemia Procedures INJECTION, INCLISIRAN, 1 MG Paddy Balbuena MD [address] [place] [address] Phone: tel: fax: Cardiology [address] [place] [address] Phone: tel: Referral IDStatusReasonStart DateExpiration DateVisits RequestedVisits [id number]/17/202512/31/202611 Encounter Details DateTypeDepartmentCare Team (Latest Contact Info)Hhjuzafsvvv81/18/2025 9:30 AM ESTNurse Visit Cardiology [address] [facility] [place], [place] [address] Mixed hyperlipidemia (Primary Dx) Social History Tobacco UseTypesPacks/DayYears UsedDateSmoking Tobacco: NeverSmokeless Tobacco: NeverAlcohol UseStandard Drinks/WeekCommentsYes0 (1 standard drink = 0.6 oz pure alcohol)occassionalPHQ-2AnswerDate RecordedPHQ-2 uluby6355Area Deprivation IndexAnswerDate RecordedNational Score (1-100), lower number is lower oksh484504/01/2023State Score (1-10), lower number is lower llbi657 Data from: https://www.neighborhoodatlas.medicine.[facility].edu/. Last address used for kqkfxxjuqdm[address]/01/2023Sex and Gender InformationValueDate RecordedSex Assigned at MlozhTrge84/21/2021 2:45 PM ESTLegal NtkRxlu39/25/2014 11:14 AM ESTGender XprjfojjFjhd95/21/2021 2:45 PM ESTSexual OrientationStraight 10/21/2021 2:45 PM ESTdocumented as of this encounter Progress Notes * Angela Roldan MA - 10/18/2025 9:31 AM EST [facility] [place] Department of Cardiovascular Medicine OUTPATIENT VISIT TYPE NURSE VISIT PATIENT NAME: Stephen Segovia DATE OF SERVICE: 10/18/2025 REASON FOR VISIT: Inclisiran injection Stephen Segovia is a 70 year old established patient who presents today for a nurse visit per Dr. Paddy Balbuena for Inclisiran injection. Referral dates: not applicable, has Medicare A/B verified Yes Do referral dates cover the next injection: Yes Inclisiran 284mg/1.5mL SQ prefilled syringe administered at 930am via right upper arm Injection site reaction: No Nurse visit for next injection scheduled for 01/17/2026. Follow up labs ordered: Yes Nursing Plan: N/A Patient verbalized understanding of scheduled follow up visits: Yes Patient instructed to call the office should they develop injection site reaction or symptoms related to injection. Angela Roldan MA October 18, 2025 9:31 AM documented in this encounter Plan of Treatment DateTypeDepartmentCare Team (Latest Contact Info)Ijdbzpubjng50/07/2026 2:40 PM ESTOffice Visit Rheumatology [address] [place] [address] Giovana Powell MD [address] [place] [address] Return for Nov 2025 for OP and rev results.11/08/2025 7:30 AM ESTInfusion Center Infusion [address] [place] [address] Entyvio x 8 weeks11/13/2025 8:00 AM ESTAppointment Gastroenterology [address] [place] [address] Brayan Wallace MD [address] [place], [place] [address] ayblohchi33/26/2026 9:20 AM ESTOffice Visit Spine Medicine [address] [place] [address] Jose Wolf DO [address] [place], [place] [phone] low back pain01/03/2026 7:30 AM ESTInfusion Center Hematology/Oncology [address] [place] [address] Entyvio x 8 weeks01/17/2026 8:30 AM EDTNurse Visit Cardiology [address] [place] [address] Inclisiran 3 tixppe3402/28/2026 7:30 AM EDTInfusion Center Hematology/Oncology [address] [place] [address] Entyvio x 8 weeks04/25/2026 7:30 AM EDTInfusion Center Hematology/Oncology [facility] [place] [address] Entyvio x 8 weeks09/03/2026 7:45 AM ESTOffice Visit Dermatology [address] [place], [place] [phone] Rajesh Boudreaux MD [address] [place], [place] [id number] 1 year follow up09/06/2026 8:30 AM ESTOffice Visit Cardiology [address] [facility] [place] [address] Paddy Balbuena MD [address] [facility] [place] [address] 1 year (around 09/04/2026), rs from ocumented as of this encounter Visit Diagnoses Diagnosis Mixed hyperlipidemia- Primary documented in this encounter Administered Medications Medication OrderMAR ActionAction DateDoseRateSite inclisiran 284 mg subcutaneous injection (LEQVIO) 284 mg, SUBCUTANEOUS, ONCE (UP TO 30 DAYS AMB), 1 dose, On Wed10/17/25 at 1300, Inject subcutaneously into the abdomen, upper arm, or thigh. Given10/17/2025 9:30 AM RHG375 mgArm, Rightdocumented in this encounter Care Teams Team MemberRelationshipSpecialtyStart DateEnd Eddie Rabago MD PCP - GeneralFamily Pwpavgmm68/25/14 Eddie Rabago MD [address] [place] [address] ReferringFamily Medicine03/21/24documented as of this encounter
--- OUTSIDE RECORDS SUMMARY | 2025-10-22 07:19 | XMS_ITS | Encounter Summary ---
Author Organization [facility] Address [address] [place] [address] Care Team Providers Care Finished Carpet Inspector Name Role Phone Eddie Rabago MD Primary Care Provider [phone] Eddie Rabago MD Unavailable [phone] Source Comments In the event this information is protected by the Federal Confidentiality of Alcohol and Drug AbusePatient Records regulations: The Federal rules restrict any use of the information to criminally investigate or prosecute any alcohol or drug abuse patient.[facility] Encounter Details DateTypeDepartmentCare Team (Latest Contact Info)Zvblqhyljvf66/17/2025Travel Social History Tobacco UseTypesPacks/DayYears UsedDateSmoking Tobacco: NeverSmokeless Tobacco: NeverAlcohol UseStandard Drinks/WeekCommentsYes0 (1 standard drink = 0.6 oz pure alcohol)occassionalPHQ-2AnswerDate RecordedPHQ-2 qjxyq4675Area Deprivation IndexAnswerDate RecordedNational Score (1-100), lower number is lower ytjt814504/01/2023State Score (1-10), lower number is lower tadz784 Data from: https://www.neighborhoodatlas.medicine.[facility].edu/. Last address used for paxt[address]zethft[address]04/01/[address]23Sex and Gender InformationValueDate RecordedSex Assigned at EwkjrJhiv57/21/2021 2:45 PM ESTLegal BmlOtfw63/25/2014 11:14 AM ESTGender KorndeigDwdl62/21/2021 2:45 PM ESTSexual OrientationStraight 10/21/2021 2:45 PM ESTdocumented as of this encounter Plan of Treatment DateTypeDepartmentCare Team (Latest Contact Info)Gpvmyrznjgr39/07/2026 2:40 PM ESTOffice Visit Rheumatology [address] [place] [address] Giovana Powell MD [address] [place] [address] Return for Nov 2025 for OP and rev results.11/08/2025 7:30 AM ESTInfusion Center Infusion [address] [place] [address] Entyvio x 8 weeks11/13/2025 8:00 AM ESTAppointment Gastroenterology [address] [place] [address] Brayan Wallace MD [address] [place] [address] uawjrwvcf80/26/2026 9:20 AM ESTOffice Visit Spine Medicine [address] [place] [address] Jose Wolf DO [address] [place] [address] low back pain01/03/2026 7:30 AM ESTInfusion Center Hematology/Oncology [address] [place] [address] Entyvio x 8 weeks01/17/2026 8:30 AM EDTNurse Visit Cardiology [address] [place] [address] Inclisiran 3 fprwny5902/28/2026 7:30 AM EDTInfusion Center Hematology/Oncology [address] [place] [address] Entyvio x 8 weeks04/25/2026 7:30 AM [facility] Hematology/Oncology [address] [place] [address] Entyvio x 8 weeks09/03/2026 7:45 AM ESTOffice Visit Dermatology [address] [place], [place] [phone] Rajesh Boudreaux MD [address] [place], [place] [phone] 1 year follow up09/06/2026 8:30 AM ESTOffice Visit Cardiology [address] [place] [address] Paddy Balbuena MD [address] [facility] [place] [address] 1 year (around 09/04/2026), rs from ocumented as of this encounter Visit Diagnoses Not on filedocumented in this encounter Care Teams Team MemberRelationshipSpecialtyStart DateEnd Date Eddie Rabago MD PCP - GeneralFamily Ffkcnzut20/25/14 Eddie Rabago MD [address] [facility] [place] [address] ReferringFamily Medicine03/21/24documented as of this encounter
--- OUTSIDE RECORDS SUMMARY | 2025-10-22 07:19 | XMS_ITS | Encounter Summary ---
Author Organization [facility] Address [address] [place], [place] [id number] Care Team Providers Care Project Hire Name Role Phone Eddie Rabago MD Primary Care Provider [phone] Eddie Rabago MD Unavailable [phone] Source Comments In the event this information is protected by the Federal Confidentiality of Alcohol and Drug AbusePatient Records regulations: The Federal rules restrict any use of the information to criminally investigate or prosecute any alcohol or drug abuse patient.[facility] Reason for Referral * Consult, Test, Treat (Routine) - AuthorizedSpecialtyDiagnoses / Procedures Referred By ContactReferred To ContactOrthopedics Diagnoses Low back pain, unspecified back pain laterality, unspecified chronicity, unspecified whether sciatica present Procedures OFFICE/OUTPATIENT [facility] 60 MINUTES Eddie Rabago MD [address] [place] [address] Phone: tel: fax: Referral IDStatusReasonStart DateExpiration DateVisits RequestedVisits [id number] PCP Requested Referral Encounter Details DateTypeDepartmentCare Team (Latest Contact Info)Xfamnhlrkyx08/11/2025Transcribe Orders Referring Physician [address] [place] [address] Eddie Rabago MD [address] [place] [address] Low back pain, unspecified back pain laterality, unspecified chronicity, unspecified whether sciatica present (Primary Dx) Social History Tobacco UseTypesPacks/DayYears UsedDateSmoking Tobacco: NeverSmokeless Tobacco: NeverAlcohol UseStandard Drinks/WeekCommentsYes0 (1 standard drink = 0.6 oz pure alcohol)occassionalPHQ-2AnswerDate RecordedPHQ-2 [id number] Deprivation IndexAnswerDate RecordedNational Score (1-100), lower number is lower lwno895704/01/2023State Score (1-10), lower number is lower plfw543 Data from: https://www.neighborhoodatlas.[facility].edu/. Last address used for z[address]04/01/2023Sex and Gender InformationValueDate RecordedSex Assigned at ReognTmym70/21/2021 2:45 PM ESTLegal DbtNuvz07/25/2014 11:14 AM ESTGender FqfcwcwbQvmz41/21/2021 2:45 PM ESTSexual OrientationStraight 10/21/2021 2:45 PM ESTdocumented as of this encounter Plan of Treatment DateTypeDepartmentCare Team (Latest Contact Info)Zefmnuuqfxx80/07/2026 2:40 PM ESTOffice Visit Rheumatology [address] [place] [address] Giovana Powell MD [address] [place] [address] Return for Nov 2025 for OP and rev results.11/08/2025 7:30 AM ESTInfusion Center Infusion [address] [place] [address] Entyvio x 8 weeks11/13/2025 8:00 AM ESTAppointment Gastroenterology [address] [place] [address] Brayan Wallace MD [address] [place] [address] riivskuwo97/26/2026 9:20 AM ESTOffice Visit Spine Medicine [address] [place] [address] Jose Wolf DO [address] [place] [address] low back pain01/03/2026 7:30 AM ESTInfusion Center Hematology/Oncology [address] [place] [address] Entyvio x 8 weeks01/17/2026 8:30 AM EDTNurse Visit Cardiology [address] [place] [address] Inclisiran 3 nlntdr9802/28/2026 7:30 AM EDTInfusion Center Hematology/Oncology [address] [place] [address] Entyvio x 8 weeks04/25/2026 7:30 AM EDTInfusion Center Hematology/Oncology [address] [place] [address] Entyvio x 8 weeks09/03/2026 7:45 AM ESTOffice Visit Dermatology [address] [place], [place] [id number] Rajesh Boudreaux MD [address] [place] [address] 1 year follow up09/06/2026 8:30 AM ESTOffice Visit Cardiology [address] [place] [address] Paddy Balbuena MD [address] [place] [address] 1 year (around 09/04/2026), rs from 09/05NameTypePriorityAssociated DiagnosesOrder ScheduleCONSULT TO ORTHOPAEDICSReferralRoutine Low back pain, unspecified back pain laterality, unspecified chronicity, unspecified whether sciatica present 1 Occurrences starting 10/11/2025 until 10/11/2026documented as of this encounter Visit Diagnoses Diagnosis Low back pain, unspecified back pain laterality, unspecified chronicity, unspecified whether sciatica present- Primary documented in this encounter Care Teams Team MemberRelationshipSpecialtyStart DateEnd Date Eddie Rabago MD PCP - GeneralFamily Cigurzqv84/25/14 Eddie Rabago MD [address] [place] [address] ReferringFamily Medicine03/21/24documented as of this encounter
--- OUTSIDE RECORDS SUMMARY | 2025-10-22 07:19 | XMS_ITS | Encounter Summary ---
Author Organization [facility] Address [address] [place], [place] [id number] Care Team Providers Care It Generalist Name Role Phone Eddie Rabago MD Primary Care Provider [phone] Eddie Rabago MD Unavailable [phone] Source Comments In the event this information is protected by the Federal Confidentiality of Alcohol and Drug AbusePatient Records regulations: The Federal rules restrict any use of the information to criminally investigate or prosecute any alcohol or drug abuse patient.[facility] Reason for Referral * Clinic-Administered Medication (Routine) - ClosedSpecialtyDiagnoses / ProceduresReferred By ContactReferred To ContactCARD [facility] Diagnoses Mixed hyperlipidemia Procedures INJECTION, INCLISIRAN, 1 MG Lyudmila Balbuena MD [address] [facility] [place] [address] Phone: tel: fax: Cardiology [address] [facility] [address] [facility] [address] Phone: tel: Referral IDStatusReasonStart DateExpiration DateVisits RequestedVisits [id number]/17/202512/31/202611 Encounter Details DateTypeDepartmentCare Team (Latest Contact Info)Pabzvbgpcvi43/12/2025 Get Medical Advice Cardiology [address] [facility] [place] [address] Lyudmila Balbuena MD [address] [facility] [place] [id number] Unable to continue with cholesterol medication. Social History Tobacco UseTypesPacks/DayYears UsedDateSmoking Tobacco: NeverSmokeless Tobacco: NeverAlcohol UseStandard Drinks/WeekCommentsYes0 (1 standard drink = 0.6 oz pure alcohol)occassionalPHQ-2AnswerDate RecordedPHQ-2 kryhx9235Area Deprivation IndexAnswerDate RecordedNational Score (1-100), lower number is lower kdyv373104/01/2023State Score (1-10), lower number is lower zpda067 Data from: https://www.neighborhoodatlas.[facility]/. Last address used for bjtvmzqshky[address]04/01/2023Sex and Gender InformationValueDate RecordedSex Assigned at QbcbnQryb13/21/2021 2:45 PM ESTLegal CcpFlxq69/25/2014 11:14 AM ESTGender XvgcyqiaDdar32/21/2021 2:45 PM ESTSexual OrientationStraight 10/21/2021 2:45 PM ESTdocumented as of this encounter Miscellaneous Notes * Telephone Encounter - Lesley Rivers RN - 10/17/2025 12:56 PM EST Medication changed to Inclisiran. Pt is coming in tomorrow for his first injection. * Addendum Note - Lyudmila Balbuena MD - 10/17/2025 12:47 PM ESTAddended by: LYUDMILA BALBUENA on: 10/17/2025 12:47 PM Modules accepted: Orders * Addendum Note - Perry Hebert RN - 10/17/2025 10:29 AM ESTAddended by: PERRY HEBERT on: 10/17/2025 10:29 AM Modules accepted: Orders * Addendum Note - Lyudmila Balbuena MD - 10/16/2025 7:53 AM ESTAddended by: LYUDMILA BALBUENA on: 10/16/2025 07:53 AM Modules accepted: Orders * Telephone Encounter - Lyudmila Balbuena MD - 10/15/2025 10:27 AM EST No need for the test. Will send your prescription of Repatha. documented in this encounter Plan of Treatment DateTypeDepartmentCare Team (Latest Contact Info)Zswxsgzklwr32/07/2026 2:40 PM ESTOffice Visit Rheumatology [address] [place] [address] Giovana Powell MD [address] [place] [address] Return for Nov 2025 for OP and rev results.11/08/2025 7:30 AM ESTInfusion Center Infusion [address] [place] [address] Entyvio x 8 weeks11/13/2025 8:00 AM ESTAppointment Gastroenterology [address] [place] [address] Brayan Wallace MD [address] [place] [address] nyuvqrnow66/26/2026 9:20 AM ESTOffice Visit Spine Medicine [address] [place] [address] [place] [address] Maryann Jose Sergo, DO [address] [place] [address] low back pain01/03/2026 7:30 AM ESTInfusion Center Hematology/Oncology [address] [place] [address] [place] [address] Entyvio x 8 weeks01/17/2026 8:30 AM EDTNurse Visit Cardiology [address] [facility] [place] [address] Inclisiran 3 nvnvqc8502/28/2026 7:30 AM EDTInfusion Center Hematology/Oncology [address] [place], [place] [address] [address] Entyvio x 8 weeks04/25/2026 7:30 AM EDTInfusion Center Hematology/Oncology [address] [place] [address] [place] [address] Entyvio x 8 weeks09/03/2026 7:45 AM ESTOffice Visit Dermatology [address] [place] [address] Rajesh Boudreaux MD [address] [place], [place] [id number] 1 year follow up09/06/2026 8:30 AM ESTOffice Visit Cardiology [address] [facility] [place] [address] Lyudmila Balbuena MD [address] [facility] [place] [address] 1 year (around 09/04/2026), rs from ocumented as of this encounter Visit Diagnoses Diagnosis Mixed hyperlipidemia- Primary documented in this encounter Care Teams Team MemberRelationshipSpecialtyStart DateEnd Date Eddie Rabago MD PCP - GeneralFamily Srbyiesh99/25/14 Eddie Rabago MD [address] [place] [address] ReferringFamily Medicine03/21/24documented as of this encounter
--- OUTSIDE RECORDS SUMMARY | 2025-10-22 07:19 | XMS_ITS | Patient Health Record ---
Author Organization [facility] in [place] Address [address] [place] [address] Care Team Providers Care Fur Blower Operator Name Role Phone Ruben Dunn Primary Care Provider Allergies Allergen (clinical drug ingredient) Drug/Non Drug Allergy documented on EMR Reaction Allergy Type Onset Date Status ciprofloxacin Ciprofloxacin HCl rash Drug Allergy ActiveezetimibeZetiajoint painDrug AllergyActiveSubstance with sulfonamide structure and antibacterial mechanism of action (substance)Sulfa Antibioticsrash Drug AllergyActive Results Component Value Reference Range Notes Occult Blood* Reviewed date:05/15/2025 09:10:04 PM Interpretation: Performing Lab: Notes/Report: [facility] , Occult Blood Negative Performing Lab:see noteML - [facility] LBCBC AUTO DIFF Reviewed date:05/14/2025 12:50:24 PM Interpretation: Performing Lab: Notes/Report: [facility] ,White Blood Count6.74.0-11.0 10 3/uLRed Blood Count4.794.70-6.10 10 6/uL Vzopeikynw57.414.0-18.0 g/aDNkeugemmod62.942.0-54.0 %Mean Corpuscular Yosghe85.7 80.0-94.0 fLMean Corpuscular Frwdwjsrdu25.125.9-34.0 pgMean Corpuscular HGB Conc 32.129.9-35.2 g/dLRed Cell Distribution Width13.311.0-15.0 %Platelet Xbfhu591 150-450 10 3/uLMean Platelet Volume9.59.5-13.5 fLNeutrophils Percent Auto66.9 43.0-75.0 %Lymphocytes Percent Auto21.220.5-60.0 %Monocytes Percent Auto8.51.7- 12.0 %Eosinophils Percent Auto2.20.9-7.0 %Basophils Percent Auto0.60.2-2.0 % Immature Granulocytes Pct Auto0.60.0-0.5 %Neutrophils Absolute Auto4.51.4-6.5 10 3/uLLymphocytes Absolute Auto1.41.2-3.8 10 3/uLMonocytes Absolute Auto0.60.3-0.8 10 3/uLEosinophils Absolute Auto0.20.0-0.7 10 3/uLBasophils Absolute Auto0.00.0- 0.1 10 3/uLImmature Granulocytes Abs Auto0.040.00-0.03 10 3/uLPerforming Lab:see noteML - [facility] LBGLYCOHEMOGLOBIN A1C Reviewed date:05/14/2025 12:50:24 PM Interpretation: Performing Lab: Notes/Report: [facility] ,Glycohemoglobin A1C5.44.5-6.2 % ADA RECOMMENDED LIMIT 4.0 - 6.0 > 7.0 ADA THERAPEUTIC TARGET < 7.0 ACTION SUGGESTED Estimated Average Mrovlxo235Ypzlhtpume Lab:see noteML - [facility] LB US renal bladder Reviewed date:02/01/2025 05:27:51 PM Interpretation: Performing Lab: Notes/Report: Source Facility: [place] [address] [place] [address] Ultrasound Report Signed Patient: SHANTELL SEGOVIA MR#: [id number] : 1955 Acct:[id number] Age/Sex: 69 / M ADM Date: 02/01/25 Loc: US Attending Dr: King Dunn M.D. Ordering Physician: King Dunn M.D. Date of Service: 02/01/25 Procedure(s): US renal bladder Accession Number(s): [id number] cc: King Dunn M.D. [place] [address] Patient Name: SHANTELL SEGOVIA MRN: [id number] date: 1955 Sex: M Assigned Patient Location: US Current Patient Location: US Accession/Order Number: [id number] Exam Date: 02/01/2025 12:40 Report Date: 02/01/2025 12:43 At the request of: KING DUNN MD Procedure: US renal bladder BILATERAL RENAL AND BLADDER ULTRASOUND CLINICAL HISTORY: Chronic right flank pain M54.50 COMPARISON: None Estimation of renal size is approximately 11.4 cm on the right and 10.9 cm on the left. A 5 mm echogenic focus is visualized at the inferior pole of the right kidney where a stone is not excluded. No hydronephrosis is seen. No renal mass lesions were imaged. There is no perinephric fluid. The urinary bladder is partially distended with a volume of 282 mL. No contour or intraluminal abnormalities are seen. Bilateral ureteral jets are visualized. The post void bladder residual is 24 mL. US/US renal bladder IMPRESSION: NO OBSTRUCTIVE UROPATHY. POSSIBLE RIGHT NEPHROLITHIASIS. Impression dictated by: Yoli Hernández M.D.02/01/2025 12:43 PM Dictation Location: [place] [address] Electronically authenticated by: [id number] Y Date: 02/01/2025 12:43 Dictated By: Yoli Hernández M.D. Signed By: 02/01/25 1246 DD/ 1243 TD/TT: Work Distributor:TSH Reviewed date:05/14/2025 01:19:30 PM Interpretation: Performing Lab: Notes/Report: [facility] ,Thyroid Stimulating Hormone1.9930.358-3.740 uIU/mLPerforming Lab:see noteML - [facility] LBT4 Reviewed date:05/14/2025 01:19:30 PM Interpretation: Performing Lab: Notes/Report: [facility] ,T4 Thyroxine8.804.50-12.10 ug/dLPerforming Lab:see noteML - [facility] LBPROF 14(COMP METB) Reviewed date:05/14/2025 01:19:30 PM Interpretation: Performing Lab: Notes/Report: [facility] ,Sszknz343231-226 mmol/LPotassium4.13.5-5.1 mmol/LCueymeyw72332-937 mmol/LCarbon Vpmplxp10.521.0-32.0 mmol/LAnion Gap13.1Luwsjox5077-689 mg/dLBlood Urea Nitrogen 11.07.0-18.0 mg/dLCreatinine0.800.70-1.30 mg/dLEstimated GFR ( Alfreda>60 >=60 mL/min/1.73m 2Estimated GFR (Non- Nat>60>=60 mL/min/1.73m 2BUN Creatinine Ratio13.0Drplxnn2.78.5-10.1 mg/dLBilirubin Total0.70.2-1.0 mg/dL Aspartate Amino Tkonhfyvdsv8156-97 U/LAlanine Cnuwzasqsgvokcba4507-33 U/L Alkaline Jpfolupnwpz8026-715 U/LTotal Protein7.06.4-8.2 g/dLAlbumin Level3.93.4- 5.0 g/dLGlobulin3.1Albumin Globulin Ratio1.3Performing Lab:see noteML - [facility] LBLIPID PROFILE Reviewed date:05/14/2025 01:19:30 PM Interpretation: Performing Lab: Notes/Report: [facility] ,Ywzaooglljlxz559<=150 mg/gTJmccpwrhlgb853<=200 mg/dLHDL Cgsnurvzkgj0134-13 mg/dL > or =60 mg/dl - LOW CARDIOVASCULAR RISK <40 mg/dl - HIGH CARDIOVASCULAR RISK LDL Cholesterol Eyiteuhnye403.0 130-159 mg/dl BORDERLINE HIGH >190 mg/dl VERY HIGH 100-129 mg/dl NEAR OR ABOVE OPTIMAL 160-189 mg/dl HIGH <100 mg/dl OPTIMAL VLDL VOACKEQHGTW05.8Chol HDL Ratio5.1 3.3 - 4.4 LOW RISK >11.0 HIGH RISK 7.1 - 11.0 MODERATE RISK 4.4 - 7.1 AVERAGE RISK Performing Lab:see noteML - [facility] LBFREE T3 Reviewed date:05/14/2025 01:19:30 PM Interpretation: Performing Lab: Notes/Report: [facility] ,Free T32.662.18-3.98 pg/mLPerforming Lab:see noteML - [facility] LB Reason For Referral Diagnosis 1 Low back pain, unspe cified (M54.50) Referral Organization [facility] Medicine Referring Provider First Name Ruben Referring Provider Last Name Hima Referring Provider Speciality [facility] Referred Provider Gualberto Dao Referred Provider Specialty Orthopedic S urgery Referral Priority Routine Medications Medication SIG (Take, Route, Frequency, Duration) Notes Start Date End Date Status Nitroglycerin 0.4 MG 1 tablet under the tongue and allow to dissolve as needed. Take every 5 minutes up to 3 times if chest pain persists Sublingual Q 5 min as needed for chest pain ActiveNexIUM 40 MG1 capsule Orally Once a dayActiveAmoxicillin-Pot Clavulanate 875-125 MG1 tablet Orally every 12 hrs; Duration: 10 days5ActiveZyrTEC Allergy 10 MG1 tablet Orally Once a dayActiveVerapamil HCl ER 180 MG1 tablet Orally Once a day; Duration: 90 daysActiveEntyvio 300 MGas directed Intravenous every 8 weeksActiveCalcium 280 MGas directed OrallyActiveLevothyroxine Sodium 112 MCGTAKE 1 TABLET DAILY IN THE MORNING ON AN EMPTY STOMACHActiveFlonase Allergy Relief 50 MCG/ACT1 spray in each nostril Nasally Once a dayActive predniSONE 20 MG3 tablets Orally Once a day; Duration: 5 days5Active Immunizations Vaccine Route Administration Date Status Comme nts Abrysvo Unknown 11/03/2023 Administered Flu, Fluad (15006) 65 yrs + High Dose Seasonal (6183-5276)Mgqfgvk4909/07/2024 AdministeredFlu, Fluad (83401) 65 yrs and older, single-dose syringe () IM Mdljjkifzwlpw67/12/2025AdministeredFlu, Fluad (34589) 65 yrs+, single-dose syringe (5041-6210)Nxdfzba97/22/2021AdministeredFlu, Fluad (14157) 65 yrs+, single-dose syringe ()Omqezrz05/03/2022AdministeredFlu, Flucelvax (01636) 2 yrs+, single-dose syringe (9437-8824)Rbfiyuf0407/15/2020AdministeredFlu, Fluzone High-Dose () (45513) 65 yrs+Nwgnlzz55/02/2023Administered Pneumococcal (Pneumovax 23)Aphqmqz1808/13/2021dministeredPneumococcal (Prevnar 13)Fdnhtsi7108/06/20208212JwdcvyjnkhggSWME-YFD-7 (COVID 19 Moderna - Booster 0.25mL) Bphqdzx4712/14/20205518HpxkmisecsvfEDYR-PQJ-7 (COVID 19 Moderna - Booster 0.25mL) Uwbyktt6101/11/20214611UkrsjxgvmgofFNGS-RJD-4 (COVID 19 Moderna - Booster 0.25mL) Sppqwld8809/12/2021dministeredTdap (Boostrix)Psuibab6404/07/2016AdministeredTwinrix - Hep A and Hep ZSjaorqw17/02/2023dministeredTwinrix - Hep A and Hep BUnknown 10/02/2023dministeredZOSTER (SHINGLES) VACCINE (HZV)Njjuxhl0501/12/2020 Administered Social History Tobacco Use: Social History Observation Description Date Details (start date - stop date) Never Smoker NA - NA Tobacco Use/Smoking Question Answer Notes Patient is a nonsmoker Alcohol Screen (Audit-C) Question Answer Notes Did you have a drink containing alcohol in the p ast year? Yes How often did you have 6 or more drinks on one occasion in the past year?Never (0 point)How many drinks did you have on a typical day when you were drinking in the past year?1 or 2 drinks (0 point)How often did you have a drink containing alcohol in the past year?Weekly (3 points)Vtiwem7KefjlmdndnevbqHmnevtcyGQNKG-M (Standard) Question Answer Notes Did you have a drink containing alcohol in the p ast year? Yes How often did you have six or more drinks on one occasion in the past year?Never (0 point)How many drinks did you have on a typical day when you were drinking in the past year?1 or 2 drinks (0 point)How often did you have a drink containing alcohol in the past year?2 to 3 times a week (3 points)Hjjqjz4Scoiqsicofhiyx Negative Problems Problem Type SNOMED Code ICD Code Onset Dates Problem Status W/U Status Risk Notes Problem Chronic pain (48966222) Other chronic aurelia n (G89.29) ActiveconfirmedProblemNuclear senile cataract (545479917)Age-related nuclear cataract, bilateral (H25.13)ActiveconfirmedProblemChronic sinusitis (68740443) Chronic sinusitis, unspecified (J32.9)ActiveconfirmedProblemArthralgia of the upper arm (949466880)Pain in right elbow (M25.521)ActiveconfirmedProblem Degeneration of thoracic intervertebral disc (61811102)Other intervertebral disc degeneration, 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)ActiveconfirmedProblemDegeneration of lumbar intervertebral disc (26201940)Other intervertebral disc degeneration, lumbar region (M51.36)ActiveconfirmedProblemLumbar radiculopathy (811795098) Radiculopathy, lumbar region (M54.16)ActiveconfirmedProblemPain in thoracic spine (991647711)Pain in thoracic spine (M54.6)ActiveconfirmedProblemPain in limb (80660268)Pain in unspecified limb (M79.609)ActiveconfirmedProblem Palpitations (66308877)Palpitations (R00.2)ActiveconfirmedProblemSnoring (41616124)Snoring (R06.83)ActiveconfirmedProblemLocalized swelling, mass and lump, left upper limb (R22.32)ActiveconfirmedProblemChest pain (64133123)Chest pain (R07.9)ActiveconfirmedProblemHypothyroidism (47670203)Hypothyroidism (E03.9)ActiveconfirmedProblemNeck pain (24027413)Neck pain (M54.2)Active confirmedProblemBreast pain (35657640)Breast pain (N64.4)ActiveconfirmedProblem Peripheral venous insufficiency (01355810)Venous insufficiency (I87.2)Active confirmedProblemPain of left lower leg (680454852468672)Pain of left lower leg (M79.662)ActiveconfirmedProblemGout (51718462)Gout (M10.9)ActiveconfirmedProblem Sleep apnea (34952303)Sleep apnea (G47.30)ActiveconfirmedProblemErectile dysfunction (779825754)Erectile dysfunction (N52.9)ActiveconfirmedProblemEczema (14819413)Eczema (L30.9)ActiveconfirmedProblemCoronary artery disease (83256897) CAD (coronary artery disease) (I25.10)ActiveconfirmedProblemArthralgia of the pelvic region and thigh (986788400)Hip pain, left (M25.552)Activeconfirmed 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)ActiveconfirmedProblemSerous otitis media (91781947)Serous otitis media (H65.90)ActiveconfirmedProblemWell adult (485242926)Well adult (Z00.00)ActiveconfirmedProblemDysphagia (09949972) Dysphagia (R13.10)ActiveconfirmedProblemDiverticulitis (09445494)Diverticulitis (K57.92)ActiveconfirmedProblemExternal hemorrhoids (92909019)External hemorrhoids (K64.4)ActiveconfirmedProblemPlantar fasciitis (620351627)Plantar fasciitis (M72.2)ActiveconfirmedProblemParonychia (41171404)Paronychia (L03.019) ActiveconfirmedProblemComplex regional pain syndrome, type II, lower limb (071399574)Causalgia of left lower limb (G57.72)ActiveconfirmedProblemGroin pain (894500028)Groin pain (R10.30)ActiveconfirmedProblemGoiter (2233726)Goiter (E04.9)ActiveconfirmedProblemBenign prostatic hyperplasia (874510813)Benign prostatic hyperplasia (N40.0)ActiveconfirmedProblemLump (1918761)Lump (R22.9) ActiveconfirmedProblemSeasonal allergic rhinitis (076518587)Allergic rhinitis, seasonal (J30.2)ActiveconfirmedProblemAcute bronchiolitis (5173935)Acute bronchiolitis (J21.9)ActiveconfirmedProblemEdema (461073944)Bilateral leg edema (R60.0)ActiveconfirmedProblemGastro-esophageal reflux disease (567219904)Gastro- esophageal reflux disease (K21.9)ActiveconfirmedProblemUlcerative colitis (15034488)Colitis, ulcerative (K51.90)ActiveconfirmedProblemRectal pain (41756769)Pain, rectal (K62.89)ActiveconfirmedProblemHypercholesterolemia (59910077)Hypercholesterolemia (E78.00)ActiveconfirmedProblemDisease caused by Severe acute respiratory syndrome coronavirus 2 (disorder) (633123798)COVID-19 virus infection (U07.1)ActiveconfirmedProblemLow back pain (488416285)Low back pain, unspecified (M54.50)Activeconfirmed Vital Signs Temperature 98.3 degrees Fahrenheit 06/20/2025 Blood pressure hanakivxb44 mm Hg06/20/20258167Fgrmrm09 in06/20/2025lood pressure mm Hg06/20/20252348Beyigc769.0 lbs06/20/2025BMI23.82 kg/m206/20/2025 Procedures Procedure Date Ordered Date Performed Result Body Sit e Colonoscopy 01/01/2025 Normal Encounters Encounter Location Date Provider Diagnosis [facility] [address] [place] [address] 01/26/2025 Ruben Dunn [facility] [place] [address] 01/30/2025[facility] [place] [address]/12/2024[facility] [place] [address]/05/2025Doug HoyLow back pain, unspecified M54.50 [facility] [place] [address] 04/19/2025[facility] [facility] [address]/06/2025[facility] [place] [address]/[facility] [place] [facility] [place] [address]/Doug HoyHypercholesterolemia E78.00[facility] [facility] [place] [address]/[facility] [place] [facility] [place] [address]/[facility] [place] [facility] [place] [address]/[facility] [place] [facility] [place] [address]/[facility] [place] [facility] [place] [address]/08/2025 [facility] [place] [facility] [place] [address]/Doug HoyBreast pain N64.4B[facility] [place] [facility] [place] [address]/Doug HoyAcute non-recurrent sinusitis, unspecified location J01.90 and Nasal congestion R09.81[facility] [place] [facility] [place] [address]/10/2025 [facility] for [facility] L75XoxnftbC[facility]jos [facility] [place] [facility] [place] [address]/06/2025Doug HoyEncounter for Medicare annual wellness exam Z00.00[facility] [place] [facility] [place] [address]/Doug HoyChest pain R07.9 ; Hypothyroidism E03.9 ; Gout M10.9 ; CAD (coronary artery disease) I25.10 ; Dysphagia R13.10 and Low back pain, unspecified M54.50[facility] [place] [facility] [place] [address]/05/2025Doug HoyLow back pain, unspecified M54.50 [facility] [place] [address] 03/05/2025Doug HoyGroin pain R10.30 Assessments Encounter Date Diagnosis (ICD Code) Assessment Notes Treatment Notes Treatment Clinical Notes Section Notes 01/26/2025 Chest pain (ICD-10 - R07.9) 01/26/2025Hypothyroidism (ICD-10 - E03.9)needs labs02/05/2025Low back pain, unspecified (ICD-10 - M54.50)03/05/2025Groin pain (ICD-10 - R10.30)05/08/2025 Encounter for Medicare annual wellness exam (ICD-10 - Z00.00)patient presents to the office for a initial medicare wellness appointment. anxiety/depression and s afety screening was completed without concerns, patient completed a slums memory test scoring 28/30, vision screening was completed and the patient scored 20/10. medications were reviewed and the patient is taking all medications as prescribed. patient is up to date on dexa scan, colonoscopy and vaccines. Patien is due for yearly labs a total of 20 minutes was spent with the patient 5Breast pain (ICD-10 - N64.4)5Acute non-recurrent sinusitis, unspecified location (ICD-10 - J01.90)Rest and drink more liquids, especially water. You may use a humidifier or vaporizer to help keep the drainage moist. Auvn-nkc-nydqgyh Nasal Saline may help the stuffy and runny nose. Use Ibuprofen and or Tylenol as needed for fever, chills, body aches or pain. Children 5 years old should not be given sfdc-qfo-nqksgua cough and cold medications such as guaifenesin and dextromethorphan. If you're over age 5, you may try gdrn-yjk-xkcbojw cold medications such as guaifenesin and dextromethorphan, or multi-symptom cold reliever such as Dayquil to help reduce the symptoms. Antibiotics have been prescribed. You should take these until completed and follow the directions. Antibiotics can sometimescause upset stomach, and in rare cases, serious allergic reactions or serious gastrointestinal problems. If you start having severe abdominal pain, severe vomiting, or bloody diarrhea, you should be reevaluated by your physician or urgent care immediately. Follow up with your Primary Care Provider or return to clinic if symptoms do not improve within 3-5 days10/12/2025Encounter for immunization (ICD-10 - Z23)02/05/2025Low back pain, unspecified (ICD-10 - M54.50)05/14/2025Hypercholesterolemia (ICD-10 - E78.00)06/20/2025Nasal congestion (ICD-10 - R09.81)01/26/2025Gout (ICD-10 - M10.9)checkin labs01/26/2025AD (coronary artery disease) (ICD-10 - I25.10) jdcapu4101/26/2025Dysphagia (ICD-10 - R13.10)on meds01/26/2025Low back pain, unspecified (ICD-10 - M54.50)seeing specialist for low back02/05/2025Other Recommended to rest and use a heating pad on the area. Take NSAIDs for pain as needed Plan Of Treatment Pending Test Test Name Order Date HEMOGLOBIN A1C (GLYCO) 01/26/2025 LIPID PANEL (CHOL/TRIG/HDL/LDL) 01/27/20 25 URIC ACID 01/26/2025 Urinalysis Microscopic 01/26/2025 COMPREHENSIVE METABOLIC PROFILE WITH GFR 05/08/2025 OCCULT BLOOD, FECAL, IMMUNOASSAY 025 Cardiolyte Stress Test 08/02/2023 CBC W/AUTO DIFF 05/08/2025 SARS COVID-2 NASAL - PCR 12/10/2023 CULTURE URINE 01/26/2025 LIPID PROFILE 05/14/2025 LIVER PROFILE 05/14/2025 THYROID PROFILE WITH TSH 08/11/2023 THYROID PANEL (T4/TSH/FREE T3) 4 THYROID PANEL (T4/TSH/FREE T3) 4 THYROID PANEL (T4/TSH/FREE T3) 5 THYROID PANEL (T4/TSH/FREE T3) 5 MM diagnostic mammo BI 06/13/2025 PSA, SCREENING 01/26/2025 BI US BREAST COMPLETE LEFT 06/13/2025 Lipid Panel 05/08/2025 CMP (COMP MET REILLY) w/eGFR CKD-EPI 2024 CBC WITH DIFF 01/26/2025 Insurance Providers Payer Name Payer Address Payer Phone Subscriber Number Group Number Insured Name Patient Relationship to Insured Coverage Start Date Coverage End Date [place] [address] [place] [address] [id number] Le Segoviaelf - patient is the insuredLUMICO MEDICARE SUPPLEMENTPO B[address] [address] [place] [phone], KevinSelf - patient is the insured Medical (General) History Medical History History ICD Code Venous insufficiency I87.2 Lipoma D17.9 Sleep apnea G47.30 Causalgia of left lower limb G57.72 Snoring R06.83 COVID-19 virus infection U07.1 Pain of left lower leg M79.662 Colitis, ulcerative K51.90 Eczema L30.9 CAD (coronary artery disease) I25.10 Palpitations R00.2 Diverticulitis K57.92 Hypothyroidism E03.9 Lump R22.9 Neck pain M54.2 Well adult Z00.00 External hemorrhoids K64.4 Gout M10.9 Plantar fasciitis M72.2 Pain in unspecified limb M79.609 Low back pain, unspecified M54.50 Pain, rectal K62.89 Chronic sinusitis, unspecified J32.9 Bilateral leg edema R60.0 Hip pain, left M25.552 Erectile dysfunction N52.9 Benign prostatic hyperplasia N40.0 Age-related nuclear cataract, bilateral H25.13 Goiter E04.9 Chest pain R07.9 Dysphagia R13.10 Allergic rhinitis, seasonal J30.2 Hypercholesterolemia E78.00 Gastro-esophageal reflux disease K21.9 left great toe fracture Surgical History Surgery Date(Month/Year) Bilateral Rotator Cuff Surgeries IqaixmjdzizgkHqoazzhfndeBveizhcjpqm92/2025Hernia RepairHospitalization History Reason Date(Month/Year) see above
--- OUTSIDE RECORDS SUMMARY | 2025-10-22 07:19 | XMS_ITS | Clinical Summary ---
Author Organization [facility] Address [address] [place] [address] Care Team Providers Care Center Consultant Name Role Phone Eddie Rabago MD Primary Care Provider [phone] Allergies Active AllergyReactionsCriticalityNoted DateCommentsCiprofloxacinUnknown 03/12/20230004NjwxlgjlsjafqXhjgkql57/12/2023 Medications MedicationSigDispense QuantityRefillsLast FilledStart DateEnd DateStatus fluticasone (Flonase Allergy Relief) 50 MCG/ACT nasal spray Administer 1 spray into each nostril in the morning.Active esomeprazole (NexIUM) [address] capsule Take 20 mg by mouth in the morning. Take before meals.Active cetirizine (ZyrTEC) 5 MG tablet Take 5 mg by mouth. Taking every other dayActive levothyroxine (Synthroid, Levoxyl) 150 MCG tablet 150 mcg in the morning. Take before meals.06/10/2015ctive nitroglycerin (Nitrostat) 0.[address] 0.4 mg under the tongue every 5 (five) minutes if needed.Active vedolizumab (Entyvio) 300 MG injection Infuse 300 mg into a venous catheter. IV w9pdfniEhkjza verapamil SR (Calan SR) 180 MG ER tablet Take 180 mg by mouth 1 (one) time each day at the same time.Active Calcium Carbonate-Vitamin D (CALCIUM PLUS VITAMIN D PO) Take by mouth.Active acetaminophen (Tylenol) 325 MG tablet Take by mouth.Active Active Problems ProblemNoted DateDiagnosed DateLateral epicondylitis, right elbow09/13/2023ge- related nuclear cataract of both eyes07/12/2023Vitreous floaters of both eyes 07/12/2023ry eyes07/12/2023lepharitis of upper and lower eyelids of both eyes 07/12/2023egenerative disc disease, fifuegnw41/17/2023Spasm of thoracic back destjt8306/17/2023VD (posterior vitreous detachment), right eye04/27/2023 Encounters DateTypeDepartmentCare JuajQlinqefxhlu04/26/2025 9:30 AM EDTOffice Visit [facility] [address] [place] [id number] Win Edmondson DO Age-related nuclear cataract of both eyes (Primary Dx); Dry eyes; Blepharitis of upper and lower eyelids of both eyes, unspecified type07/27/2025 Bamboo flowsheet [facility] [address] [place] [id number] Win Edmondson DO 07/27/2025Travelfrom Last 3 Months Immunizations ImmunizationAdministration DatesNext DueABRYSVO - Respiratory syncytial virus (RSV), vaccine, bivalent, protein subunit RSV prefusion F, diluent reconstituted, 0.5 mL, PF01Hep A / Hep 10/02/2023,09/02/2023Influenza, High Dose Seasonal, Preservative Free09/07/2024Influenza, High-dose Seasonal, Quadrivalent, Preservative Free10/02/2023Influenza, Seasonal, Quadrivalent, Zqifzrywph01/03/2022,07/23/2021Influenza, Ujxmflzwtzk76/01/2020Influenza, injectable, MDCK, preservative free, pygurnhymgpg86/14/2020Influenza, injectable, wkjzlsyrxgdv25/03/2014Pneumococcal Conjugate PCV Pneumococcal Polysaccharide [id number]/07/2016Zoster, Recombinant 03/26/2020,01/12/2020 Family History Medical HistoryRelationNameCommentsCancerBrotherDavid WadsworthHeart disease FatherWilliam WadsworthMacular degenerationFatherWilliam WadsworthStrokeFather Vidal HogandsworthVision lossFatherWilliam SamiradsworthCancerFather's SisterDaisy HumbertBroken bonesMotherGenevieve WadsworthHeart diseaseMotherGenevieve WadsworthOsteoporosisMotherGenevieve WadsworthStrokeMotherGenevieve Luca Thyroid diseaseMotherGenevieve WadsworthPancreatic cancerOtherBrotherCancer SisterKathleen KramerRelationNameStatusCommentsBrotherDavid WadsworthFather Vidal HogandsworthDeceasedFather's SisterJuwane HumbertMotherGenevieve Luca DeceasedOtherBrotherDeceasedSisterKathleen Jones Social History Tobacco UseTypesPacks/DayYears UsedDateSmoking Tobacco: NeverSmokeless Tobacco: NeverAlcohol UseStandard Drinks/WeekCommentsYes1 (1 standard drink = 0.6 oz pure alcohol)Only OccasionalSex and Gender InformationValueDate RecordedSex Assigned at NgyikHqcj19/23/2023 10:03 AM EDTLegal AzrViwh7201/13/2023 7:19 PM EDTGender XumdzqnaQpaz22/23/2023 10:03 AM EDTSexual MdjajlbpjtlCdgoujhz18/23/2023 10:03 AM EDT Last Filed Vital Signs Vital SignReadingTime TakenCommentsBlood Pressure--Pulse--Temperature-- Respiratory Rate--Oxygen Saturation--Inhaled Oxygen Concentration--Ohupwd22.8 kg (165 lb)02/07/2025 8:31 AM ZFLWgmexf767.8 cm (5' 10 )02/07/2025 8:31 AM EDTBody Mass Index23.68002/07/2025 8:31 AM EDT Plan of Treatment DateTypeDepartmentCare Team (Latest Contact Info)Wdtejfpntkm14/30/2026 8:45 AM EDTOffice Visit [facility] [address] [place] [id number] Win Edmondson, DO [address] [place] [address] Health MaintenanceDue DateLast DoneCommentsCT Kdwbefcvdevf1955FIT-DNA 1955FIT1955FOBT07/24/19551094Fpscbndqzsyqj1955OVID-19 Vaccine ( season)/10/2021, 01/11/2021, 12/14/2020Influenza Vaccine (#1)/05/2024, 10/02/2023, 09/03/2022, Additional history exists Nzrntchnvxn90/04/64819401/02/2025, 01/02/2025, 11/10/2022, Additional history existsColorectal Cancer Vxklqaizd34/04/2035Pneumococcal Vaccine: 65+ Years Xtcbqrjuo82/13/2021, 08/06/2020 Insurance Care Teams Team MemberRelationshipSpecialtyStart DateEnd Eddie Rabago MD [address] [place] [address] [facility]03/23/23
--- OUTSIDE RECORDS SUMMARY | 2025-10-22 07:20 | XMS_ITS | Clinical Summary ---
Author Organization [facility] Address [address] [place] [address] Care Team Providers Care Form Building Supervisor Name Role Phone Eddie Rabago MD Primary Care Provider [phone] Eddie Rabago MD Unavailable Allergies Active AllergyReactionsCriticalityNoted DateCommentsCiprofloxacinRashLow 12/08/2016 Other reaction(s): Intolerance-unknown Sulfa (Sulfonamide Antibiotics)Bnkswlw6312/08/2016 Other reaction(s): Intolerance-unknown Medications MedicationSigDispense QuantityRefillsLast FilledStart DateEnd DateStatus fluticasone (FLONASE) 50 mcg/actuation nasal spray Use 1 Gipsy in the nose at bedtime as needed.Active esomeprazole (NEXIUM) 20 mg capsule Take 20 mg by mouth once daily.Active cetirizine (ZYRTEC) 5 mg tablet Take 5 mg by mouth at bedtime as needed.Active verapamil SR (CALAN SR, ISOPTIN SR) 180 mg CR tablet Take 180 mg by mouth daily at bedtime.10/30/2020Active nitroglycerin sublingual (NITROQUICK) 0.4 mg SL tablet Dissolve 0.4 mg under the tongue at bedtime as needed.08/28/2021ctive levothyroxine (SYNTHROID) 112 mcg tablet Take 112 mcg by mouth daily before breakfast.Active fluocinonide (LIDEX) 0.05 % cream Apply 1 application to affected area two times a day. No longer than 5 days in a row per week 60 g ctive vedolizumab (ENTYVIO) 300 mg injection Vedolizumab (Entyvio) 300 mg recon soln Active 300 MG IV EVERY 8 WEEKS August 29, 2024 12:00am administer over 30 mins03/08/2024ctive ketoconazole (NIZORAL) 2 % cream Apply 1 application to affected area two times a day. 60 g tive rosuvastatin (CRESTOR) 20 mg tablet Take 1 tablet by mouth every Wednesday, Wednesday, and Wednesday. 36 tablet Discontinued ezetimibe (ZETIA) 10 mg tablet Take 1 tablet by mouth once daily. 90 tablet Discontinued evolocumab 140 mg/mL subcutaneous pen injector (REPATHA SURECLICK) Inject 140 mg subcutaneously every 2 weeks. 6 each Discontinued alirocumab (PRALUENT PEN) 150 mg/mL pen Indications:Mixed hyperlipidemiaInject 1 mL subcutaneously every other week. 6 each DiscontinuedHospital, Clinic, or Other Facility Administered MedicationOrdered DoseRouteFrequencyStart DateEnd DateStatus inclisiran 284 mg subcutaneous injection (LEQVIO) 284 mgSQONCE (UP TO 30 DAYS AMB)Ended Active Problems ProblemNoted DateDiagnosed DateCoronary artery disease involving [place] coronary artery of [place] heart without angina fazoxsya48/04/2025Mixed hyperlipidemia 09/04/2025Ulcerative ygmqoch8001/26/2022 Encounters DateTypeDepartmentCare EexyClxzumbrwmn09/18/2025 9:30 AM ESTNurse Visit Cardiology [address] [facility] [place] [address] Mixed hyperlipidemia (Primary Dx)10/17/20257288Tzavzh20/12/2025 Get Medical Advice Cardiology [address] [place] [id number] Paddy Balbuena MD Unable to continue with cholesterol medication.10/11/2025Transcribe Orders Referring Physician [address] [place] [address] Eddie Rabago MD Low back pain, unspecified back pain laterality, unspecified chronicity, unspecified whether sciatica present (Primary Dx)09/13/2025 8:00 AM ESTInfusion Center Infusion [address] [facility] [place] [address] Ulcerative colitis with complication, unspecified location (HCC) (Primary Dx) 09/11/2025Orders Only Infusion [address] [facility] [place] [address] Mohit Delvalle paulo 09/11/2025 Patient Msg Infusion [address] [facility] [place] [address] Provider, [facility] infusion Mrqqtjxr06/05/2025Results Follow-Up Cardiology [address] [place] [address] [place] [address] Paddy Balbuena MD 09/04/2025 8:30 AM ESTOffice Visit Cardiology [address] [place] [address] [place] [address] Paddy Balbuena MD Coronary artery disease involving [place] coronary artery of [place] heart without angina pectoris (Primary Dx); Mixed ieyqhngpzkrind57/30/2025 11:15 AM EDTOffice Visit Dermatology [address] [place] [address] [address] [place], [place] [phone] Rajesh Boudreaux MD Skin cancer screening (Primary Dx); History of basal cell carcinoma; History of actinic keratosis; Diffuse photodamage of skin; Seborrheic keratosis; Inflamed seborrheic keratosis; Pruritus; Boyer angioma; Tinea versicolor; Asteatotic vkfeouncbm25/23/2025Travelfrom Last 3 Months Immunizations ImmunizationAdministration DatesNext Duehepatitis A-hepatitis B (HepA-HepB) vaccine (TWINRIX)10/02/2023,09/02/2023influenza (HD-IIV3) vaccine, age 65+ yr, high dose, trivalent, PF (FLUZONE HIGH-DOSE)09/07/2024influenza (HD-IIV4) vaccine, age 65+ yr, high dose, quadrivalent, PF (FLUZONE HIGH-DOSE)10/02/2023 influenza (IIV4) vaccine, quadrivalent (AFLURIA, FLULAVAL, FLUZONE)10/03/2014 influenza (aIIV4) vaccine, age 65+ yr, quadrivalent, PF (FLUAD QUAD)09/03/2022, 07/23/2021influenza (ccIIV4) vaccine, age 6+ mo, quadrivalent, PF (FLUCELVAX) 07/15/2020influenza vaccine, unspecified waenbzmmxgt48/01/2020pneumococcal conjugate (PCV13) vaccine, 13 valent (PREVNAR 13)08/06/2020pneumococcal polysaccharide (PPV23) vaccine, 23 valent (PNEUMOVAX 23)08/13/2021espiratory syncytial virus (RSV) vaccine, bivalent (ABRYSVO)11/03/2023tetanus diphtheria pertussis (Tdap) vaccine, age 7+ yr (ADACEL, BOOSTRIX)04/07/2016zoster (RZV) vaccine, recombinant (SHINGRIX)03/26/2020,01/12/2020 Family History Medical HistoryRelationCommentsPancreatic CancerBrotherCervical CancerSister RelationStatusCommentsBrotherPaternal AuntAliveSister Social History Tobacco UseTypesPacks/DayYears UsedDateSmoking Tobacco: NeverSmokeless Tobacco: Never Tobacco Cessation:Counseling Given: Yes Alcohol UseStandard Drinks/WeekCommentsYes0 (1 standard drink = 0.6 oz pure alcohol)occassionalPHQ-2AnswerDate RecordedPHQ-2 gfrfj5315Area Deprivation IndexAnswerDate RecordedNational Score (1-100), lower number is lower dthd711504/01/2023State Score (1-10), lower number is lower cwvw208 Data from: https://www.neighborhoodatlas.medicine.[facility].edu/. Last address used for xtpuxkphbxm[address]04/01/2023Sex and Gender InformationValueDate RecordedSex Assigned at KprlcYlkl93/21/2021 2:45 PM ESTLegal VzlVefr12/25/2014 11:14 AM ESTGender QsjvicxaDmes07/21/2021 2:45 PM ESTSexual OrientationStraight 10/21/2021 2:45 PM EST Last Filed Vital Signs Vital SignReadingTime TakenCommentsBlood Wbzdluot624/6209/13/2025 7:57 AM EST Dhvra954709/13/2025 7:57 AM DLIHyeezunowdo71.1 ??C (97 ??F)09/13/2025 7:57 AM EST Respiratory Jhfc447811/13/2024 7:57 AM ESTOxygen Ltirjqvuzs72%09/13/2025 7:57 AM ESTInhaled Oxygen Concentration--Ovutxu98.9 kg (165 lb 2 oz)09/13/2025 7:57 AM OIPAgeoli059.8 cm (5' 10 )06/11/2025 2:21 PM EDTBody Mass Index23.69006/11/2025 2:21 PM EDT Plan of Treatment DateTypeDepartmentCare Team (Latest Contact Info)Caowwuhcqrk39/07/2026 2:40 PM ESTOffice Visit Rheumatology [address] [place] [address] Giovana Powell MD [address] [place] [address] Return for Nov 2025 for OP and rev results.11/08/2025 7:30 AM ESTInfusion Center Infusion [address] [place] [address] Entyvio x 8 weeks11/13/2025 8:00 AM ESTAppointment Gastroenterology [address] [place] [address] Brayan Wallace MD [address] [place] [address] nouvdphqp20/26/2026 9:20 AM ESTOffice Visit Spine Medicine [address] [place] [address] Jose Wolf DO [address] [place], [place] [phone] low back pain01/03/2026 7:30 AM ESTInfusion Center Hematology/Oncology [address] [place] [address] Entyvio x 8 weeks01/17/2026 8:30 AM EDTNurse Visit Cardiology [address] [place] [address] Inclisiran 3 cwrgru3002/28/2026 7:30 AM EDTInfusion Center Hematology/Oncology [facility] [place] [address] Entyvio x 8 weeks04/25/2026 7:30 AM EDTInfusion Center Hematology/Oncology [address] [place] [address] Entyvio x 8 weeks09/03/2026 7:45 AM ESTOffice Visit Dermatology [address] [place] [address] [address] [place], [place] [phone] Rajesh Boudreaux MD [address] [place] [address] [address] [place], [place] [phone] 1 year follow up09/06/2026 8:30 AM ESTOffice Visit Cardiology [address] [place] [address] Paddy Balbuena MD [address] [place] [address] 1 year (around 09/04/2026), rs from eal MaintenanceDue DateLast Done CommentsAnnual PCP Team Chronic Disease Visit1973Anxiety Screening 1973Depression Sqnwzfueh86/23/1973CT Dlpoefvvztyj84/23/2000Cologuard (FIT-DNA)2000Fecal Occult Blood07/24/20009965Gaeqfchqyslls05/23/2000Medicare Annual Wellness Visit10/01/2021dvance Directive Gilmepxhlx97/01/2025Covid-19 Vaccine ( season)/10/2021, 01/11/2021, 12/14/2020 Influenza Vaccine (#1)/05/2024, 10/02/2023, 09/03/2022, Additional history existsLDL Fdzgdwwujoa52/05/202511/6828Btojdlubtjs44/04/2026 01/02/2025, 11/10/2022, 2Colorectal Cancer Oljvkobyv75/04/2026 DTaP,Tdap,Td Vaccine (2 - Td or Tdap)606/05/2016Diabetes Screening 804/12/2024, 07/09/2022, 01/13/2022, Additional history existsLipid Dxerbeagf17/05/950607/03/2024, 08/28/2021, 06/30/2021, Additional history exists Shingrix PscqoiyGergswudu97/26/2020, 01/12/2020Pneumococcal Vaccine: 50+ Hjajbydmh91/13/2021, 08/06/2020Hepatitis C PjynolviuFqwtlnedt69/15/2022RSV OrgggavJmqgpueek19/03/2024 Procedures Procedure NamePriorityDate/TimeAssociated DiagnosisCommentsECG COMPLETERoutine 09/04/2025 8:16 AM EST Coronary artery disease involving [place] coronary artery of [place] heart without angina pectoris Mixed hyperlipidemia ECG KVNHMWME64/04/2025 8:16 AM ESTCOMPREHENSIVE METABOLIC MZWCFKcevrmh21/03/2025 7:39 AM EDT Ulcerative colitis without complications, unspecified location (HCC) COLONOSCOPY (THERAPEUTIC)Devqqlu8101/02/2025 3:09 PM EST LIPID PANEL, VORUFDTZASVyklcfk88/05/2024 7:07 AM EST Mixed hyperlipidemia HEPATITIS C ANTIBODY IA WITH DBBGKFRTMTPARelbcue86/15/2022 10:00 AM EDT Ulcerative colitis without complications, unspecified location (HCC) from Last 3 Months or Most Recently Relevant to Health Maintenance Results * ECG COMPLETE (09/04/2025 8:16 AM EST)ComponentValueRef RangeTest Method Analysis TimePerformed AtPathologist SignatureVentricular Obro28YZGTHBWM AND VASCULAR INSTITUTEAtrial Wjhi18PPXFXUOU AND VASCULAR INSTITUTEP-R Qeamdddq282 msHEART AND VASCULAR INSTITUTEQRS Bfajtinm192mgGSHTA AND VASCULAR INSTITUTEQT Nguoeoyf257jiYIDNT AND VASCULAR INSTITUTEQTC Calculation ([place])424msHEART AND VASCULAR INSTITUTECalculated P Stmv13amowssfIRAEU AND VASCULAR INSTITUTE Calculated R [place]-18degreesHEART AND VASCULAR INSTITUTECalculated T Axis9 degreesHEART AND VASCULAR INSTITUTESpecimen (Source)Anatomical Location / LateralityCollection Method / VolumeCollection TimeReceived Time09/04/2025 8:16 AM EST Impressions [facility] - 09/05/2025 5:58 AM EST NORMAL SINUS RHYTHM . ( R in aVL , Sokolow-Escobar ) NONSPECIFIC ST ABNORMALITY ABNORMAL ECG Confirmed by JUAN C MANCERA MD ([id number]) on 09/05/2025 5:58:12 AM Narrative [facility] - 09/05/2025 5:58 AM EST NAME : STEPHEN SPENCER PID : [id number] : 1955 Gender : Male Race : ORD : [id number] Procedure Date : Sep 04 2025 08:16:18 Edit Date : Sep 05 2025 05:58:16 Diagnosis: NORMAL SINUS RHYTHM . ( R in aVL , Sokolow-Escobar ) NONSPECIFIC ST ABNORMALITY ABNORMAL ECG Confirmed by JUAN C MANCERA MD ([id number]) on 09/05/2025 5:58:12 AM Test Reason : Follow Up Location : 145 : [place] ?? Overread By : JUAN C MANCERA MD Edited By : JUAN C MANCERA MD Referred By : Sree, Acquired by : candy, Authorizing ProviderResult TypeResult StatusPaddy Balbuena MDEKGFinal Result Performing OrganizationAddressCity/State/ZIP CodePhone Number [facility] [address] [place] [address] * COMPREHENSIVE METABOLIC PANEL (02/01/2025 7:39 AM EDT)ComponentValueRef Range Test MethodAnalysis TimePerformed AtPathologist SignatureProtein, Total6.46.3 - 8.0 g/dL02/01/2025 4:57 PM EDTCACMC [facility] LABAlbumin4.13.9 - 4.9 g/dL02/01/2025 4:57 PM EDTCACMC [facility] LABCalcium, Total 8.98.5 - 10.2 mg/dL02/01/2025 4:57 PM EDTCACMC [facility] Bilirubin, Total0.40.2 - 1.3 mg/dL02/01/2025 4:57 PM [facility] LABAlkaline Leajxoyqrtv4655 - 113 U/L02/01/2025 4:57 PM [facility] OLJYZZ4924 - 40 U/L02/01/2025 4:57 PM [facility] RDGEQR7600 - 54 U/L02/01/2025 4:57 PM [facility] SWTZtsocol3714 - 99 mg/dL02/01/2025 4:57 PM [facility] LABComment: The [place] Diabetes Association (ADA) provides guidance for cutoff values for fasting glucose andrandom glucose. The ADA defines fasting as no [...] Standards of Medical Care in Diabetes 2016, [place] [employer] Association. Diabetes Care. 2016.39(Suppl 1). GCE266 - 24 mg/dL02/01/2025 4:57 PM [facility] LAB Creatinine0.840.73 - 1.22 mg/dL02/01/2025 4:57 PM [facility] LIGVvysac462533 - 144 mmol/L02/01/2025 4:57 PM [facility] LABPotassium4.33.7 - 5.1 mmol/L02/01/2025 4:57 PM [facility] GWOJkrqnkmd66729 - 107 mmol/L02/01/2025 4:57 PM [facility] HUGHC55723 - 30 mmol/L02/01/2025 4:57 PM [facility] LABAnion Pwn841 - 15 mmol/L02/01/2025 4:57 PM [facility] LABEstimated Glomerular Filtration Rate94>=60 mL/min/1.73m 02/01/2025 4:57 PM EDTCACMC [facility]ALTH[facility] LABComment:Estimated Glomerular Filtration Rate (eGFR) is calculated using the 2020 CKD-EPI creatinine equation. This equation utilizes serum creatinine, sex, and age as parameters. The creatinine assay has traceable calibration to isotope dilution- mass spectrometry. Refer to KDIGO guidelines for clinical interpretation. In patients with unstable renal function, e.g. those with acute kidney injury, the eGFRmay not accurately reflect actual GFR.Specimen (Source)Anatomical Location / LateralityCollection Method / VolumeCollection TimeReceived TimeBloodBLOOD SPECIMEN / UnknownVenipuncture / Bcltzla8002/01/2025 7:39 AM EDT02/01/2025 8:34 AM EDT Narrative Authorizing ProviderResult TypeResult StatusTifmaksim Muñoz APRN.CNPLABORATORY Final ResultPerforming OrganizationAddressCity/State/[facility] CodePhone Number [facility] [address] * COLONOSCOPY (THERAPEUTIC) (01/02/2025 3:09 PM EST)Anatomical RegionLaterality ModalityOtherSpecimen (Source)Anatomical Location / LateralityCollection Method / VolumeCollection TimeReceived Time01/02/2025 3:09 PM EST Narrative 01/02/2025 4:05 PM EST A31 Gastrointestinal Endoscopy Patient Name: Stephen Spencer Procedure Date: 01/02/2025 3:09 PM Date of : 1955 Admit Type: Outpatient Age: 69 Room: A3 [facility] 2 Gender: Male Note Status: Finalized Attending MD: Brayan Wallace MD, [id number] Procedure: ? Colonoscopy Indications: ? High risk colon cancer surveillance: Ulcerative ? colitis with known dysplasia (previous visible ? dysplastic lesion removed completely) Providers: ? Brayan Wallace MD, James Redmond (Fellow) Patient Profile: ? Last Colonoscopy: November 2022. Referring Physician: ?? Joann Muñoz (Referring MD) Medicines: ? Midazolam 4 mg IV, Fentanyl 75 micrograms IV Complications: ? No immediate complications. Requesting Provider: ?? Procedure: ? Pre-Anesthesia Assessment: ? - Prior to the procedure, a History and Physical ? was performed, and patient medications and ? allergies were reviewed. The patient's tolerance of ? previous anesthesia was also reviewed. The risks ? and benefits of the procedure and the sedation ? options and risks were discussed with the patient. ? All questions were answered, and informed consent ? was obtained. Prior Anticoagulants: The patient has ? taken no anticoagulant or antiplatelet agents. ASA ? Grade Assessment: I - A normal, healthy patient. ? After reviewing the risks and benefits, the patient ? was deemed in satisfactory condition to undergo the ? procedure. ? After I obtained informed consent, the scope was ? passed under direct vision. Throughout the ? procedure, the patient's blood pressure, pulse, and ? oxygen saturations were monitored continuously. The ? Colonoscope was introduced through the anus and ? advanced to the terminal ileum. The colonoscopy was ? performed without difficulty. The patient tolerated ? the procedure well. The quality of the bowel ? preparation was excellent. The terminal ileum, ? ileocecal valve, appendiceal orifice, and rectum ? were photographed. Moderate Sedation: ? The administration of moderate sedation was initiated at 15:27. ? Moderate (conscious) sedation was administered by the nurse and ? supervised by the endoscopist. The following parameters were ? monitored: oxygen saturation, heart rate, blood pressure, and ? response to care. Findings: ? The perianal and digital rectal examinations were normal. ? Inflammation was not found based on the endoscopic appearance of the ? mucosa in the colon. This was graded as Machado Score 0 (normal or ? inactive disease). ? A 6 mm polyp was found in the sigmoid colon. The polyp was sessile. ? The polyp was removed with a cold snare. Resection and retrieval were ? complete. ? The exam was otherwise normal throughout the examined colon. ? The terminal ileum appeared normal. ? Virtual chromoendoscopy using NBI was performed throughout the colon- ? no additional lesions were seen. ? Non-bleeding internal hemorrhoids were found during retroflexion. The ? hemorrhoids were small. Impression: ?- Inactive (Machado Score 0) ulcerative colitis. ? - One 6 mm polyp in the sigmoid colon, removed with ? a cold snare. Resected and retrieved. ? - The examined portion of the ileum was normal. ? - Virtual chromoendoscopy using NBI was performed ? throughout the colon- no additional lesions were ? seen. ? - Non-bleeding internal hemorrhoids. Estimated Blood Loss: ??Estimated blood loss: none. Recommendation: ?- Await pathology results. ? - Repeat colonoscopy in 1 year for surveillance ? based on pathology results. ? - Resume previous diet PRN. ? - Patient has a contact number available for ? emergencies. The signs and symptoms of potential ? delayed complications were discussed with the ? patient. Return to normal activities tomorrow. ? Written discharge instructions were provided to the ? patient. ? - Continue present medications. Procedure Code(s): ? --- Professional --- ? 15173, Colonoscopy, flexible; with removal of ? tumor(s), polyp(s), or other lesion(s) by snare ? technique Diagnosis Code(s): ? --- Professional --- ? Z12.11, Encounter for screening for malignant ? neoplasm of colon ? K51.90, Ulcerative colitis, unspecified, without ? complications ? D12.6, Benign neoplasm of colon, unspecified ? D12.5, Benign neoplasm of sigmoid colon CPT copyright 202 [place] [employer]. All rights reserved. The codes documented in this report are preliminary and upon manager commodities review may be revised to meet current compliance requirements. Attending Participation: ? I was present and participated during the entire procedure, including ? non-mast portions, and during the administration and monitoring of ? Moderate Sedation. Scope In: 3:28:39 PM Scope Out: 3:59:39 PM MD Brayan Mejia JP, MD 01/02/2025 4:03:39 PM This report has been signed electronically by Brayan Wallace MD Number of Addenda: 0 Note Initiated On: 01/02/2025 3:09 PM Authorizing ProviderResult TypeResult StatusTifchapisrosa Muñoz KATRINA.CNPDIGESTIVE DISEASEFinal Result * (ABNORMAL) LIPID PANEL, NONFASTING (09/05/2024 7:07 AM EST)ComponentValueRef RangeTest MethodAnalysis TimePerformed AtPathologist SignatureTotal Cholesterol, Nnyaxgoirp624<200 mg/dL09/05/2024 7:09 PM [facility] LABComment: <200 mg/dL, Desirable 200-239 mg/dL, Borderline high >239 mg/dL, High Triglycerides, Rgnvshsmuu89<150 mg/dL09/05/2024 7:09 PM [facility] LABComment: <150 mg/dL, Normal 150-199 mg/dL, Borderline high 200-499 mg/dL, High >499 mg/dL, Very high HDL Cholesterol, Pdrltyesdr94>39 mg/dL09/05/2024 7:09 PM [facility] LABComment: 40-59 mg/dL, Acceptable >59 mg/dL, High: Negative risk factor for coronary heart disease <40 mg/dL, Low: Positive risk factor for coronary heart disease LDL Cholesterol Calculated, Xcjkzszoel399(H)<100 mg/dL09/05/2024 7:09 PM [facility] LABComment: <100 mg/dL, Optimal 100-129 mg/dL, Near optimal/above optimal 130-159 mg/dL, Borderline high 160-189 mg/dL, High >189 mg/dL, Very high Secondary prevention optimal LDL Cholesterol levels are recommended to be < 70 mg/dL Non HDL Cholesterol, Fldymojptv282(H)<130 mg/dL09/05/2024 7:09 PM [facility] LABComment: <130 mg/dL, Optimal 130-159 mg/dL, Near optimal/above optimal 160-189 mg/dL, Borderline high 190-219 mg/dL, High >219 mg/dL, Very high Secondary prevention optimal non HDL Cholesterol levels are recommended to be <100 mg/dL VLDL Cholesterol, Oxreplvfwb82<30 mg/dL09/05/2024 7:09 PM [facility] LABTotal Chol/HDL Ratio, Nonfasting3.96<5.10 mg/dL09/05/2024 7:09 PM [facility] LABLDL/HDL Ratio, Nonfasting2.56(H)<2.54 mg/dL 09/05/2024 7:09 PM [facility] LABComment: Reference: 1. National Cholesterol Education Program ATP III Guideline At-A-Glance Quick Desk Reference: National Heart, Lung, and Blood Leming. National Institutes of Health. 2001: NIH Publication No. 01-3305. 2. An International Atherosclerosis Society position paper: global recommendations for the management of dyslipidemia: executive summary, Atherosclerosis. 2014: 232(2):410-413. Specimen (Source)Anatomical Location / LateralityCollection Method / Volume Collection TimeReceived TimeBloodBLOOD SPECIMEN / UnknownVenipuncture / Unknown 09/05/2024 7:07 AM EST09/05/2024 7:07 AM EST Narrative Authorizing ProviderResult TypeResult StatusPaddy Balbuena MDLABORATORYFinal ResultPerforming OrganizationAddressCity/State/ZIP CodePhone Number [facility] [address] [place] [address], * HEP C AB IA W/CONF SCRN (01/13/2022 10:00 AM EDT)ComponentValueRef RangeTest MethodAnalysis TimePerformed AtPathologist SignatureHep C Antibody IANegative Ucdjwnnl07/15/2022 7:57 PM EDTCACMC [facility] LABComment:The result suggests no evidence of active infection with Hepatitis C virus. Should recent infectionbe suspected, repeat testing may be considered 4-6 weeks after this draw.Specimen (Source)Anatomical Location / LateralityCollection Method / VolumeCollection TimeReceived TimeBloodBLOOD SPECIMEN / UnknownVenipuncture / Larxicw3801/13/2022 10:00 AM EDT01/13/2022 10:00 AM EDT Narrative Authorizing ProviderResult TypeResult StatusJean Broderick Wallace MDLABORATORYFinal ResultPerforming OrganizationAddressCity/State/ZIP CodePhone Number [facility] [address] [facility] [address] [place] [address], from Last 3 Months or Most Recently Relevant to Health Maintenance Insurance Care Teams Team MemberRelationshipSpecialtyStart DateEnd Eddie Rabago MD PCP - GeneralFamily Ztmjwiuf96/25/14 Eddie Rabago MD [address] [place] [address] ReferringFamily Medicine03/21/24
--- OUTSIDE RECORDS SUMMARY | 2025-10-22 07:20 | XMS_ITS | Clinical Summary ---
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 Role Phone Eddie Rabago MD Primary Care Provider [phone] Allergies Active AllergyReactionsCriticalityNoted DateCommentsCiprofloxacinMakeda Swann 11/01/2016 Other reaction(s): Intolerance-unknown Other reaction(s): Intolerance-unknown Sulfa (Sulfonamide Antibiotics)Ykgehxo0511/01/1972 Other reaction(s): Intolerance-unknown Other reaction(s): Intolerance-unknown Medications MedicationSigDispense QuantityRefillsLast FilledStart DateEnd DateStatus cetirizine (ZyrTEC) 5 mg tablet Take 5 mg by mouth if needed each day.Active fluticasone (Flonase) 50 mcg/actuation nasal spray Administer 1 spray into affected nostril(s) if needed each day.Active levothyroxine (Synthroid, Levoxyl) 150 mcg tablet Take 150 mcg by mouth in the morning.09/04/2016Active esomeprazole (NexIUM) [address] capsule Take 20 mg by mouth in the morning.Active vedolizumab (ENTYVIO IV) Infuse into a venous catheter.Active nitroglycerin (Nitrostat) 0.4 mg SL tablet Indications:Other chest painPlace 1 tablet (0.4 mg) under the tongue if needed each day for chest pain. 25 tablet ctive verapamil SR (Calan-SR) 180 mg ER tablet Indications:Chest pain, unspecified typeTAKE 1 TABLET DAILY DIRECTED 30 tablet 5Active Active Problems ProblemNoted DateDiagnosed BnlgYibugwuujp13/29/202404/ge-related nuclear cataract of both eyeslepharitis of upper and lower eyelids of both eyesry eyesVitreous floaters of both eyesegenerative disc disease, ysgsbixr20/17/2023 07/27/2023Spasm of thoracic back ywrlgl03VD (posterior vitreous detachment), right eyellergic qaghmgsp89/31/2022 07/27/20236260Echdzsmun58 Overview (07/27/2023): mild Lxgygirql27EczemaEpicondylitis, lateral, rightstigmatism1 Overview (07/27/2023): glasses Imdhkwx25 Overview (07/27/2023): OTC Nexium Ljizpwloiyob94Hyperopiaoiter08/31/2022 07/27/20237370Wvylyjsuvgtpao54/31/202209/26/2023IBS (irritable bowel syndrome) Neck painRectal bleed08/31/2022 07/27/20235189Ewgonlvlfn24ilonidal cyst Retinal ntvdrfcrji36Shoulder impingement aymtpodo80/31/2022 07/27/2023Spinal sjzwlqde66Varicella1 Rwvyqlhwknjndf73Shinglestypical chest pain07/29/2022 Assessment & Plan (07/29/2022 10:23 AM EDT): Will start imdur as above, recent cardiac CTA- without obstructing CAD, mild CAD from 10/2021. May need to evaluate other etiologies- Pulmonary, GI or musculo-skeletal - F/U with PCP, and GI. Scheduled for sleep study. Noted emphysematous lung changes on Cardiac CTA. RTC [address] Burciaga for further evaluation and management. D/W pt side effects of imdur- headache, lightheadedness, dizziness and to call office for concerns Mixed prbekopklwsozy09/28/2022 Assessment & Plan (07/29/2022 10:24 AM EDT): Recent LDL 138 Aug 21 Repeat lipid profile and LFT since he states he started crestor last September, reports he was intolerant of previous statin prior to crestor and cannot remember the name of statin. Denied myalgias at this time GERD without priqogvcqvi91/28/2022 Assessment & Plan (07/29/2022 12:09 PM EDT): F/U with GI, Continue nexium OTC. Mild coronary artery xgbfjvt2607/29/2022 Assessment & Plan (07/29/2022 12:08 PM EDT): Non obstructing CAD, continue GDMT- crestor, no beta juan r/t verapamil, will start imdur 30 mg daily for long acting nitrate effects- possible microvascular disease or coronary spasm causing symptoms. Denied having GI bleeding or needing blood transfusions with UC. Leg painUlcerative guxsxfs74gatston coronary artery calcium score less than 65665alpitations occydynia Overview (07/27/2023): Added automatically from request for surgery [id number] Benign prostatic ailzkusseos79 Overview (07/27/2023): Progressive lower urinary tract symptoms. Trial of [...] He will let me know next month whenhe returns 04/18/19: Patient having progressive symptoms. Cysto with trilobar hyperplasia. 04/25/19: We talked about options. Will decide after repeat psa 07/11/19: Continued luts. Options discussed including turp. Prostate volume 41 gms. The risks and benefits as outlined in the consent were discussed. All relevant drawings were reviewed. All questionswere answered. The patient expressed understanding and wished to proceed. 09/12/19: TURP. Pathology benign 04/09/20: Successful turp. PVR minimal with no evidence of bladder neck contracture/urethral stricture. PSA 0.69. He is going to continue to get annual screening with Dr. Rabago. If he needs any further urologic assistance I would be happy to see him again Elevated PSA Overview (07/27/2023): 03/14/19: PSA 7.94. Elevated PSA with normal [...] Path benign. reommended repeat psa 6 months Near itryzmp83/13/ Family History Medical HistoryRelationNameCommentsCoronary artery diseaseFatherStrokeFather Coronary artery diseaseMotherRelationNameStatusCommentsFatherMother Social History Tobacco UseTypesPacks/DayYears UsedDateSmoking Tobacco: NeverSmokeless Tobacco: NeverAlcohol UseStandard Drinks/WeekCommentsNot Currently1 (1 standard drink = 0.6 oz pure alcohol)PHQ-2AnswerDate RecordedPatient Health Questionnaire-2 Score UT Safety & EnvironmentAnswerDate RecordedFear of Current or Ex-PartnerNot on file12/23/2023Emotionally AbusedNot on file12/23/2023hysically AbusedNot on 12/23/2023Sexually AbusedNot on file12/23/2023hysically or Sexually AbusedNot on file12/23/2023Sex and Gender InformationValueDate Recorded Sex Assigned at BirthNot on fileLegal PcuDutj9304/29/2022 11:17 PM EDTGender IdentityNot on fileSexual OrientationNot on file Last Filed Vital Signs Vital SignReadingTime TakenCommentsBlood Pxpjzaqs019/7004 1:59 PM EDT Xloff0856/29/2024 1:59 PM EDTTemperature--Respiratory Rate--Oxygen Avydpwtrmr00% 02/28/2024 1:59 PM EDTInhaled Oxygen Concentration--Shbehv45.7 kg (178 lb) 02/28/2024 1:59 PM DWEJoyrbv604.8 cm (5' 10 )02/28/2024 1:59 PM EDTBody Mass Index25.54002/28/2024 1:59 PM EDT Plan of Treatment Health MaintenanceDue DateLast DoneCommentsCT Tumzbtutupln1955Colonoscopy 1955olorectal Cancer Ekxlalmru1955FIT-DNA1955FIT1955 FOBT1955Medicare Annual Wellness (AWV)07/24/19559297Ommaeoqinpint1955 Depression Bdvupiwkl18/23/1967Fall Risk Qbilofuqe68/23/2020COVID-19 Vaccine ( season)2025Influenza Vaccine (#1)/12/2022, 09/03/2022, 07/23/2021, Additional history existsAdult Ayknmsc48Zoster KbtwbdwmAgmfhhbvz15/26/2020, 01/12/2020Pneumococcal Vaccine: 50+ YearsCompleted 08/13/2021, 08/06/2020HIB VaccinesAged OutNo longer eligible based on patient's age to complete this topicHPV VaccinesAged OutNo longer eligible based on patient's age to complete this topicIPV VaccinesAged OutNo longer eligible based on patient's age to complete this topicMeningococcal B VaccineAged OutNo longer eligible based on patient's age to complete this topicMeningococcal VaccineAged OutNo longer eligible based on patient's age to complete this topicRotavirus VaccinesAged OutNo longer eligible based on patient's age to [place] [phone] Care Teams Team MemberRelationshipSpecialtyStart DateEnd Date Eddie Rabago MD [address] [place] [address] [facility] - [facility]07/28/22
== END 2025-10-18 08:01 | disposition home or self-care (01) ==
LOC: FHNEUROLOG 10-22 07:17
PROVIDERS: PCP Family Medicine; Visit Provider Psychiatry & Neurology Neurology
DX: G47.33 Obstructive sleep apnea (adult) (pediatric) (principal)
CPT/HCPCS: G0463